=== PATIENT | female | born 1965 | race Caucasian/White ===

== ENCOUNTER 2017-02-03 12:46 | Emergency (ER) | payer BC ==
--- NOTE | 2017-02-03 13:00 | ER Document Report ---
ED Medical Screen (RME) - General Stated Complaint: CHEST PAIN Time seen by provider: 13:00 Mode of Arrival: Wheelchair Information source: Patient Notes: 51-year-old female presented to ED for chest pain dizziness nausea. I have greeted and performed a rapid initial assessment of this patient. A comprehensive ED assessment and evaluation of the patient, analysis of test results and completion of medical decision making process will be conducted by an additional ED providers. TRAVEL OUTSIDE OF THE [place] IN LAST 30 DAYS: No - Related Data Allergies/Adverse Reactions: aspirin [Aspirin] Allergy (Verified 05/08/16 08:27) Hives Past Medical History - Past Medical History Cardiac Medical History: Reports: Hx Hypertension Neurological Medical History: Reports: Hx Cerebrovascular Accident - 2005 Psychiatric Medical History: Reports: Hx Depression Past Surgical History: Reports: Hx Section, Hx Orthopedic Surgery - jaw - Immunizations Immunizations up to date: Yes Hx Diphtheria, Pertussis, Tetanus Vaccination: Yes
[2017-02-03] MEDS ORDERED: ASPIRIN 81 MG TABLET, CHEWABLE PO ONE (13:01)
[2017-02-03] MEDS ORDERED: FENTANYL CITRATE INJ/PF 100 MCG/2 ML AMPUL ONE (13:10)
[2017-02-03] MEDS ORDERED: TENECTEPLASE INJ 50 MG KIT IV ONE ×2 (13:11→16:30)
[2017-02-03] MEDS ORDERED: CLOPIDOGREL BISULFATE 300 MG TABLET PO ONE (13:17)
[2017-02-03 13:21] LABS: ABSOLUTE BASOPHILS # (AUTO) 0.1 10^3/uL (0.0-0.2); ABSOLUTE EOSINOPHILS # (AUTO) 0.1 10^3/uL (0.0-0.6); ABSOLUTE LYMPHOCYTES (AUTO) 3.2 10^3/uL (0.5-4.7); ABSOLUTE MONOCYTES (AUTO) 1.1 10^3/uL (0.1-1.4); ABSOLUTE NEUT (AUTO) 14.9 10^3/uL (1.7-8.2); BASOPHILS % (AUTO) 0.5 % (0-2); EOSINOPHILS % (AUTO) 0.4 % (0-6); HEMATOCRIT 50.1 % (36.0-47.0); HEMOGLOBIN 17.9 g/dL (12.0-15.5); HGB HCT DIFFERENCE 3.6; LYMPHOCYTES % (AUTO) 16.6 % (13-45); MEAN CORPUSCULAR HEMOGLOBIN 29.8 pg (27.0-33.4); MEAN CORPUSCULAR HGB CONC 35.7 g/dL (32.0-36.0); MEAN CORPUSCULAR VOLUME 83 fl (80-97); MONOCYTES % (AUTO) 5.8 % (3-13); RED BLOOD COUNT 6.01 10^6/uL (3.72-5.28); RED CELL DISTRIBUTION WIDTH 15.6 % (11.5-14.0); SEGMENTED NEUTROPHILS % (AUTO) 76.7 % (42-78); WHITE BLOOD COUNT 19.4 10^3/uL (4.0-10.5)
--- NOTE | 2017-02-03 13:26 | ER Document Report ---
ED Cardiac - General Time seen by provider: 13:05 Mode of Arrival: Wheelchair Information source: Patient TRAVEL OUTSIDE OF THE [place] IN LAST 30 DAYS: No - HPI Patient complains to provider of: Chest pain, Chest tightness, Shortness of breath Was the onset of pain: Sudden Is the pain a: New problem Quality of pain: Sharp Chest pain radiation location: Right jaw, Right arm Cardiac risk factors: Hypertension, Smoker Positive cardiac history: Yes Associated symptoms: Jaw pain <ELANA PRESSLEY - Last Filed: 02/03/17 17:44> <JATIN DAWN - Last Filed: 02/18/17 05:47> - General Chief Complaint: Chest Pain > 30 Stated Complaint: CHEST PAIN Notes: Patient is a 51-year-old female presenting to the emergency department for shortness of breath and chest pain. Patient had an abnormal EKG at triage and was brought back. Patient states her chest pain radiates into her right jaw and right arm. Patient states she has a tooth abscess on the left jaw so it is also in pain but not due to the chest pain. Patient states that she takes oxycodone for her chronic back pain and is on chronic pain management. Patient has a history of hypertension, stroke x1, TIA x2 and ulcers. Patient is a smoker. Patient did not take any aspirin or nitroglycerin prior to arrival; patient was given aspirin in triage. Patient has not drank any EtOH in the past 24 hours however she did have wine coolers on Tuesday. Patient's primary care physician is Dr. Shaw. (ELANA PRESSLEY) - Related Data Allergies/Adverse Reactions: aspirin [Aspirin] Allergy (Verified 02/03/17 14:44) Hives Past Medical History - General Information source: Patient - Social History Smoking Status: Current Every Day Smoker Chew tobacco use (# tins/day): No Frequency of alcohol use: None Drug Abuse: None Family History: None Patient has suicidal ideation: No Patient has homicidal ideation: No - Past Medical History Cardiac Medical History: Reports: Hx Hypertension EENT Medical History: Reports: Other - tooth abscess Neurological Medical History: Reports: Hx Cerebrovascular Accident - 2006, Other - TIA x2 Psychiatric Medical History: Reports: Hx Depression Past Surgical History: Reports: Hx Section, Hx Orthopedic Surgery - jaw - Immunizations Immunizations up to date: Yes Hx Diphtheria, Pertussis, Tetanus Vaccination: Yes <ELANA PRESSLEY - Last Filed: 02/03/17 17:44> Review of Systems - Review of Systems Constitutional: No symptoms reported EENT: No symptoms reported Cardiovascular: See HPI, Chest pain Respiratory: See HPI, Short of breath Gastrointestinal: No symptoms reported Genitourinary: No symptoms reported Female Genitourinary: No symptoms reported Musculoskeletal: No symptoms reported Skin: No symptoms reported Hematologic/Lymphatic: No symptoms reported Neurological/Psychological: No symptoms reported -: Yes All other systems reviewed and negative <ELANA PRESSLEY - Last Filed: 02/03/17 17:44> Physical Exam - Vital signs Interpretation: Tachycardic - General General appearance: Alert, Other - appears uncomfortable In distress: Mild - HEENT Head: Normocephalic, Atraumatic Eyes: Normal Pupils: PERRL Mucous membranes: Moist - Respiratory Respiratory status: No respiratory distress Chest status: Nontender Breath sounds: Normal Chest palpation: Normal - Cardiovascular Rhythm: Regular, Tachycardia Heart sounds: Normal auscultation Murmur: No - Abdominal Inspection: Normal Distension: No distension Bowel sounds: Normal Tenderness: Nontender Organomegaly: No organomegaly - Back Back: Normal, Nontender - Extremities General upper extremity: Normal inspection, Normal ROM, Normal strength General lower extremity: Normal inspection, Normal ROM, Normal strength, Other - equal and bilateral femural and pedis pulses - Neurological Neuro grossly intact: Yes Cognition: Normal Orientation: AAOx4 Sloan Coma Scale Eye Opening: Spontaneous Rawlings Coma Scale Verbal: Oriented Sloan Coma Scale Motor: Obeys Commands Rawlings Coma Scale Total: 15 Speech: Normal - Psychological Associated symptoms: Normal affect, Normal mood - Skin Skin Temperature: Warm Skin Moisture: Dry Skin Color: Other - good perfusion <ELANA PRESSLEY - Last Filed: 02/03/17 17:44> <JATIN DAWN - Last Filed: 02/18/17 05:47> - Vital signs Vitals: Pulse Resp BP Pulse Ox 118 H 29 H 106/67 100 02/03/17 13:02 02/03/17 13:02 02/03/17 13:02 02/03/17 13:02 Pulse Resp BP Pulse Ox 118 H 29 H 106/67 100 02/03/17 13:02 02/03/17 13:02 02/03/17 13:02 02/03/17 13:02 (ELANA PRESSLEY) Course - Laboratory Result Diagrams: 02/03/17 13:06 02/03/17 13:58 <ELANA PRESSLEY - Last Filed: 02/03/17 17:44> - Laboratory Result Diagrams: 02/03/17 13:06 02/03/17 13:58 <JATIN DAWN - Last Filed: 02/18/17 05:47> - Re-evaluation Re-evalutation: 02/03/17 13:42 I personally performed the services described in the documentation, reviewed and edited the documentation which was dictated to my scribe in my presence, and it accurately records my words and actions. Patient seen at 1300 fighting contacted at 1305 fighting callback at [address] Curtis Machado and emtala form filled out. Patient presented to the emergency from several hour history of substernal chest pain associated with shortness of breath jaw radiation arm radiation vomiting substernal to the back. She has history of high blood pressure CVA is a heavy smoker diabetes but denies any history of heart problems has had a stroke in the past. On EKG shows large anterior lateral IA. Initially stated she was allergic to aspirin. When I asked her specifically she said she is not allergic to it the nurse gave her the aspirin she so maybe she is allergic to it she may have had hives when she was a child. She had been given the aspirin had no associated side effects with it. 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 ( JATIN DAWN) - Vital Signs Vital signs: Temp Pulse Resp BP Pulse Ox 98.2 F 94 32 H 141/99 H 100 02/03/17 14:02 02/03/17 14:02 02/03/17 14:02 02/03/17 14:02 02/03/17 14:02 - Laboratory Laboratory results interpreted by me: 02/03/17 02/03/17 02/03/17 13:06 13:58 13:58 WBC 19.4 H RBC 6.01 H Hgb 17.9 H Hct 50.1 H RDW 15.6 H Absolute Neutrophils 14.9 H Sodium 131.5 L Chloride 95 L Glucose 189 H Magnesium 1.1 L* AST 201 H ALT 64 H Alkaline Phosphatase 133 H Creatine Kinase 1205 H CK-MB (CK-2) 92.80 H - EKG Interpretation by Me Additional EKG results interpreted by me: 02/03/17 13:42 EKG #1 sinus tachycardia at 116 bpm extensive anterior lateral infarct different from previous EKG EKG #1 after TNKase sinus rhythm no acute changes still anterior lateral infarct. EKG 30 minutes after lytic sinus rhythm at 88 bpm slight improvement of anterior ST elevations. (JATIN DAWN) Critical Care Note - Critical Care Note Total time excluding time spent on procedures (mins): 45 <JATIN DAWN - Last Filed: 02/18/17 05:47> Discharge <ELANA PRESSLEY - Last Filed: 02/03/17 17:44> <JATIN DAWN - Last Filed: 02/18/17 05:47> - Discharge Clinical Impression: Acute myocardial infarction of anterolateral wall Condition: Serious Disposition: [facility] Referrals: ESAU HEWITT MD [Primary Care Provider] - Follow up as needed Scribe Documentation - Scribe Written by Emily:: Elana Pressley 02/03/17 18:00 acting as scribe for :: Navin <ELANA PRESSLEY - Last Filed: 02/03/17 17:44>
[2017-02-03 13:55] LABS: ANISOCYTOSIS 1+; POLYCHROMASIA SLIGHT; TOXIC GRANULATION SLIGHT; TOXIC VACUOLATION PRESENT
[2017-02-03] MEDS ORDERED: ENOXAPARIN SODIUM INJ 100 MG/1 ML DISP.SYRIN SUBCUT ONE (14:00)
[2017-02-03] MEDS ORDERED: NORMAL SALINE 1000 ML 1,000 ML IV PRN (14:05)
[2017-02-03 14:07] VITALS: BP 141/99
[2017-02-03 14:22] LABS: PROTHROMBIN TIME 14.9 SEC (11.4-15.4)
[2017-02-03 14:23] LABS: PARTIAL THROMBOPLASTIN TIME 34.8 SEC (23.5-35.8)
[2017-02-03 14:33] LABS: ALANINE AMINOTRANSFERASE 64 U/L (9-52); ALBUMIN 4.1 g/dL (3.5-5.0); ALKALINE PHOSPHATASE 133 U/L (38-126); ASPARTATE AMINO TRANSFERASE 201 U/L (14-36); BLOOD UREA NITROGEN 16 mg/dL (7-20); CALCIUM 9.5 mg/dL (8.4-10.2); CHLORIDE 95 mmol/L (98-107); CREATINE KINASE 1205 U/L (30-135); CREATININE RESULT 0.96 mg/dL (0.52-1.25); GLUCOSE 189 mg/dL (75-110); POTASSIUM 4.3 mmol/L (3.6-5.0); SODIUM 131.5 mmol/L (137-145); TOTAL PROTEIN 7.1 g/dL (6.3-8.2)
[2017-02-03 14:34] LABS: ANION GAP 13 (5-19); CARBON DIOXIDE 24 mmol/L (22-30)
[2017-02-03 14:41] LABS: MAGNESIUM 1.1 mg/dL (1.6-2.3)
[2017-02-03 14:43] LABS: CREATINE KINASE MB 92.8 ng/mL (<4.55)
[2017-02-03 14:45] LABS: TROPONIN I 29.1 ng/mL
[2017-02-03] MEDS ORDERED: ENOXAPARIN SODIUM INJ 30 MG/0.3 ML DISP.SYRIN ONE (16:30)
[2017-02-03] MEDS ORDERED: NITROGLYCERIN 0.4 MG/TAB 25 TAB/BOTTLE ONE (16:30)
[2017-02-03] MEDS ORDERED: CLOPIDOGREL BISULFATE 300 MG TABLET ONE (16:30)
[2017-02-03] MEDS ORDERED: ASPIRIN 81 MG TABLET, CHEWABLE ONE (16:30)
[2017-02-03] MEDS ORDERED: ENOXAPARIN SODIUM INJ 30 MG/0.3 ML DISP.SYRIN IV ONE (19:45)
[2017-02-03] MEDS ORDERED: NORMAL SALINE 1000 ML 2,000 ML IV PRN (19:52)
--- NOTE | 2017-02-04 05:35 | EKG REPORT ---
SEVERITY:- ABNORMAL ECG - SINUS TACHYCARDIA RIGHT ATRIAL ABNORMALITY EXTENSIVE ANTERIOR INFARCT, ACUTE : Confirmed by: Corinna Zambrano MD 04-Feb-2017 05:34:41
--- NOTE | 2017-02-04 05:35 | EKG REPORT ---
SEVERITY:- ABNORMAL ECG - SINUS RHYTHM RIGHT ATRIAL ABNORMALITY BORDERLINE INFERIOR Q WAVES ANTERIOR INFARCT, ACUTE LATERAL LEADS ARE ALSO INVOLVED : Confirmed by: Corinna Zambrano MD 04-Feb-2017 05:34:25
--- NOTE | 2017-02-04 05:35 | EKG REPORT ---
SEVERITY:- ABNORMAL ECG - SINUS RHYTHM ANTERIOR INFARCT, ACUTE : Confirmed by: Corinna Zambrano MD 04-Feb-2017 05:33:25
--- NOTE | 2017-02-04 05:35 | EKG REPORT ---
SEVERITY:- ABNORMAL ECG - SINUS RHYTHM ANTERIOR INFARCT, ACUTE LATERAL LEADS ARE ALSO INVOLVED : Confirmed by: Corinna Zambrano MD 04-Feb-2017 05:34:15
== END 2017-02-03 14:08 | disposition short-term general hospital (02) ==
LOC: ER 12:46
DX: I21.3 ST elevation (STEMI) myocardial infarction of unspecified site (principal); R07.9 Chest pain, unspecified; R06.02 Shortness of breath; R68.84 Jaw pain; M79.601 Pain in right arm; F17.200 Nicotine dependence, unspecified, uncomplicated
CPT/HCPCS: 93005; 99291; 96372; 96361; 96374; 96375; 36415; 82553; 82550; 83735; 85025; 85610; 85730; 80053; 84484; 71010; 93010; J3101; J3490; J3010; J1650 ×2

== ENCOUNTER → 2017-02-24 | Outpatient (CLI) | payer BC ==
--- NOTE | 2017-02-24 11:55 | XCELERA REPORT ---
[address] [address] Lower Extremity Arterial Evaluation Name: RICCARDO GARCIA Age: 51 yrs Gender: Female : 1965 Patient Status: Outpatient Patient Location: Study Date: 02/24/2017 10:29 AM Procedure: A color flow and duplex scan of the lower extremity arteries was performed bilaterally with velocity and waveform anaylsis. Ankle brachial indicies performed. Reason For Study: PVD Ordering Physician: KARMEN MARINO Performed By: Faizan Balderrama Measurements and Calculations Right Left DISABILITY SPECIALIST PSV 81.7 102.6 cm/sec Prox PFA PSV -71.7 -76.6 cm/sec Dist SFA PSV -80.5 -83.8 cm/sec Dist Pop A PSV 51.5 46.4 cm/sec Dist DELGADO PSV 66.4 82.5 cm/sec Dist FURNACE MAINTENANCE PSV 56.3 74.2 cm/sec Mu Pedis PSV 36.7 48.7 cm/sec Right Side Arterial Evaluation Normal velocity and triphasic waveforms noted from the Common Femoral artery to the infrageniculate vessels. 0 % stenosis noted. Ankle Brachial index is 0.96. Left Side Arterial Evaluation Normal velocity and triphasic waveforms noted from the Common Femoral artery to the infrageniculate vessels. 0% stenosis noted. Ankle Brachial index is 1.96. Interpretation Summary No hemodynamically significant lesions in the bilateral lower extremities, on duplex imaging, at rest. : KARMEN MARINO > Nestor Coley
== END ==
LOC: SP 10:03
PROVIDERS: ATTEND Family Medicine
DX: I25.10 Atherosclerotic heart disease of native coronary artery without angina pectoris (principal); I73.9 Peripheral vascular disease, unspecified
CPT/HCPCS: 93880; 93925

== ENCOUNTER 2017-03-21 08:18 | Day surgery (SDC) | payer BC ==
[~2017-03-21 08:18] MED LIST: PROPOFOL INJ 200 MG/20 ML VIAL IV ONE
[2017-03-21 09:53] VITALS: BP 136/87
--- NOTE | 2017-03-21 11:47 | Operative Report ---
Operative Report DATE OF SURGERY: 03/21/17 Operative Report: The risks benefits and alternatives of the procedure explained to the patient in detail and informed consent is obtained that GIF Olympus video scope was inserted into the patient's mouth and hypopharynx the esophagus is identified intubated and insufflated the scope was then advanced through the esophagus stomach and duodenum retroflexion maneuver is done the esophagus stomach and first and second portions of the duodenum examined PREOPERATIVE DIAGNOSIS: Dysphagia POSTOPERATIVE DIAGNOSIS: Schatzki's ring status post breakage. Gastritis status post biopsy rule out Helicobacter pylori OPERATION: EGD with biopsy SURGEON: ISAAC MURILLO ANESTHESIA: LMAC TISSUE REMOVED OR ALTERED: Gastric specimen obtained rule out Helicobacter pylori COMPLICATIONS: None. ESTIMATED BLOOD LOSS: none. INTRAOPERATIVE FINDINGS: As described above. PROCEDURE: Patient tolerated the procedure well. No immediate postprocedure complications are noted. Patient discharged in good condition. Discharge date 03/21/2017. Discharge diet: Regular. Discharge activity: Regular. 2-3 week follow-up to discuss findings. We'll await on biopsies. Patient is instructed to call the office or proceed to the emergency room should there be any further problems or questions.
[2017-03-21] MEDS ORDERED: DIPHENHYDRAMINE HCL 50 MG/ML VIAL IV PRN (13:06)
[2017-03-21] MEDS ORDERED: OXYCODONE-ACETAMINOPHEN 5-325 MG TABLET PO PRN ×2 (13:06)
[2017-03-21] MEDS ORDERED: MORPHINE SULFATE 10 MG/ML INJ IV PRN (13:06)
[2017-03-21] MEDS ORDERED: PROMETHAZINE HCL INJ 25 MG/1 ML VIAL IV PRN ×2 (13:06)
[2017-03-21] MEDS ORDERED: MEPERIDINE HCL/PF INJ 25 MG/1 ML DISP.SYRIN IV PRN (13:06)
[2017-03-21] MEDS ORDERED: ONDANSETRON HCL INJ/PF 4 MG/2 ML SDV IV PRN (13:06)
[2017-03-21] MEDS ORDERED: FENTANYL CITRATE INJ/PF 100 MCG/2 ML AMPUL IV PRN ×3 (13:06)
== END 2017-03-21 10:00 | disposition home or self-care (01) ==
LOC: END 08:18
PROVIDERS: ATTEND Internal Medicine Gastroenterology
PROC: 0DB68ZX Excision of Stomach, Via Natural or Artificial Opening Endoscopic, Diagnostic (ICD-10-PCS; principal; 2017-03-21 10:30)
DX: K29.50 Unspecified chronic gastritis without bleeding (principal); B96.81 Helicobacter pylori [H. pylori] as the cause of diseases classified elsewhere; K22.2 Esophageal obstruction; I10 Essential (primary) hypertension; I25.10 Atherosclerotic heart disease of native coronary artery without angina pectoris; K21.9 Gastro-esophageal reflux disease without esophagitis; M19.90 Unspecified osteoarthritis, unspecified site; I25.2 Old myocardial infarction; R73.03 Prediabetes; M47.9 Spondylosis, unspecified; F17.210 Nicotine dependence, cigarettes, uncomplicated; J45.909 Unspecified asthma, uncomplicated; Z86.73 Personal history of transient ischemic attack (TIA), and cerebral infarction without residual deficits; Z79.82 Long term (current) use of aspirin; Z79.899 Other long term (current) drug therapy
CPT/HCPCS: 43239; 88305 ×2; 88312 ×2; J2704; 740

== ENCOUNTER → 2017-03-23 | Outpatient (CLI) | payer BC | LOC: OD 16:32 | PROVIDERS: ATTEND Family Medicine | DX: R06.02 Shortness of breath (principal) | CPT/HCPCS: 71020 ==

== ENCOUNTER 2017-03-30 11:50 | Emergency (ER) | payer BC ==
[2017-03-30] MEDS ORDERED: HALOPERIDOL 2 MG TABLET PO ONE (12:13)
[2017-03-30] MEDS ORDERED: PROMETHAZINE HCL 25 MG TABLET PO ONE (12:13)
--- NOTE | 2017-03-30 12:16 | ER Document Report ---
ED General - General Chief Complaint: Headache Stated Complaint: HEADACHE,DIZZY Time Seen by Provider: 03/30/17 12:12 Mode of Arrival: Ambulatory Information source: Patient Notes: 51-year-old female with 10 day history of diffuse bilateral headache, cough, nasal congestion, nausea, vomiting, and body aches. She doesn't recall having headaches like this before but says it's worse with coughing or sneezing. 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 She also reports a history of ND 2 months ago for which she was flown to another facility. Physical Exam: General: Alert, appears well. HEENT: Normocephalic. Atraumatic. PERRLA. Extraocular movements intact. Discs sharp no papilledema sclerae anicteric tympanogram and canals clear no otorhinorrhea Oropharynx clear. Neck: Supple. Non-tender. No adenopathy no JVD no nuchal rigidity Respiratory: No respiratory distress. Clear and equal breath sounds bilaterally. Cardiovascular: Regular rate and rhythm. Abdominal: Normal Inspection. Soft, non-tender. No distension. Normal Bowel Sounds. Back: Non-tender. No deformity or step off. Treatment is warm to plus pulses no cyanosis no edema no Homans sign Neurological: Cranial nerves III-XII grossly intact bilaterally. Strength 5/5 throughout. Sensation intact to light touch. Normal cognition. AAOx4. Normal speech. Cerebellar function intact by finger to nose test bilaterally Psychological: Normal affect. Normal Mood. Skin: Warm. Dry. Normal color. TRAVEL OUTSIDE OF THE [place] IN LAST 30 DAYS: No - Related Data Allergies/Adverse Reactions: No Known Allergies Allergy (Verified 03/21/17 08:29) Past Medical History - Social History Smoking Status: Current Every Day Smoker Family History: None Patient has suicidal ideation: No Patient has homicidal ideation: No - Past Medical History Cardiac Medical History: Reports: Hx Heart Attack - ND ABOUT 3 WEEKS, Hx Hypertension Pulmonary Medical History: Reports: Hx Asthma, Hx Pneumonia - ABOUT 30 YEARS AGO Denies: Hx Bronchitis, Hx COPD Neurological Medical History: Reports: Hx Cerebrovascular Accident - 2005. Denies: Hx Seizures Renal/ Medical History: Denies: Hx Peritoneal Dialysis Musculoskeltal Medical History: Denies Hx Arthritis Psychiatric Medical History: Reports: Hx Depression Past Surgical History: Reports: Hx Section, Hx Orthopedic Surgery - jaw - Immunizations Immunizations up to date: Yes Hx Diphtheria, Pertussis, Tetanus Vaccination: Yes Review of Systems - Review of Systems Constitutional: denies: Chills, Fever EENT: See HPI. denies: Ear pain, Throat pain Cardiovascular: Dizziness. denies: Chest pain, Syncope Respiratory: Cough. denies: Short of breath Gastrointestinal: Nausea, Vomiting. denies: Abdominal pain, Diarrhea Genitourinary: denies: Burning, Dysuria Female Genitourinary: denies: Musculoskeletal: denies: Back pain Skin: denies: Rash Hematologic/Lymphatic: denies: Swollen glands Neurological/Psychological: denies: Weakness, Numbness Physical Exam - Vital signs Vitals: Temp Pulse Resp BP Pulse Ox 98.2 F 101 H 18 111/77 97 03/30/17 11:59 03/30/17 11:59 03/30/17 11:59 03/30/17 11:59 03/30/17 11:59 Course - Vital Signs Vital signs: Temp Pulse Resp BP Pulse Ox 98.2 F 101 H 18 111/77 97 03/30/17 11:59 03/30/17 11:59 03/30/17 11:59 03/30/17 11:59 03/30/17 11:59
[2017-03-30] MEDS ORDERED: MORPHINE SULFATE 10 MG/ML INJ IV ONE (12:40)
--- NOTE | 2017-03-30 12:40 | ER Document Report ---
ED General - General Chief Complaint: Headache Stated Complaint: HEADACHE,DIZZY Time Seen by Provider: 03/30/17 12:12 Mode of Arrival: Ambulatory Information source: Patient Notes: 51-year-old female history of hemorrhagic CVA in the past who had a recent VT 3 weeks ago was placed on brilanta TRAVEL OUTSIDE OF THE [place] IN LAST 30 DAYS: No - Related Data Allergies/Adverse Reactions: No Known Allergies Allergy (Verified 03/21/17 08:29) Past Medical History - General Information source: Patient - Social History Smoking Status: Current Every Day Smoker Family History: None Patient has suicidal ideation: No Patient has homicidal ideation: No - Past Medical History Cardiac Medical History: Reports: Hx Heart Attack - [place] ABOUT 3 WEEKS, Hx Hypertension Pulmonary Medical History: Reports: Hx Asthma, Hx Pneumonia - ABOUT 30 YEARS AGO Denies: Hx Bronchitis, Hx COPD Neurological Medical History: Reports: Hx Cerebrovascular Accident - 2005. Denies: Hx Seizures Renal/ Medical History: Denies: Hx Peritoneal Dialysis Musculoskeltal Medical History: Denies Hx Arthritis Psychiatric Medical History: Reports: Hx Depression Past Surgical History: Reports: Hx Section, Hx Orthopedic Surgery - jaw - Immunizations Immunizations up to date: Yes Hx Diphtheria, Pertussis, Tetanus Vaccination: Yes Physical Exam - Vital signs Vitals: Temp Pulse Resp BP Pulse Ox 98.2 F 101 H 18 111/77 97 03/30/17 11:59 03/30/17 11:59 03/30/17 11:59 03/30/17 11:59 03/30/17 11:59 Course - Re-evaluation Re-evalutation: 03/30/17 12:40 pearl paged for transfer 03/30/17 12:49 Spoke with Neurosurgery who requests transfer to MICU Will contact micu 03/30/17 12:59 Dr Sandhu accepts transfer , pt admits to taking the brilanta this morning . 03/30/17 13:19 awaiting transport, pt well appearing , pcp notified of results - Vital Signs Vital signs: Temp Pulse Resp BP Pulse Ox 98.2 F 101 H 20 108/87 H 98 03/30/17 11:59 03/30/17 11:59 03/30/17 13:01 03/30/17 13:01 03/30/17 13:01 - Laboratory Result Diagrams: 03/30/17 12:42 05/10/17 12:42 Laboratory results interpreted by me: 03/30/17 12:42 WBC 10.7 H RDW 14.3 H Critical Care Note - Critical Care Note Total time excluding time spent on procedures (mins): 40 Comments: minutes of critical care time spent in direct contact evaluating and reevaluating the patient, treating symptoms, reviewing labs and studies and speaking with family and consultants excluding any procedures Discharge - Discharge Clinical Impression: Subdural hematoma, Hx of fdc use of blood thinners Head ache Qualifiers: Headache type: unspecified Headache chronicity pattern: acute headache Intractability: not intractable Qualified Code(s): R51 - Headache Condition: Stable Disposition: [facility]
[2017-03-30 13:12] LABS: ABSOLUTE BASOPHILS # (AUTO) 0.1 10^3/uL (0.0-0.2); ABSOLUTE EOSINOPHILS # (AUTO) 0.4 10^3/uL (0.0-0.6); ABSOLUTE LYMPHOCYTES (AUTO) 2.7 10^3/uL (0.5-4.7); ABSOLUTE MONOCYTES (AUTO) 0.8 10^3/uL (0.1-1.4); ABSOLUTE NEUT (AUTO) 6.8 10^3/uL (1.7-8.2); BASOPHILS % (AUTO) 0.7 % (0-2); EOSINOPHILS % (AUTO) 3.5 % (0-6); HEMATOCRIT 41.4 % (36.0-47.0); HGB HCT DIFFERENCE 0.6; LYMPHOCYTES % (AUTO) 24.9 % (13-45); MEAN CORPUSCULAR HEMOGLOBIN 28.9 pg (27.0-33.4); MEAN CORPUSCULAR HGB CONC 33.8 g/dL (32.0-36.0); MEAN CORPUSCULAR VOLUME 85 fl (80-97); MONOCYTES % (AUTO) 7.3 % (3-13); RED BLOOD COUNT 4.84 10^6/uL (3.72-5.28); RED CELL DISTRIBUTION WIDTH 14.3 % (11.5-14.0); SEGMENTED NEUTROPHILS % (AUTO) 63.6 % (42-78); WHITE BLOOD COUNT 10.7 10^3/uL (4.0-10.5)
[2017-03-30 13:17] LABS: PROTHROMBIN TIME 13.7 SEC (11.4-15.4)
[2017-03-30 13:29] LABS: ALANINE AMINOTRANSFERASE 38 U/L (9-52); ALBUMIN 4.5 g/dL (3.5-5.0); ALKALINE PHOSPHATASE 243 U/L (38-126); ANION GAP 12 (5-19); ASPARTATE AMINO TRANSFERASE 33 U/L (14-36); BILIRUBIN,DIRECT 0.6 mg/dL (0.0-0.4); BILIRUBIN,TOTAL 1.3 mg/dL (0.2-1.3); BLOOD UREA NITROGEN 12 mg/dL (7-20); CALCIUM 10.2 mg/dL (8.4-10.2); CARBON DIOXIDE 25 mmol/L (22-30); CHLORIDE 100 mmol/L (98-107); CREATININE RESULT 0.71 mg/dL (0.52-1.25); GLUCOSE 126 mg/dL (75-110); POTASSIUM 4.3 mmol/L (3.6-5.0); SODIUM 136.7 mmol/L (137-145); TOTAL PROTEIN 8.2 g/dL (6.3-8.2)
[2017-03-30 14:03] VITALS: BP 127/77
== END 2017-03-30 14:04 | disposition short-term general hospital (02) ==
LOC: ER 11:50
DX: I62.00 Nontraumatic subdural hemorrhage, unspecified (principal); H53.8 Other visual disturbances; R51 Headache; I25.10 Atherosclerotic heart disease of native coronary artery without angina pectoris; I10 Essential (primary) hypertension; J45.909 Unspecified asthma, uncomplicated; F17.200 Nicotine dependence, unspecified, uncomplicated; Z98.61 Coronary angioplasty status; Z98.890 Other specified postprocedural states; Z79.02 Long term (current) use of antithrombotics/antiplatelets
CPT/HCPCS: 99291; 96374; 36415; 85025; 85610; 80053; 70450; J3490; J2270

== ENCOUNTER 2017-05-23 10:45 | Emergency (ER) | payer BC ==
--- NOTE | 2017-05-23 11:18 | ER Document Report ---
ED Medical Screen (RME) - General Chief Complaint: Altered Mental Status Stated Complaint: ALTERED MENTAL STATUS Time Seen by Provider: 05/23/17 11:05 Notes: Patient is a 51-year-old female, past medical history CAD, prior CVAs, presents with 5 days of her mental status, confusion and slurred speech. She was started on a new muscle relaxer that is a "green and white" pill. She is not sure if she fell or hit her that this week. PE: AAOx2. Drowsy. Pupils constricted but reactive. RRR. Protecting airway. I have greeted and performed a rapid initial assessment of this patient. A comprehensive ED assessment and evaluation of the patient, analysis of test results and completion of the medical decision making process will be conducted by additional ED providers. TRAVEL OUTSIDE OF THE [place] IN LAST 30 DAYS: No - Related Data Allergies/Adverse Reactions: No Known Allergies Allergy (Verified 05/23/17 10:48) Past Medical History - Past Medical History Cardiac Medical History: Reports: Hx Heart Attack - [place] ABOUT 3 WEEKS, Hx Hypertension Pulmonary Medical History: Reports: Hx Asthma, Hx Pneumonia - ABOUT 30 YEARS AGO Denies: Hx Bronchitis, Hx COPD Neurological Medical History: Reports: Hx Cerebrovascular Accident - 2005. Denies: Hx Seizures Renal/ Medical History: Denies: Hx Peritoneal Dialysis Musculoskeltal Medical History: Denies Hx Arthritis Psychiatric Medical History: Reports: Hx Depression Past Surgical History: Reports: Hx Section, Hx Orthopedic Surgery - jaw - Immunizations Immunizations up to date: Yes Hx Diphtheria, Pertussis, Tetanus Vaccination: Yes Physical Exam - Vital signs Vitals: Temp Pulse Resp BP Pulse Ox 97.9 F 89 16 109/77 96 05/23/17 10:48 05/23/17 10:48 05/23/17 10:48 05/23/17 10:48 05/23/17 10:48 Course - Vital Signs Vital signs: Temp Pulse Resp BP Pulse Ox 97.9 F 89 16 109/77 96 05/23/17 10:48 05/23/17 10:48 05/23/17 10:48 05/23/17 10:48 05/23/17 10:48
[2017-05-23 11:37] LABS: ABSOLUTE BASOPHILS # (AUTO) 0.1 10^3/uL (0.0-0.2); ABSOLUTE EOSINOPHILS # (AUTO) 0.5 10^3/uL (0.0-0.6); ABSOLUTE LYMPHOCYTES (AUTO) 2.2 10^3/uL (0.5-4.7); ABSOLUTE MONOCYTES (AUTO) 0.6 10^3/uL (0.1-1.4); ABSOLUTE NEUT (AUTO) 1.9 10^3/uL (1.7-8.2); BASOPHILS % (AUTO) 1.2 % (0-2); EOSINOPHILS % (AUTO) 9.7 % (0-6); HEMOGLOBIN 11.9 g/dL (12.0-15.5); HGB HCT DIFFERENCE -1.3; LYMPHOCYTES % (AUTO) 42.5 % (13-45); MEAN CORPUSCULAR HGB CONC 32.1 g/dL (32.0-36.0); MEAN CORPUSCULAR VOLUME 90 fl (80-97); MONOCYTES % (AUTO) 10.5 % (3-13); RED BLOOD COUNT 4.09 10^6/uL (3.72-5.28); RED CELL DISTRIBUTION WIDTH 15.9 % (11.5-14.0); SEGMENTED NEUTROPHILS % (AUTO) 36.1 % (42-78); WHITE BLOOD COUNT 5.2 10^3/uL (4.0-10.5)
--- NOTE | 2017-05-23 11:41 | RADIOLOGY REPORT (SQ) ---
EXAM DESCRIPTION: CT HEAD WITHOUT COMPLETED DATE/TIME: 05/23/2017 11:32 am REASON FOR STUDY: AMS, fall on Br[place] COMPARISON: 03/30/2017 TECHNIQUE: Axial images acquired through the brain without intravenous contrast. Images reviewed wi th bone, brain and subdural windows. Images stored on PACS. All CT scanners at this facility use dose modulation, iterative reconstruction, and/or weight based d osing when appropriate to reduce radiation dose to as low as reasonably achievable (ALARA). [facility]: Dose Right [facility]: CareDose [facility]: Dose Right [facility]: Teradose 4D [facility]: [employer] RADIATION DOSE: Up-to-date CT equipment and radiation dose reduction techniques were employed. CTDIv ol: 64.6 mGy. DLP: 1163 mGy-cm. mGy. LIMITATIONS: None. FINDINGS: VENTRICLES: Prominent. CEREBRUM: No masses. No hemorrhage. No midline shift. Areas of low density in the white matter mos t likely due to chronic micro-vascular ischemic change. No evidence for acute infarction. CEREBELLUM: No masses. No hemorrhage. No alteration of density. No evidence for acute infarction. EXTRAAXIAL SPACES: Mild age-related involutional change. No fluid collections. No masses. ORBITS AND GLOBE: No intra- or extraconal masses. Normal contour of globe without masses. CALVARIUM: No fracture. PARANASAL SINUSES: No fluid or mucosal thickening. SOFT TISSUES: No mass or hematoma. OTHER: No other significant finding. IMPRESSION: No acute abnormality in the brain. TECHNICAL DOCUMENTATION: JOB ID: [id number] Quality ID # [id number]: Final reports with documentation of one or more dose reduction techniques (e.g., Au tomated exposure control, adjustment of the mA and/or kV according to patient size, use of iterative reconstruction technique) 2010 [employer]- All Rights Reserved
[2017-05-23 12:00] LABS: ALANINE AMINOTRANSFERASE 52 U/L (9-52); ALBUMIN 3.9 g/dL (3.5-5.0); ALKALINE PHOSPHATASE 149 U/L (38-126); ANION GAP 11 (5-19); ASPARTATE AMINO TRANSFERASE 38 U/L (14-36); BILIRUBIN,DIRECT 0.3 mg/dL (0.0-0.4); BILIRUBIN,TOTAL 0.5 mg/dL (0.2-1.3); BLOOD UREA NITROGEN 8 mg/dL (7-20); CALCIUM 9.3 mg/dL (8.4-10.2); CARBON DIOXIDE 22 mmol/L (22-30); CHLORIDE 107 mmol/L (98-107); CREATINE KINASE 56 U/L (30-135); CREATININE RESULT 0.67 mg/dL (0.52-1.25); GLUCOSE 145 mg/dL (75-110); LIPASE 114.4 U/L (23-300); POTASSIUM 4.1 mmol/L (3.6-5.0); SODIUM 139.9 mmol/L (137-145); TOTAL PROTEIN 7.1 g/dL (6.3-8.2)
--- NOTE | 2017-05-23 12:03 | RADIOLOGY REPORT (SQ) ---
EXAM DESCRIPTION: CHEST SINGLE VIEW COMPLETED DATE/TIME: 05/23/2017 11:55 am REASON FOR STUDY: SOB COMPARISON: 03/23/2017 EXAM PARAMETERS: NUMBER OF VIEWS: One view. TECHNIQUE: Single frontal radiographic view of the chest acquired. RADIATION DOSE: NA LIMITATIONS: None. FINDINGS: LUNGS AND PLEURA: No opacities, masses or pneumothorax. No pleural effusion. MEDIASTINUM AND HILAR STRUCTURES: No masses. Contour normal. HEART AND VASCULAR STRUCTURES: Heart normal in size. Normal vasculature. BONES: No acute findings. HARDWARE: None in the chest. OTHER: No other significant finding. IMPRESSION: NO ACUTE RADIOGRAPHIC FINDING IN THE CHEST. TECHNICAL DOCUMENTATION: JOB ID: [id number]
--- NOTE | 2017-05-23 12:05 | ER Document Report ---
ED General - General Chief Complaint: Altered Mental Status Stated Complaint: ALTERED MENTAL STATUS Time Seen by Provider: 05/23/17 11:05 Mode of Arrival: Ambulatory Information source: Patient TRAVEL OUTSIDE OF THE [place] IN LAST 30 DAYS: No - HPI Patient complains to provider of: sedated, slurred speech Onset: Other - 3-4 days Onset/Duration: Gradual Quality of pain: No pain Associated symptoms: Productive cough, Weakness Exacerbated by: Denies Relieved by: Denies Notes: Patient is a 51-year-old female with a history of CVA, coronary artery disease, STEMI back in January of this year, who presents to the emergency room complaining of dizziness, shortness of breath, altered mental status, increased sleepiness, productive cough, symptoms have been persistent for the last 3-4 days, patient is a smoker, she is somewhat somnolent during my initial evaluation, requiring repeated prompting to awaken and answer my questions, her pupils are pinpoint, however her vital signs are otherwise stable, she denies any pain at present time, she reports that a friend dropped her off at the emergency room for evaluation - Related Data Allergies/Adverse Reactions: No Known Allergies Allergy (Verified 05/23/17 10:48) Past Medical History - General Information source: Patient - Social History Smoking Status: Current Every Day Smoker Family History: None Patient has suicidal ideation: No Patient has homicidal ideation: No - Past Medical History Cardiac Medical History: Reports: Hx Heart Attack - [place] ABOUT 3 WEEKS, Hx Hypertension Pulmonary Medical History: Reports: Hx Asthma, Hx Pneumonia - ABOUT 30 YEARS AGO Denies: Hx Bronchitis, Hx COPD Neurological Medical History: Reports: Hx Cerebrovascular Accident - 2005. Denies: Hx Seizures Renal/ Medical History: Denies: Hx Peritoneal Dialysis Musculoskeltal Medical History: Denies Hx Arthritis Psychiatric Medical History: Reports: Hx Depression Past Surgical History: Reports: Hx Section, Hx Orthopedic Surgery - jaw - Immunizations Immunizations up to date: Yes Hx Diphtheria, Pertussis, Tetanus Vaccination: Yes Review of Systems - Review of Systems Constitutional: Weakness EENT: No symptoms reported Cardiovascular: No symptoms reported Respiratory: Short of breath Gastrointestinal: No symptoms reported Genitourinary: No symptoms reported Female Genitourinary: No symptoms reported Musculoskeletal: No symptoms reported Skin: No symptoms reported Hematologic/Lymphatic: No symptoms reported Neurological/Psychological: See HPI -: Yes All other systems reviewed and negative Physical Exam - Vital signs Vitals: Temp Pulse Resp BP Pulse Ox 97.9 F 89 16 109/77 96 05/23/17 10:48 05/23/17 10:48 05/23/17 10:48 05/23/17 10:48 05/23/17 10:48 Interpretation: Normal - General General appearance: Other - somnolent but arousable - HEENT Head: Normocephalic, Atraumatic Eyes: Normal Pupils: PERRL - Respiratory Respiratory status: No respiratory distress Chest status: Nontender Breath sounds: Normal Chest palpation: Normal - Cardiovascular Rhythm: Regular Heart sounds: Normal auscultation Murmur: No - Abdominal Inspection: Normal Distension: No distension Bowel sounds: Normal Tenderness: Nontender Organomegaly: No organomegaly - Back Back: Normal, Nontender - Extremities General upper extremity: Normal inspection, Nontender, Normal color, Normal ROM , Normal temperature General lower extremity: Normal inspection, Nontender, Normal color, Normal ROM , Normal temperature, Normal weight bearing. No: Lolis's sign - Neurological Neuro grossly intact: Yes Cognition: Normal Orientation: AAOx4 [place] Coma Scale Eye Opening: To Voice [place] Coma Scale Verbal: Oriented [place] Coma Scale Motor: Obeys Commands [place] Coma Scale Total: 14 Speech: Other - slurred Motor strength normal: LUE, RUE, LLE, RLE Sensory: Normal - Psychological Associated symptoms: Normal affect, Normal mood - Skin Skin Temperature: Warm Skin Moisture: Dry Skin Color: Normal Course - Re-evaluation Re-evalutation: 05/23/17 15:02 Patient is much more awake and alert, she reports feeling much better, lab and imaging findings were discussed with her at bedside which are unremarkable symptoms appear to be related to likely polypharmacy, as patient was quite sedated, with slurred speech, difficult to arouse on arrival, after several hours without any other intervention her symptoms have resolved, patient will be discharged with instructions for follow-up, advised to try to cut back on her opiates and benzos, or return if symptoms worsen, patient acknowledges understanding and agreement with this plan - Vital Signs Vital signs: Temp Pulse Resp BP Pulse Ox 97.9 F 78 18 111/78 96 05/23/17 10:48 05/23/17 12:00 05/23/17 12:00 05/23/17 12:00 05/23/17 12:00 - Laboratory Result Diagrams: 05/23/17 11:22 05/23/17 11:22 Laboratory results interpreted by me: 05/23/17 05/23/17 05/23/17 11:22 11:22 13:54 Hgb 11.9 L RDW 15.9 H Seg Neutrophils % 36.1 L Eosinophils % 9.7 H Glucose 145 H AST 38 H Alkaline Phosphatase 149 H Ur Leukocyte Esterase LARGE H Urine Ascorbic Acid 40 H - Diagnostic Test Radiology reviewed: Image reviewed, Reports reviewed - EKG Interpretation by Me EKG shows normal: Sinus rhythm Rate: Normal Rhythm: NSR Discharge - Discharge Clinical Impression: Generalized weakness Condition: Stable Disposition: HOME, SELF-CARE Instructions: Weakness ([facility]) Additional Instructions: Follow up with your primary care provider in one to 2 days. Return to the emergency room immediately if symptoms worsen or any additional concerns.
[2017-05-23 12:08] LABS: TROPONIN I < 0.012 ng/mL
--- NOTE | 2017-05-23 12:45 | EKG REPORT ---
SEVERITY:- ABNORMAL ECG - SINUS RHYTHM BORDERLINE LEFT AXIS DEVIATION ANTERIOR INFARCT, AGE INDETERMINATE : Confirmed by: Paul Tejeda MD 23-May-2017 12:44:48
[2017-05-23 14:27] LABS: AMORPHOUS SEDIMENT,URINE TRACE /HPF; APPEARANCE,URINE CLOUDY; BILIRUBIN,URINE NEGATIVE (NEGATIVE); GLUCOSE, URINE NEGATIVE (NEGATIVE); KETONES,URINE NEGATIVE (NEGATIVE); LEUKOCYTE ESTERASE,URINE LARGE (NEGATIVE); NITRITE,URINE NEGATIVE (NEGATIVE); PROTEIN,URINE NEGATIVE (NEGATIVE); URINE SPECIFIC GRAVITY 1.013; UROBILINOGEN,URINE NEGATIVE mg/dL (<2.0)
[2017-05-23 14:47] LABS: URINE BARBITURATES SCREEN NEGATIVE; URINE METHADONE SCREEN NEGATIVE; URINE OPIATES LOW UNCONFIRMED POSITIVE; URINE PHENCYCLIDINE SCREEN NEGATIVE
[2017-05-23 15:21] VITALS: BP 107/80
== END 2017-05-23 15:21 | disposition home or self-care (01) ==
LOC: ER 10:45
DX: R53.1 Weakness (principal); R41.82 Altered mental status, unspecified; R05 Cough; R06.02 Shortness of breath; F17.200 Nicotine dependence, unspecified, uncomplicated; I25.10 Atherosclerotic heart disease of native coronary artery without angina pectoris; Z86.73 Personal history of transient ischemic attack (TIA), and cerebral infarction without residual deficits; I25.2 Old myocardial infarction
CPT/HCPCS: 36415; 70450; 71010; 80053; 80307; 81001; 82550; 83605; 83690; 83880; 84484; 85025; 93005; 93010; 99285

== ENCOUNTER 2017-06-27 07:00 | Day surgery (SDC) | payer BC ==
[2017-06-27] MEDS ORDERED: PROPOFOL INJ 200 MG/20 ML VIAL IV ONE (07:25)
[2017-06-27 08:52] VITALS: BP 114/73
--- NOTE | 2017-06-27 14:28 | Operative Report ---
Operative Report DATE OF SURGERY: 06/27/17 Operative Report: The risks, benefits and alternatives of the procedure including risks of bleeding, perforation requiring surgery are explained to the patient detail and informed consent was obtained. Patient was taken back to the endoscopy suite and placed in the left, lateral decubital position. Timeout was called. Propofol medications administered. A rectal examination was done which did not reveal any masses, tears or fissures. An Olympus video scope was inserted into the patient's rectum. The scope was then gradually advanced all the way to the cecum. The cecum is identified by the usual anatomical landmarks of the ileocecal valve as well as the appendiceal office. Photodocumentation is obtained. The scope was then sequentially pulled back via the various segments of the colon including the ascending colon, hepatic flexure, transverse colon, splenic flexure, descending colon and finally the rectosigmoid portions of the colon. Retroflexion maneuver was performed. PREOPERATIVE DIAGNOSIS: Change of bowel habits. POSTOPERATIVE DIAGNOSIS: : Colonic ulcers noted at the ileocecal valve status post biopsy. Diverticulosis. Internal hemorrhoids OPERATION: Colonoscopy with biopsy SURGEON: ISAAC MURILLO ANESTHESIA: LMAC TISSUE REMOVED OR ALTERED: Biopsies obtained at the ileocecal valve without malignancy. COMPLICATIONS: None. ESTIMATED BLOOD LOSS: None. INTRAOPERATIVE FINDINGS: As described above. PROCEDURE: Patient tolerated the procedure well. No immediate postprocedure complications are noted. Patient discharged in good condition. Discharge date 06/27/2017. Discharge diet: Regular. Discharge activity: Regular. 2-3 week follow-up to discuss findings. If biopsies are negative will need surveillance colonoscopy in 6 months May need surgical referral Patient is instructed to call the office or proceed to the emergency room should there be any further problems or questions.
== END 2017-06-27 09:25 | disposition home or self-care (01) ==
LOC: END 07:00
PROVIDERS: ATTEND Internal Medicine Gastroenterology
PROC: 0DBF8ZX Excision of Right Large Intestine, Via Natural or Artificial Opening Endoscopic, Diagnostic (ICD-10-PCS; principal; 2017-06-27 08:00)
DX: K57.30 Diverticulosis of large intestine without perforation or abscess without bleeding (principal); K64.8 Other hemorrhoids; K63.3 Ulcer of intestine; Z79.02 Long term (current) use of antithrombotics/antiplatelets; K21.9 Gastro-esophageal reflux disease without esophagitis; Z79.899 Other long term (current) drug therapy; Z79.82 Long term (current) use of aspirin; I25.2 Old myocardial infarction; J45.909 Unspecified asthma, uncomplicated; I10 Essential (primary) hypertension
CPT/HCPCS: 45380; 88305 ×2; J2704; 810

== ENCOUNTER 2017-12-14 17:49 | Emergency (ER) | payer BC, MEDICAID ==
--- NOTE | 2017-12-14 19:03 | RADIOLOGY REPORT (SQ) ---
EXAM DESCRIPTION: CT HEAD WITHOUT COMPLETED DATE/TIME: 12/14/2017 6:48 pm REASON FOR STUDY: hit head/pain COMPARISON: May 2017 TECHNIQUE: Axial images acquired through the brain without intravenous contrast. Images reviewed wi th bone, brain and subdural windows. Images stored on PACS. All CT scanners at this facility use dose modulation, iterative reconstruction, and/or weight based d osing when appropriate to reduce radiation dose to as low as reasonably achievable (ALARA). [facility]: Dose Right [facility]: CareDose [facility]: Dose Right [facility]: Teradose 4D [facility]: [employer] RADIATION DOSE: mGy. LIMITATIONS: None. FINDINGS: VENTRICLES: Prominent. CEREBRUM: No masses. No hemorrhage. No midline shift. Areas of low density in the white matter mos t likely due to chronic micro-vascular ischemic change. No evidence for acute infarction. CEREBELLUM: No masses. No hemorrhage. No alteration of density. No evidence for acute infarction. EXTRAAXIAL SPACES: Mild age-related involutional change. No fluid collections. No masses. ORBITS AND GLOBE: No intra- or extraconal masses. Normal contour of globe without masses. CALVARIUM: No fracture. PARANASAL SINUSES: No fluid or mucosal thickening. SOFT TISSUES: No mass or hematoma. OTHER: No other significant finding. IMPRESSION: MILD CHRONIC CHANGES OF ATROPHY AND MICROVASCULAR ISCHEMIA. NO ACUTE PROCESS. EVIDENCE OF ACUTE STROKE: NO. TECHNICAL DOCUMENTATION: JOB ID: [id number] Quality ID # [id number]: Final reports with documentation of one or more dose reduction techniques (e.g., Au tomated exposure control, adjustment of the mA and/or kV according to patient size, use of iterative reconstruction technique) 2010 [employer]- All Rights Reserved
--- NOTE | 2017-12-14 19:22 | ER Document Report ---
ED General - General Chief Complaint: Head Injury without LOC Stated Complaint: HEAD PAIN Time Seen by Provider: 12/14/17 18:25 Notes: Patient states she was walking today when she hit her head on a metal pole. She now complains of moderate to severe frontal headache. It is constant. Nothing makes it better or worse. Does not radiate. She states she has a history of head injury with hemorrhage so she was concerned and came to emergency department. She states since he has hit her head she has not noticed any other significant symptoms other than the pain. No vomiting. No changes of vision. No significant extremity weakness or altered sensations. No change of vision. TRAVEL OUTSIDE OF THE [place] IN LAST 30 DAYS: No - Related Data Allergies/Adverse Reactions: No Known Allergies Allergy (Verified 12/14/17 17:52) Past Medical History - General Information source: Patient - Social History Smoking Status: Current Every Day Smoker Frequency of alcohol use: None Drug Abuse: None Lives with: Alone Family History: None - Past Medical History Cardiac Medical History: Reports: Hx Coronary Artery Disease, Hx Heart Attack - JANUARY 2017, Hx Hypertension Pulmonary Medical History: Reports: Hx Asthma, Hx Pneumonia - ABOUT 30 YEARS AGO Denies: Hx Bronchitis, Hx COPD Neurological Medical History: Reports: Hx Cerebrovascular Accident - 2005 X 4. Denies: Hx Seizures Renal/ Medical History: Denies: Hx Peritoneal Dialysis Musculoskeltal Medical History: Denies Hx Arthritis Psychiatric Medical History: Reports: Hx Depression Past Surgical History: Reports: Hx Section, Hx Orthopedic Surgery - jaw - Immunizations Immunizations up to date: Yes Hx Diphtheria, Pertussis, Tetanus Vaccination: Yes Review of Systems - Review of Systems Constitutional: denies: Chills, Fever EENT: denies: Eye discharge, Blurred vision Cardiovascular: denies: Chest pain, Palpitations Respiratory: denies: Cough, Short of breath -: Yes All other systems reviewed and negative Physical Exam - Vital signs Vitals: Temp Pulse Resp BP Pulse Ox 98.1 F 108 H 17 143/88 H 97 12/14/17 17:57 12/14/17 17:57 12/14/17 17:57 12/14/17 17:57 12/14/17 17:57 Interpretation: Normal - General General appearance: Appears well, Alert - HEENT Head: Normocephalic, Atraumatic Eyes: Normal Pupils: PERRL - Respiratory Respiratory status: No respiratory distress Chest status: Nontender Breath sounds: Normal Chest palpation: Normal - Cardiovascular Rhythm: Regular Heart sounds: Normal auscultation Murmur: No - Abdominal Inspection: Normal Distension: No distension Bowel sounds: Normal Tenderness: Nontender Organomegaly: No organomegaly - Back Back: Normal, Nontender - Extremities General upper extremity: Normal inspection, Nontender, Normal color, Normal ROM , Normal temperature General lower extremity: Normal inspection, Nontender, Normal color, Normal ROM , Normal temperature, Normal weight bearing. 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 Sensory: Normal - Psychological Associated symptoms: Normal affect, Normal mood - Skin Skin Temperature: Warm Skin Moisture: Dry Skin Color: Normal Course - Vital Signs Vital signs: Temp Pulse Resp BP Pulse Ox 98.1 F 108 H 17 143/88 H 97 12/14/17 17:57 12/14/17 17:57 12/14/17 17:57 12/14/17 17:57 12/14/17 17:57 - Diagnostic Test Radiology reviewed: Image reviewed, Reports reviewed - Head CT shows no evidence of acute pathology Discharge - Discharge Clinical Impression: Closed head injury Qualifiers: Encounter type: initial encounter Qualified Code(s): S09.90XA - Unspecified injury of head, initial encounter Condition: Stable Disposition: HOME, SELF-CARE Instructions: Concussion ([facility]) Additional Instructions: Your blood pressure is elevated. Please have this rechecked within 1 week by your doctor. Forms: Elevated Blood Pressure, Return to Work
[2017-12-14 19:32] VITALS: BP 129/88
== END 2017-12-14 19:29 | disposition home or self-care (01) ==
LOC: ER 17:49
DX: S09.90XA Unspecified injury of head, initial encounter (principal); R51 Headache; W22.8XXA Striking against or struck by other objects, initial encounter; I10 Essential (primary) hypertension; I25.10 Atherosclerotic heart disease of native coronary artery without angina pectoris; I25.2 Old myocardial infarction; J45.909 Unspecified asthma, uncomplicated; F17.200 Nicotine dependence, unspecified, uncomplicated
CPT/HCPCS: 70450; 99283

== ENCOUNTER 2018-01-07 08:28 | Emergency (ER) | payer BC, MEDICAID ==
--- NOTE | 2018-01-07 09:50 | ER Document Report ---
ED Medical Screen (RME) - General Chief Complaint: Vomiting Stated Complaint: VOMITING Time Seen by Provider: 01/07/18 09:45 Mode of Arrival: Ambulatory Information source: Patient Notes: Patient states she has been vomiting for over 24 hours, unable to keep down even clear fluids. Unable to retain p.o. medications. Continuously feels nauseated. Denies abdominal pain other than soreness from so much vomiting. No diarrhea. No fever noted. TRAVEL OUTSIDE OF THE [place] IN LAST 30 DAYS: No - HPI Onset: Yesterday - Related Data Allergies/Adverse Reactions: No Known Allergies Allergy (Verified 01/07/18 08:29) Past Medical History - Past Medical History Cardiac Medical History: Reports: Hx Coronary Artery Disease, Hx Heart Attack - JANUARY 2017, Hx Hypertension Pulmonary Medical History: Reports: Hx Asthma, Hx Pneumonia - ABOUT 30 YEARS AGO Denies: Hx Bronchitis, Hx COPD Neurological Medical History: Reports: Hx Cerebrovascular Accident - 2005 X 4. Denies: Hx Seizures Renal/ Medical History: Denies: Hx Peritoneal Dialysis Musculoskeltal Medical History: Denies Hx Arthritis Psychiatric Medical History: Reports: Hx Depression Past Surgical History: Reports: Hx Section, Hx Orthopedic Surgery - jaw - Immunizations Immunizations up to date: Yes Hx Diphtheria, Pertussis, Tetanus Vaccination: Yes Physical Exam - Vital signs Vitals: Temp Pulse Resp BP Pulse Ox 98.7 F 109 H 24 H 159/97 H 98 01/07/18 08:33 01/07/18 08:33 01/07/18 08:33 01/07/18 08:33 01/07/18 08:33 Interpretation: Hypertensive, Tachycardic, Tachypneic. No: Febrile - HEENT Head: Normocephalic Eyes: Normal Conjunctiva: Normal Mucous membranes: Dry - Respiratory Respiratory status: No respiratory distress - Cardiovascular Rhythm: Regular, Tachycardia Course - Vital Signs Vital signs: Temp Pulse Resp BP Pulse Ox 98.7 F 109 H 24 H 159/97 H 98 01/07/18 08:33 01/07/18 08:33 01/07/18 08:33 01/07/18 08:33 01/07/18 08:33
[2018-01-07] MEDS ORDERED: NORMAL SALINE 1000 ML 2,000 ML IV ONE (09:51)
[2018-01-07] MEDS ORDERED: ONDANSETRON HCL INJ/PF 4 MG/2 ML SDV IV ONE ×2 (10:30→12:24)
[2018-01-07 10:37] LABS: ABSOLUTE EOSINOPHILS # (AUTO) 0.3 10^3/uL (0.0-0.6); ABSOLUTE LYMPHOCYTES (AUTO) 1.6 10^3/uL (0.5-4.7); ABSOLUTE MONOCYTES (AUTO) 0.5 10^3/uL (0.1-1.4); ABSOLUTE NEUT (AUTO) 4.4 10^3/uL (1.7-8.2); BASOPHILS % (AUTO) 0.6 % (0-2); EOSINOPHILS % (AUTO) 4.7 % (0-6); HEMATOCRIT 41.8 % (36.0-47.0); HEMOGLOBIN 14.1 g/dL (12.0-15.5); LYMPHOCYTES % (AUTO) 23.5 % (13-45); MEAN CORPUSCULAR HEMOGLOBIN 29.1 pg (27.0-33.4); MEAN CORPUSCULAR HGB CONC 33.8 g/dL (32.0-36.0); MEAN CORPUSCULAR VOLUME 86 fl (80-97); MONOCYTES % (AUTO) 6.7 % (3-13); PLATELET COUNT 186 10^3/uL (150-450); RED BLOOD COUNT 4.85 10^6/uL (3.72-5.28); SEGMENTED NEUTROPHILS % (AUTO) 64.5 % (42-78); TOTAL CELLS COUNTED % (AUTO) 100 %; WHITE BLOOD COUNT 6.8 10^3/uL (4.0-10.5)
[2018-01-07 11:00] LABS: ALANINE AMINOTRANSFERASE 33 U/L (9-52); ALBUMIN 4.3 g/dL (3.5-5.0); ALKALINE PHOSPHATASE 174 U/L (38-126); ANION GAP 10 (5-19); ASPARTATE AMINO TRANSFERASE 42 U/L (14-36); BILIRUBIN,DIRECT 0.5 mg/dL (0.0-0.4); BILIRUBIN,TOTAL 0.6 mg/dL (0.2-1.3); BLOOD UREA NITROGEN 7 mg/dL (7-20); CALCIUM 9.6 mg/dL (8.4-10.2); CARBON DIOXIDE 25 mmol/L (22-30); CHLORIDE 102 mmol/L (98-107); GLUCOSE 141 mg/dL (75-110); LIPASE 74.7 U/L (23-300); POTASSIUM 3.8 mmol/L (3.6-5.0); SODIUM 136.7 mmol/L (137-145); TOTAL PROTEIN 7.7 g/dL (6.3-8.2)
[2018-01-07] MEDS ORDERED: IPRATROPIUM/ALBUTEROL 0.5-2.5 MG/3 ML AMPUL NEB ONE (11:21)
[2018-01-07] MEDS ORDERED: MAGNESIUM SULFATE/D5W 1 GM/100 ML RTUPB IV ONE (11:26)
[2018-01-07] MEDS ORDERED: DEXAMETHASONE SOD PHOS INJ 10 MG/1 ML VIAL IV ONE (11:26)
[2018-01-07 11:55] LABS: APPEARANCE,URINE SLIGHTLY-CLOUDY; BILIRUBIN,URINE NEGATIVE (NEGATIVE); COLOR,URINE YELLOW; GLUCOSE, URINE NEGATIVE (NEGATIVE); KETONES,URINE NEGATIVE (NEGATIVE); LEUKOCYTE ESTERASE,URINE NEGATIVE (NEGATIVE); NITRITE,URINE NEGATIVE (NEGATIVE); PROTEIN,URINE NEGATIVE (NEGATIVE); URINE SPECIFIC GRAVITY 1.005; UROBILINOGEN,URINE NEGATIVE mg/dL (<2.0)
[2018-01-07] MEDS ORDERED: PROCHLORPERAZINE EDISYLATE INJ 10 MG/2 ML VIAL IV ONE (12:24)
--- NOTE | 2018-01-07 13:45 | ER Document Report ---
ED General - General Chief Complaint: Vomiting Stated Complaint: VOMITING Time Seen by Provider: 01/07/18 09:45 Mode of Arrival: Ambulatory TRAVEL OUTSIDE OF THE [place] IN LAST 30 DAYS: No - HPI Patient complains to provider of: Nausea vomiting shortness of breath Notes: Patient coming in for nausea vomiting shortness of breath feeling unwell for the last few days. Patient states still smokes. Patient denies any other sick contacts denies receiving a flu shot. Denies any recent travel out of state or out of country denies any recent antibiotics. Resting comfortably upon my evaluation. - Related Data Allergies/Adverse Reactions: No Known Allergies Allergy (Verified 01/07/18 08:29) Past Medical History - General Information source: Patient - Social History Smoking Status: Current Every Day Smoker Chew tobacco use (# tins/day): No Frequency of alcohol use: None Drug Abuse: None Family History: None Patient has suicidal ideation: No Patient has homicidal ideation: No - Past Medical History Cardiac Medical History: Reports: Hx Coronary Artery Disease, Hx Heart Attack - JANUARY 2017, Hx Hypertension Pulmonary Medical History: Reports: Hx Asthma, Hx Pneumonia - ABOUT 30 YEARS AGO Denies: Hx Bronchitis, Hx COPD Neurological Medical History: Reports: Hx Cerebrovascular Accident - 2005 X 4. Denies: Hx Seizures Renal/ Medical History: Denies: Hx Peritoneal Dialysis Musculoskeltal Medical History: Denies Hx Arthritis Psychiatric Medical History: Reports: Hx Depression Past Surgical History: Reports: Hx Section, Hx Orthopedic Surgery - jaw - Immunizations Immunizations up to date: Yes Hx Diphtheria, Pertussis, Tetanus Vaccination: Yes Review of Systems - Review of Systems Constitutional: No symptoms reported EENT: No symptoms reported Cardiovascular: No symptoms reported Respiratory: Wheezing Gastrointestinal: No symptoms reported Genitourinary: No symptoms reported Female Genitourinary: No symptoms reported Musculoskeletal: No symptoms reported Skin: No symptoms reported Hematologic/Lymphatic: No symptoms reported Neurological/Psychological: No symptoms reported -: Yes All other systems reviewed and negative Physical Exam - Vital signs Vitals: Temp Pulse Resp BP Pulse Ox 98.7 F 109 H 24 H 159/97 H 98 01/07/18 08:33 01/07/18 08:33 01/07/18 08:33 01/07/18 08:33 01/07/18 08:33 Interpretation: Normal - General General appearance: Appears well, Alert - HEENT Head: Normocephalic, Atraumatic Eyes: Normal Pupils: PERRL - Respiratory Respiratory status: No respiratory distress Chest status: Nontender Breath sounds: Wheezing Chest palpation: Normal - Cardiovascular Rhythm: Regular Heart sounds: Normal auscultation Murmur: No - Abdominal Inspection: Normal Distension: No distension Bowel sounds: Normal Tenderness: Nontender Organomegaly: No organomegaly - Back Back: Normal, Nontender - Extremities General upper extremity: Normal inspection, Nontender, Normal color, Normal ROM , Normal temperature General lower extremity: Normal inspection, Nontender, Normal color, Normal ROM , Normal temperature, Normal weight bearing. No: Lolis's sign - Neurological Neuro grossly intact: Yes Cognition: Normal Orientation: AAOx4 [place] Coma Scale Eye Opening: Spontaneous [place] Coma Scale Verbal: Oriented [place] Coma Scale Motor: Obeys Commands [place] Coma Scale Total: 15 Speech: Normal Motor strength normal: LUE, RUE, LLE, RLE Sensory: Normal - Psychological Associated symptoms: Normal affect, Normal mood - Skin Skin Temperature: Warm Skin Moisture: Dry Skin Color: Normal Course - Re-evaluation Re-evalutation: 01/07/18 15:23 The patient presents with nausea vomiting without signs of peritonitis or other life-threatening or serious etiology. The patient appears stable for discharge and has been instructed to return immediately if the symptoms worsen in any way , or in 8-12hr if not improved for re-evaluation. The patient has been instructed to return if the symptoms worsen or change in any way. Patient's breathing improved with DuoNeb. Patient will be discharged home. - Vital Signs Vital signs: Temp Pulse Resp BP Pulse Ox 98.7 F 109 H 15 125/84 94 01/07/18 08:33 01/07/18 08:33 01/07/18 14:02 01/07/18 14:02 01/07/18 14:02 - Laboratory Result Diagrams: 01/07/18 10:11 01/07/18 10:11 Laboratory results interpreted by me: 01/07/18 01/07/18 10:11 10:11 RDW 15.0 H Sodium 136.7 L Glucose 141 H Direct Bilirubin 0.5 H AST 42 H Alkaline Phosphatase 174 H Discharge - Discharge Clinical Impression: Tobacco use Dyspnea Qualifiers: Dyspnea type: unspecified Qualified Code(s): R06.00 - Dyspnea, unspecified Nausea & vomiting Qualifiers: Vomiting type: unspecified Vomiting Intractability: unspecified Qualified Code( s): R11.2 - Nausea with vomiting, unspecified Condition: Good Disposition: HOME, SELF-CARE Instructions: Dyspnea, Nonspecific ([facility]), Gastroenteritis (adult) ([facility]) Additional Instructions: Evaluation today shows more likely a viral illness causing shortness of breath and nausea vomiting. Please take nausea medication as prescribed. I would recommend continued to use your inhaler at home 2 puffs every 4 hours please stop smoking. Return to ER symptoms worsen take medications as prescribed. Prescriptions: Promethazine HCl [Phenergan 25 mg Tablet] 25 mg PO Q4HP PRN #20 tablet PRN Reason: Ondansetron [Zofran Odt] 4 mg PO Q6 #30 tab.rapdis Forms: Return to Work Referrals: KARMEN MARINO DO [Primary Care Provider] - Follow up in 3-5 days
[2018-01-07 14:35] VITALS: BP 125/84
== END 2018-01-07 14:35 | disposition home or self-care (01) ==
LOC: ER 08:28
DX: R06.02 Shortness of breath (principal); R11.2 Nausea with vomiting, unspecified; R06.00 Dyspnea, unspecified; F17.200 Nicotine dependence, unspecified, uncomplicated; Z86.73 Personal history of transient ischemic attack (TIA), and cerebral infarction without residual deficits; I25.10 Atherosclerotic heart disease of native coronary artery without angina pectoris; I25.2 Old myocardial infarction; I10 Essential (primary) hypertension
CPT/HCPCS: 94640; 99284; 96361; 96375; 96365; 36415; 83690; 85025; 80053; 81001; J3475; J0780; J2405; J7030; J1100; J7620

== ENCOUNTER → 2018-01-26 | Outpatient (CLI) | payer MEDICAID ==
--- NOTE | 2018-01-26 09:54 | RADIOLOGY REPORT (SQ) ---
EXAM DESCRIPTION: ANKLE RIGHT COMPLETE COMPLETED DATE/TIME: 01/26/2018 9:41 am REASON FOR STUDY: ACUTE RIGHT ANKLE PAIN M25.571 PAIN IN RIGHT ANKLE AND JOINTS OF RIGHT FOOT COMPARISON: None. NUMBER OF VIEWS: Three views. TECHNIQUE: AP, lateral, and oblique without weight bearing radiographic images acquired of the right ankle. LIMITATIONS: None. FINDINGS: MINERALIZATION: Normal. BONES: No acute fracture or dislocation. Small ossicles adjacent to the medial malleolus. No worris ome bone lesions. Spurring on the calcaneus. JOINTS: No effusions. SOFT TISSUES: No soft tissue swelling. No foreign body. OTHER: No other significant finding. IMPRESSION: CHRONIC CHANGES WITH SPURRING ON THE CALCANEUS. SMALL OSSICLES ADJACENT TO THE MEDIAL M ALLEOLUS. NO ACUTE FINDINGS. TECHNICAL DOCUMENTATION: JOB ID: [id number] [employer]- All Rights Reserved Reading location - IP/workstation name: [email or web address]
== END ==
LOC: OD 09:26
PROVIDERS: ATTEND Family Medicine
DX: M25.571 Pain in right ankle and joints of right foot (principal); M77.31 Calcaneal spur, right foot

== ENCOUNTER → 2018-08-17 | Outpatient (CLI) | payer OTHER, MEDICAID ==
--- NOTE | 2018-08-17 16:26 | RADIOLOGY REPORT (SQ) ---
EXAM DESCRIPTION: RIBS RIGHT W/PA CHEST COMPLETED DATE/TIME: 08/17/2018 4:17 pm REASON FOR STUDY: PLEURODYNIA R07.81 PLEURODYNIA COMPARISON: None. TECHNIQUE: Frontal view of the chest and additional views of the right ribs acquired. NUMBER OF VIEWS: Seven view. LIMITATIONS: None. FINDINGS: FRONTAL CXR: No pneumothorax. No pleural effusion. No atelectasis or infiltrates. RIBS: Fracture of the anterior 7th rib. OTHER: No other significant finding. IMPRESSION: FRACTURE OF THE ANTERIOR RIGHT 7TH RIB. COMMENT: SITE OF TRAUMA/COMPLAINT MARKED/STAMP COMPLETED: YES. TECHNICAL DOCUMENTATION: JOB ID: [id number] [employer]- All Rights Reserved Reading location - IP/workstation name: [email or web address]
== END ==
LOC: OD 15:54
PROVIDERS: ATTEND Family Medicine
DX: R07.81 Pleurodynia (principal)

== ENCOUNTER 2018-11-06 12:09 | Emergency (ER) | payer MEDICARE, MEDICAID ==
[2018-11-06 12:51] VITALS: BP 162/117
--- NOTE | 2018-11-06 13:22 | EKG REPORT ---
SEVERITY:- ABNORMAL ECG - SINUS RHYTHM VENTRICULAR BIGEMINY PROBABLE LEFT ATRIAL ABNORMALITY BORDERLINE LEFT AXIS DEVIATION ANTERIOR INFARCT, AGE INDETERMINATE : Confirmed by: Paul Tejeda MD 06-Nov-2018 13:22:21
[2018-11-06] MEDS ORDERED: RINGERS SOLUTION,LACTATED 1,000 ML IV ONE (14:06)
[2018-11-06] MEDS ORDERED: ONDANSETRON HCL INJ/PF 4 MG/2 ML SDV IV ONE ×2 (14:06→18:04)
--- NOTE | 2018-11-06 14:06 | ER Document Report ---
ED Medical Screen (RME) - General Chief Complaint: Dizziness Stated Complaint: DIZZINESS Time Seen by Provider: 11/06/18 13:56 Mode of Arrival: Wheelchair Information source: Patient Notes: 53-year-old female with hypertension, coronary artery disease, history of previous CVA, previous ND presents with complaint of dizziness, headache, nausea , vomiting, confusion and shortness of breath that started 11 hours prior to arrival. I have greeted and performed a rapid initial assessment of this patient. A comprehensive ED assessment and evaluation of the patient, analysis of test results and completion of medical decision making process we will be contacted by additional ED providers. PHYSICAL EXAMINATION: Vital signs reviewed-hypertension GENERAL: Dry mucous membranes LUNGS: No respiratory distress Musculoskeletal: Normal range of motion NEUROLOGICAL: Slurred speech, cranial nerves II through XII intact. PSYCH: Normal mood, normal affect. SKIN: Warm, Dry, normal turgor, no rashes or lesions noted. TRAVEL OUTSIDE OF THE [place] IN LAST 30 DAYS: No - HPI Onset: This morning Onset/Duration: Gradual, Persistent Quality of pain: Throbbing Associated Symptoms: Dizzy/lightheaded, Headache, Nausea, Shortness of breath, Slow to respond, Vomiting. denies: Dysuria, Fever Exacerbated by: Denies Relieved by: Denies Similar symptoms previously: Yes Recently seen / treated by doctor: No - Related Data Smoking: Cigarettes Frequency of alcohol use: None Drug Abuse: Prescription drugs Allergies/Adverse Reactions: No Known Allergies Allergy (Verified 11/06/18 12:10) Past Medical History - Past Medical History Cardiac Medical History: Reports: Hx Coronary Artery Disease, Hx Heart Attack - JANUARY 2017, Hx Hypertension Pulmonary Medical History: Reports: Hx Asthma, Hx Pneumonia - ABOUT 30 YEARS AGO Denies: Hx Bronchitis, Hx COPD Neurological Medical History: Reports: Hx Cerebrovascular Accident - 2005 X 4. Denies: Hx Seizures Renal/ Medical History: Denies: Hx Peritoneal Dialysis Musculoskeltal Medical History: Denies Hx Arthritis Psychiatric Medical History: Reports: Hx Depression Past Surgical History: Reports: Hx Section, Hx Orthopedic Surgery - jaw - Immunizations Immunizations up to date: Yes Hx Diphtheria, Pertussis, Tetanus Vaccination: Yes Physical Exam - Vital signs Vitals: Temp Pulse Resp BP Pulse Ox 98.3 F 81 14 162/117 H 95 11/06/18 12:49 11/06/18 12:49 11/06/18 12:49 12/17/18 12:49 11/06/18 12:49 Course - Vital Signs Vital signs: Temp Pulse Resp BP Pulse Ox 98.3 F 81 14 162/117 H 95 11/06/18 12:49 11/06/18 12:49 11/06/18 12:49 11/06/18 12:49 11/06/18 12:49 Doctor's Discharge - Discharge Referrals: KARMEN MARINO DO [Primary Care Provider] - Follow up as needed
--- NOTE | 2018-11-06 15:09 | RADIOLOGY REPORT (SQ) ---
EXAM DESCRIPTION: CT HEAD WITHOUT COMPLETED DATE/TIME: 11/06/2018 2:58 pm REASON FOR STUDY: Syncope, loss of consciousness COMPARISON: CT brain 12/14/2017, 05/23/2017, 03/30/2017, 09/25/2016 TECHNIQUE: Axial images acquired through the brain without intravenous contrast. Images reviewed wi th bone, brain and subdural windows. Additional sagittal and coronal reconstructions were generated. Images stored on PACS. All CT scanners at this facility use dose modulation, iterative reconstruction, and/or weight based d osing when appropriate to reduce radiation dose to as low as reasonably achievable (ALARA). [facility]: Dose Right [facility]: CareDose [facility]: Dose Right [facility]: Teradose 4D [facility]: tracx RADIATION DOSE: CT Rad equipment meets quality standard of care and radiation dose reduction techniq ues were employed. CTDIvol: 53.2 mGy. DLP: 1070 mGy-cm. mGy. LIMITATIONS: None. FINDINGS: VENTRICLES: Normal size and contour. CEREBRUM: No CT evidence of acute ischemic change, acute intracranial hemorrhage, mass effect, or mid line shift. Low attenuation in the right and left basal ganglia likely perivascular spaces. There i s minimal small vessel ischemic change in the bifrontal and biparietal white matter, chronic. CEREBELLUM: No masses. No hemorrhage. No alteration of density. No evidence for acute infarction. EXTRAAXIAL SPACES: No fluid collections. No masses. ORBITS AND GLOBE: No intra- or extraconal masses. Normal contour of globe without masses. CALVARIUM: No fracture. PARANASAL SINUSES: No fluid or mucosal thickening. SOFT TISSUES: No mass or hematoma. OTHER: No other significant finding. IMPRESSION: No acute findings EVIDENCE OF ACUTE STROKE: NO. COMMENT: Quality ID # [id number]: Final reports with documentation of one or more dose reduction techniques (e.g., Automated exposure control, adjustment of the mA and/or kV according to patient size, use of iterative reconstruction technique) TECHNICAL DOCUMENTATION: JOB ID: [id number]- All Rights Reserved Reading location - IP/workstation name: [email or web address]
[2018-11-06] MEDS ORDERED: NORMAL SALINE 1000 ML 1,000 ML IV ONE (15:10)
[2018-11-06 15:21] LABS: APPEARANCE,URINE SLIGHTLY-CLOUDY; BILIRUBIN,URINE NEGATIVE (NEGATIVE); COLOR,URINE YELLOW; GLUCOSE, URINE NEGATIVE (NEGATIVE); KETONES,URINE NEGATIVE (NEGATIVE); LEUKOCYTE ESTERASE,URINE NEGATIVE (NEGATIVE); NITRITE,URINE NEGATIVE (NEGATIVE); PROTEIN,URINE NEGATIVE (NEGATIVE); UROBILINOGEN,URINE NEGATIVE mg/dL (<2.0)
[2018-11-06 15:29] LABS: PROTHROMBIN TIME 13.7 SEC (11.4-15.4)
[2018-11-06 15:36] LABS: URINE AMPHETAMINES SCREEN NEGATIVE; URINE BARBITURATES SCREEN NEGATIVE; URINE BENZODIAZEPINES SCREEN UNCONFIRMED POSITIVE; URINE COCAINE SCREEN NEGATIVE; URINE MARIJUANA (THC) SCREEN NEGATIVE; URINE METHADONE SCREEN NEGATIVE; URINE PHENCYCLIDINE SCREEN NEGATIVE
--- NOTE | 2018-11-06 15:47 | ER Document Report ---
ED General - General Chief Complaint: Dizziness Stated Complaint: DIZZINESS Time Seen by Provider: 11/06/18 13:56 Mode of Arrival: Wheelchair TRAVEL OUTSIDE OF THE [place] IN LAST 30 DAYS: No - HPI Patient complains to provider of: Slurred speech dizziness Notes: Is coming today from local urgent care for dizziness slurred speech patient also complains of being very somnolent. Patient states that she feels like she is very sleepy. Patient states she does have a history of VA and CVA in the past. Patient also states on chronic anxiolytic medication. Patient states she does not take any extra medication no recent travel patient otherwise denies any pain denies any headaches denies any fever chills nausea vomiting diarrhea. Upon my evaluation patient is resting comfortably. Patient states that she does feel like her speech is slurred. Patient states dizziness is generalized feeling of spinning around. Patient denies difficulty in eating states that she is well-hydrated and eating normal meals. Patient does states she is having some slight dysuria. No diarrhea patient no obvious distress upon my evaluation patient states symptoms been ongoing since waking up earlier this morning. - Related Data Allergies/Adverse Reactions: No Known Allergies Allergy (Verified 11/06/18 12:10) Past Medical History - General Information source: Patient - Social History Smoking Status: Current Every Day Smoker Frequency of alcohol use: None Drug Abuse: Prescription drugs Family History: None Patient has suicidal ideation: No Patient has homicidal ideation: No - Past Medical History Cardiac Medical History: Reports: Hx Coronary Artery Disease, Hx Heart Attack - JANUARY 2017, Hx Hypertension Pulmonary Medical History: Reports: Hx Asthma, Hx Pneumonia - ABOUT 30 YEARS AGO Denies: Hx Bronchitis, Hx COPD Neurological Medical History: Reports: Hx Cerebrovascular Accident - 2005 X 4. Denies: Hx Seizures Renal/ Medical History: Denies: Hx Peritoneal Dialysis Musculoskeletal Medical History: Denies Hx Arthritis Psychiatric Medical History: Reports: Hx Depression Past Surgical History: Reports: Hx Section, Hx Orthopedic Surgery - jaw - Immunizations Immunizations up to date: Yes Hx Diphtheria, Pertussis, Tetanus Vaccination: Yes Review of Systems - Review of Systems Constitutional: See HPI, Other - Dizziness EENT: No symptoms reported Cardiovascular: No symptoms reported Respiratory: No symptoms reported Gastrointestinal: No symptoms reported Genitourinary: No symptoms reported Female Genitourinary: No symptoms reported Musculoskeletal: No symptoms reported Skin: No symptoms reported Hematologic/Lymphatic: No symptoms reported Neurological/Psychological: Other - Slurred speech -: Yes All other systems reviewed and negative Physical Exam - Vital signs Vitals: Temp Pulse Resp BP Pulse Ox 98.3 F 81 14 162/117 H 95 11/06/18 12:49 11/06/18 12:49 11/06/18 12:49 11/06/18 12:49 11/06/18 12:49 Interpretation: Normal - General General appearance: Appears well, Alert - HEENT Head: Normocephalic, Atraumatic Eyes: Normal Pupils: PERRL - Respiratory Respiratory status: No respiratory distress Chest status: Nontender Breath sounds: Normal Chest palpation: Normal - Cardiovascular Rhythm: Regular Heart sounds: Normal auscultation Murmur: No - Abdominal Inspection: Normal Distension: No distension Bowel sounds: Normal Tenderness: Nontender Organomegaly: No organomegaly - Back Back: Normal, Nontender - Extremities General upper extremity: Normal inspection, Nontender, Normal color, Normal ROM , Normal temperature General lower extremity: Normal inspection, Nontender, Normal color, Normal ROM , Normal temperature, Normal weight bearing. No: Lolis's sign - Neurological Neuro grossly intact: Yes Cognition: Normal Orientation: AAOx4 [place]loan Coma Scale Eye Opening: Spontaneous [place] Coma Scale Verbal: Oriented [place] Coma Scale Motor: Obeys Commands [place] Coma Scale Total: 15 Speech: Normal Cranial nerves: Normal Cerebellar coordination: Normal Motor strength normal: LUE, RUE, LLE, RLE Additional motor exam normals: Equal etl consultant Sensory: Normal Knee - Reflex grade: 2 = Normal - Psychological Associated symptoms: Normal affect, Normal mood - Skin Skin Temperature: Warm Skin Moisture: Dry Skin Color: Normal Course - Re-evaluation Re-evalutation: 11/06/18 23:13 Initial evaluation does not show any critical pathology. Patient was positive for benzodiazepines the patient does states she takes. Did perform narcotics return the patient showing she is on chronic pain medication was to take patient did not initially divulge. Patient denies taking any extra medications however more likely possible etiology of the patient's somnolence that she is experiencing and also the possibility of the reason for the patient having slurred speech and dizziness. Education about appropriate use of medications was given to the patient. Because of the patient's insistence of slurred speech did perform an MRI which confirmed no acute stroke normal MRI brain. Patient will be discharged home we will treat the patient with Compazine Zofran to see if this will aid for her dizziness. Patient is follow with primary care physician patient states understanding. - Vital Signs Vital signs: Temp Pulse Resp BP Pulse Ox 98.3 F 81 16 162/117 H 93 11/06/18 12:49 11/06/18 12:49 11/06/18 19:27 11/06/18 12:49 11/06/18 19:27 - Laboratory Result Diagrams: 11/06/18 15:13 11/06/18 15:13 Laboratory results interpreted by me: 11/06/18 11/06/18 11/06/18 13:59 15:13 15:13 RDW 14.3 H Eosinophils % 6.4 H Glucose 126 H POC Glucose 132 H Alkaline Phosphatase 133 H Discharge - Discharge Clinical Impression: Dizziness, benzodizepine use, Chronic prescription opiate use Condition: Good Disposition: HOME, SELF-CARE Instructions: Dizziness ([facility]) Additional Instructions: Laboratory studies CT scan and MRI today do not show any signs of stroke or other acute pathology. I would highly recommend watching your opiate pain medication and benzodiazepine use. This is more likely corollary of why you feel sleepy and possibly why you feel dizzy. He may take Compazine and Zofran as needed for dizziness or nausea. Follow-up with your primary care physician. Prescriptions: Ondansetron HCl [Zofran 4 mg Tablet] 1 - 2 tab PO Q6 #14 tablet Prochlorperazine Maleate [Compazine] 5 mg PO Q6 #14 tablet Referrals: KARMEN MARINO DO [Primary Care Provider] - Follow up as needed
[2018-11-06 15:58] LABS: ABSOLUTE BASOPHILS # (AUTO) 0.1 10^3/uL (0.0-0.2); ABSOLUTE EOSINOPHILS # (AUTO) 0.4 10^3/uL (0.0-0.6); ABSOLUTE LYMPHOCYTES (AUTO) 2.3 10^3/uL (0.5-4.7); ABSOLUTE MONOCYTES (AUTO) 0.4 10^3/uL (0.1-1.4); BASOPHILS % (AUTO) 1.2 % (0-2); EOSINOPHILS % (AUTO) 6.4 % (0-6); HEMATOCRIT 40.6 % (36.0-47.0); HEMOGLOBIN 13.8 g/dL (12.0-15.5); MEAN CORPUSCULAR HEMOGLOBIN 30.3 pg (27.0-33.4); MEAN CORPUSCULAR HGB CONC 34.1 g/dL (32.0-36.0); MEAN CORPUSCULAR VOLUME 89 fl (80-97); MONOCYTES % (AUTO) 6.5 % (3-13); PLATELET COUNT 199 10^3/uL (150-450); RED BLOOD COUNT 4.57 10^6/uL (3.72-5.28); RED CELL DISTRIBUTION WIDTH 14.3 % (11.5-14.0); SEGMENTED NEUTROPHILS % (AUTO) 48.9 % (42-78); TOTAL CELLS COUNTED % (AUTO) 100 %; WHITE BLOOD COUNT 6.2 10^3/uL (4.0-10.5)
[2018-11-06 16:27] LABS: ALANINE AMINOTRANSFERASE 27 U/L (9-52); ALBUMIN 4.2 g/dL (3.5-5.0); ALKALINE PHOSPHATASE 133 U/L (38-126); ANION GAP 8 (5-19); ASPARTATE AMINO TRANSFERASE 25 U/L (14-36); BILIRUBIN,DIRECT 0.4 mg/dL (0.0-0.4); BILIRUBIN,TOTAL 0.7 mg/dL (0.2-1.3); BLOOD UREA NITROGEN 13 mg/dL (7-20); CALCIUM 9.6 mg/dL (8.4-10.2); CARBON DIOXIDE 28 mmol/L (22-30); CHLORIDE 104 mmol/L (98-107); GLUCOSE 126 mg/dL (75-110); POTASSIUM 4.4 mmol/L (3.6-5.0); SODIUM 139.6 mmol/L (137-145)
[2018-11-06 16:28] LABS: ALCOHOL < 10 mg/dL (NONE DETECTED)
[2018-11-06 16:33] LABS: NT PRO BNP 511 pg/mL (5-900)
[2018-11-06 16:35] LABS: TROPONIN I < 0.012 ng/mL
--- NOTE | 2018-11-06 17:56 | RADIOLOGY REPORT (SQ) ---
EXAM DESCRIPTION: MRI HEAD WITHOUT COMPLETED DATE/TIME: 11/06/2018 5:37 pm REASON FOR STUDY: slurred speech COMPARISON: Brain CT scan dated 11/06/2018 TECHNIQUE: Multiplanar imaging includes non-contrasted T1, T2, FLAIR, and Diffusion with ADC map seq uences. Images stored on PACS. LIMITATIONS: Signal voids are identified in the anterior portion of the images on several of the seq uences. This presumably is related to dental hardware. FINDINGS: ANATOMY: No anomalies. Normal vascular flow voids. Pituitary fossa normal. CSF SPACES: Normal in size and contour. No hemorrhage. CEREBRUM: A few high-signal intensity lesions scattered throughout the white matter on FLAIR imaging with distribution suggesting chronic micro-vascular ischemic change. Sulci and gyri normal in size a nd contour. No evidence of hemorrhage, mass or extraaxial fluid collection. POSTERIOR FOSSA: No signal alteration. No hemorrhage. No edema, masses or mass effect. Internal jaye tory canals, cerebello-pontine angles, mastoids normal. DIFFUSION: Negative for acute or sub-acute infarction. ORBITS: No masses. Globes normal. PARANASAL SINUSES: No fluid levels. Mucosa normal. OTHER: No other significant finding. IMPRESSION: Somewhat limited study as noted above. MINIMAL MICROVASCULAR ISCHEMIC CHANGE. OTHERWIS E NORMAL STUDY. EVIDENCE OF ACUTE STROKE: NO. TECHNICAL DOCUMENTATION: JOB ID: [id number] [employer]- All Rights Reserved Reading location - IP/workstation name: [email or web address]
[2018-11-06] MEDS ORDERED: PROCHLORPERAZINE EDISYLATE INJ 10 MG/2 ML VIAL IV ONE (18:04)
== END 2018-11-06 19:36 | disposition home or self-care (01) ==
LOC: ER 12:09
DX: R42 Dizziness and giddiness (principal); Z79.899 Other long term (current) drug therapy; Z79.891 Long term (current) use of opiate analgesic; R47.81 Slurred speech; R40.0 Somnolence; R30.0 Dysuria; F17.200 Nicotine dependence, unspecified, uncomplicated; I25.10 Atherosclerotic heart disease of native coronary artery without angina pectoris; I10 Essential (primary) hypertension; I25.2 Old myocardial infarction; J45.909 Unspecified asthma, uncomplicated; Z86.73 Personal history of transient ischemic attack (TIA), and cerebral infarction without residual deficits
CPT/HCPCS: 93005; 99285; 96361; 96374; 36415; 82962; 80307 ×2; 85025; 85610; 85730; 80053; 81001; 84484; 83880; 70551; 70450; 93010; J2405; J7030

== ENCOUNTER → 2018-12-04 | Outpatient (CLI) | payer MEDICARE, MEDICAID ==
--- NOTE | 2018-12-04 15:55 | RADIOLOGY REPORT (SQ) ---
EXAM DESCRIPTION: KNEE RIGHT 4 VIEWS COMPLETED DATE/TIME: 12/04/2018 3:43 pm REASON FOR STUDY: ACUTE PAIN OF RT KNEE M25.561 PAIN IN RIGHT KNEE COMPARISON: None. NUMBER OF VIEWS: Four views. TECHNIQUE: AP, lateral, and both oblique radiographic images acquired of the right knee. LIMITATIONS: None. FINDINGS: MINERALIZATION: Normal. BONES: No acute fracture or dislocation. No worrisome bone lesions. JOINT: No effusion. SOFT TISSUES: No soft tissue swelling. No radio-opaque foreign body. OTHER: No other significant finding. IMPRESSION: NEGATIVE STUDY OF THE RIGHT KNEE. NO RADIOGRAPHIC EVIDENCE OF ACUTE INJURY. TECHNICAL DOCUMENTATION: JOB ID: [id number] [employer]- All Rights Reserved Reading location - IP/workstation name: [email or web address]
== END ==
LOC: OD 15:22
PROVIDERS: ATTEND Family Medicine
DX: M25.561 Pain in right knee (principal)

== ENCOUNTER → 2018-12-25 | Outpatient (CLI) | payer MEDICARE, MEDICAID ==
--- NOTE | 2018-12-25 16:17 | RADIOLOGY REPORT (SQ) ---
EXAM DESCRIPTION: KNEE LEFT 4 VIEWS COMPLETED DATE/TIME: 12/25/2018 3:51 pm REASON FOR STUDY: ACUTE PAIN OF LEFT KNEE M25.562 PAIN IN LEFT KNEE None on mechanism of injury, pain over the patella COMPARISON: None. NUMBER OF VIEWS: Four views. TECHNIQUE: AP, lateral, and both oblique radiographic images acquired of the left knee. LIMITATIONS: None. FINDINGS: MINERALIZATION: Normal. BONES: No acute fracture or dislocation. No worrisome bone lesions. JOINT: Small suprapatellar knee joint effusion could indicate internal derangement. SOFT TISSUES: No soft tissue swelling. No radio-opaque foreign body. OTHER: No other significant finding. IMPRESSION: No acute fracture or malalignment. However, a small joint effusion could indicate inter nal derangement. TECHNICAL DOCUMENTATION: JOB ID: [id number] [employer]- All Rights Reserved Reading location - IP/workstation name: [email or web address]
== END ==
LOC: OD 15:33
PROVIDERS: ATTEND Family Medicine
DX: M25.562 Pain in left knee (principal)

== ENCOUNTER 2019-02-02 17:17 | Inpatient (IN) | payer MEDICARE, MEDICAID ==
--- NOTE | 2019-02-02 17:35 | ER Document Report ---
ED Medical Screen (RME) - General Chief Complaint: Rectal Bleeding Stated Complaint: BLOODY STOOL Time Seen by Provider: 02/02/19 17:35 Primary Care Provider: KARMEN MARINO DO [Primary Care Provider] - Follow up as needed TRAVEL OUTSIDE OF THE [place] IN LAST 30 DAYS: No - HPI Notes: 02/02/19 17:35 Patient is a 53-year-old female with a history of coronary artery disease who presents emergency department complaining of red bloody stool about 4 hours ago. Patient states that she went to have a bowel movement but only blood came out without any melena noted. Patient states that she has been having intense cramping pain associated starts at the top of her abdomen goes all the way down in the middle. Patient has associated dizziness and lightheadedness. Patient states that she has also been nauseated and vomited a few times. She has not had any hematemesis. Patient states that she does take Plavix. She is otherwise urinating normally and denies any vaginal bleeding or discharge. Pt did have 2 rum and cokes yesterday, but does not drink everyday. Denies any headache, fever, LOC, neck pain, URI, sore throat, chest pain, palpitations, syncope, cough, shortness of breath, wheeze, dyspnea, urinary retention, dysuria, hematuria, loss of control of bowel or bladder, numbness/tingling, saddle anesthesia, muscle paralysis/weakness, or rash. I have treated and performed a rapid initial assessment of this patient. A comprehensive ED assessment and evaluation of the patient, analysis of test results and completion of medical decision making process will be conducted by additional ED providers. PHYSICAL EXAMINATION: GENERAL: no acute distress. A&Ox4. Answers questions appropriately. Pt appears fatigued LUNGS: Breath sounds clear to auscultation bilaterally and equal. No wheezes rales or rhonchi. HEART: Regular rate and rhythm without murmurs, rubs, gallops. ABDOMEN: Soft, nondistended abdomen. No guarding, no rebound. Normal bowel sounds present. No CVA tenderness bilaterally. + mild generalized tenderness (cannot elicit thorough abd exam w/o table, however). Extremities: No cyanosis, clubbing, or edema b/l. NEUROLOGICAL: Normal speech, normal gait. PSYCH: Normal mood, normal affect. - Related Data Allergies/Adverse Reactions: No Known Allergies Allergy (Verified 11/06/18 12:10) Past Medical History - Social History Frequency of alcohol use: Occasional - Past Medical History Cardiac Medical History: Reports: Hx Coronary Artery Disease, Hx Heart Attack - JANUARY 2017, Hx Hypertension Pulmonary Medical History: Reports: Hx Asthma, Hx Pneumonia - ABOUT 30 YEARS AGO Denies: Hx Bronchitis, Hx COPD Neurological Medical History: Reports: Hx Cerebrovascular Accident - 2005 X 4. Denies: Hx Seizures Renal/ Medical History: Denies: Hx Peritoneal Dialysis Musculoskeltal Medical History: Denies Hx Arthritis Psychiatric Medical History: Reports: Hx Depression Past Surgical History: Reports: Hx Section, Hx Orthopedic Surgery - jaw - Immunizations Immunizations up to date: Yes Hx Diphtheria, Pertussis, Tetanus Vaccination: Yes Physical Exam - Vital signs Vitals: Temp Pulse Resp BP Pulse Ox 98.3 F 111 H 14 184/119 H 94 02/02/19 17:26 02/02/19 17:26 02/02/19 17:26 02/02/19 17:26 02/02/19 17:26 Course - Vital Signs Vital signs: Temp Pulse Resp BP Pulse Ox 98.3 F 111 H 14 184/119 H 94 02/02/19 17:26 02/02/19 17:26 02/02/19 17:26 02/02/19 17:26 02/02/19 17:26 Doctor's Discharge - Discharge Referrals: KARMEN MARINO DO [Primary Care Provider] - Follow up as needed
[2019-02-02] MEDS ORDERED: NORMAL SALINE 1000 ML 1,000 ML IV ONE (17:38)
[2019-02-02] MEDS ORDERED: ONDANSETRON HCL INJ/PF 4 MG/2 ML SDV IV ONE ×2 (17:40→22:30)
[2019-02-02] MEDS ORDERED: MORPHINE SULFATE 10 MG/ML INJ IV ONE ×2 (17:41→22:30)
[2019-02-02 18:49] LABS: ABSOLUTE LYMPHOCYTES (AUTO) 2.6 10^3/uL (0.5-4.7); ABSOLUTE MONOCYTES (AUTO) 1.1 10^3/uL (0.1-1.4); ABSOLUTE NEUT (AUTO) 13.4 10^3/uL (1.7-8.2); BASOPHILS % (AUTO) 0.2 % (0-2); EOSINOPHILS % (AUTO) 0.2 % (0-6); HEMATOCRIT 44.3 % (36.0-47.0); LYMPHOCYTES % (AUTO) 15.1 % (13-45); MEAN CORPUSCULAR HEMOGLOBIN 30.3 pg (27.0-33.4); MEAN CORPUSCULAR HGB CONC 33.8 g/dL (32.0-36.0); MEAN CORPUSCULAR VOLUME 89 fl (80-97); MONOCYTES % (AUTO) 6.3 % (3-13); PLATELET COUNT 218 10^3/uL (150-450); RED BLOOD COUNT 4.95 10^6/uL (3.72-5.28); RED CELL DISTRIBUTION WIDTH 14.2 % (11.5-14.0); SEGMENTED NEUTROPHILS % (AUTO) 78.2 % (42-78); TOTAL CELLS COUNTED % (AUTO) 100 %; WHITE BLOOD COUNT 17.1 10^3/uL (4.0-10.5)
[2019-02-02 18:53] LABS: APPEARANCE,URINE SLIGHTLY-CLOUDY; BILIRUBIN,URINE NEGATIVE (NEGATIVE); COLOR,URINE YELLOW; GLUCOSE, URINE NEGATIVE (NEGATIVE); KETONES,URINE NEGATIVE (NEGATIVE); LEUKOCYTE ESTERASE,URINE NEGATIVE (NEGATIVE); NITRITE,URINE NEGATIVE (NEGATIVE); PROTEIN,URINE NEGATIVE (NEGATIVE); URINE SPECIFIC GRAVITY 1.029; UROBILINOGEN,URINE NEGATIVE mg/dL (<2.0)
[2019-02-02] MEDS ORDERED: OXYMETAZOLINE HCL 0.05% NASAL SPRAY 15 ML BOTTLE NASL ONE (22:44)
[2019-02-02 23:38] LABS: ALANINE AMINOTRANSFERASE 13 U/L (9-52); ALBUMIN 4.3 g/dL (3.5-5.0); ALKALINE PHOSPHATASE 122 U/L (38-126); ANION GAP 12 (5-19); ASPARTATE AMINO TRANSFERASE 18 U/L (14-36); BILIRUBIN,DIRECT 0.2 mg/dL (0.0-0.4); BILIRUBIN,TOTAL 0.7 mg/dL (0.2-1.3); BLOOD UREA NITROGEN 15 mg/dL (7-20); CALCIUM 9.2 mg/dL (8.4-10.2); CARBON DIOXIDE 23 mmol/L (22-30); CHLORIDE 102 mmol/L (98-107); GLUCOSE 137 mg/dL (75-110); POTASSIUM 3.6 mmol/L (3.6-5.0); SODIUM 137.1 mmol/L (137-145); TOTAL PROTEIN 6.8 g/dL (6.3-8.2)
--- NOTE | 2019-02-03 01:13 | RADIOLOGY REPORT (SQ) ---
EXAM DESCRIPTION: CT ABDOMEN PELVIS WITH IV CONTRAST COMPLETED DATE/TME: 02/02/2019 22:02 CLINICAL HISTORY: 53 years, Female, abd pain, bloody stool Comparison: None TECHNIQUE: Contiguous axial CT images of the abdomen and pelvis were obtained. Sagittal and coronal reformats were reviewed. This exam was performed according to our departmental dose-optimization program, which includes automated exposure control, adjustment of the mA and/or kV according to patient size and/or use of iterative reconstruction technique. FINDINGS: Lung bases: Clear. Liver:Unremarkable. No focal liver lesion. Gallbladder:Unremarkable. No gallstones. No gallbladder wall thickening or pericholecystic fluid. Spleen:Unremarkable Pancreas: Pancreas is unremarkable. Adrenal glands:Within normal limits. Kidneys/ureters:Within normal limits Stomach/small bowel/colon: Stomach is unremarkable. Small bowel is unremarkable. There is circumferential wall thickening and adjacent inflammatory fat stranding involving the distal transverse colon extending through the splenic flexure and the descending colon and sigmoid colon. Proximal colon is normal in appearance no diverticula. No defined fluid collections. Appendix: No evidence of appendicitis. Peritoneum: No free fluid. Vascular structures: within normal limits. Specifically, no intraluminal filling defects are seen in the SMA or SMV. Lymph nodes: No abnormal lymph nodes. Bladder:Unremarkable. Pelvic organs: No acute abnormality Bones: No acute osseous abnormality. Soft tissues: Unremarkable.. IMPRESSION: Long segment circumferential wall thickening and adjacent inflammatory fat stranding involving the left colon. Differential possibilities include infectious and inflammatory etiologies.
[2019-02-03] MEDS ORDERED: ERTAPENEM SODIUM INJ 1 GM VIAL IV ONE (01:22)
--- NOTE | 2019-02-03 01:27 | ER Document Report ---
Entered by ASHLYN ORDONEZ SCRIBE 02/02/19 [id number] Acting as scribe for:CHIQUIS SCHAEFER DO ED General - General Chief Complaint: Rectal Bleeding Stated Complaint: BLOODY STOOL Time Seen by Provider: 02/02/19 17:35 Primary Care Provider: KARMEN MARINO DO [Primary Care Provider] - Follow up as needed Mode of Arrival: Ambulatory Information source: Patient Notes: 53-year-old female who presents to the emergency department today with complaints of abdominal pain. Patient states she had a normal bowel yesterday but this morning when having a bowel movement she noticed bright red blood with clots. Patient states she has had crampy abdominal pain since then. Patient states she has a history of hemorrhoids but "none that bled like this". Patient denies a history of diverticulitis. TRAVEL OUTSIDE OF THE [place] IN LAST 30 DAYS: No - Related Data Allergies/Adverse Reactions: No Known Allergies Allergy (Verified 11/06/18 12:10) Past Medical History - General Information source: Patient - Social History Smoking Status: Current Some Day Smoker Cigarette use (# per day): Yes Frequency of alcohol use: None Drug Abuse: None Lives with: Family Family History: None Patient has suicidal ideation: No Patient has homicidal ideation: No - Past Medical History Cardiac Medical History: Reports: Hx Coronary Artery Disease, Hx Heart Attack - JANUARY 2017, Hx Hypertension Pulmonary Medical History: Reports: Hx Asthma, Hx Pneumonia - ABOUT 30 YEARS AGO Neurological Medical History: Reports: Hx Cerebrovascular Accident - 2005 X 4 Psychiatric Medical History: Reports: Hx Depression Past Surgical History: Reports: Hx Section, Hx Orthopedic Surgery - jaw - Immunizations Immunizations up to date: Yes Hx Diphtheria, Pertussis, Tetanus Vaccination: Yes Review of Systems - Review of Systems Constitutional: No symptoms reported EENT: No symptoms reported Cardiovascular: No symptoms reported Respiratory: No symptoms reported Gastrointestinal: See HPI, Abdominal pain, Vomiting, Rectal bleeding Genitourinary: No symptoms reported Female Genitourinary: No symptoms reported Musculoskeletal: No symptoms reported Skin: No symptoms reported Hematologic/Lymphatic: No symptoms reported Neurological/Psychological: No symptoms reported -: Yes All other systems reviewed and negative Physical Exam - Vital signs Vitals: Temp Pulse Resp BP Pulse Ox 98.3 F 111 H 14 184/119 H 94 02/02/19 17:26 02/02/19 17:26 02/02/19 17:26 02/02/19 17:26 02/02/19 17:26 - Notes Notes: GENERAL: Alert, interacts well. Appears uncomfortable. HEAD: Normocephalic, atraumatic. EYES: Pupils equal, round, and reactive to light. Extraocular movements intact. ENT: Oral mucosa moist, tongue midline. NECK: Full range of motion. Supple. Trachea midline. LUNGS: Clear to auscultation bilaterally, no wheezes, rales, or rhonchi. No respiratory distress. HEART: Regular rate and rhythm. No murmurs, gallops, or rubs. ABDOMEN: Soft, mild right lower quadrant tenderness with palpation, more severe tenderness over the left lower quadrant. Non-distended. Bowel sounds present in all 4 quadrants but hypoactive. No guarding, rigidity, or rebound. RECTAL: Performed with grounding engineer in attendance. Dark red blood on digital rectal exam, no melena, no stool in rectal vault. Small non-thrombosed hemorrhoid. No bleeding fissures or hemorrhoids. EXTREMITIES: Moves all 4 extremities spontaneously. No edema, radial and dorsalis pedis pulses 2/4 bilaterally. No cyanosis. NEUROLOGICAL: Alert and oriented x3. Normal speech. PSYCH: Normal affect, normal mood. SKIN: Warm, dry, normal turgor. No rashes or lesions noted. Course - Re-evaluation Re-evalutation: 02/03/19 01:18 CT scan of the abdomen and pelvis was ordered to look for diverticulitis or other infection that might be causing this bleeding. Shows that there is circumferential wall thickening and adjacent inflammatory fat stranding involving the distal transverse colon extending through the splenic flexure and the descending colon and sigmoid colon. No diverticula. Long segment circumferential wall thickening and adjacent inflammatory fat stranding involving the left colon differential possibilities include infectious and inflammatory etiologies per radiology read. CBC shows leukocytosis at 17.1, CMP grossly unremarkable only mildly elevated glucose, urinalysis shows small blood, Hemoccult is positive. Patient continues to appear acutely uncomfortable. We will start antibiotics and consult for admission. 02/03/19 01:[address] Meza who agrees to admit the patient to his service on the telemetry care service, request lactic acid be ordered. - Vital Signs Vital signs: Temp Pulse Resp BP Pulse Ox 98.3 F 111 H 17 175/106 H 95 02/02/19 17:26 02/02/19 17:26 02/03/19 01:01 02/03/19 01:01 02/03/19 01:01 - Laboratory Result Diagrams: 02/02/19 18:26 02/02/19 23:02 Laboratory results interpreted by me: 02/02/19 02/02/19 02/02/19 18:26 18:35 23:02 WBC 17.1 H RDW 14.2 H Seg Neutrophils % 78.2 H Absolute Neutrophils 13.4 H Glucose 137 H Urine Blood SMALL H Discharge - Discharge Clinical Impression: Colitis, Lower GI bleed Condition: Stable Disposition: ADMITTED INPATIENT [facility] Admitted: Telemetry Referrals: KARMEN MARINO DO [Primary Care Provider] - Follow up as needed I personally performed the services described in the documentation, reviewed and edited the documentation which was dictated to the scribe in my presence, and it accurately records my words and actions.
[2019-02-03] MEDS ORDERED: ACETAMINOPHEN 325 MG TABLET PO PRN (01:32)
[2019-02-03] MEDS ORDERED: MAGNESIUM HYDROXIDE SUSP 30 ML UDCUP PO PRN (01:32)
[2019-02-03] MEDS ORDERED: MAG HYDROX/AL HYDROX/SIMETH SUSP 30 ML UDCUP PO PRN (01:32)
[2019-02-03] MEDS ORDERED: IPRATROPIUM/ALBUTEROL 0.5-2.5 MG/3 ML AMPUL NEB PRN (01:32)
[2019-02-03] MEDS ORDERED: PROMETHAZINE HCL INJ 25 MG/1 ML VIAL IV PRN (01:32)
[2019-02-03] MEDS: FENTANYL CITRATE INJ/PF 100 MCG/2 ML AMPUL IV PRN ×2 (01:55→05:57)
[2019-02-03] MEDS: METRONIDAZOLE 500 MG TABLET PO SCH ×4 (03:22→20:38)
[2019-02-03] MEDS: NORMAL SALINE 1000 ML 1,000 ML IV PRN ×3 (03:23→12:47)
[2019-02-03] MEDS: PANTOPRAZOLE SODIUM 40 MG TABLET.DR PO SCH (05:23)
[2019-02-03 05:58] LABS: ABSOLUTE BASOPHILS # (AUTO) 0.1 10^3/uL (0.0-0.2); ABSOLUTE EOSINOPHILS # (AUTO) 0.1 10^3/uL (0.0-0.6); ABSOLUTE LYMPHOCYTES (AUTO) 2.8 10^3/uL (0.5-4.7); ABSOLUTE MONOCYTES (AUTO) 1.2 10^3/uL (0.1-1.4); ABSOLUTE NEUT (AUTO) 11.5 10^3/uL (1.7-8.2); BASOPHILS % (AUTO) 0.5 % (0-2); EOSINOPHILS % (AUTO) 0.6 % (0-6); HEMATOCRIT 40.2 % (36.0-47.0); HEMOGLOBIN 13.8 g/dL (12.0-15.5); LYMPHOCYTES % (AUTO) 17.8 % (13-45); MEAN CORPUSCULAR HEMOGLOBIN 30.5 pg (27.0-33.4); MEAN CORPUSCULAR HGB CONC 34.3 g/dL (32.0-36.0); MEAN CORPUSCULAR VOLUME 89 fl (80-97); MONOCYTES % (AUTO) 7.8 % (3-13); PLATELET COUNT 164 10^3/uL (150-450); RED BLOOD COUNT 4.52 10^6/uL (3.72-5.28); RED CELL DISTRIBUTION WIDTH 14.1 % (11.5-14.0); SEGMENTED NEUTROPHILS % (AUTO) 73.3 % (42-78); TOTAL CELLS COUNTED % (AUTO) 100 %; WHITE BLOOD COUNT 15.7 10^3/uL (4.0-10.5)
[2019-02-03] MEDS ORDERED: HEPARIN SOD (PORCINE) 5,000 UNIT/ML 1 ML SYRINGE SUBCUT SCH (06:00)
--- NOTE | 2019-02-03 06:25 | PDOC H&P ---
History of Present Illness Admission Date/PCP: 02/03/19 02:24 KARMEN MARINO DO Patient complains of: Crampy abdominal pain and bright red blood per rectum History of Present Illness: RICCARDO GARCIA is a 53 year old female with a past medical history of opiate depend ent chronic pain, coronary artery disease,, anxiety, tobacco, diverticulosis and internal hemorrhoids presenting with 12 hours of bright red blood per rectum associated with cramping abdominal pain. Complicated by Plavix in the emergency room she is found to have leukocytosis, bright red blood per rectum, tachycardia and a CT abdomen pelvis notable for colitis. She receives empiric antibiotics a nd referred to the hospitalist for admission. Past Medical History Cardiac Medical History: Reports: Coronary Artery Disease, Myocardial Infarction - JANUARY 2017, Hypertension Pulmonary Medical History: Reports: Asthma, Pneumonia - ABOUT 30 YEARS AGO Denies: Bronchitis, Chronic Obstructive Pulmonary Disease (COPD) Neurological Medical History: Denies: Seizures Musculoskeltal Medical History: Denies: Arthritis Psychiatric Medical History: Reports: Depression, General Anxiety Disorder, Tobacco Dependency Hematology: Denies: Anemia Past Surgical History Past Surgical History: Reports: Section, Orthopedic Surgery - jaw Social History Lives with: Family Smoking Status: Current Some Day Smoker Frequency of Alcohol Use: None Hx Recreational Drug Use: No Drugs: None Hx Prescription Drug Abuse: No - Advance Directive Resuscitation Status: Full Code Family History Family History: Hypertension Parental Family History Reviewed: Yes Children Family History Reviewed: Yes Sibling(s) Family History Reviewed.: Yes Medication/Allergy Home Medications: Fluoxetine HCl [Prozac 20 mg Capsule] 10 mg PO BID 05/08/16 Oxycodone HCl/Acetaminophen [Percocet 5-325 mg Tablet] 1 tab PO Q6HP PRN 05/08/16 Ondansetron [Zofran Odt 4 mg Tablet] 1 - 2 tab PO Q4H PRN #15 tab.rapdis 09/25/16 Carvedilol [Coreg] 1 tab PO DAILY 03/02/17 Temazepam 15 mg PO QHS 03/02/17 Aspirin [Aspirin 81 mg Chewable Tablet] 81 mg PO DAILY 03/16/17 Nitroglycerin [Nitrostat] 0.3 mg SUBD PRN PRN 03/16/17 Spironolactone 25 mg PO DAILY 03/16/17 Atorvastatin Calcium [Lipitor 40 mg Tablet] 80 mg PO QHS 03/21/17 Beta-Carotene(A) W-C & E/Min [Theragran Antioxidant Capsule] 1 cap PO DAILY 03/21/17 Cyclobenzaprine HCl 10 mg PO TID 03/21/17 Omeprazole 40 mg PO BID 03/21/17 Valsartan 40 mg PO Q12 03/21/17 Clopidogrel Bisulfate [Plavix] 75 mg PO DAILY 06/24/17 Ondansetron [Zofran Odt] 4 mg PO Q6 #30 tab.rapdis 01/07/18 Promethazine HCl [Phenergan 25 mg Tablet] 25 mg PO Q4HP PRN #20 tablet 01/07/18 Ondansetron HCl [Zofran 4 mg Tablet] 1 - 2 tab PO Q6 #14 tablet 11/06/18 Prochlorperazine Maleate [Compazine] 5 mg PO Q6 #14 tablet 11/06/18 Allergies/Adverse Reactions: No Known Allergies Allergy (Verified 11/06/18 12:10) Review of Systems Constitutional: ABSENT: chills, fever(s), headache(s), weight gain, weight loss Eyes: ABSENT: visual disturbances Ears: ABSENT: hearing changes Cardiovascular: ABSENT: chest pain, dyspnea on exertion, edema, orthropnea, palpitations Respiratory: ABSENT: cough, hemoptysis Gastrointestinal: ABSENT: abdominal pain, constipation, diarrhea, hematemesis, hematochezia, nausea, vomiting Genitourinary: ABSENT: dysuria, hematuria Musculoskeletal: ABSENT: joint swelling Integumentary: ABSENT: rash, wounds Neurological: ABSENT: abnormal gait, abnormal speech, confusion, dizziness, focal weakness, syncope Psychiatric: ABSENT: anxiety, depression, homidical ideation, suicidal ideation Endocrine: ABSENT: cold intolerance, heat intolerance, polydipsia, polyuria Hematologic/Lymphatic: ABSENT: easy bleeding, easy bruising Physical Exam Vital Signs: Temp Pulse Resp BP Pulse Ox 98.1 F 111 H 16 149/92 H 94 02/03/19 02:05 02/02/19 17:26 02/03/19 03:01 02/03/19 03:01 02/03/19 03:01 Intake & Output 02/01/19 02/02/19 02/03/19 11:59 11:59 11:59 Intake Total 1000 Balance 1000 Weight 77.4 kg General appearance: PRESENT: cooperative, mild distress, well-developed, well- nourished Head exam: PRESENT: atraumatic, normocephalic Eye exam: PRESENT: conjunctiva pink, EOMI, PERRLA. ABSENT: scleral icterus Ear exam: PRESENT: normal external ear exam Mouth exam: PRESENT: moist, tongue midline Neck exam: ABSENT: carotid bruit, JVD, lymphadenopathy, thyromegaly Respiratory exam: PRESENT: clear to auscultation nick. ABSENT: rales, rhonchi, wheezes Cardiovascular exam: PRESENT: RRR. ABSENT: diastolic murmur, rubs, systolic mu rmur Pulses: PRESENT: normal dorsalis pedis pul Vascular exam: PRESENT: normal capillary refill GI/Abdominal exam: PRESENT: hyperactive bowel sounds, normal bowel sounds, soft, tenderness. ABSENT: distended, guarding, mass, organolmegaly, rebound Rectal exam: PRESENT: deferred Extremities exam: PRESENT: full ROM. ABSENT: calf tenderness, clubbing, pedal edema Neurological exam: PRESENT: alert, awake, oriented to person, oriented to place, oriented to time, oriented to situation, CN II-XII grossly intact. ABSENT: motor sensory deficit Psychiatric exam: PRESENT: appropriate affect, normal mood. ABSENT: homicidal ideation, suicidal ideation Skin exam: PRESENT: dry, intact, warm. ABSENT: cyanosis, rash Results Laboratory Results: 02/03/19 05:51 02/02/19 23:02 02/02/19 02/02/19 02/02/19 18:26 18:26 18:26 WBC 17.1 H RBC 4.95 Hgb 15.0 Hct 44.3 MCV 89 MCH 30.3 MCHC 33.8 RDW 14.2 H Plt Count 218 Seg Neutrophils % 78.2 H Lymphocytes % 15.1 Monocytes % 6.3 Eosinophils % 0.2 Basophils % 0.2 Absolute Neutrophils 13.4 H Absolute Lymphocytes 2.6 Absolute Monocytes 1.1 Absolute Eosinophils 0.0 Absolute Basophils 0.0 Sodium Cancelled Potassium Cancelled Chloride Cancelled Carbon Dioxide Cancelled Anion Gap Cancelled BUN Cancelled Creatinine Cancelled Est GFR ( Amer) Cancelled Est GFR (Non-Af Amer) Cancelled Glucose Cancelled Calcium Cancelled Total Bilirubin Cancelled AST Cancelled ALT Cancelled Alkaline Phosphatase Cancelled Total Protein Cancelled Albumin Cancelled Urine Color Urine Appearance Urine pH Ur Specific [place] Urine Protein Urine Glucose (UA) Urine Ketones Urine Blood Urine Nitrite Ur Leukocyte Esterase Urine WBC (Auto) Urine RBC (Auto) Blood Type O POSITIVE Antibody Screen NEGATIVE 02/02/19 02/02/19 02/02/19 18:35 22:15 23:02 WBC RBC Hgb Hct MCV MCH MCHC RDW Plt Count Seg Neutrophils % Lymphocytes % Monocytes % Eosinophils % Basophils % Absolute Neutrophils Absolute Lymphocytes Absolute Monocytes Absolute Eosinophils Absolute Basophils Sodium Cancelled 137.1 Potassium Cancelled 3.6 Chloride Cancelled 102 Carbon Dioxide Cancelled 23 Anion Gap Cancelled 12 BUN Cancelled 15 Creatinine Cancelled 0.53 Est GFR ( Amer) Cancelled > 60 Est GFR (Non-Af Amer) Cancelled > 60 Glucose Cancelled 137 H Calcium Cancelled 9.2 Total Bilirubin Cancelled 0.7 AST Cancelled 18 ALT Cancelled 13 Alkaline Phosphatase Cancelled 122 Total Protein Cancelled 6.8 Albumin Cancelled 4.3 Urine Color YELLOW Urine Appearance SLIGHTLY-CLOUDY Urine pH 6.0 Ur Specific [place] 1.029 Urine Protein NEGATIVE Urine Glucose (UA) NEGATIVE Urine Ketones NEGATIVE Urine Blood SMALL H Urine Nitrite NEGATIVE Ur Leukocyte Esterase NEGATIVE Urine WBC (Auto) 6 Urine RBC (Auto) 3 Blood Type Antibody Screen 02/03/19 05:51 WBC 15.7 H RBC 4.52 Hgb 13.8 Hct 40.2 MCV 89 MCH 30.5 MCHC 34.3 RDW 14.1 H Plt Count 164 Seg Neutrophils % 73.3 Lymphocytes % 17.8 Monocytes % 7.8 Eosinophils % 0.6 Basophils % 0.5 Absolute Neutrophils 11.5 H Absolute Lymphocytes 2.8 Absolute Monocytes 1.2 Absolute Eosinophils 0.1 Absolute Basophils 0.1 Sodium Potassium Chloride Carbon Dioxide Anion Gap BUN Creatinine Est GFR ( Amer) Est GFR (Non-Af Amer) Glucose Calcium Total Bilirubin AST ALT Alkaline Phosphatase Total Protein Albumin Urine Color Urine Appearance Urine pH Ur Specific [place] Urine Protein Urine Glucose (UA) Urine Ketones Urine Blood Urine Nitrite Ur Leukocyte Esterase Urine WBC (Auto) Urine RBC (Auto) Blood Type Antibody Screen Impressions: Abdomen/Pelvis CT 02/02/19 22:02 IMPRESSION: Long segment circumferential wall thickening and adjacent inflammatory fat stranding involving the left colon. Differential possibilities include infectious and inflammatory etiologies. Assessment & Plan - Diagnosis (1) Colitis Is this a current diagnosis for this admission?: Yes Plan: IV Cipro, Flagyl, follow-up CBC and blood culture. (2) Lower GI bleed Is this a current diagnosis for this admission?: Yes Plan: History of diverticulosis and internal hemorrhoids complicated by Plavix. Likely exacerbated by acute infectious colitis. Hemoglobin stable, transfuse as needed hemoglobin less than 8 for active bleed, follow-up CBC and surgical consultation. (3) Abdominal pain Is this a current diagnosis for this admission?: Yes Plan: Secondary to #1, symptom medic management - Time Time Spent: 50 to 70 Minutes - Inpatient Certification Medical Necessity: Need Close Monitoring Due to Risk of Patient Decompensation
[2019-02-03 07:16] LABS: INTERNATIONAL RATION (INR) 1.06; PROTHROMBIN TIME 14.3 SEC (11.4-15.4)
[2019-02-03] MEDS ORDERED: ALPRAZOLAM 0.5 MG TABLET PO PRN (09:48)
[2019-02-03] MEDS ORDERED: FENTANYL CITRATE INJ/PF 100 MCG/2 ML AMPUL IV PRN (09:48)
[2019-02-03] MEDS ORDERED: FLUOXETINE HCL 20 MG CAPSULE PO SCH (10:00)
[2019-02-03] MEDS ORDERED: CLOPIDOGREL BISULFATE 75 MG TABLET PO SCH (10:00)
[2019-02-03] MEDS ORDERED: ASPIRIN 81 MG TABLET, CHEWABLE PO SCH (10:00)
[2019-02-03] MEDS ORDERED: CARVEDILOL 12.5 MG TABLET PO SCH (10:00)
[2019-02-03 12:18] LABS: ABSOLUTE BASOPHILS # (AUTO) 0.1 10^3/uL (0.0-0.2); ABSOLUTE EOSINOPHILS # (AUTO) 0.1 10^3/uL (0.0-0.6); ABSOLUTE LYMPHOCYTES (AUTO) 2.6 10^3/uL (0.5-4.7); ABSOLUTE MONOCYTES (AUTO) 1.1 10^3/uL (0.1-1.4); ABSOLUTE NEUT (AUTO) 10.3 10^3/uL (1.7-8.2); BASOPHILS % (AUTO) 0.4 % (0-2); EOSINOPHILS % (AUTO) 0.8 % (0-6); HEMATOCRIT 38.6 % (36.0-47.0); HEMOGLOBIN 13.1 g/dL (12.0-15.5); LYMPHOCYTES % (AUTO) 18.2 % (13-45); MEAN CORPUSCULAR HEMOGLOBIN 30.3 pg (27.0-33.4); MEAN CORPUSCULAR VOLUME 89 fl (80-97); MONOCYTES % (AUTO) 7.7 % (3-13); PLATELET COUNT 160 10^3/uL (150-450); RED BLOOD COUNT 4.33 10^6/uL (3.72-5.28); RED CELL DISTRIBUTION WIDTH 13.9 % (11.5-14.0); SEGMENTED NEUTROPHILS % (AUTO) 72.9 % (42-78); TOTAL CELLS COUNTED % (AUTO) 100 %; WHITE BLOOD COUNT 14.1 10^3/uL (4.0-10.5)
[2019-02-03] MEDS: CYCLOBENZAPRINE HCL 10 MG TABLET PO SCH ×3 (12:49→17:06)
[2019-02-03] MEDS: OXYCODONE HCL IR 5 MG TABLET PO PRN ×2 (12:50→20:38)
[2019-02-03 14:10] LABS: HEMATOCRIT 37.6 % (36.0-47.0); MEAN CORPUSCULAR HEMOGLOBIN 30.8 pg (27.0-33.4); MEAN CORPUSCULAR HGB CONC 34.7 g/dL (32.0-36.0); MEAN CORPUSCULAR VOLUME 89 fl (80-97); PLATELET COUNT 118 10^3/uL (150-450); RED BLOOD COUNT 4.24 10^6/uL (3.72-5.28); RED CELL DISTRIBUTION WIDTH 13.9 % (11.5-14.0); WHITE BLOOD COUNT 13.1 10^3/uL (4.0-10.5)
[2019-02-03] MEDS ORDERED: NORMAL SALINE 250 ML IV PRN ×2 (16:55)
--- NOTE | 2019-02-03 17:10 | PDOC PROGRESS REPORT ---
Subjective Progress Note for:: 02/03/19 Subjective:: RICCARDO GARCIA is a 53 year old female with a past medical history of opiate dependent chronic pain, coronary artery disease,, anxiety, tobacco, diverticulosis and internal hemorrhoids who was admitted 02/03/2019 for colitis and lower GI bleed. Patient was seen on morning rounds with Dr. Lezama. Patient was found resting in bed comfortably on room air. She reports continued mariya blood per rectum, generalized abdominal pain described as spasms/cramping without nausea or vomiting. Patient reports that she was her usual state of health when she woke up to get ready for work had a bowel movement with BRBPR. Shortly thereafter she began developing cramping discomfort. She did take her Plavix yesterday morning. Of note, patient reports that she was previously on Aggrenox for treatment of [place] status post cardiac cath with stent placement but developed an intracranial hemorrhage. Aggrenox was discontinued and she was recommended to go on to Plavix and aspirin therapy. Her stent was placed in January of last year. Further, she reports that she had a normal colonoscopy approximately 1 year ago. She denies fever, chills, chest pain, palpitations, dyspnea, and orthopnea. She does complain of her chronic back pain and requests to have an increase in her pain medication regiment. She has no other questions or concerns at this time. Reason For Visit: COLITIS,LOWER GI BLEED,CHRONIC PAIN Physical Exam Vital Signs: Temp Pulse Resp BP Pulse Ox 97.4 F 94 16 138/86 H 94 02/03/19 15:14 02/03/19 15:25 02/03/19 15:25 02/03/19 15:14 02/03/19 15:25 Intake & Output 02/02/19 02/03/19 02/04/19 06:59 06:59 06:59 Intake Total 1000 1999 Balance 1000 1999 Weight 77.3 kg General appearance: PRESENT: no acute distress, well-developed, well-nourished - Overweight Head exam: PRESENT: atraumatic, normocephalic Eye exam: PRESENT: conjunctiva pink, EOMI, PERRLA. ABSENT: scleral icterus Mouth exam: PRESENT: moist, tongue midline Neck exam: ABSENT: JVD, lymphadenopathy, thyromegaly Respiratory exam: PRESENT: clear to auscultation nick, symmetrical, unlabored. ABSENT: rales, rhonchi, wheezes Cardiovascular exam: PRESENT: RRR, +S1, +S2. ABSENT: diastolic murmur, rubs, systolic murmur Vascular exam: PRESENT: normal capillary refill GI/Abdominal exam: PRESENT: hyperactive bowel sounds, soft, tenderness. ABSENT: distended, guarding, mass, organolmegaly, rebound Rectal exam: PRESENT: deferred Extremities exam: PRESENT: full ROM. ABSENT: calf tenderness, clubbing, pedal edema Neurological exam: PRESENT: alert, awake, oriented to person, oriented to place, oriented to time, oriented to situation, CN II-XII grossly intact. ABSENT: motor sensory deficit Psychiatric exam: PRESENT: anxious, appropriate affect, normal mood. ABSENT: homicidal ideation, suicidal ideation Skin exam: PRESENT: dry, intact, warm. ABSENT: cyanosis, rash Results Laboratory Results: 02/03/19 13:42 02/02/19 23:02 02/02/19 02/02/19 02/02/19 18:26 18:26 18:26 WBC 17.1 H RBC 4.95 Hgb 15.0 Hct 44.3 MCV 89 MCH 30.3 MCHC 33.8 RDW 14.2 H Plt Count 218 Seg Neutrophils % 78.2 H Lymphocytes % 15.1 Monocytes % 6.3 Eosinophils % 0.2 Basophils % 0.2 Absolute Neutrophils 13.4 H Absolute Lymphocytes 2.6 Absolute Monocytes 1.1 Absolute Eosinophils 0.0 Absolute Basophils 0.0 Sodium Cancelled Potassium Cancelled Chloride Cancelled Carbon Dioxide Cancelled Anion Gap Cancelled BUN Cancelled Creatinine Cancelled Est GFR ( Amer) Cancelled Est GFR (Non-Af Amer) Cancelled Glucose Cancelled Calcium Cancelled Total Bilirubin Cancelled AST Cancelled ALT Cancelled Alkaline Phosphatase Cancelled Total Protein Cancelled Albumin Cancelled Urine Color Urine Appearance Urine pH Ur Specific [place] Urine Protein Urine Glucose (UA) Urine Ketones Urine Blood Urine Nitrite Ur Leukocyte Esterase Urine WBC (Auto) Urine RBC (Auto) Stool for White Cells Blood Type O POSITIVE Antibody Screen NEGATIVE 02/02/19 02/02/19 02/02/19 18:35 22:15 23:02 WBC RBC Hgb Hct MCV MCH MCHC RDW Plt Count Seg Neutrophils % Lymphocytes % Monocytes % Eosinophils % Basophils % Absolute Neutrophils Absolute Lymphocytes Absolute Monocytes Absolute Eosinophils Absolute Basophils Sodium Cancelled 137.1 Potassium Cancelled 3.6 Chloride Cancelled 102 Carbon Dioxide Cancelled 23 Anion Gap Cancelled 12 BUN Cancelled 15 Creatinine Cancelled 0.53 Est GFR ( Amer) Cancelled > 60 Est GFR (Non-Af Amer) Cancelled > 60 Glucose Cancelled 137 H Calcium Cancelled 9.2 Total Bilirubin Cancelled 0.7 AST Cancelled 18 ALT Cancelled 13 Alkaline Phosphatase Cancelled 122 Total Protein Cancelled 6.8 Albumin Cancelled 4.3 Urine Color YELLOW Urine Appearance SLIGHTLY-CLOUDY Urine pH 6.0 Ur Specific [place] 1.029 Urine Protein NEGATIVE Urine Glucose (UA) NEGATIVE Urine Ketones NEGATIVE Urine Blood SMALL H Urine Nitrite NEGATIVE Ur Leukocyte Esterase NEGATIVE Urine WBC (Auto) 6 Urine RBC (Auto) 3 Stool for White Cells Blood Type Antibody Screen 02/03/19 02/03/19 02/03/19 05:51 06:15 12:02 WBC 15.7 H 14.1 H RBC 4.52 4.33 Hgb 13.8 13.1 Hct 40.2 38.6 MCV 89 89 MCH 30.5 30.3 MCHC 34.3 34.0 RDW 14.1 H 13.9 Plt Count 164 160 Seg Neutrophils % 73.3 72.9 Lymphocytes % 17.8 18.2 Monocytes % 7.8 7.7 Eosinophils % 0.6 0.8 Basophils % 0.5 0.4 Absolute Neutrophils 11.5 H 10.3 H Absolute Lymphocytes 2.8 2.6 Absolute Monocytes 1.2 1.1 Absolute Eosinophils 0.1 0.1 Absolute Basophils 0.1 0.1 Sodium Potassium Chloride Carbon Dioxide Anion Gap BUN Creatinine Est GFR ( Amer) Est GFR (Non-Af Amer) Glucose Calcium Total Bilirubin AST ALT Alkaline Phosphatase Total Protein Albumin Urine Color Urine Appearance Urine pH Ur Specific [place] Urine Protein Urine Glucose (UA) Urine Ketones Urine Blood Urine Nitrite Ur Leukocyte Esterase Urine WBC (Auto) Urine RBC (Auto) Stool for White Cells MANY H Blood Type Antibody Screen 02/03/19 13:42 WBC 13.1 H RBC 4.24 Hgb 13.0 Hct 37.6 MCV 89 MCH 30.8 MCHC 34.7 RDW 13.9 Plt Count 118 L Seg Neutrophils % Lymphocytes % Monocytes % Eosinophils % Basophils % Absolute Neutrophils Absolute Lymphocytes Absolute Monocytes Absolute Eosinophils Absolute Basophils Sodium Potassium Chloride Carbon Dioxide Anion Gap BUN Creatinine Est GFR ( Amer) Est GFR (Non-Af Amer) Glucose Calcium Total Bilirubin AST ALT Alkaline Phosphatase Total Protein Albumin Urine Color Urine Appearance Urine pH Ur Specific [place] Urine Protein Urine Glucose (UA) Urine Ketones Urine Blood Urine Nitrite Ur Leukocyte Esterase Urine WBC (Auto) Urine RBC (Auto) Stool for White Cells Blood Type Antibody Screen Impressions: Abdomen/Pelvis CT 02/02/19 22:02 IMPRESSION: Long segment circumferential wall thickening and adjacent inflammatory fat stranding involving the left colon. Differential possibilities include infectious and inflammatory etiologies. Assessment & Plan - Diagnosis (1) Colitis Is this a current diagnosis for this admission?: Yes Plan: CT of the abdomen demonstrates long segment circumferential wall thickening and adjacent inflammatory fat stranding involving the left colon. WBCs are elevated to 17, patient is afebrile, complaining of spasmodic lower abdominal pain worsened by movements and p.o. intake. Blood and stool cultures are pending. She is admitted to the medical floor and continuous cardiac telemetry. She is empirically placed on IV ertapenem and Flagyl. She is provided gentle IV fluids. Clear liquid diet. Surgical consultation; will treat conservatively at this time. Antiemetics and analgesics as needed. (2) Lower GI bleed Is this a current diagnosis for this admission?: Yes Plan: Hgb has trended down; 15-> 13.8-> 13.1-> 13.0. Appears to have stabilized. Surgery is consulted; wishes to treat conservatively. Dr. Lezama requests platelet transfusion as the patient did take Plavix yesterday. Hold Plavix, aspirin, heparin prophylaxis. Remain on clear liquid diet. Possible colonoscopy by Dr. Best if bleeding does not improve. We will continue to monitor serial CBC; transfuse for hemoglobin less than 8. (3) Abdominal pain Is this a current diagnosis for this admission?: Yes Plan: Secondary to #1. The patient's home medication regiment of oxycodone 7.5 mg every every 6 hours as needed for pain is continued. Tylenol 650 mg every 4 hours as needed for pain. Continue home dose Cymbalta. IV fentanyl as needed for breakthrough pain. (4) CAD (coronary artery disease) Is this a current diagnosis for this admission?: Yes Plan: Holding aspirin and Plavix therapy. Continue home dose carvedilol and atorvastatin. (5) Leukocytosis Is this a current diagnosis for this admission?: Yes Plan: Secondary to #1; WBC is trending down. Evaluation and management as above. - Time Time Spent with patient: 25-34 minutes Medications reviewed and adjusted accordingly: Yes Anticipated discharge: Home
[2019-02-03 18:46] LABS: ABSOLUTE BASOPHILS # (AUTO) 0.1 10^3/uL (0.0-0.2); ABSOLUTE EOSINOPHILS # (AUTO) 0.2 10^3/uL (0.0-0.6); ABSOLUTE LYMPHOCYTES (AUTO) 2.5 10^3/uL (0.5-4.7); ABSOLUTE MONOCYTES (AUTO) 1.1 10^3/uL (0.1-1.4); ABSOLUTE NEUT (AUTO) 9.5 10^3/uL (1.7-8.2); BASOPHILS % (AUTO) 0.4 % (0-2); EOSINOPHILS % (AUTO) 1.5 % (0-6); HEMATOCRIT 38.1 % (36.0-47.0); HEMOGLOBIN 12.9 g/dL (12.0-15.5); LYMPHOCYTES % (AUTO) 18.9 % (13-45); MEAN CORPUSCULAR HEMOGLOBIN 30.5 pg (27.0-33.4); MEAN CORPUSCULAR HGB CONC 33.9 g/dL (32.0-36.0); MEAN CORPUSCULAR VOLUME 90 fl (80-97); MONOCYTES % (AUTO) 8.2 % (3-13); PLATELET COUNT 148 10^3/uL (150-450); RED BLOOD COUNT 4.25 10^6/uL (3.72-5.28); RED CELL DISTRIBUTION WIDTH 14.2 % (11.5-14.0); TOTAL CELLS COUNTED % (AUTO) 100 %; WHITE BLOOD COUNT 13.4 10^3/uL (4.0-10.5)
--- NOTE | 2019-02-03 19:47 | PDOC CONSULTATION ---
Consultation Consult Date: 02/03/19 Consult reason:: Colitis with GI bleed History of Present Illness Admission Date/PCP: 02/03/19 02:24 KARMEN MARINO DO History of Present Illness: RICCARDO GARCIA is a 53 year old female with history of opioid dependence for herniated disc, takes Plavix for SVT and history of HI with coronary stenting in 2017, diverticulosis and hemorrhoids c/o lower abdominal pains with some bloody BM started yesterday. Went to ED where a CT scan of abd/pelvis showed colitis. Her initial Hb was 15 and today stable at 13. Took Plavix yesterday am. Has some nausea but no vomiting. Seen patient this am with NICOLASA Leiva. Patient apparently takes Oxycodone 4x/day past 3 years. Claims she has Cervical spine problems and L-S herniated discs. Had colonoscopy by Dr Best according to the patient last year and was told normal with diverticulosis. Past Medical History Cardiac Medical History: Reports: Coronary Artery Disease, Myocardial Infarction - JANUARY 2017, Hypertension Pulmonary Medical History: Reports: Asthma, Pneumonia - ABOUT 30 YEARS AGO Denies: Bronchitis, Chronic Obstructive Pulmonary Disease (COPD) Neurological Medical History: Denies: Seizures Musculoskeltal Medical History: Denies: Arthritis Psychiatric Medical History: Reports: Depression, General Anxiety Disorder, Tobacco Dependency Hematology: Denies: Anemia Past Surgical History Past Surgical History: Reports: Section, Orthopedic Surgery - jaw Social History Lives with: Family Smoking Status: Current Some Day Smoker Frequency of Alcohol Use: Rare Hx Recreational Drug Use: No Drugs: None Hx Prescription Drug Abuse: No - Advance Directive Resuscitation Status: Full Code Family History Family History: Hypertension Parental Family History Reviewed: Yes Children Family History Reviewed: No Sibling(s) Family History Reviewed.: No Medication/Allergy Home Medications: Aspirin [Aspirin 81 mg Chewable Tablet] 81 mg PO DAILY 03/16/17 Spironolactone 12.5 mg PO DAILY 03/16/17 Omeprazole 40 mg PO BID 03/21/17 Clopidogrel Bisulfate [Plavix] 75 mg PO DAILY 06/24/17 Albuterol Sulfate [Proair HFA Inhalation Aerosol 8.5 gm MDI] 2 puff IH Q4HP PRN 02/03/19 Alprazolam [Xanax] 1 mg PO Q8H PRN 02/03/19 Atorvastatin Calcium [Lipitor 40 mg Tablet] 40 mg PO QHS 02/03/19 Butalb/Acetaminophen/Caffeine [Lahbxs-Titeihff-Kydd 50-300-40] 1 cap PO Q8HP PRN 02/03/19 Carvedilol [Coreg 3.125 mg Tablet] 3.125 mg PO Q12 02/03/19 Cyclobenzaprine HCl [Flexeril 5 mg Tablet] 5 mg PO Q12HP PRN 02/03/19 Duloxetine HCl 60 mg PO DAILY 02/03/19 Isosorbide Mononitrate [Imdur 30 mg Tablet.er] 15 mg PO DAILY 02/03/19 Oxycodone HCl/Acetaminophen [Oxycodon-Acetaminophen 7.5-325] 1 tab PO Q6HP PRN 02/03/19 Oxycodone Myristate [Xtampza ER] 9 mg PO Q12 02/03/19 Telmisartan [Micardis 40 mg Tablet] 40 mg PO DAILY 02/03/19 Temazepam [Restoril] 30 mg PO HSP PRN 02/03/19 Allergies/Adverse Reactions: No Known Allergies Allergy (Verified 11/06/18 12:10) Review of Systems Constitutional: PRESENT: other - no fever/chills Eyes: PRESENT: other - no visual/hearing changes Cardiovascular: PRESENT: other - no chest pains/cough Gastrointestinal: PRESENT: abdominal pain, nausea Genitourinary: PRESENT: other - no dysuria Musculoskeletal: PRESENT: back pain Psychiatric: PRESENT: anxiety Physical Exam Vital Signs: Temp Pulse Resp BP Pulse Ox 97.4 F 94 16 138/86 H 94 02/03/19 15:14 02/03/19 15:25 02/03/19 15:25 02/03/19 15:14 02/03/19 15:25 Intake & Output 02/02/19 02/03/19 02/04/19 06:59 06:59 06:59 Intake Total 1000 3518 Output Total 700 Balance 1000 2818 Weight 77.3 kg General appearance: PRESENT: mild distress, obese Head exam: PRESENT: atraumatic Eye exam: PRESENT: conjunctiva pink Mouth exam: PRESENT: moist Neck exam: PRESENT: full ROM Respiratory exam: PRESENT: clear to auscultation nick Cardiovascular exam: PRESENT: RRR Pulses: PRESENT: normal radial pulses Vascular exam: PRESENT: normal capillary refill GI/Abdominal exam: PRESENT: soft, tenderness - lower abdomen Rectal exam: PRESENT: deferred Extremities exam: PRESENT: full ROM Musculoskeletal exam: PRESENT: ambulatory Neurological exam: PRESENT: alert, oriented to person, oriented to place, orien veronica to time, oriented to situation Psychiatric exam: PRESENT: anxious Skin exam: PRESENT: normal color, warm Results Laboratory Results: 02/03/19 18:17 02/02/19 23:02 02/02/19 02/02/19 02/02/19 18:26 22:15 23:02 WBC RBC Hgb Hct MCV MCH MCHC RDW Plt Count Seg Neutrophils % Lymphocytes % Monocytes % Eosinophils % Basophils % Absolute Neutrophils Absolute Lymphocytes Absolute Monocytes Absolute Eosinophils Absolute Basophils Sodium Cancelled 137.1 Potassium Cancelled 3.6 Chloride Cancelled 102 Carbon Dioxide Cancelled 23 Anion Gap Cancelled 12 BUN Cancelled 15 Creatinine Cancelled 0.53 Est GFR ( Amer) Cancelled > 60 Est GFR (Non-Af Amer) Cancelled > 60 Glucose Cancelled 137 H Calcium Cancelled 9.2 Total Bilirubin Cancelled 0.7 AST Cancelled 18 ALT Cancelled 13 Alkaline Phosphatase Cancelled 122 Total Protein Cancelled 6.8 Albumin Cancelled 4.3 Stool for White Cells Blood Type O POSITIVE Antibody Screen NEGATIVE 02/03/19 02/03/19 02/03/19 05:51 06:15 12:02 WBC 15.7 H 14.1 H RBC 4.52 4.33 Hgb 13.8 13.1 Hct 40.2 38.6 MCV 89 89 MCH 30.5 30.3 MCHC 34.3 34.0 RDW 14.1 H 13.9 Plt Count 164 160 Seg Neutrophils % 73.3 72.9 Lymphocytes % 17.8 18.2 Monocytes % 7.8 7.7 Eosinophils % 0.6 0.8 Basophils % 0.5 0.4 Absolute Neutrophils 11.5 H 10.3 H Absolute Lymphocytes 2.8 2.6 Absolute Monocytes 1.2 1.1 Absolute Eosinophils 0.1 0.1 Absolute Basophils 0.1 0.1 Sodium Potassium Chloride Carbon Dioxide Anion Gap BUN Creatinine Est GFR ( Amer) Est GFR (Non-Af Amer) Glucose Calcium Total Bilirubin AST ALT Alkaline Phosphatase Total Protein Albumin Stool for White Cells MANY H Blood Type Antibody Screen 02/03/19 02/03/19 13:42 18:17 WBC 13.1 H 13.4 H RBC 4.24 4.25 Hgb 13.0 12.9 Hct 37.6 38.1 MCV 89 90 MCH 30.8 30.5 MCHC 34.7 33.9 RDW 13.9 14.2 H Plt Count 118 L 148 L Seg Neutrophils % 71.0 Lymphocytes % 18.9 Monocytes % 8.2 Eosinophils % 1.5 Basophils % 0.4 Absolute Neutrophils 9.5 H Absolute Lymphocytes 2.5 Absolute Monocytes 1.1 Absolute Eosinophils 0.2 Absolute Basophils 0.1 Sodium Potassium Chloride Carbon Dioxide Anion Gap BUN Creatinine Est GFR ( Amer) Est GFR (Non-Af Amer) Glucose Calcium Total Bilirubin AST ALT Alkaline Phosphatase Total Protein Albumin Stool for White Cells Blood Type Antibody Screen Impressions: Abdomen/Pelvis CT 02/02/19 22:02 IMPRESSION: Long segment circumferential wall thickening and adjacent inflammatory fat stranding involving the left colon. Differential possibilities include infectious and inflammatory etiologies. Assessment & Plan - Diagnosis (1) Colitis Is this a current diagnosis for this admission?: Yes (2) Leukocytosis Is this a current diagnosis for this admission?: Yes (3) Lower GI bleed Is this a current diagnosis for this admission?: Yes - Time Time Spent: 30 to 50 Minutes - Inpatient Certification Medical Necessity: Need For IV Fluids, Need for Pain Control, Need for IV Antibiotics, Risk of Complication if Not Cared For in Hospital - Plan Summary Plan Summary: Continue bowel rest Monitor H/H,platelets Continue IV antibiotics for possible infectious colitis Already called blood bank to have platelets available if continuous to bleed Will follow
[2019-02-03] MEDS: CARVEDILOL 3.125 MG TABLET PO SCH (23:04)
[2019-02-03] MEDS: ERTAPENEM SODIUM 1 GM in NORMAL SALINE 50 ML IV SCH (23:04)
[2019-02-03] MEDS: ATORVASTATIN CALCIUM 40 MG TABLET PO SCH (23:04)
[2019-02-03] MEDS: OXYMETAZOLINE HCL 0.05% NASAL SPRAY 15 ML BOTTLE NASL SCH (23:10)
[2019-02-04 00:24] LABS: ABSOLUTE BASOPHILS # (AUTO) 0.1 10^3/uL (0.0-0.2); ABSOLUTE EOSINOPHILS # (AUTO) 0.2 10^3/uL (0.0-0.6); ABSOLUTE LYMPHOCYTES (AUTO) 2.7 10^3/uL (0.5-4.7); ABSOLUTE NEUT (AUTO) 11.5 10^3/uL (1.7-8.2); BASOPHILS % (AUTO) 0.6 % (0-2); EOSINOPHILS % (AUTO) 1.1 % (0-6); HEMATOCRIT 35.7 % (36.0-47.0); HEMOGLOBIN 12.3 g/dL (12.0-15.5); LYMPHOCYTES % (AUTO) 17.5 % (13-45); MEAN CORPUSCULAR HEMOGLOBIN 30.3 pg (27.0-33.4); MEAN CORPUSCULAR HGB CONC 34.4 g/dL (32.0-36.0); MEAN CORPUSCULAR VOLUME 88 fl (80-97); MONOCYTES % (AUTO) 6.2 % (3-13); PLATELET COUNT 147 10^3/uL (150-450); RED BLOOD COUNT 4.06 10^6/uL (3.72-5.28); RED CELL DISTRIBUTION WIDTH 14.2 % (11.5-14.0); SEGMENTED NEUTROPHILS % (AUTO) 74.6 % (42-78); TOTAL CELLS COUNTED % (AUTO) 100 %; WHITE BLOOD COUNT 15.4 10^3/uL (4.0-10.5)
[2019-02-04] MEDS: METRONIDAZOLE 500 MG TABLET PO SCH ×4 (02:15→21:03)
[2019-02-04 06:18] LABS: ABSOLUTE BASOPHILS # (AUTO) 0.1 10^3/uL (0.0-0.2); ABSOLUTE EOSINOPHILS # (AUTO) 0.3 10^3/uL (0.0-0.6); ABSOLUTE MONOCYTES (AUTO) 0.9 10^3/uL (0.1-1.4); ABSOLUTE NEUT (AUTO) 9.8 10^3/uL (1.7-8.2); EOSINOPHILS % (AUTO) 1.9 % (0-6); HEMATOCRIT 35.7 % (36.0-47.0); HEMOGLOBIN 12.3 g/dL (12.0-15.5); MEAN CORPUSCULAR HEMOGLOBIN 30.4 pg (27.0-33.4); MEAN CORPUSCULAR HGB CONC 34.3 g/dL (32.0-36.0); MEAN CORPUSCULAR VOLUME 89 fl (80-97); MONOCYTES % (AUTO) 6.5 % (3-13); PLATELET COUNT 142 10^3/uL (150-450); RED BLOOD COUNT 4.03 10^6/uL (3.72-5.28); RED CELL DISTRIBUTION WIDTH 13.7 % (11.5-14.0); SEGMENTED NEUTROPHILS % (AUTO) 69.6 % (42-78); TOTAL CELLS COUNTED % (AUTO) 100 %; WHITE BLOOD COUNT 14.1 10^3/uL (4.0-10.5)
[2019-02-04 06:38] LABS: ANION GAP 8 (5-19); BLOOD UREA NITROGEN 5 mg/dL (7-20); CALCIUM 8.7 mg/dL (8.4-10.2); CARBON DIOXIDE 26 mmol/L (22-30); CHLORIDE 101 mmol/L (98-107); GLUCOSE 128 mg/dL (75-110); POTASSIUM 3.2 mmol/L (3.6-5.0)
[2019-02-04] MEDS: PANTOPRAZOLE SODIUM 40 MG TABLET.DR PO SCH (06:44)
[2019-02-04] MEDS ORDERED: (PENDING PHARMACY ID) (Duloxetine Hcl [Duloxetine Hcl] 60 MG) PO SCH (10:00)
[2019-02-04] MEDS: OXYCODONE HCL IR 5 MG TABLET PO PRN ×2 (10:15→19:00)
[2019-02-04] MEDS: CARVEDILOL 3.125 MG TABLET PO SCH ×2 (10:16→21:04)
[2019-02-04] MEDS: CYCLOBENZAPRINE HCL 10 MG TABLET PO SCH ×3 (10:16→18:59)
[2019-02-04] MEDS: DULOXETINE HCL 30 MG CAPSULE.DR PO SCH (10:16)
[2019-02-04] MEDS: OXYMETAZOLINE HCL 0.05% NASAL SPRAY 15 ML BOTTLE NASL SCH ×2 (10:17→21:03)
[2019-02-04] MEDS ORDERED: POTASSIUM CHLORIDE 10 MEQ CAPSULE.ER PO ONE (11:00)
--- NOTE | 2019-02-04 11:44 | PDOC PROGRESS REPORT ---
Subjective Progress Note for:: 02/04/19 Subjective:: Patient states she feels much better. Reason For Visit: COLITIS,LOWER GI BLEED,CHRONIC PAIN Physical Exam Vital Signs: Temp Pulse Resp BP Pulse Ox 98.3 F 96 16 133/73 H 95 02/04/19 08:18 02/04/19 08:18 02/04/19 08:18 02/04/19 08:18 02/04/19 08:18 Intake & Output 02/03/19 02/04/19 02/05/19 06:59 06:59 06:59 Intake Total 1000 4446 250 Output Total 3350 450 Balance 1000 1096 -200 Weight 77.3 kg 80.2 kg General appearance: PRESENT: no acute distress GI/Abdominal exam: PRESENT: other - Abdomen soft tender but not exquisitely; states feels better today compared to yesterday. Results Laboratory Results: 02/04/19 06:07 02/04/19 06:07 02/02/19 02/03/19 02/03/19 18:26 12:02 13:42 WBC 14.1 H 13.1 H RBC 4.33 4.24 Hgb 13.1 13.0 Hct 38.6 37.6 MCV 89 89 MCH 30.3 30.8 MCHC 34.0 34.7 RDW 13.9 13.9 Plt Count 160 118 L Seg Neutrophils % 72.9 Lymphocytes % 18.2 Monocytes % 7.7 Eosinophils % 0.8 Basophils % 0.4 Absolute Neutrophils 10.3 H Absolute Lymphocytes 2.6 Absolute Monocytes 1.1 Absolute Eosinophils 0.1 Absolute Basophils 0.1 Sodium Potassium Chloride Carbon Dioxide Anion Gap BUN Creatinine Est GFR ( Amer) Est GFR (Non-Af Amer) Glucose Calcium Blood Type O POSITIVE Antibody Screen NEGATIVE 02/03/19 02/04/19 02/04/19 18:17 00:11 06:07 WBC 13.4 H 15.4 H 14.1 H RBC 4.25 4.06 4.03 Hgb 12.9 12.3 12.3 Hct 38.1 35.7 L 35.7 L MCV 90 88 89 MCH 30.5 30.3 30.4 MCHC 33.9 34.4 34.3 RDW 14.2 H 14.2 H 13.7 Plt Count 148 L 147 L 142 L Seg Neutrophils % 71.0 74.6 69.6 Lymphocytes % 18.9 17.5 21.0 Monocytes % 8.2 6.2 6.5 Eosinophils % 1.5 1.1 1.9 Basophils % 0.4 0.6 1.0 Absolute Neutrophils 9.5 H 11.5 H 9.8 H Absolute Lymphocytes 2.5 2.7 3.0 Absolute Monocytes 1.1 1.0 0.9 Absolute Eosinophils 0.2 0.2 0.3 Absolute Basophils 0.1 0.1 0.1 Sodium Potassium Chloride Carbon Dioxide Anion Gap BUN Creatinine Est GFR ( Amer) Est GFR (Non-Af Amer) Glucose Calcium Blood Type Antibody Screen 02/04/19 06:07 WBC RBC Hgb Hct MCV MCH MCHC RDW Plt Count Seg Neutrophils % Lymphocytes % Monocytes % Eosinophils % Basophils % Absolute Neutrophils Absolute Lymphocytes Absolute Monocytes Absolute Eosinophils Absolute Basophils Sodium 135.0 L Potassium 3.2 L Chloride 101 Carbon Dioxide 26 Anion Gap 8 BUN 5 L Creatinine 0.59 Est GFR ( Amer) > 60 Est GFR (Non-Af Amer) > 60 Glucose 128 H Calcium 8.7 Blood Type Antibody Screen Impressions: Abdomen/Pelvis CT 02/02/19 22:02 IMPRESSION: Long segment circumferential wall thickening and adjacent inflammatory fat stranding involving the left colon. Differential possibilities include infectious and inflammatory etiologies. Assessment & Plan - Diagnosis (1) Colitis Is this a current diagnosis for this admission?: Yes Plan: Impression: Acute colitis, clinically improved on intravenous antibiotics. Hemoglobin stable; residual low white count; platelets transfused Recommendations: 1. Patient appears to be responding to appropriate medical therapy; await cultures and adjust antibiotics accordingly 2. Suggest endoscopic evaluation on an outpatient basis after acute flareup subsides; 3. We will sign off; reconsult surgery if patient's clinical condition deteriorates
[2019-02-04 13:39] LABS: ABSOLUTE BASOPHILS # (AUTO) 0.1 10^3/uL (0.0-0.2); ABSOLUTE EOSINOPHILS # (AUTO) 0.3 10^3/uL (0.0-0.6); ABSOLUTE LYMPHOCYTES (AUTO) 2.2 10^3/uL (0.5-4.7); ABSOLUTE MONOCYTES (AUTO) 0.8 10^3/uL (0.1-1.4); ABSOLUTE NEUT (AUTO) 9.3 10^3/uL (1.7-8.2); BASOPHILS % (AUTO) 0.5 % (0-2); EOSINOPHILS % (AUTO) 2.1 % (0-6); HEMOGLOBIN 12.1 g/dL (12.0-15.5); LYMPHOCYTES % (AUTO) 17.4 % (13-45); MEAN CORPUSCULAR HEMOGLOBIN 30.6 pg (27.0-33.4); MEAN CORPUSCULAR HGB CONC 34.7 g/dL (32.0-36.0); MEAN CORPUSCULAR VOLUME 88 fl (80-97); MONOCYTES % (AUTO) 6.5 % (3-13); PLATELET COUNT 145 10^3/uL (150-450); RED BLOOD COUNT 3.97 10^6/uL (3.72-5.28); RED CELL DISTRIBUTION WIDTH 13.8 % (11.5-14.0); SEGMENTED NEUTROPHILS % (AUTO) 73.5 % (42-78); TOTAL CELLS COUNTED % (AUTO) 100 %; WHITE BLOOD COUNT 12.7 10^3/uL (4.0-10.5)
--- NOTE | 2019-02-04 14:55 | PDOC PROGRESS REPORT ---
Subjective Progress Note for:: 02/04/19 Subjective:: RICCARDO GARCIA is a 53 year old female with a past medical history of opiate dependent chronic pain, coronary artery disease,, anxiety, tobacco, diverticulosis and internal hemorrhoids who was admitted 02/03/2019 for colitis and lower GI bleed. Patient was seen on morning rounds. Patient was found resting in bed comfortably on room air; she was sleeping but woke easily when I said her name. She reports continued generalized, spasmatic, abdominal comfort; though improved from yesterday. She reports scant rectal bleeding this morning. Her primary concern is annoyance with phlebotomy and asking to receive a work note for 1 week. She denies fever, chills, chest pain, palpitations, dyspnea, and orthopnea, nausea and vomiting. She has no other questions or concerns at this time. No concerns per nursing. Reason For Visit: COLITIS,LOWER GI BLEED,CHRONIC PAIN Physical Exam Vital Signs: Temp Pulse Resp BP Pulse Ox 98.1 F 91 16 126/73 H 93 02/04/19 11:54 02/04/19 11:54 02/04/19 11:54 02/04/19 11:54 02/04/19 11:54 Intake & Output 02/03/19 02/04/19 02/05/19 06:59 06:59 06:59 Intake Total 1000 4446 250 Output Total 3350 450 Balance 1000 1096 -200 Weight 77.3 kg 80.2 kg General appearance: PRESENT: no acute distress, disheveled, well-developed, well-nourished - overweight Head exam: PRESENT: atraumatic, normocephalic Eye exam: PRESENT: conjunctiva pink, EOMI, PERRLA. ABSENT: scleral icterus Mouth exam: PRESENT: moist, tongue midline Teeth exam: PRESENT: poor dentation Neck exam: ABSENT: carotid bruit, JVD, lymphadenopathy, thyromegaly Respiratory exam: PRESENT: clear to auscultation nick, symmetrical, unlabored. ABSENT: rales, rhonchi, wheezes Cardiovascular exam: PRESENT: RRR, +S1, +S2. ABSENT: diastolic murmur, rubs, systolic murmur Vascular exam: PRESENT: normal capillary refill GI/Abdominal exam: PRESENT: hyperactive bowel sounds, soft, tenderness. ABSENT: distended, guarding, mass, organolmegaly, rebound Rectal exam: PRESENT: deferred Extremities exam: PRESENT: full ROM. ABSENT: calf tenderness, clubbing, pedal edema Neurological exam: PRESENT: alert, awake, oriented to person, oriented to place, oriented to time, oriented to situation, CN II-XII grossly intact. ABSENT: motor sensory deficit Psychiatric exam: PRESENT: agitated, normal mood, unusual affect. ABSENT: homicidal ideation, suicidal ideation Skin exam: PRESENT: dry, intact, warm. ABSENT: cyanosis, rash Results Laboratory Results: 02/04/19 12:55 02/04/19 06:07 02/02/19 02/03/19 02/04/19 18:26 18:17 00:11 WBC 13.4 H 15.4 H RBC 4.25 4.06 Hgb 12.9 12.3 Hct 38.1 35.7 L MCV 90 88 MCH 30.5 30.3 MCHC 33.9 34.4 RDW 14.2 H 14.2 H Plt Count 148 L 147 L Seg Neutrophils % 71.0 74.6 Lymphocytes % 18.9 17.5 Monocytes % 8.2 6.2 Eosinophils % 1.5 1.1 Basophils % 0.4 0.6 Absolute Neutrophils 9.5 H 11.5 H Absolute Lymphocytes 2.5 2.7 Absolute Monocytes 1.1 1.0 Absolute Eosinophils 0.2 0.2 Absolute Basophils 0.1 0.1 Sodium Potassium Chloride Carbon Dioxide Anion Gap BUN Creatinine Est GFR ( Amer) Est GFR (Non-Af Amer) Glucose Calcium Blood Type O POSITIVE Antibody Screen NEGATIVE 02/04/19 02/04/19 02/04/19 06:07 06:07 12:55 WBC 14.1 H 12.7 H RBC 4.03 3.97 Hgb 12.3 12.1 Hct 35.7 L 35.0 L MCV 89 88 MCH 30.4 30.6 MCHC 34.3 34.7 RDW 13.7 13.8 Plt Count 142 L 145 L Seg Neutrophils % 69.6 73.5 Lymphocytes % 21.0 17.4 Monocytes % 6.5 6.5 Eosinophils % 1.9 2.1 Basophils % 1.0 0.5 Absolute Neutrophils 9.8 H 9.3 H Absolute Lymphocytes 3.0 2.2 Absolute Monocytes 0.9 0.8 Absolute Eosinophils 0.3 0.3 Absolute Basophils 0.1 0.1 Sodium 135.0 L Potassium 3.2 L Chloride 101 Carbon Dioxide 26 Anion Gap 8 BUN 5 L Creatinine 0.59 Est GFR ( Amer) > 60 Est GFR (Non-Af Amer) > 60 Glucose 128 H Calcium 8.7 Blood Type Antibody Screen 02/02/19 18:35 Clean Catch Midstream Urine Culture - Final Mixed Urogenital Ciara Impressions: Abdomen/Pelvis CT 02/02/19 22:02 IMPRESSION: Long segment circumferential wall thickening and adjacent inflammatory fat stranding involving the left colon. Differential possibilities include infectious and inflammatory etiologies. Assessment & Plan - Diagnosis (1) Colitis Is this a current diagnosis for this admission?: Yes Plan: CT of the abdomen demonstrates long segment circumferential wall thickening and adjacent inflammatory fat stranding involving the left colon. WBCs are elevated to 17, patient is afebrile, complaining of spasmodic lower abdominal pain worsened by movements and p.o. intake. Blood cultures negative at 24 hours. Stool cultures are pending. She is admitted to the medical floor and continuous cardiac telemetry. She is empirically placed on IV ertapenem and Flagyl; will transition to p.o. Cipro and Flagyl once blood cultures are negative at 72 hrs. She is provided gentle IV fluids. Advance to full liquid diet. Surgical consultation; will treat conservatively at this time. Have signed off. Antiemetics and analgesics as needed. (2) Lower GI bleed Is this a current diagnosis for this admission?: Yes Plan: Hgb has trended down; 15-> 12.3-> 12.3-> 12.1. Appears to have stabilized. Now only scant bleed per rectum per patient Now s/p 1 units PLT. 218-> 118-> 148 Surgery is consulted; wishes to treat conservatively. Outpatient colonoscopy once acute illness is resolved. Hold Plavix, aspirin, heparin prophylaxis. We will continue to monitor serial CBC; transfuse for hemoglobin less than 8. (3) Abdominal pain Is this a current diagnosis for this admission?: Yes Plan: Secondary to #1. The patient's home medication regiment of oxycodone 7.5 mg every every 6 hours as needed for pain is continued. Tylenol 650 mg every 4 hours as needed for pain. Continue home dose Cymbalta. IV fentanyl as needed for breakthrough pain. (4) CAD (coronary artery disease) Is this a current diagnosis for this admission?: Yes Plan: Holding aspirin and Plavix therapy. Continue home dose carvedilol and atorvastatin. (5) Leukocytosis Is this a current diagnosis for this admission?: Yes Plan: Secondary to #1; WBC is trending down. Evaluation and management as above. - Time Time Spent with patient: 15-24 minutes Medications reviewed and adjusted accordingly: Yes Anticipated discharge: Home Within: within 24 hours
[2019-02-04] MEDS: ERTAPENEM SODIUM 1 GM in NORMAL SALINE 50 ML IV SCH (21:03)
[2019-02-04] MEDS: ATORVASTATIN CALCIUM 40 MG TABLET PO SCH (21:04)
[2019-02-05] MEDS: OXYCODONE HCL IR 5 MG TABLET PO PRN ×2 (00:56→07:02)
[2019-02-05] MEDS: METRONIDAZOLE 500 MG TABLET PO SCH ×2 (03:49→09:41)
[2019-02-05] MEDS: PANTOPRAZOLE SODIUM 40 MG TABLET.DR PO SCH (05:46)
[2019-02-05 06:26] LABS: HEMATOCRIT 34.4 % (36.0-47.0); HEMOGLOBIN 11.8 g/dL (12.0-15.5); MEAN CORPUSCULAR HEMOGLOBIN 30.7 pg (27.0-33.4); MEAN CORPUSCULAR HGB CONC 34.4 g/dL (32.0-36.0); MEAN CORPUSCULAR VOLUME 89 fl (80-97); PLATELET COUNT 128 10^3/uL (150-450); RED BLOOD COUNT 3.86 10^6/uL (3.72-5.28)
[2019-02-05 06:41] LABS: ANION GAP 9 (5-19); BLOOD UREA NITROGEN 8 mg/dL (7-20); CALCIUM 8.5 mg/dL (8.4-10.2); CARBON DIOXIDE 26 mmol/L (22-30); CHLORIDE 98 mmol/L (98-107); GLUCOSE 116 mg/dL (75-110); POTASSIUM 3.3 mmol/L (3.6-5.0); SODIUM 133.3 mmol/L (137-145)
[2019-02-05] MEDS ORDERED: POTASSIUM CHLORIDE 10 MEQ CAPSULE.ER PO ONE (08:30)
[2019-02-05] MEDS: OXYMETAZOLINE HCL 0.05% NASAL SPRAY 15 ML BOTTLE NASL SCH (09:41)
[2019-02-05] MEDS: DULOXETINE HCL 30 MG CAPSULE.DR PO SCH (09:41)
[2019-02-05] MEDS: CARVEDILOL 3.125 MG TABLET PO SCH (09:41)
[2019-02-05] MEDS: CYCLOBENZAPRINE HCL 10 MG TABLET PO SCH (09:41)
[2019-02-05] MEDS ORDERED: CIPROFLOXACIN HCL 750 MG TABLET PO SCH (10:00)
[2019-02-05 11:45] VITALS: BP 141/89
--- NOTE | 2019-02-06 13:32 | PDOC DISCHARGE SUMMARY ---
General - Admit/Disc Date/PCP Admission Date/Primary Care Provider: 02/03/19 02:24 KARMEN MARINO, Discharge Date: 02/05/19 - Discharge Diagnosis (1) Colitis Is this a current diagnosis for this admission?: Yes Summary: CT of the abdomen demonstrates long segment circumferential wall thickening and adjacent inflammatory fat stranding involving the left colon. Blood cultures negative at 72 hours. Stool cultures are negative. She was admitted to the medical floor and continuous cardiac telemetry. She was empirically placed on IV ertapenem and Flagyl; she was transition to p. o. Cipro and Flagyl once blood cultures became negative at 72 hrs. She was supported with gentle IV fluids, antiemetics, and analgesics as needed. Surgery was consulted; recommend outpatient follow up. She was placed on a clear liquid diet which was advanced as tolerated. At time of discharge, the patient was in stable condition, asymptomatic, and tolerating a regular diet. She was discharged with prescriptions for flagyl and cipro. She is advised to drink plenty of fluids and eat as tolerated. She is instructed to follow up with her PCP within 1 week and with the [facility] within 4-6 weeks to arrange for outpatient colonoscopy. She is directed to return to the emergency department as needed for concerning symptoms. (2) Lower GI bleed Is this a current diagnosis for this admission?: Yes Summary: Significant improvement; patient reports scant streaking of blood mixed with stools today. Hgb has trended down; 15-> 12.3-> 12.3-> 12.1-> 11.8. Appears to have stabilized. Now s/p 1 units PLT secondary to Plavix use. Surgery was consulted; recommeds outpatient colonoscopy once acute illness is resolved. May resume low dose aspirin. Continue holding Plavix. (3) Abdominal pain Is this a current diagnosis for this admission?: Yes Summary: Resolved; Secondary to #1. (4) CAD (coronary artery disease) Is this a current diagnosis for this admission?: Yes Summary: Held aspirin and Plavix therapy while admitted secondary to lower GI bleed. Her home dose carvedilol and atorvastatin were continued. At discharge she is instructed to resume her home dose aspirin but to continue holding Plavix until her follow up appointment with her PCP. Recommend reevaluating the risks/benefits of dual antiplatelet therapy in patient with bleeding complications. (5) Leukocytosis Is this a current diagnosis for this admission?: Yes Summary: Secondary to #1. Evaluation and management as above. - Additional Information Resuscitation Status: Full Code Discharge Diet: As Tolerated Discharge Activity: Activity As Tolerated, Balance Activity w/Rest, Slowly Increase Activity Prescriptions: Ciprofloxacin HCl [Cipro 750 mg Tablet] 750 mg PO Q12 #20 tablet Metronidazole [Flagyl 500 mg Tablet] 500 mg PO Q8 #30 tablet Home Medications: Aspirin [Aspirin 81 mg Chewable Tablet] 81 mg PO DAILY 03/16/17 Spironolactone 12.5 mg PO DAILY 03/16/17 Omeprazole 40 mg PO BID 03/21/17 Albuterol Sulfate [Proair HFA Inhalation Aerosol 8.5 gm MDI] 2 puff IH Q4HP PRN 02/03/19 Alprazolam [Xanax] 1 mg PO Q8H PRN 02/03/19 Atorvastatin Calcium [Lipitor 40 mg Tablet] 40 mg PO QHS 02/03/19 Butalb/Acetaminophen/Caffeine [Qnbmhz-Eatbqjim-Llbu 50-300-40] 1 cap PO Q8HP PRN 02/03/19 Carvedilol [Coreg 3.125 mg Tablet] 3.125 mg PO Q12 02/03/19 Cyclobenzaprine HCl [Flexeril 5 mg Tablet] 5 mg PO Q12HP PRN 02/03/19 Duloxetine HCl 60 mg PO DAILY 02/03/19 Isosorbide Mononitrate [Imdur 30 mg Tablet.er] 15 mg PO DAILY 02/03/19 Oxycodone HCl/Acetaminophen [Oxycodon-Acetaminophen 7.5-325] 1 tab PO Q6HP PRN 02/03/19 Oxycodone Myristate [Xtampza ER] 9 mg PO Q12 02/03/19 Telmisartan [Micardis 40 mg Tablet] 40 mg PO DAILY 02/03/19 Temazepam [Restoril] 30 mg PO HSP PRN 02/03/19 Acetaminophen [Tylenol 325 mg Tablet] 650 mg PO Q4HP PRN tablet 02/05/19 Atorvastatin Calcium [Lipitor 40 mg Tablet] 80 mg PO QHS tablet 02/05/19 Ciprofloxacin HCl [Cipro 750 mg Tablet] 750 mg PO Q12 #20 tablet 02/05/19 Cyclobenzaprine HCl [Flexeril 10 mg Tablet] 10 mg PO TID tablet 02/05/19 Metronidazole [Flagyl 500 mg Tablet] 500 mg PO Q8 #30 tablet 02/05/19 History of Present Illness History of Present Illness: Per H&P by Dr. Meza: RICCARDO GARCIA is a 53 year old female with a past medical history of opiate dependent chronic pain, coronary artery disease,, anxiety, tobacco, diverticulosis and internal hemorrhoids presenting with 12 hours of bright red blood per rectum associated with cramping abdominal pain. Complicated by Plavix in the emergency room she is found to have leukocytosis, bright red blood per rectum, tachycardia and a CT abdomen pelvis notable for colitis. She receives empiric antibiotics and referred to the hospitalist for admission. Physical Exam Vital Signs: Temp Pulse Resp BP Pulse Ox 98.7 F 100 16 110/70 93 02/05/19 07:57 02/05/19 07:57 02/05/19 07:57 02/05/19 07:57 02/05/19 07:57 Intake & Output 02/04/19 02/05/19 02/06/19 06:59 06:59 06:59 Intake Total 4446 1160 Output Total 3350 450 Balance 1096 710 Weight 80.2 kg 79.3 kg General appearance: PRESENT: no acute distress, disheveled, well-developed, well-nourished - overweight Head exam: PRESENT: atraumatic, normocephalic Eye exam: PRESENT: conjunctiva pink, EOMI, PERRLA. ABSENT: scleral icterus Mouth exam: PRESENT: moist, tongue midline Teeth exam: PRESENT: poor dentation Neck exam: ABSENT: carotid bruit, JVD, lymphadenopathy, thyromegaly Respiratory exam: PRESENT: clear to auscultation nick. ABSENT: rales, rhonchi, wheezes Cardiovascular exam: PRESENT: RRR. ABSENT: diastolic murmur, rubs, systolic murmur Pulses: PRESENT: normal dorsalis pedis pul Vascular exam: PRESENT: normal capillary refill GI/Abdominal exam: PRESENT: normal bowel sounds, soft. ABSENT: distended, guarding, mass, organolmegaly, rebound, tenderness Rectal exam: PRESENT: deferred Extremities exam: PRESENT: full ROM. ABSENT: calf tenderness, clubbing, pedal edema Neurological exam: PRESENT: alert, awake, oriented to person, oriented to place, oriented to time, oriented to situation, CN II-XII grossly intact. ABSENT: motor sensory deficit Psychiatric exam: PRESENT: appropriate affect, normal mood. ABSENT: homicidal ideation, suicidal ideation Skin exam: PRESENT: dry, intact, warm. ABSENT: cyanosis, rash Results Laboratory Results: 02/05/19 06:12 02/05/19 06:12 02/04/19 02/05/19 02/05/19 12:55 06:12 06:12 WBC 12.7 H 15.0 H RBC 3.97 3.86 Hgb 12.1 11.8 L Hct 35.0 L 34.4 L MCV 88 89 MCH 30.6 30.7 MCHC 34.7 34.4 RDW 13.8 14.0 Plt Count 145 L 128 L Seg Neutrophils % 73.5 Lymphocytes % 17.4 Monocytes % 6.5 Eosinophils % 2.1 Basophils % 0.5 Absolute Neutrophils 9.3 H Absolute Lymphocytes 2.2 Absolute Monocytes 0.8 Absolute Eosinophils 0.3 Absolute Basophils 0.1 Sodium 133.3 L Potassium 3.3 L Chloride 98 Carbon Dioxide 26 Anion Gap 9 BUN 8 Creatinine 0.63 Est GFR ( Amer) > 60 Est GFR (Non-Af Amer) > 60 Glucose 116 H Calcium 8.5 02/02/19 18:35 Clean Catch Midstream Urine Culture - Final Mixed Urogenital Ciara Impressions: Abdomen/Pelvis CT 02/02/19 22:02 IMPRESSION: Long segment circumferential wall thickening and adjacent inflammatory fat stranding involving the left colon. Differential possibilities include infectious and inflammatory etiologies. Qualifiers - * PATIENT BEING DISCHARGED WITH ANY OF THE FOLLOWING DIAGNOSIS: No Plan Discharge Plan: The patient is discharged to home on oral antibiotic therapy. Follow up with primary care provider within 1 week. Follow up with the [facility] within 4-6 weeks to arrange for colonoscopy. Return to the emergency department as needed for any concerning symptoms. Time Spent: Less than 30 Minutes
== END 2019-02-05 12:38 | disposition home or self-care (01) | DRG 392 ==
LOC: ER 17:17 → EH 02-03 02:24 → 5 02-03 05:02
PROVIDERS: ADMIT Internal Medicine; ATTEND Internal Medicine
PROC: 30233R1 Transfusion of Nonautologous Platelets into Peripheral Vein, Percutaneous Approach (ICD-10-PCS; principal; 2019-02-03)
DX: K52.9 Noninfective gastroenteritis and colitis, unspecified (principal); D72.829 Elevated white blood cell count, unspecified; G89.29 Other chronic pain; I25.10 Atherosclerotic heart disease of native coronary artery without angina pectoris; I10 Essential (primary) hypertension; J45.909 Unspecified asthma, uncomplicated; F17.210 Nicotine dependence, cigarettes, uncomplicated; F32.9 Major depressive disorder, single episode, unspecified; F41.1 Generalized anxiety disorder; M54.9 Dorsalgia, unspecified; E66.3 Overweight; I25.2 Old myocardial infarction; Z79.82 Long term (current) use of aspirin; Z95.5 Presence of coronary angioplasty implant and graft; Z82.49 Family history of ischemic heart disease and other diseases of the circulatory system
CPT/HCPCS: 36415; 36430; 74177; 80048; 80053; 81001; 85025; 85027; 85610; 86850; 86900; 86901; 87040; 87045; 87086; 87205; 87493; 89055; 96361; 96365; 96375; 96376; 99285; J1335; J2270; J2405; J3010; J3490; J7030; P9035

== ENCOUNTER 2019-03-29 10:24 | Emergency (ER) | payer MEDICARE, MEDICAID ==
--- NOTE | 2019-03-29 11:11 | ER Document Report ---
ED Medical Screen (RME) - General Chief Complaint: Nausea/Vomiting Stated Complaint: NAUSEA/VOMITING/DIFFICULTY BREATHING Time Seen by Provider: 03/29/19 11:04 Primary Care Provider: KARMEN MARINO DO [Primary Care Provider] - Follow up as needed Mode of Arrival: Wheelchair Information source: Patient Notes: Patient presents complaining of nausea vomiting lower pelvic pain and shortness of breath for the past week. Patient states that she is been falling recently due to blacking out at home. Patient has several large bruises to her upper back and right lower side area. Patient does take Plavix. Patient reports a history of hypertension, colitis and ME. I have greeted and performed a rapid initial assessment of this patient. A comprehensive ED assessment and evaluation of the patient, analysis of test results and completion of the medical decision making process will be conducted by additional ED providers. TRAVEL OUTSIDE OF THE [place] IN LAST 30 DAYS: No - Related Data Allergies/Adverse Reactions: prednisone Allergy (Verified 03/29/19 10:59) Past Medical History - Past Medical History Cardiac Medical History: Reports: Hx Coronary Artery Disease, Hx Heart Attack - JANUARY 2017, Hx Hypertension Pulmonary Medical History: Reports: Hx Asthma, Hx Pneumonia - ABOUT 30 YEARS AGO Denies: Hx Bronchitis, Hx COPD Neurological Medical History: Reports: Hx Cerebrovascular Accident - 2005 X 4. Denies: Hx Seizures Renal/ Medical History: Denies: Hx Peritoneal Dialysis Musculoskeltal Medical History: Denies Hx Arthritis Psychiatric Medical History: Reports: Hx Depression Past Surgical History: Reports: Hx Section, Hx Orthopedic Surgery - jaw - Immunizations Immunizations up to date: Yes Hx Diphtheria, Pertussis, Tetanus Vaccination: Yes Physical Exam - Vital signs Vitals: Temp Pulse Resp BP Pulse Ox 98.0 F 99 18 165/102 H 99 03/29/19 10:36 03/29/19 10:36 03/29/19 10:36 03/29/19 10:36 03/29/19 10:36 - General General appearance: Alert Notes: Patient with thick deliberate speech. Patient does report taking narcotics daily. +Lower pelvic pain. Good breath sounds bilaterally. Course - Vital Signs Vital signs: Temp Pulse Resp BP Pulse Ox 98.0 F 99 18 165/102 H 99 03/29/19 10:36 03/29/19 10:36 03/29/19 10:36 03/29/19 10:36 03/29/19 10:36 Doctor's Discharge - Discharge Referrals: KARMEN MARINO DO [Primary Care Provider] - Follow up as needed
[2019-03-29 11:52] LABS: ABSOLUTE BASOPHILS # (AUTO) 0.1 10^3/uL (0.0-0.2); ABSOLUTE EOSINOPHILS # (AUTO) 0.3 10^3/uL (0.0-0.6); ABSOLUTE LYMPHOCYTES (AUTO) 2.9 10^3/uL (0.5-4.7); ABSOLUTE MONOCYTES (AUTO) 0.3 10^3/uL (0.1-1.4); ABSOLUTE NEUT (AUTO) 1.9 10^3/uL (1.7-8.2); EOSINOPHILS % (AUTO) 5.6 % (0-6); HEMATOCRIT 38.1 % (36.0-47.0); HEMOGLOBIN 12.9 g/dL (12.0-15.5); LYMPHOCYTES % (AUTO) 52.8 % (13-45); MEAN CORPUSCULAR HEMOGLOBIN 29.4 pg (27.0-33.4); MEAN CORPUSCULAR HGB CONC 33.8 g/dL (32.0-36.0); MEAN CORPUSCULAR VOLUME 87 fl (80-97); MONOCYTES % (AUTO) 6.2 % (3-13); PLATELET COUNT 157 10^3/uL (150-450); RED BLOOD COUNT 4.39 10^6/uL (3.72-5.28); RED CELL DISTRIBUTION WIDTH 14.5 % (11.5-14.0); SEGMENTED NEUTROPHILS % (AUTO) 34.4 % (42-78); TOTAL CELLS COUNTED % (AUTO) 100 %; WHITE BLOOD COUNT 5.5 10^3/uL (4.0-10.5)
[2019-03-29 11:54] LABS: APPEARANCE,URINE CLEAR; BILIRUBIN,URINE NEGATIVE (NEGATIVE); COLOR,URINE YELLOW; GLUCOSE, URINE NEGATIVE (NEGATIVE); KETONES,URINE NEGATIVE (NEGATIVE); LEUKOCYTE ESTERASE,URINE NEGATIVE (NEGATIVE); NITRITE,URINE NEGATIVE (NEGATIVE); PROTEIN,URINE NEGATIVE (NEGATIVE); URINE SPECIFIC GRAVITY 1.011; UROBILINOGEN,URINE NEGATIVE mg/dL (<2.0)
[2019-03-29 11:56] LABS: INTERNATIONAL RATION (INR) 0.98; PROTHROMBIN TIME 13.5 SEC (11.4-15.4)
[2019-03-29 12:11] LABS: URINE AMPHETAMINES SCREEN NEGATIVE; URINE BARBITURATES SCREEN NEGATIVE; URINE BENZODIAZEPINES SCREEN UNCONFIRMED POSITIVE; URINE COCAINE SCREEN NEGATIVE; URINE MARIJUANA (THC) SCREEN NEGATIVE; URINE METHADONE SCREEN NEGATIVE; URINE PHENCYCLIDINE SCREEN NEGATIVE
--- NOTE | 2019-03-29 12:16 | RADIOLOGY REPORT (SQ) ---
EXAM DESCRIPTION: CHEST 2 VIEWS COMPLETED DATE/TIME: 03/29/2019 11:54 am REASON FOR STUDY: sob COMPARISON: 09/25/2016 NUMBER OF VIEWS: Two view. TECHNIQUE: Frontal and lateral radiographic views of the chest acquired. LIMITATIONS: None. FINDINGS: LUNGS AND PLEURA: Peribronchial cuffing and interstitial changes. Mild subsegmental atele ctasis in the left lung base. No dense consolidation, effusion, or pneumothorax. MEDIASTINUM AND HILAR STRUCTURES: No masses. No contour abnormalities. HEART AND VASCULAR STRUCTURES: Heart normal in size and contour. No evidence for failure. BONES: No acute findings. HARDWARE: None in the chest. OTHER: No other significant finding. IMPRESSION: REACTIVE AIRWAY DISEASE VERSUS VIRAL SYNDROME. Mild subsegmental atelectasis in the left lung base. No dense consolidation, effusion. TECHNICAL DOCUMENTATION: JOB ID: [id number] [place]-72 2010 [employer]- All Rights Reserved Reading location - IP/workstation name: [email or web address]
[2019-03-29 12:20] LABS: ALANINE AMINOTRANSFERASE 59 U/L (9-52); ALKALINE PHOSPHATASE 187 U/L (38-126); ANION GAP 10 (5-19); ASPARTATE AMINO TRANSFERASE 66 U/L (14-36); BILIRUBIN,DIRECT 0.2 mg/dL (0.0-0.4); BILIRUBIN,TOTAL 0.2 mg/dL (0.2-1.3); BLOOD UREA NITROGEN 11 mg/dL (7-20); CALCIUM 9.3 mg/dL (8.4-10.2); CARBON DIOXIDE 26 mmol/L (22-30); CHLORIDE 104 mmol/L (98-107); GLUCOSE 116 mg/dL (75-110); LIPASE 391.7 U/L (23-300)
--- NOTE | 2019-03-29 12:28 | RADIOLOGY REPORT (SQ) ---
EXAM DESCRIPTION: CT HEAD WITHOUT COMPLETED DATE/TIME: 03/29/2019 12:13 pm REASON FOR STUDY: multiple fall/syncope COMPARISON: 11/06/2018 TECHNIQUE: Axial images acquired through the brain without intravenous contrast. Images reviewed wi th bone, brain and subdural windows. Images stored on PACS. All CT scanners at this facility use dose modulation, iterative reconstruction, and/or weight based d osing when appropriate to reduce radiation dose to as low as reasonably achievable (ALARA). [facility]: Dose Right [facility]: CareDose [facility]: Dose Right [facility]: Teradose 4D [facility]: [employer] RADIATION DOSE: CT Rad equipment meets quality standard of care and radiation dose reduction techniq ues were employed. CTDIvol: 53.2 mGy. DLP: 991 mGy-cm. mGy. LIMITATIONS: None. FINDINGS: VENTRICLES: Normal size and contour. CEREBRUM: No masses. No hemorrhage. No midline shift. No evidence for acute infarction. Age-approp riate white matter. CEREBELLUM: No masses. No hemorrhage. No alteration of density. No evidence for acute infarction. EXTRAAXIAL SPACES: No fluid collections. No masses. ORBITS AND GLOBE: No intra- or extraconal masses. Normal contour of globe without masses. CALVARIUM: No fracture. PARANASAL SINUSES: No fluid or mucosal thickening. SOFT TISSUES: No mass or hematoma. OTHER: No other significant finding. IMPRESSION: No acute intracranial findings. EVIDENCE OF ACUTE STROKE: NO. COMMENT: Quality ID # [id number]: Final reports with documentation of one or more dose reduction techniques (e.g., Automated exposure control, adjustment of the mA and/or kV according to patient size, use of iterative reconstruction technique) TECHNICAL DOCUMENTATION: JOB ID: [id number] [place]-72 2010 [employer]- All Rights Reserved Reading location - IP/workstation name: [email or web address]
[2019-03-29] MEDS ORDERED: MAGNESIUM OXIDE 400 MG TABLET PO ONE (12:33)
--- NOTE | 2019-03-29 12:33 | ER Document Report ---
ED General - General Chief Complaint: Nausea/Vomiting Stated Complaint: NAUSEA/VOMITING/DIFFICULTY BREATHING Time Seen by Provider: 03/29/19 11:04 Primary Care Provider: KARMEN MARINO DO [Primary Care Provider] - Follow up in 3-5 days Mode of Arrival: Wheelchair Notes: 53-year-old lady presents with shortness of breath onset on the couch this morning after waking up. She also has wheezing and "gurgling in my throat". This all started recently suddenly. She is a chronic smoker but says she does not have lung disease. She also complains of some chest pressure which occurred at the same time. She is been coughing and bringing up phlegm but no hemoptysis no leg swelling. TRAVEL OUTSIDE OF THE [place] IN LAST 30 DAYS: No - Related Data Allergies/Adverse Reactions: prednisone Allergy (Verified 03/29/19 10:59) Past Medical History - General Information source: Patient - Social History Smoking Status: Current Every Day Smoker Chew tobacco use (# tins/day): No Smoking Education Provided: Yes - The patient ED visit today was directly related to their abuse of tobacco. Frequency of alcohol use: Occasional Drug Abuse: None Family History: Hypertension Patient has suicidal ideation: No Patient has homicidal ideation: No - Past Medical History Cardiac Medical History: Reports: Hx Coronary Artery Disease, Hx Heart Attack - JANUARY 2017, Hx Hypertension Pulmonary Medical History: Reports: Hx Asthma, Hx Pneumonia - ABOUT 30 YEARS AGO Denies: Hx Bronchitis, Hx COPD Neurological Medical History: Reports: Hx Cerebrovascular Accident - 2005 X 4. Denies: Hx Seizures Renal/ Medical History: Denies: Hx Peritoneal Dialysis Musculoskeletal Medical History: Denies Hx Arthritis Psychiatric Medical History: Reports: Hx Depression Past Surgical History: Reports: Hx Section, Hx Orthopedic Surgery - jaw - Immunizations Immunizations up to date: Yes Hx Diphtheria, Pertussis, Tetanus Vaccination: Yes Review of Systems - Review of Systems Notes: REVIEW OF SYSTEMS GEN: Denies fever, chills, weight loss ENT: Denies sore throat, nasal discharge, ear pain EYES: Denies blurry vision, eye pain, discharge CV: Denies chest pain, palpitations, edema. Positive chest pressure. RESP: Wheezing shortness of breath GI: Denies abdominal pain, nausea, vomiting, diarrhea MSK: Denies joint pain/swelling, edema, SKIN: Denies rash, skin lesions LYMPH: Denies swollen glands/lymph nodes NEURO: Denies headache, focal weakness or numbness, dizziness PSYCH: Denies depression, suicidal or homicidal ideation PHYSICAL EXAMINATION General: No acute distress, well-nourished Head: Atraumatic, normocephalic ENT: Mouth normal, oropharynx moist, no exudates or tonsillar enlargement Eyes: Conjunctiva normal, pupils equal, lids normal Neck: No JVD, supple, no guarding CVS: Normal rate, regular rhythm, no murmurs Resp: Scant expiratory wheeze, wet sounding cough otherwise clear lungs GI: Nondistended, soft, no tenderness to palpation, no rebound or guarding Ext: No deformities, no edema, normal range of motion in upper and lower ext Back: No CVA or midline TTP Skin: No rash, warm Lymphatic: No lymphadeopathy noted Neuro: Awake, alert. Face symmetric. GCS 15. Physical Exam - Vital signs Vitals: Temp Pulse Resp BP Pulse Ox 98.0 F 99 18 165/102 H 99 03/29/19 10:36 03/29/19 10:36 03/29/19 10:36 03/29/19 10:36 03/29/19 10:36 Course - Re-evaluation Re-evalutation: 03/29/19 12:36 53-year-old heavy smoker presenting with cough shortness of breath wheezing and chest pressure. Her presentation is most consistent with bronchitis versus pneumonia. Her EKG is normal and a troponin which was ordered prior to my evaluation is also negative. I feel that this is very likely to be a respiratory process especially given that her x-ray shows some nonspecific viral inflammation. In case it is pneumonia I will prescribe her doxycycline and inhalershe is refusing prednisone and states that last time she took it her skin and fingernails fell off. She has some low magnesium on labs which is incidental and asymptomatic which I will replete orally before discharging her with an inhaler Mucinex and doxycycline. Do not think she needs admission for cardiac work-up. I have discussed with the patient there likely diagnosis, aftercare plan, follow-up plans and my usual and customary return precautions. They verbalized understanding of this. Insert discharge - Vital Signs Vital signs: Temp Pulse Resp BP Pulse Ox 98.0 F 99 18 165/102 H 99 03/29/19 10:36 03/29/19 10:36 03/29/19 10:36 03/29/19 10:36 03/29/19 10:36 - Laboratory Result Diagrams: 03/29/19 11:25 03/29/19 11:25 Laboratory results interpreted by me: 03/29/19 03/29/19 11:25 11:25 RDW 14.5 H Seg Neutrophils % 34.4 L Lymphocytes % 52.8 H Glucose 116 H Magnesium 1.1 L* AST 66 H ALT 59 H Alkaline Phosphatase 187 H Lipase 391.7 H - Diagnostic Test Radiology reviewed: Image reviewed, Reports reviewed - EKG Interpretation by Me EKG shows normal: Sinus rhythm Rate: Normal Rhythm: NSR Additional EKG results interpreted by me: 03/29/19 12:[address] or T wave changes concerning for ischemia Discharge - Discharge Clinical Impression: Chest pain, unspecified Qualifiers: Chest pain type: other chest pain Qualified Code(s): R07.89 - Other chest pain Acute bronchitis Qualifiers: Bronchitis organism: unspecified organism Qualified Code(s): J20.9 - Acute bronchitis, unspecified Condition: Good Disposition: HOME, SELF-CARE Instructions: Bronchitis ([facility]) Additional Instructions: Please talk with your primary care doctor regarding smoking cessation as this will prevent lung infections in the future and lower your overall risk of disease Prescriptions: Albuterol Sulfate [Proair HFA Inhalation Aerosol 8.5 gm MDI] 2 puff IH Q4H PRN #1 mdi PRN Reason: Doxycycline Hyclate 100 mg PO BID #14 capsule Guaifenesin [Mucinex] 100 mg PO BIDP PRN #10 gran.pack PRN Reason: Referrals: KARMEN MARINO DO [Primary Care Provider] - Follow up in 3-5 days
[2019-03-29 13:01] VITALS: BP 140/89
--- NOTE | 2019-03-29 19:41 | EKG REPORT ---
SEVERITY:- ABNORMAL ECG - SINUS RHYTHM ANTERIOR INFARCT, AGE INDETERMINATE : Confirmed by: Corinna Zambrano MD 29-Mar-2019 19:40:53
== END 2019-03-29 13:01 | disposition home or self-care (01) ==
LOC: ER 10:24
DX: J20.9 Acute bronchitis, unspecified (principal); J45.909 Unspecified asthma, uncomplicated; R07.89 Other chest pain; R06.02 Shortness of breath; F17.200 Nicotine dependence, unspecified, uncomplicated; I25.10 Atherosclerotic heart disease of native coronary artery without angina pectoris; I10 Essential (primary) hypertension; Z87.01 Personal history of pneumonia (recurrent); Z88.8 Allergy status to other drugs, medicaments and biological substances
CPT/HCPCS: 93005; 99284; 36415; 83690; 83735; 85025; 85610; 80053; 81001; 84484; 80307; 71046; 70450; 93010; A9270

== ENCOUNTER 2019-04-23 11:15 | Day surgery (SDC) | payer MEDICARE, MEDICAID ==
[2019-04-23] MEDS ORDERED: PROPOFOL INJ 200 MG/20 ML VIAL IV ONE (12:20)
--- NOTE | 2019-04-23 12:34 | Operative Report ---
Operative Report DATE OF SURGERY: 04/23/19 Operative Report: The risks, benefits and alternatives of the procedure including the risk of bleeding, perforation requiring surgery have been explained to the patient in detail and informed consent has been obtained. The patient is placed in a left, lateral decubital position. Timeout was called. Propofol medication is administered. Rectal examination is done which did not reveal any masses, tears or fissures. An Olympus videoscope was introduced into the patient's rectum. The scope was then carefully advanced all the way to the cecum. The cecum was identified by the usual anatomical landmarks of the ileocecal valve as well as the appendiceal office. Photodocumentation is obtained. The scope was then sequentially pulled back via the various segments of the colon including the ascending colon, hepatic flexure, transverse colon, splenic flexure, descending colon and finally into the rectosigmoid portions of the colon. Retroflexion maneuver is performed. PREOPERATIVE DIAGNOSIS: Abnormal CT scan noted for left-sided colon thickening accompanied by rectal bleeding POSTOPERATIVE DIAGNOSIS: Patient has diverticulosis on the left side of the colon with some residual inflammation she likely had diverticulitis that is resolving. Biopsies obtained to rule out ischemic colitis. Internal hemorrhoids OPERATION: Colonoscopy with biopsy SURGEON: ISAAC MURILLO ANESTHESIA: LMAC TISSUE REMOVED OR ALTERED: As noted above. COMPLICATIONS: None. ESTIMATED BLOOD LOSS: None. INTRAOPERATIVE FINDINGS: As noted above. PROCEDURE: Patient tolerated the procedure well. No immediate postprocedure complications are noted. Patient is discharged in good condition. Discharge date 04/23/2019. Discharge diet: Regular. Discharge activity: Regular. 2 to 3-week follow-up to discuss findings. Patient is instructed to call the office or proceed to the emergency room should there be any further questions. Wait on the pathology.
[2019-04-23] MEDS ORDERED: SIMETHICONE 80 MG TAB.CHEW ONE (12:47)
[2019-04-23 13:19] VITALS: BP 142/81
== END 2019-04-23 13:10 | disposition home or self-care (01) ==
LOC: END 11:15
PROVIDERS: ATTEND Internal Medicine Gastroenterology
DX: K57.30 Diverticulosis of large intestine without perforation or abscess without bleeding (principal); F17.210 Nicotine dependence, cigarettes, uncomplicated; I10 Essential (primary) hypertension; E11.9 Type 2 diabetes mellitus without complications; I25.10 Atherosclerotic heart disease of native coronary artery without angina pectoris; Z86.73 Personal history of transient ischemic attack (TIA), and cerebral infarction without residual deficits
CPT/HCPCS: 45380; 88305 ×2; A9270; J2704; 811

== ENCOUNTER 2019-06-10 14:31 | Emergency (ER) | payer OTHER, MEDICARE, MEDICAID ==
[2019-06-10] MEDS ORDERED: KETOROLAC TROMETHAMINE 60 MG/2 ML SDV IM ONE (15:51)
[2019-06-10] MEDS ORDERED: DIAZEPAM 5 MG TABLET PO ONE ×2 (15:58→15:59)
--- NOTE | 2019-06-10 16:06 | ER Document Report ---
ED General Pain - General TRAVEL OUTSIDE OF THE [place] IN LAST 30 DAYS: No - General Chief Complaint: Back Pain Stated Complaint: BACK PAIN Time Seen by Provider: 06/10/19 15:40 Primary Care Provider: KARMEN MARINO DO [Primary Care Provider] - Follow up as needed Notes: Patient is a 53-year-old female with a history of congestive heart failure, stroke, [place], hypertension, chronic back pain who presents to the emergency department with a chief complaint of back pain. Patient states that Tuesday she was working at [employer] when she lifted a box of cantaloupes off of a [employer]. Patient states she walked across the room and when she attempted to place the box of cantaloupes on the ground she developed an acute onset of low back pain. Patient states she also has pain to the left scapula. Patient states the low back pain radiates to bilateral legs. Patient denies numbness or tingling to lower extremities. Patient reports a history of 6 bulging disc away from her neck to the lower back. Patient states she normally takes a Flexeril and 7.5 mg oxycodone for her chronic back pain which she has taken over the weekend with very minimal relief. Patient states it feels like a spasming in her back that is constant in nature. Patient states the back pain is worse with movement or attempting to ambulate. Patient denies urinary symptoms. Patient states she has not had any loss of bowel or bladder and she has been urinating and having normal bowel movements. (ALFONSO CHEATHAM) - Related Data Allergies/Adverse Reactions: prednisone Allergy (Verified 06/10/19 14:32) Past Medical History - General Information source: Patient - Social History Smoking Status: Current Every Day Smoker Frequency of alcohol use: None Drug Abuse: None Lives with: Family Family History: Hypertension Patient has suicidal ideation: No Patient has homicidal ideation: No - Past Medical History Cardiac Medical History: Reports: Hx Coronary Artery Disease, Hx Heart Attack - JANUARY 2017, Hx Hypertension Pulmonary Medical History: Reports: Hx Asthma - YEARS AGO, Hx Pneumonia - ABOUT 30 YEARS AGO Denies: Hx Bronchitis, Hx COPD EENT Medical History: Reports: None Neurological Medical History: Reports: 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 Denies: Hx Seizures Endocrine Medical History: Reports: None Renal/ Medical History: Reports: None. Denies: Hx Peritoneal Dialysis Malignancy Medical History: Reports: None GI Medical History: Reports: None Musculoskeletal Medical History: Reports None, Denies Hx Arthritis Skin Medical History: Reports None Psychiatric Medical History: Reports: Hx Depression Traumatic Medical History: Reports: None Infectious Medical History: Reports: None Past Surgical History: Reports: Hx Section, Hx Orthopedic Surgery - jaw - Immunizations Immunizations up to date: Yes Hx Diphtheria, Pertussis, Tetanus Vaccination: Yes Review of Systems - Review of Systems Constitutional: No symptoms reported EENT: No symptoms reported Cardiovascular: No symptoms reported Respiratory: No symptoms reported Gastrointestinal: No symptoms reported Genitourinary: No symptoms reported Female Genitourinary: No symptoms reported Musculoskeletal: See HPI Skin: No symptoms reported Hematologic/Lymphatic: No symptoms reported Neurological/Psychological: No symptoms reported Physical Exam - Vital signs Interpretation: Hypertensive, Tachycardic - Vital signs Vitals: Temp Pulse Resp BP Pulse Ox 98.0 F 130 H 18 162/119 H 99 06/10/19 14:38 06/10/19 14:38 06/10/19 14:38 06/10/19 14:38 06/10/19 14:38 - Notes Notes: GENERAL: Well-appearing, well-nourished and in no acute distress. HEAD: Atraumatic, normocephalic. EYES: Pupils equal round and reactive to light, extraocular movements intact, sclera anicteric, conjunctiva are normal. ENT: TMs normal, nares patent, oropharynx clear without exudates. Moist mucous membranes. NECK: Normal range of motion, supple without lymphadenopathy or JVD. LUNGS: Breath sounds clear to auscultation bilaterally and equal. No wheezes rales or rhonchi. HEART: Regular rate and rhythm without murmurs, rubs or gallops. ABDOMEN: Soft, nontender, normoactive bowel sounds. No guarding, no rebound. No masses appreciated. BACK: No cervical midline tenderness. Tenderness noted over the left trapezius muscle with palpation. Thoracic and lumbar midline tenderness with paraspinal tenderness. No saddle anesthesia. GENITOURINARY: Deferred. EXTREMITIES: Normal range of motion, no pitting or edema. No clubbing or cyanosis. NEUROLOGICAL: Cranial nerves II through XII grossly intact. Normal speech, normal gait. PSYCH: Normal mood, normal affect. SKIN: Warm, Dry, normal turgor, no rashes or lesions noted. (ALFONSO CHEATHAM) Course - Re-evaluation Re-evalutation: 06/10/19 21:37 I did personally seen and examined this patient in conjunction with the nurse practitioner Alfonso Cheatham. Patient has been having this pain since she lifted a box of cantaloupes at work, did not experience any trauma. States that the pain is quite similar to pain that she had quite a few years ago after falling 18 feet. Does not really have any new symptoms however she is concerned that her usual pain medication has not worked. Denies bowel or bladder dysfunction, negative straight leg raising test bilaterally, no weakness. She does have reproducible muscle spasm in her lumbar spine however I am concerned by the midline bony tenderness in the lumbar spine. She did have imaging performed and it does not reveal any evidence of infection or significant disc herniation. Patient will be discharged to home as per Ms. Cheatham's note. (CHIQUIS POST) 06/10/19 16:04 Upon initial assessment patient is tearful on and able to find a position of comfort on the stretcher. Patient is sitting upright at a 90 degree angle. I was unable to perform a thorough back assessment as the patient is unable to perform certain movements due to the pain. I did discuss pain management with my supervising physician Dr. Post, I will give a dose of IM Toradol and 10 mg of Valium p.o. Patient does take a benzodiazepine Xanax that is prescribed. Patient states that she has had Valium before without any adverse reaction. Once patient is more comfortable I will complete my back assessment to rule out any acute emergent issue. 06/10/19 17:43 Upon reevaluation patient sitting upright in stretcher and sleeping. Patient states her pain is about a 3.5/5 and states that it is slightly better. Upon reevaluation patient does have thoracic and lumbar midline tenderness as well as left lower back and right lower back tenderness. I did leave the patient supine to perform a straight leg test. Patient was unable to tolerate passive range of motion of the left leg as she reports to cause significant lower back pain and bilateral leg pain that does not radiate past the knee. No saddle anesthesia present. 06/10/19 21:24 Patient's MRI shows a tiny central disc protrusion and mild facet arthropathy with mild bilateral foraminal narrowing. There is no acute compression fracture or cord compression. I did discuss the results with Dr. Post who is in agreement with discharging the patient home. I did discuss the results with the patient. Patient is currently receiving IV Robaxin and reports that it is already helping with her pain. Patient reports her lower back pain a 2 out of 5. Patient currently in no acute distress. I will give patient a few days off of work, prescribe Robaxin, and patient to continue taking her home pain medications as previously prescribed. I did inform the patient do not mix Robaxin and Flexeril as these are both muscle relaxers. 06/10/19 22:14 Patient reports that her pain is much better, blood pressure is in the 140s over 110. Patient has been slightly hypertensive since being in the emergency d epartment. States that her blood pressure is always high. Did educate patient to follow-up with her primary care physician and have this evaluated as she does not want her blood pressure always this high. (ALFONSO CHEATHAM) - Vital Signs Vital signs: Temp Pulse Resp BP Pulse Ox 98.0 F 79 20 152/101 H 100 06/10/19 14:38 06/10/19 17:42 06/10/19 17:42 06/10/19 17:42 06/10/19 17:42 Discharge - Discharge Clinical Impression: Lumbar back pain, Muscle spasm Low back strain Qualifiers: Encounter type: initial encounter Qualified Code(s): S39.012A - Strain of muscle, fascia and tendon of lower back, initial encounter Condition: Stable Disposition: HOME, SELF-CARE Instructions: Ice Packs ([facility]), Low Back Pain ([facility]), Muscle Strain ([facility]), Warm Packs ([facility]) Additional Instructions: Today you were seen in the emergency department for acute exacerbation of your chronic back pain after an injury that you reported occurred at work after lifting a box of cantaloupes. We did obtain an MRI of your lumbar spine which did show a tiny disc protrusion at L5-S1 without advanced canal or stenosis. There was no acute compression fracture or cord compression. After receiving the IV Robaxin you have reported that your pain has significantly improved. I will prescribe you Robaxin to take at home. Robaxin is a muscle relaxer. Do not mix Robaxin with Flexeril as these are both muscle relaxers. Please continue your pain med treatment regimen as prescribed by your primary care physician. Please rest over the next few days. Use warm or cold packs over your lower back and stretch. Today we did give you a benzodiazepine called Valium. This was for the acute back pain. Please make your pain management physician aware of this. You are not being prescribed a benzodiazepine. Muscle Strain You have strained a muscle -- torn the fibers within the muscle. This often occurs with strenuous exertion, or during an injury that suddenly stretches the muscle. The seriousness of a strain varies. Some strains heal within days, others cause problems for months. X-rays cannot show a muscle strain. X-rays are taken only if symptoms suggest that a fracture could be present. The usual treatment of a muscle strain is rest and ice packs. Sometimes, a sling, splint, or crutches may be necessary to rest the muscle. The muscle can be used again once pain subsides. Severe strains require a special exercise and stretching program to prevent permanent stiffness and disability. Your doctor will advise you if this will be necessary. Call the doctor immediately if pain or swelling becomes severe, or if numbness or discoloration develop. Muscle Relaxers Muscle relaxing medications are usually prescribed for acute muscle spasm or injury to the neck and back. They are often combined with antiinflammatory pain medication for increased relief. You may stop the muscle relaxer when the pain and stiffness have improved. Start the medication again if spasms recur. Muscle relaxers may cause drowsiness, especially with the first dose. Do not operate machinery or drive while under the effects of the medication. Most muscle relaxers last up to 24 hours. Do not combine the medication with alcohol. Prescriptions: Methocarbamol [Robaxin 750 mg Tablet] 750 mg PO QID #20 tablet Forms: Return to Work Referrals: KARMEN MARINO DO [Primary Care Provider] - Follow up as needed
[2019-06-10] MEDS ORDERED: METHOCARBAMOL INJ/PF 1000 MG/10 ML SDV IV ONE (19:04)
--- NOTE | 2019-06-10 20:46 | RADIOLOGY REPORT (SQ) ---
MR LUMBAR SPINE WITHOUT IV CONTRAST HISTORY: Midline tenderness. COMPARISON: None. TECHNIQUE: Multiplanar, multisequence MR imaging of the lumbar spine was performed without the administration of intravenous gadolinium. FINDINGS: The conus is normal in appearance and position. The normal lumbar lordosis is preserved. No expansile or destructive osseous lesions are seen. The sacroiliac joints are intact. Tiny left renal cyst. Evaluation of the disc spaces is as follows: L1-L2: No disc protrusion, canal stenosis, or foraminal stenosis. L2-L3: No disc protrusion, canal stenosis, or foraminal stenosis. L3-L4: No disc protrusion, canal stenosis, or foraminal stenosis. Mild facet arthropathy. L4-L5: Mild facet arthropathy with mild bilateral foraminal narrowing. No canal narrowing. L5-S1: Tiny central disc protrusion and mild facet arthropathy with mild bilateral foraminal narrowing. No canal narrowing. IMPRESSION: 1. Tiny disc protrusion at L5-S1 without advanced canal or foraminal stenosis. 2. No acute compression fracture or cord compression.
[2019-06-10 22:43] VITALS: BP 144/110
== END 2019-06-10 22:10 | disposition home or self-care (01) ==
LOC: ER 14:31
DX: S39.012A Strain of muscle, fascia and tendon of lower back, initial encounter (principal); X50.0XXA Overexertion from strenuous movement or load, initial encounter; Y92.511 Restaurant or cafe as the place of occurrence of the external cause; Y99.0 Civilian activity done for income or pay; M89.8X1 Other specified disorders of bone, shoulder; M51.27 Other intervertebral disc displacement, lumbosacral region; M47.9 Spondylosis, unspecified; M62.830 Muscle spasm of back; M79.604 Pain in right leg; M79.605 Pain in left leg; I10 Essential (primary) hypertension; I25.10 Atherosclerotic heart disease of native coronary artery without angina pectoris; G89.29 Other chronic pain; Z79.899 Other long term (current) drug therapy; Z79.891 Long term (current) use of opiate analgesic; Z88.8 Allergy status to other drugs, medicaments and biological substances; J45.909 Unspecified asthma, uncomplicated
CPT/HCPCS: 99283; 96372; 96365; 72148; J1885; J2800

== ENCOUNTER 2019-06-12 01:29 | Emergency (ER) | payer MEDICARE, MEDICAID ==
[2019-06-12] MEDS ORDERED: ASPIRIN 81 MG TABLET, CHEWABLE PO ONE (01:50)
--- NOTE | 2019-06-12 02:20 | ER Document Report ---
ED General - General Chief Complaint: Chest Pain Stated Complaint: CHEST PAIN Time Seen by Provider: 06/12/19 02:19 Primary Care Provider: CHEVY WILL MD [ACTIVE STAFF] - Follow up in 3-5 days ISAAC MURILLO MD [ACTIVE STAFF] - Follow up in 3-5 days KARMEN MARINO DO [Primary Care Provider] - Follow up as needed Notes: Patient is a 53-year-old female with CAD with prior stent that presents to the emergency department for chief complaint of chest pain. The patient reports that the pain started 3 days ago was on and off at that time but is now constant starting this evening. The currently rate the pain as 9 out of 10, and described as sharp pain, with a feeling of heaviness in the middle of her chest, substernal without radiation. They have had associated shortness of breath, nausea and vomiting. Denies any recent cough, lightheadedness, dizziness, dysuria, hematuria, abdominal pain or headaches. their risk factors for heart disease include CAD, with stenting in the past, hypertension, hyperlipidemia, current smoker. Past Medical History: CAD, hypertension, hyperlipidemia Past Surgical History: PCI with stenting Social History: Admits to smoking cigarettes daily, denies current alcohol or illicit drug use. Family History: Reviewed and noncontributory for presenting illness Allergies: Reviewed, see documented allergy list. REVIEW OF SYSTEMS: Other than noted above, the 12 point review of systems was reviewed with the patient and were negative, all pertinent findings are included in the HPI. PHYSICAL EXAMINATION: Vital signs reviewed, nursing noted reviewed. GENERAL: Patient appears uncomfortable on exam, rather anxious HEAD: Atraumatic, normocephalic. EYES: Eyes appear normal, extraocular movements intact, sclera anicteric, conjunctiva are normal. ENT: nares patent, oropharynx clear without exudates. Moist mucous membranes. NECK: Normal range of motion, supple without lymphadenopathy LUNGS: Breath sounds clear to auscultation bilaterally and equal. No wheezes rales or rhonchi. HEART: Heart rate borderline tachycardic, regular rhythm, no audible murmur. ABDOMEN: Soft, nontender, normoactive bowel sounds. No rebound, guarding, or rigidity. No masses appreciated. EXTREMITIES: Nontender, good range of motion, no pitting or edema. NEUROLOGICAL: No focal neurological deficits. Moves all extremities spontaneously Motor and sensory grossly intact on exam. PSYCH: Anxious appearing on exam SKIN: Warm, Dry, normal turgor, no rashes or lesions noted on exposed skin TRAVEL OUTSIDE OF THE [place] IN LAST 30 DAYS: No - Related Data Allergies/Adverse Reactions: prednisone Allergy (Verified 06/10/19 14:32) Past Medical History - Social History Smoking Status: Current Every Day Smoker Family History: Reviewed & Not Pertinent, Hypertension - Past Medical History Cardiac Medical History: Reports: Hx Coronary Artery Disease, Hx Heart Attack - JANUARY 2017, Hx Hypertension Pulmonary Medical History: Reports: Hx Asthma - YEARS AGO, Hx Pneumonia - ABOUT 30 YEARS AGO Denies: Hx Bronchitis, Hx COPD Neurological Medical History: Reports: 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 Denies: Hx Seizures Renal/ Medical History: Denies: Hx Peritoneal Dialysis Musculoskeletal Medical History: Denies Hx Arthritis Psychiatric Medical History: Reports: Hx Depression Past Surgical History: Reports: Hx Section, Hx Orthopedic Surgery - jaw - Immunizations Immunizations up to date: Yes Hx Diphtheria, Pertussis, Tetanus Vaccination: Yes Physical Exam - Vital signs Vitals: Pulse Resp BP Pulse Ox 115 H 26 H 126/96 H 99 06/12/19 02:02 06/12/19 02:02 06/12/19 02:02 06/12/19 02:02 Course - Re-evaluation Re-evalutation: Patient seen and examined vital signs reviewed. Laboratory data and/or imaging were ordered as appropriate for the patient's presenting symptoms and complaint, with consideration of any critical or life threatening conditions that may be associated with their obtained history and exam as noted above. Patient was treated with morphine, Zofran, given GI cocktail as well and IV fluids Results were reviewed when available and demonstrated negative troponin, EKG was reviewed, and did seem similar to prior, we repeated it twice, to confirm that it was similar, without change. Her chest x-ray was reviewed and negative for acute findings, blood work demonstrated an elevation in BUN/creatinine from prior labs, was given IV fluids. The patient was re-evaluated and was stable, will repeat troponin, patient was improving, she was rather anxious, she is in pain management, and pain can be hard to control for her after discussing with her. I do suspect this is most likely GI related, as she has a history of esophageal stricture and rings, and sees gastroenterology but will repeat troponin, if negative feel the patient can be discharged, she has follow-up appointments today, patient was agreeable with this plan of care. Evaluation was most consistent with chest pain, nonspecific Results were discussed with the patient at this point, after careful consideration I feel that that patient can be discharged from the emergency department, the patient was educated treatments and reasons to return to the emergency department based on their presumed diagnosis as noted above, they were advised to followup with a primary care physician in 2-3 days. Patient was agreeable to plan of care. *Note is created using voice recognition software and may contain spelling, syntax or grammatical errors. Laboratory 06/12/19 06/12/19 06/12/19 02:28 02:28 02:28 WBC 7.9 RBC 4.71 Hgb 14.1 Hct 41.7 MCV 89 MCH 29.9 MCHC 33.8 RDW 15.1 H Plt Count 156 Seg Neutrophils % 37.6 L Lymphocytes % 46.9 H Monocytes % 5.5 Eosinophils % 8.7 H Basophils % 1.3 Absolute Neutrophils 3.0 Absolute Lymphocytes 3.7 Absolute Monocytes 0.4 Absolute Eosinophils 0.7 H Absolute Basophils 0.1 Sodium 139.3 Potassium 4.0 Chloride 103 Carbon Dioxide 24 Anion Gap 12 BUN 29 H Creatinine 1.55 H Est GFR ( Amer) 42 L Est GFR (Non-Af Amer) 35 L Glucose 137 H Calcium 8.9 Total Bilirubin 0.7 Direct Bilirubin 0.3 Neonat Total Bilirubin Not Reportable Neonat Direct Bilirubin Not Reportable Neonat Indirect Bili Not Reportable AST 39 H ALT 26 Alkaline Phosphatase 118 Creatine Kinase 116 CK-MB (CK-2) 1.94 Troponin I < 0.012 Total Protein 7.9 Albumin 4.7 - Vital Signs Vital signs: Temp Pulse Resp BP Pulse Ox 115 H 22 H 112/86 H 96 06/12/19 02:02 06/12/19 06:00 06/12/19 06:00 06/12/19 06:00 - Laboratory Result Diagrams: 06/12/19 02:28 06/12/19 02:28 Laboratory results interpreted by me: 06/12/19 06/12/19 06/12/19 02:28 02:28 04:30 RDW 15.1 H Seg Neutrophils % 37.6 L Lymphocytes % 46.9 H Eosinophils % 8.7 H Absolute Eosinophils 0.7 H BUN 29 H Creatinine 1.55 H Est GFR ( Amer) 42 L Est GFR (Non-Af Amer) 35 L Glucose 137 H AST 39 H Urine Protein 30 H Urine Ketones TRACE H Urine Bilirubin SMALL H Urine Urobilinogen 2.0 H Ur Leukocyte Esterase TRACE H Discharge - Discharge Clinical Impression: Chest pain Qualifiers: Chest pain type: unspecified Qualified Code(s): R07.9 - Chest pain, unspecified Condition: Stable Disposition: HOME, SELF-CARE Instructions: Chest Pain of Unclear Cause ([facility]) Additional Instructions: Please 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 Please continue all of your other home medications as directed. Please follow-up with Dr. Murillo as well. You received morphine today to treat your chest pain. Referrals: CHEVY WILL MD [ACTIVE STAFF] - Follow up in 3-5 days KARMEN MARINO DO [Primary Care Provider] - Follow up as needed ISAAC MURILLO MD [ACTIVE STAFF] - Follow up in 3-5 days
[2019-06-12] MEDS ORDERED: MORPHINE SULFATE 10 MG/ML INJ IV ONE (02:24)
[2019-06-12] MEDS ORDERED: ONDANSETRON HCL INJ/PF 4 MG/2 ML SDV IV ONE (02:24)
[2019-06-12] MEDS ORDERED: NITROGLYCERIN 0.4 MG/TAB 25 TAB/BOTTLE SL PRN (02:24)
[2019-06-12] MEDS ORDERED: NITROGLYCERIN/D5W 50 MG/250 ML RTUINJ IV PRN (02:25)
[2019-06-12 02:37] LABS: ABSOLUTE BASOPHILS # (AUTO) 0.1 10^3/uL (0.0-0.2); ABSOLUTE EOSINOPHILS # (AUTO) 0.7 10^3/uL (0.0-0.6); ABSOLUTE LYMPHOCYTES (AUTO) 3.7 10^3/uL (0.5-4.7); ABSOLUTE MONOCYTES (AUTO) 0.4 10^3/uL (0.1-1.4); BASOPHILS % (AUTO) 1.3 % (0-2); EOSINOPHILS % (AUTO) 8.7 % (0-6); HEMATOCRIT 41.7 % (36.0-47.0); HEMOGLOBIN 14.1 g/dL (12.0-15.5); LYMPHOCYTES % (AUTO) 46.9 % (13-45); MEAN CORPUSCULAR HEMOGLOBIN 29.9 pg (27.0-33.4); MEAN CORPUSCULAR HGB CONC 33.8 g/dL (32.0-36.0); MEAN CORPUSCULAR VOLUME 89 fl (80-97); MONOCYTES % (AUTO) 5.5 % (3-13); PLATELET COUNT 156 10^3/uL (150-450); RED BLOOD COUNT 4.71 10^6/uL (3.72-5.28); RED CELL DISTRIBUTION WIDTH 15.1 % (11.5-14.0); SEGMENTED NEUTROPHILS % (AUTO) 37.6 % (42-78); TOTAL CELLS COUNTED % (AUTO) 100 %; WHITE BLOOD COUNT 7.9 10^3/uL (4.0-10.5)
[2019-06-12 02:58] LABS: ALANINE AMINOTRANSFERASE 26 U/L (9-52); ALBUMIN 4.7 g/dL (3.5-5.0); ALKALINE PHOSPHATASE 118 U/L (38-126); ANION GAP 12 (5-19); ASPARTATE AMINO TRANSFERASE 39 U/L (14-36); BILIRUBIN,DIRECT 0.3 mg/dL (0.0-0.4); BILIRUBIN,TOTAL 0.7 mg/dL (0.2-1.3); BLOOD UREA NITROGEN 29 mg/dL (7-20); CALCIUM 8.9 mg/dL (8.4-10.2); CARBON DIOXIDE 24 mmol/L (22-30); CHLORIDE 103 mmol/L (98-107); CREATINE KINASE 116 U/L (30-135); GLUCOSE 137 mg/dL (75-110); TOTAL PROTEIN 7.9 g/dL (6.3-8.2)
[2019-06-12] MEDS ORDERED: NORMAL SALINE 500 ML IV ONE (03:07)
[2019-06-12 03:10] LABS: CREATINE KINASE MB 1.94 ng/mL (<4.55)
[2019-06-12 03:12] LABS: TROPONIN I < 0.012 ng/mL
[2019-06-12] MEDS ORDERED: LIDOCAINE 2% VISCOUS SOLN 20 ML UDCUP PO ONE (03:14)
[2019-06-12] MEDS ORDERED: METOCLOPRAMIDE HCL ORAL SOLN 10 MG/10 ML UDCUP PO ONE (03:14)
[2019-06-12 05:10] LABS: APPEARANCE,URINE CLOUDY; BILIRUBIN,URINE SMALL (NEGATIVE); COLOR,URINE AMBER; GLUCOSE, URINE NEGATIVE (NEGATIVE); KETONES,URINE TRACE mg/dL (NEGATIVE); LEUKOCYTE ESTERASE,URINE TRACE (NEGATIVE); NITRITE,URINE NEGATIVE (NEGATIVE); PROTEIN,URINE 30 mg/dL (NEGATIVE); URINE SPECIFIC GRAVITY 1.033
[2019-06-12 06:36] VITALS: BP 112/86
--- NOTE | 2019-06-12 12:08 | RADIOLOGY REPORT (SQ) ---
EXAM DESCRIPTION: XR CHEST 1 VIEW COMPLETED DATE/TME: 06/12/2019, 2:44 AM CLINICAL HISTORY: 53 years, Female, CHEST PAIN COMPARISON: None. NUMBER OF VIEWS: 1 TECHNIQUE: AP portable chest LIMITATIONS: None. FINDINGS: Heart size is normal. Lungs are clear. No pneumothorax IMPRESSION: Negative chest copyright 2010 [email or web address]- All Rights Reserved
--- NOTE | 2019-06-12 13:38 | EKG REPORT ---
SEVERITY:- ABNORMAL ECG - SINUS RHYTHM EXTENSIVE ANTERIOR INFARCT, AGE INDETERMINATE BORDERLINE PROLONGED QT INTERVAL : Confirmed by: Gianna Otero 12-Jun-2019 13:37:55
--- NOTE | 2019-06-12 13:38 | EKG REPORT ---
SEVERITY:- ABNORMAL ECG - SINUS TACHYCARDIA EXTENSIVE ANTERIOR INFARCT, AGE INDETERMINATE : Confirmed by: Gianna Otero 12-Jun-2019 13:38:25
--- NOTE | 2019-06-12 13:38 | EKG REPORT ---
SEVERITY:- ABNORMAL ECG - SINUS RHYTHM BORDERLINE INFERIOR Q WAVES ANTERIOR INFARCT, AGE INDETERMINATE : Confirmed by: Gianna Otero 12-Jun-2019 13:37:46
== END 2019-06-12 06:36 | disposition home or self-care (01) ==
LOC: ER 01:29
DX: R07.9 Chest pain, unspecified (principal); R11.2 Nausea with vomiting, unspecified; J45.909 Unspecified asthma, uncomplicated; R06.02 Shortness of breath; I25.2 Old myocardial infarction; I25.10 Atherosclerotic heart disease of native coronary artery without angina pectoris; I10 Essential (primary) hypertension; F17.210 Nicotine dependence, cigarettes, uncomplicated; Z95.5 Presence of coronary angioplasty implant and graft
CPT/HCPCS: 93005; 99285; 96374; 96375; 36415; 82553; 82550; 85025; 80053; 81001; 84484; 71045; 93010; A9270 ×2; J3490; J2270; J2405; J7040

== ENCOUNTER 2019-07-31 02:03 | Observation (INO) | payer MEDICARE, MEDICAID ==
[2019-07-31] MEDS ORDERED: ASPIRIN 81 MG TABLET, CHEWABLE PO ONE (02:09)
--- NOTE | 2019-07-31 02:11 | ER Document Report ---
ED Cardiac - General Stated Complaint: CHEST PAIN Time Seen by Provider: 07/31/19 02:11 Primary Care Provider: KARMEN MARINO DO [NO LOCAL MD] - Follow up as needed Mode of Arrival: Stretcher Information source: Patient, Emergency Med Personnel Notes: HISTORY OF PRESENT ILLNESS: Patient is a 53-year-old female with a past medical history of coronary artery disease status post stent in 2017 who presents with acute onset back pain that awoke her from sleep. Patient reports pain was sudden, no radiation, is not similar to her symptoms prior to her stent in 2017. Per report, patient took 1 sublingual nitroglycerin at home and had a syncopal episode. EMS found the patient hypotensive with systolic blood pressure in the 60s but rebounded to the 100s upon arrival after IV fluids. Location: "Between my shoulder blades" Onset: Sudden Alleviation: None Provocation: Known Quality: Sharp, throbbing Radiation: None Severity: Severe Timing: Constant History of CAD: Yes Associated symptoms: Denies shortness of breath, no nausea or vomiting, no fevers or chills, no cough REVIEW OF SYSTEMS: CONSTITUTIONAL : Denies fever or chills, no sweats. Denies recent illness. EENT: Denies eye, ear, throat, or mouth pain or symptoms. Denies nasal or sinus congestion. CARDIOVASCULAR: Positive for chest pain. Denies swelling of the legs. RESPIRATORY: Denies cough, cold, or chest congestion. Denies shortness of breath or difficulty breathing. Denies wheezing. GASTROINTESTINAL: Denies abdominal pain. Denies nausea, vomiting, or diarrhea. Denies constipation. GENITOURINARY: Denies difficulty urinating, painful urination, burning, frequency, or blood in urine. FEMALE GENITOURINARY: Denies vaginal bleeding, abnormal or irregular periods. MUSCULOSKELETAL: Positive for back pain, but negative for joint pain or swelling. SKIN: Denies rash or skin lesions. HEMATOLOGIC : Denies easy bruising or bleeding. LYMPHATIC: Denies swollen, enlarged glands. NEUROLOGICAL: Denies altered mental status or loss of consciousness. Denies headache. Denies weakness or paralysis or loss of use of either side. Denies problems with gait or speech. Denies sensory or motor loss. PSYCHIATRIC: Denies anxiety or stress or depression. All other systems reviewed and negative. PHYSICAL EXAMINATION: GENERAL: Uncomfortable-appearing, well-nourished and in mild acute distress. HEAD: Atraumatic, normocephalic. No scalp deformity, depression, or crepitance. EYES: Pupils are 3 mm and equal/round/reactive to light, extraocular movements intact, sclera anicteric, conjunctiva are normal. ENT: Nares patent bilaterally, oropharynx. Moist mucous membranes. No tonsil hypertrophy. NECK: Normal range of motion, supple without lymphadenopathy. LUNGS: Breath sounds present, equal, and clear to auscultation bilaterally. No wheezes, rales, or rhonchi. HEART: Regular rate and rhythm without murmurs, rubs, or gallops. 2+ peripheral pulses. Normal capillary refill. ABDOMEN: Soft, nontender, nondistended. Normoactive bowel sounds. No guarding, no rebound. No masses appreciated. BACK: Normal contour, no midline tenderness. Rectal exam deferred. GENITAL/PELVIC: Deferred. EXTREMITIES: Normal range of motion, no pitting or edema. No cyanosis. NEUROLOGICAL: No focal neurological deficits. Moves all extremities spontaneously and on command. PSYCH: Normal mood, normal affect. No suicidal thoughts/ideations. No homicidal thoughts/ideations. No hallucinations. SKIN: Warm, dry, normal turgor, no rashes or lesions noted. ASSESSMENT AND PLAN: This patient is a 53-year-old female who presents with sharp and throbbing back pain without radiation that awoke her from sleep. 1. Will obtain labs, urine, troponin, d-dimer, portable chest x-ray, and EKG. 2. Will admit to the hospital. TRAVEL OUTSIDE OF THE [place] IN LAST 30 DAYS: No - HPI Patient complains to provider of: Chest pain Was the onset of pain: Sudden Is the pain a: New problem Chest pain location: Back Quality of pain: Heaviness, Stabbing, Throbbing Chest pain radiation location: None Severity now: Severe Severity at worst: Severe Pain level currently: 5 Chest pain precipitating factors: At Rest Cardiac risk factors: Hx PR Positive cardiac history: Yes Associated symptoms: Back pain, Lightheaded, Syncope Exacerbated by: Denies Relieved by: Nothing Similar symptoms previously: No Recently seen / treated by doctor: No - Related Data Allergies/Adverse Reactions: prednisone Allergy (Verified 06/10/19 14:32) Past Medical History - General Information source: Patient - Social History Smoking Status: Former Smoker Chew tobacco use (# tins/day): No Frequency of alcohol use: None Drug Abuse: None Lives with: Alone Family History: Reviewed & Not Pertinent, Hypertension Patient has suicidal ideation: No Patient has homicidal ideation: No - Past Medical History Cardiac Medical History: Reports: Hx Coronary Artery Disease, Hx Heart Attack - JANUARY 2017, Hx Hypertension Pulmonary Medical History: Reports: Hx Asthma - YEARS AGO, Hx Pneumonia - ABOUT 30 YEARS AGO Denies: Hx Bronchitis, Hx COPD EENT Medical History: Reports: None Neurological Medical History: Reports: 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 Denies: Hx Seizures Endocrine Medical History: Reports: None Renal/ Medical History: Reports: None. Denies: Hx Peritoneal Dialysis Malignancy Medical History: Reports: None GI Medical History: Reports: None Musculoskeletal Medical History: Reports None, Denies Hx Arthritis Skin Medical History: Reports None Psychiatric Medical History: Reports: Hx Depression Traumatic Medical History: Reports: None Infectious Medical History: Reports: None Past Surgical History: Reports: Hx Section, Hx Orthopedic Surgery - jaw - Immunizations Immunizations up to date: Yes Hx Diphtheria, Pertussis, Tetanus Vaccination: Yes Review of Systems - Review of Systems Constitutional: No symptoms reported EENT: No symptoms reported Cardiovascular: No symptoms reported Respiratory: No symptoms reported Gastrointestinal: No symptoms reported Genitourinary: No symptoms reported Female Genitourinary: No symptoms reported Musculoskeletal: See HPI, Back pain Skin: No symptoms reported Hematologic/Lymphatic: No symptoms reported Neurological/Psychological: No symptoms reported -: Yes All other systems reviewed and negative Physical Exam - Vital signs Vitals: Resp 17 07/31/19 02:20 Interpretation: Normal - General General appearance: Appears well, Alert - HEENT Head: Normocephalic, Atraumatic Eyes: Normal Pupils: PERRL - Respiratory Respiratory status: No respiratory distress Chest status: Nontender Breath sounds: Normal Chest palpation: Normal - Cardiovascular Rhythm: Regular Heart sounds: Normal auscultation Murmur: No - Abdominal Inspection: Normal Distension: No distension Bowel sounds: Normal Tenderness: Nontender Organomegaly: No organomegaly - Back Back: Normal, Nontender - Extremities General upper extremity: Normal inspection, Nontender, Normal color, Normal ROM, Normal temperature General lower extremity: Normal inspection, Nontender, Normal color, Normal ROM, Normal temperature, Normal weight bearing. No: Lolis's sign - Neurological Neuro grossly intact: Yes Cognition: Normal Orientation: AAOx4 [place] Coma Scale Eye Opening: Spontaneous [place] Coma Scale Verbal: Oriented [place] Coma Scale Motor: Obeys Commands [place] Coma Scale Total: 15 Speech: Normal Motor strength normal: LUE, RUE, LLE, RLE Sensory: Normal - Psychological Associated symptoms: Normal affect, Normal mood - Skin Skin Temperature: Warm Skin Moisture: Dry Skin Color: Normal Course - Re-evaluation Re-evalutation: 07/31/19 06:14 CT scan is still pending. Signout has been given. - Vital Signs Vital signs: Temp Pulse Resp BP Pulse Ox 97.7 F 12 123/87 H 07/31/19 02:42 07/31/19 04:21 07/31/19 04:21 - Laboratory Result Diagrams: 07/31/19 03:30 07/31/19 03:30 Laboratory results interpreted by me: 07/31/19 07/31/19 07/31/19 03:30 03:30 03:30 RDW 14.2 H Plt Count 121 L D-Dimer 0.55 H Sodium 133.4 L Potassium 3.0 L* Chloride 96 L Carbon Dioxide 21 L BUN 25 H Creatinine 1.49 H Est GFR ( Amer) 44 L Est GFR (MDRD) Non-Af 37 L Glucose 131 H AST 48 H Creatine Kinase 264 H - Diagnostic Test Radiology reviewed: Image reviewed, Reports reviewed - EKG Interpretation by Me EKG shows normal: Sinus rhythm Rate: Normal Rhythm: NSR [place]/QRS: No: Right axis deviation, Left axis deviation, RBBB, LBBB, IVCD, LAHB/LAFB, LPHB/LPFB, Bifasicular block Voltage: No: Increased voltage, Consistant with LVH, Decreased voltage, Throughout, Limb leads P Waves: No: [place], LAE, Absent, AV Dissociation, Other Heart block present: No: 1st Degree, Mobitz 1, Mobitz 2, CHB (3rd degree block) When compared to previous EKG there are: No significant change - Transfer of Care Care transferred to following provider: Dr. Kang Discharge - Discharge Clinical Impression: Chest pain Qualifiers: Chest pain type: other chest pain Qualified Code(s): R07.89 - Other chest pain; R07.8 - Other chest pain Condition: Stable Disposition: ADMITTED INPATIENT Referrals: KARMEN MARINO DO [NO LOCAL MD] - Follow up as needed
[2019-07-31] MEDS ORDERED: NORMAL SALINE 1000 ML 1,000 ML IV ONE (02:13)
[2019-07-31] MEDS ORDERED: MORPHINE SULFATE 10 MG/ML INJ IV ONE ×2 (02:39→07:44)
--- NOTE | 2019-07-31 03:07 | RADIOLOGY REPORT (SQ) ---
Chest single view on 07/31/2019 at 2:21 AM CLINICAL INDICATION: Chest pain COMPARISON: 03/29/2019 FINDINGS: The lungs are clear. Cardiac, hilar and mediastinal contours are within normal limits. Pulmonary vascularity is within normal limits. No bony abnormality is noted. IMPRESSION: No active disease.
[2019-07-31 03:38] LABS: ABSOLUTE EOSINOPHILS # (AUTO) 0.1 10^3/uL (0.0-0.6); ABSOLUTE LYMPHOCYTES (AUTO) 2.6 10^3/uL (0.5-4.7); ABSOLUTE MONOCYTES (AUTO) 0.4 10^3/uL (0.1-1.4); ABSOLUTE NEUT (AUTO) 4.8 10^3/uL (1.7-8.2); BASOPHILS % (AUTO) 0.6 % (0-2); EOSINOPHILS % (AUTO) 1.8 % (0-6); HEMATOCRIT 39.9 % (36.0-47.0); HEMOGLOBIN 13.5 g/dL (12.0-15.5); LYMPHOCYTES % (AUTO) 32.8 % (13-45); MEAN CORPUSCULAR HEMOGLOBIN 30.4 pg (27.0-33.4); MEAN CORPUSCULAR HGB CONC 33.9 g/dL (32.0-36.0); MEAN CORPUSCULAR VOLUME 90 fl (80-97); MONOCYTES % (AUTO) 4.7 % (3-13); PLATELET COUNT 121 10^3/uL (150-450); RED BLOOD COUNT 4.45 10^6/uL (3.72-5.28); RED CELL DISTRIBUTION WIDTH 14.2 % (11.5-14.0); SEGMENTED NEUTROPHILS % (AUTO) 60.1 % (42-78); TOTAL CELLS COUNTED % (AUTO) 100 %; WHITE BLOOD COUNT 7.9 10^3/uL (4.0-10.5)
[2019-07-31 04:00] LABS: ALBUMIN 4.5 g/dL (3.5-5.0); ALKALINE PHOSPHATASE 120 U/L (38-126); ASPARTATE AMINO TRANSFERASE 48 U/L (14-36); BILIRUBIN,DIRECT 0.2 mg/dL (0.0-0.4); BILIRUBIN,TOTAL 1.2 mg/dL (0.2-1.3); BLOOD UREA NITROGEN 25 mg/dL (7-20); CALCIUM 9.1 mg/dL (8.4-10.2); CREATINE KINASE 264 U/L (30-135); GLUCOSE 131 mg/dL (75-110); TOTAL PROTEIN 7.1 g/dL (6.3-8.2)
[2019-07-31 04:08] LABS: ANION GAP 16 (5-19); CARBON DIOXIDE 21 mmol/L (22-30); CHLORIDE 96 mmol/L (98-107)
[2019-07-31 04:12] LABS: CREATINE KINASE MB 3.33 ng/mL (<4.55); TROPONIN I 0.022 ng/mL
--- NOTE | 2019-07-31 06:07 | RADIOLOGY REPORT (SQ) ---
CT angiogram chest with contrast on 07/31/2019 at 4:56 AM CLINICAL INDICATION: Chest pain TECHNIQUE: Multiple axial images are obtained throughout the chest following the administration of IV contrast. Computer generated 3D reconstructions/MIPS were performed. This exam was performed according to our departmental dose-optimization program, which includes automated exposure control, adjustment of the mA and/or kV according to patient size and/or use of iterative reconstruction technique. Total DLP is 550.67 mGy*cm. COMPARISON: None FINDINGS: There is no thoracic aortic aneurysm or dissection. Coronary artery calcifications and other vascular calcifications are noted. There is fatty infiltration of the liver. There is some mild wall thickening of the distal esophagus that may be related to esophagitis, consider follow-up upper endoscopy. Limited visualized upper abdomen is otherwise unremarkable. There is no pleural or pericardial effusion. There is no thoracic adenopathy by CT size criteria. No definite filling defects are noted in the pulmonary arteries to suggest pulmonary embolus. There is minimal bilateral dependent and basilar atelectasis. The lungs are otherwise clear. Degenerative changes are noted in the spine. IMPRESSION: 1. No evidence of pulmonary embolus. 2. Fatty infiltration of the liver. 3. Mild wall thickening of the distal esophagus may be related to esophagitis, consider follow-up upper endoscopy.
[2019-07-31] MEDS ORDERED: POTASSIUM CHLORIDE 10 MEQ CAPSULE.ER PO ONE (06:45)
--- NOTE | 2019-07-31 06:47 | ER Document Report ---
ED Cardiac - General Chief Complaint: Chest Pain Stated Complaint: CHEST PAIN Time Seen by Provider: 07/31/19 02:11 Primary Care Provider: KARMEN MARINO DO [NO LOCAL MD] - Follow up as needed Mode of Arrival: Stretcher Notes: 50-year-old female who was signed out to me at shift change with chest pain patient has a known history of coronary artery disease. She had discomfort in her chest and back. Please see prior physician's note for further details. TRAVEL OUTSIDE OF THE [place] IN LAST 30 DAYS: No - Related Data Allergies/Adverse Reactions: prednisone Allergy (Verified 06/10/19 14:32) Past Medical History - General Information source: Patient - Social History Smoking Status: Former Smoker Chew tobacco use (# tins/day): No Frequency of alcohol use: None Drug Abuse: None Lives with: Alone Family History: Reviewed & Not Pertinent, Hypertension Patient has suicidal ideation: No Patient has homicidal ideation: No - Past Medical History Cardiac Medical History: Reports: Hx Coronary Artery Disease, Hx Heart Attack - JANUARY 2017, Hx Hypertension Pulmonary Medical History: Reports: Hx Asthma - YEARS AGO, Hx Pneumonia - ABOUT 30 YEARS AGO Denies: Hx Bronchitis, Hx COPD EENT Medical History: Reports: None Neurological Medical History: Reports: 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 Denies: Hx Seizures Endocrine Medical History: Reports: None Renal/ Medical History: Reports: None. Denies: Hx Peritoneal Dialysis Malignancy Medical History: Reports: None GI Medical History: Reports: None Musculoskeletal Medical History: Reports None, Denies Hx Arthritis Skin Medical History: Reports None Psychiatric Medical History: Reports: Hx Depression Traumatic Medical History: Reports: None Infectious Medical History: Reports: None Past Surgical History: Reports: Hx Section, Hx Orthopedic Surgery - jaw - Immunizations Immunizations up to date: Yes Hx Diphtheria, Pertussis, Tetanus Vaccination: Yes Review of Systems - Review of Systems Constitutional: denies: Chills, Fever Cardiovascular: Chest pain Respiratory: Short of breath Musculoskeletal: Back pain -: Yes All other systems reviewed and negative Physical Exam - Vital signs Vitals: Pulse Ox 96 07/31/19 02:09 - Notes Notes: GENERAL_APPEARANCE: well_nourished, alert, cooperative VITALS: reviewed, see vital signs table. HEAD: no_swelling\tenderness on the head. EYES:conjunctiva_clear. NOSE: no_nasal_discharge. MOUTH: (-)decreased moisture. THROAT: no_airway_obstruction. no_lymphadenopathy NECK: supple, no_neck_tenderness, (-)thyromegaly. BACK: no_back_tenderness. CHEST_WALL: no_chest_tenderness. LUNGS: no_wheezing, no_rales, no_rhonchi, (-)accessory muscle use, good air exchange bilateral. HEART: normal_rate, normal_rhythm, normal_S1, normal_S2, (-)S3, (-)S4, no_murmur, no_rub. ABDOMEN: no_abd_tenderness, (-)guarding, (-)rebound, no_organomegaly, no_abd_masses. EXTREMITIES: good pulses in all_extremities, no_swelling\tenderness in the extremities, no_edema. SKIN: warm, dry, good_color, no_rash. MENTAL_STATUS: speech_clear, oriented_X_3, normal_affect, responds_appropriately to questions. Course - Re-evaluation Re-evalutation: 07/31/19 06:47 Patient was signed out to me at shift change pending CTA. CT is negative for pulmonary embolism or dissection. EKG shows some chronic changes anteriorly so far the troponins negative patient does have a known history of coronary artery disease. Pain is improved patient received medications here will be brought in for serial troponins. Speak with the hospitalist service. - Vital Signs Vital signs: Temp Pulse Resp BP Pulse Ox 97.7 F 80 17 117/69 96 07/31/19 02:42 07/31/19 06:17 07/31/19 06:56 07/31/19 06:56 07/31/19 06:17 - Laboratory Result Diagrams: 07/31/19 03:30 07/31/19 03:30 Laboratory results interpreted by me: 07/31/19 07/31/19 07/31/19 03:30 03:30 03:30 RDW 14.2 H Plt Count 121 L D-Dimer 0.55 H Sodium 133.4 L Potassium 3.0 L* Chloride 96 L Carbon Dioxide 21 L BUN 25 H Creatinine 1.49 H Est GFR ( Amer) 44 L Est GFR (MDRD) Non-Af 37 L Glucose 131 H AST 48 H Creatine Kinase 264 H - Diagnostic Test Radiology reviewed: Reports reviewed Radiology results interpreted by me: 07/31/19 06:45 Chest X-Ray 07/31/19 02:09 IMPRESSION: No active disease. Chest/Abdomen CTA 07/31/19 04:29 IMPRESSION: 1. No evidence of pulmonary embolus. 2. Fatty infiltration of the liver. 3. Mild wall thickening of the distal esophagus may be related to esophagitis, consider follow-up upper endoscopy. - EKG Interpretation by Pr EKG shows normal: Sinus rhythm Rate: Normal - 72 Additional EKG results interpreted by me: 07/31/19 06:46 There is anterior T wave inversion noted in V3 Discharge - Discharge Clinical Impression: Hypokalemia Chest pain Qualifiers: Chest pain type: other chest pain Qualified Code(s): R07.89 - Other chest pain Condition: Stable Disposition: ADMITTED INPATIENT Admitting Provider: Kimi (Hospitalist) Unit Admitted: Telemetry Referrals: KARMEN MARINO DO [NO LOCAL MD] - Follow up as needed
--- NOTE | 2019-07-31 08:15 | EKG REPORT ---
SEVERITY:- ABNORMAL ECG - SINUS ARRHYTHMIA, RATE 63-86 VENTRICULAR PREMATURE COMPLEX ANTERIOR INFARCT, AGE INDETERMINATE BORDERLINE T ABNORMALITIES, INFERIOR LEADS : Confirmed by: Corinna Zambrano MD 31-Jul-2019 08:14:02
[2019-07-31] MEDS ORDERED: (PENDING PHARMACY ID) (Alprazolam [Alprazolam] 1 MG) PO PRN (10:57)
[2019-07-31] MEDS: DULOXETINE HCL 30 MG CAPSULE.DR PO SCH (11:57)
[2019-07-31] MEDS ORDERED: METOCLOPRAMIDE HCL ORAL SOLN 10 MG/10 ML UDCUP PO ONE (12:44)
[2019-07-31] MEDS ORDERED: LIDOCAINE 2% VISCOUS SOLN 20 ML UDCUP PO ONE (12:44)
[2019-07-31] MEDS ORDERED: MAG HYDROX/AL HYDROX/SIMETH SUSP 30 ML UDCUP PO ONE (12:44)
[2019-07-31] MEDS: HEPARIN SOD (PORCINE) 5,000 UNIT/ML 1 ML VIAL SUBCUT SCH ×2 (14:40→21:32)
[2019-07-31] MEDS ORDERED: OXYCODONE HCL SR 10 MG TABLET PO ONE (14:44)
[2019-07-31] MEDS: PANTOPRAZOLE SODIUM 40 MG TABLET.DR PO SCH (18:06)
--- NOTE | 2019-07-31 19:58 | PDOC H&P ---
History of Present Illness Admission Date/PCP: 07/31/19 08:06 History of Present Illness: RICCARDO GARCIA is a 53 year old female with a history of coronary artery disease who comes in today with a complaint of chest pain and possible syncopal event. She said that she is been having a burning sensation in the middle of her chest for the past couple of days and that has not been radiating. She says it feels a little different from her prior chest pain events associated with her history of MA. She says that she felt like she had a burning pain in her esophagus this morning and then she got up to go to the bathroom to take a nitroglycerin and on her way back from the bathroom she says she feels like she got dizzy and fell down to the floor. She also said that she had a recent increase in her Coreg dose a couple of weeks ago. She was not complaining of any chest pain when I saw her in the ER. Her blood pressure was low but it responded to IV fluids. She was also noted to have an elevated creatinine, which was also noted on her last visit here back in March it appeared to be normal. She does smoke, says that she is trying to quit and is down to about 2 cigarettes a day. Past Medical History Cardiac Medical History: Reports: Coronary Artery Disease, Myocardial Infarction - JANUARY 2017, Hypertension Pulmonary Medical History: Reports: Asthma - YEARS AGO, Pneumonia - ABOUT 30 YEARS AGO Denies: Bronchitis, Chronic Obstructive Pulmonary Disease (COPD) EENT Medical History: Reports: None Neurological Medical History: Denies: Seizures Endocrine Medical History: Reports: None Renal/ Medical History: Reports: None Malignancy Medical History: Reports: None GI Medical History: Reports: None Musculoskeltal Medical History: Reports: None Denies: Arthritis Skin Medical History: Reports: None Psychiatric Medical History: Reports: Depression Traumatic Medical History: Reports: None Hematology: Denies: Anemia Infectious Medical History: Reports: None Past Surgical History Past Surgical History: Reports: Section, Orthopedic Surgery - jaw Social History Lives with: Alone Smoking Status: Former Smoker Frequency of Alcohol Use: Rare Hx Recreational Drug Use: No Drugs: None Hx Prescription Drug Abuse: No Family History Family History: Reviewed & Not Pertinent, Hypertension Parental Family History Reviewed: Yes - Hypertension, coronary artery disease Children Family History Reviewed: Yes - Nothing known Sibling(s) Family History Reviewed.: Yes - Hypertension Medication/Allergy Home Medications: Alprazolam 1 mg PO DAILYP PRN 07/31/19 Atorvastatin Calcium [Lipitor 40 mg Tablet] 40 mg PO QHS 07/31/19 Carvedilol [Coreg 6.25 mg Tablet] 6.25 mg PO Q12 07/31/19 Clopidogrel Bisulfate [Plavix 75 mg Tablet] 75 mg PO DAILY 07/31/19 Duloxetine HCl [Cymbalta] 60 mg PO DAILY 07/31/19 Hydroxyzine HCl [Atarax 25 mg Tablet] 25 mg PO TIDP PRN 07/31/19 Isosorbide Mononitrate [Imdur 30 mg Tablet.er] 15 mg PO QAM 07/31/19 Meloxicam [Mobic] 7.5 mg PO DAILY 07/31/19 Omeprazole 40 mg PO BIDBS 07/31/19 Oxycodone HCl/Acetaminophen [Percocet 7.5-325 mg Tablet] 1 tab PO 5XDP PRN 07/31/19 Quetiapine Fumarate [Seroquel 25 mg Tablet] 25 mg PO HSP PRN 07/31/19 Ramelteon [Rozerem] 8 mg PO QHS 07/31/19 Spironolactone [Aldactone 25 mg Tablet] 12.5 mg PO DAILY 07/31/19 Telmisartan [Micardis 40 mg Tablet] 40 mg PO DAILY 07/31/19 Allergies/Adverse Reactions: prednisone Allergy (Verified 06/10/19 14:32) Review of Systems All systems: reviewed and no additional remarkable complaints except as stated - All systems were reviewed and were negative except as noted in the HPI Physical Exam Vital Signs: Temp Pulse Resp BP Pulse Ox 98 F 73 20 118/68 97 07/31/19 16:42 07/31/19 16:42 07/31/19 16:42 07/31/19 16:42 07/31/19 16:42 Intake & Output 07/30/19 07/31/19 08/01/19 06:59 06:59 06:59 Intake Total 1000 Balance 1000 Weight 76.7 kg 77.1 kg General appearance: PRESENT: no acute distress, cooperative, disheveled Head exam: PRESENT: atraumatic, normocephalic Eye exam: PRESENT: EOMI, PERRLA. ABSENT: conjunctival injection, nystagmus, scleral icterus Ear exam: PRESENT: normal external ear exam Mouth exam: PRESENT: moist, neck supple Throat exam: ABSENT: post pharyngeal erythema Neck exam: PRESENT: full ROM. ABSENT: carotid bruit, JVD, lymphadenopathy, meningismus, tenderness, thyromegaly Respiratory exam: PRESENT: clear to auscultation nick, symmetrical, unlabored. ABSENT: accessory muscle use, chest wall tenderness, crackles, prolonged expiratory phas, rhonchi, tachypnea, wheezes Cardiovascular exam: PRESENT: RRR, +S1, +S2 Pulses: PRESENT: normal carotid pulses Vascular exam: PRESENT: normal capillary refill GI/Abdominal exam: PRESENT: normal bowel sounds, soft. ABSENT: distended, guarding, rebound, tenderness Extremities exam: ABSENT: clubbing, pedal edema Musculoskeletal exam: PRESENT: normal inspection. ABSENT: deformity Neurological exam: PRESENT: alert, awake, oriented to person, oriented to place, oriented to time, oriented to situation, CN II-XII grossly intact. ABSENT: motor sensory deficit Psychiatric exam: PRESENT: appropriate affect, normal mood Skin exam: PRESENT: dry, warm Results Laboratory Results: 07/31/19 03:30 07/31/19 03:30 07/31/19 07/31/19 03:30 03:30 WBC 7.9 RBC 4.45 Hgb 13.5 Hct 39.9 MCV 90 MCH 30.4 MCHC 33.9 RDW 14.2 H Plt Count 121 L Seg Neutrophils % 60.1 Sodium 133.4 L Potassium 3.0 L* Chloride 96 L Carbon Dioxide 21 L Anion Gap 16 BUN 25 H Creatinine 1.49 H Est GFR ( Amer) 44 L Glucose 131 H Calcium 9.1 Total Bilirubin 1.2 AST 48 H Alkaline Phosphatase 120 Total Protein 7.1 Albumin 4.5 07/31/19 07/31/19 07/31/19 03:30 03:30 05:55 Creatine Kinase 264 H CK-MB (CK-2) 3.33 Troponin I 0.022 0.013 07/31/19 07/31/19 11:37 18:05 Creatine Kinase CK-MB (CK-2) Troponin I < 0.012 0.013 Impressions: Chest X-Ray 07/31/19 02:09 IMPRESSION: No active disease. Chest/Abdomen CTA 07/31/19 04:29 IMPRESSION: 1. No evidence of pulmonary embolus. 2. Fatty infiltration of the liver. 3. Mild wall thickening of the distal esophagus may be related to esophagitis, consider follow-up upper endoscopy. Assessment and Plan - Diagnosis (1) Chest pain Qualifiers: Chest pain type: other chest pain Qualified Code(s): R07.89 - Other chest pain; R07.8 - Other chest pain Is this a current diagnosis for this admission?: Yes Plan: CTA shows some esophageal thickening, possibly esophagitis. This could have been the etiology of her pain, but she did have a very small bump in her troponin which over the day has flattened out. Patient also be noted that her creatinine is elevated. Given her smoking history and her history of coronary artery disease, will bring her in to rule her out. She said it has been a couple of years since her last cardiac evaluation, and that is when she had her MA. Will likely get a stress test on her tomorrow if she rules out. I believe the syncopal event was from her being a little bit dehydrated and then she took a nitroglycerin. (2) Hypokalemia Is this a current diagnosis for this admission?: Yes Plan: She got some potassium in the ER and working up a little bit of potassium in her IV fluids. (3) Acute renal failure (ARF) Qualifiers: Acute renal failure type: unspecified Qualified Code(s): N17.9 - Acute kidney failure, unspecified Is this a current diagnosis for this admission?: Yes Plan: Going to give her some IV fluids and see how her creatinine responds. It was normal back in March. (4) CAD (coronary artery disease) Qualifiers: Coronary Disease-Associated Artery/Lesion type: [place] artery [place] vs. transplanted heart: [place] heart Associated angina: with stable angina Qualified Code(s): I25.118 - Atherosclerotic heart disease of [place] coronary artery with other forms of angina pectoris Is this a current diagnosis for this admission?: Yes Plan: We will continue her home medications. - Time Time Spent with patient: 35 or more minutes - Inpatient Certification Based on my medical assessment, after consideration of the patient's comorbidities, presenting symptoms, or acuity I expect that the services needed warrant INPATIENT care.: Yes I certify that my determination is in accordance with my understanding of Medicare's requirements for reasonable and necessary INPATIENT services [42 CFR 412.3e].: Yes Medical Necessity: Need Close Monitoring Due to Risk of Patient Decompensation, Need For IV Fluids, Need For Continuous Telemetry Monitoring, Risk of Complication if Not Cared For in Hospital
[2019-07-31] MEDS ORDERED: NITROGLYCERIN 0.4 MG/TAB 25 TAB/BOTTLE SL PRN (20:19)
--- NOTE | 2019-07-31 20:55 | EKG REPORT ---
SEVERITY:- ABNORMAL ECG - ATRIAL FLUTTER/FIBRILLATION, A-RATE 248 ANTERIOR INFARCT, AGE INDETERMINATE BORDERLINE T ABNORMALITIES, INFERIOR LEADS PROLONGED QT INTERVAL : Confirmed by: Corinna Zambrano MD 31-Jul-2019 20:54:36
[2019-07-31] MEDS: POTASSI CL 20 MEQ/NS 1L 1,000 ML IV PRN (21:30)
[2019-07-31] MEDS: ALPRAZOLAM 0.5 MG TABLET PO PRN (21:54)
[2019-07-31] MEDS: OXYCODONE-ACETAMINOPHEN 5-325 MG TABLET PO PRN (22:12)
[2019-08-01 05:58] LABS: ANION GAP 9 (5-19); BLOOD UREA NITROGEN 30 mg/dL (7-20); CALCIUM 8.5 mg/dL (8.4-10.2); CARBON DIOXIDE 25 mmol/L (22-30); CHLORIDE 103 mmol/L (98-107); DIRECT LDL 64 mg/dL (<100); GLUCOSE 109 mg/dL (75-110); POTASSIUM 4.1 mmol/L (3.6-5.0); TRIGLYCERIDES 366 mg/dL (<150); VLDL CHOLESTEROL 73.2 mg/dL (10-31)
[2019-08-01] MEDS: HEPARIN SOD (PORCINE) 5,000 UNIT/ML 1 ML VIAL SUBCUT SCH ×3 (06:32→22:03)
[2019-08-01 07:01] LABS: HEMATOCRIT 35.2 % (36.0-47.0); HEMOGLOBIN 11.8 g/dL (12.0-15.5); MEAN CORPUSCULAR HEMOGLOBIN 30.3 pg (27.0-33.4); MEAN CORPUSCULAR HGB CONC 33.5 g/dL (32.0-36.0); MEAN CORPUSCULAR VOLUME 91 fl (80-97); PLATELET COUNT 106 10^3/uL (150-450); RED BLOOD COUNT 3.89 10^6/uL (3.72-5.28); WHITE BLOOD COUNT 5.4 10^3/uL (4.0-10.5)
[2019-08-01] MEDS: POTASSI CL 20 MEQ/NS 1L 1,000 ML IV PRN ×2 (08:29→19:00)
[2019-08-01] MEDS: PANTOPRAZOLE SODIUM 40 MG TABLET.DR PO SCH ×2 (08:30→17:29)
--- NOTE | 2019-08-01 09:25 | EKG REPORT ---
SEVERITY:- ABNORMAL ECG - SINUS RHYTHM BORDERLINE LEFT AXIS DEVIATION BORDERLINE INFERIOR Q WAVES EXTENSIVE ANTERIOR INFARCT, AGE INDETERMINATE BORDERLINE T ABNORMALITIES, INFERIOR LEADS : Confirmed by: Corinna Zambrano MD 01-Aug-2019 09:24:25
[2019-08-01] MEDS: CLOPIDOGREL BISULFATE 75 MG TABLET PO SCH (10:10)
[2019-08-01] MEDS: DULOXETINE HCL 30 MG CAPSULE.DR PO SCH (10:10)
[2019-08-01] MEDS: OXYCODONE-ACETAMINOPHEN 5-325 MG TABLET PO PRN (17:31)
--- NOTE | 2019-08-01 19:08 | PDOC PROGRESS REPORT ---
Subjective Progress Note for:: 08/01/19 Subjective:: RICCARDO GARCIA is a 53 year old female with a history of coronary artery disease who comes in today with a complaint of chest pain and possible syncopal event. She said that she is been having a burning sensation in the middle of her chest for the past couple of days and that has not been radiating. She says it feels a little different from her prior chest pain events associated with her history of MN. She says that she felt like she had a burning pain in her esophagus this morning and then she got up to go to the bathroom to take a nitroglycerin and on her way back from the bathroom she says she feels like she got dizzy and fell down to the floor. She also said that she had a recent increase in her Coreg dose a couple of weeks ago. She was not complaining of any chest pain when I saw her in the ER. Her blood pressure was low but it responded to IV fluids. She was also noted to have an elevated creatinine, which was also noted on her last visit here back in March it appeared to be normal. She does smoke, says that she is trying to quit and is down to about 2 cigarettes a day. 08/01/2019. No acute events overnight. Denies any chest pain, nausea, vomiting, diarrhea, constipation or any other symptoms pending stress test. Reason For Visit: NEAR-SYNCOPE Physical Exam Vital Signs: Temp Pulse Resp BP Pulse Ox 97.6 F 76 18 102/53 L 100 08/01/19 15:54 08/01/19 15:54 08/01/19 15:54 08/01/19 15:54 08/01/19 15:54 Intake & Output 07/31/19 08/01/19 08/02/19 06:59 06:59 06:59 Intake Total 7614 492 9098 Balance 0741 428 2655 Weight 76.7 kg 80.7 kg General appearance: PRESENT: no acute distress, well-developed, well-nourished Head exam: PRESENT: atraumatic, normocephalic Eye exam: PRESENT: conjunctiva pink, EOMI, PERRLA. ABSENT: scleral icterus Ear exam: PRESENT: normal external ear exam Mouth exam: PRESENT: moist, tongue midline Neck exam: ABSENT: carotid bruit, JVD, lymphadenopathy, thyromegaly Respiratory exam: PRESENT: clear to auscultation nick. ABSENT: rales, rhonchi, wheezes Cardiovascular exam: PRESENT: RRR. ABSENT: diastolic murmur, rubs, systolic murmur Pulses: PRESENT: normal dorsalis pedis pul Vascular exam: PRESENT: normal capillary refill GI/Abdominal exam: PRESENT: normal bowel sounds, soft. ABSENT: distended, g uarding, mass, organolmegaly, rebound, tenderness Rectal exam: PRESENT: deferred Extremities exam: PRESENT: full ROM. ABSENT: calf tenderness, clubbing, pedal edema Neurological exam: PRESENT: alert, awake, oriented to person, oriented to place, oriented to time, oriented to situation, CN II-XII grossly intact. ABSENT: mo tor sensory deficit Psychiatric exam: PRESENT: appropriate affect, normal mood. ABSENT: homicidal ideation, suicidal ideation Skin exam: PRESENT: dry, intact, warm. ABSENT: cyanosis, rash Results Laboratory Results: 08/01/19 03:36 08/01/19 03:36 07/31/19 08/01/19 08/01/19 18:05 03:36 03:36 WBC 5.4 RBC 3.89 Hgb 11.8 L Hct 35.2 L MCV 91 MCH 30.3 MCHC 33.5 RDW 14.0 Plt Count 106 L Sodium 136.8 L Potassium 4.1 Chloride 103 Carbon Dioxide 25 Anion Gap 9 BUN 30 H Creatinine 1.09 Est GFR ( Amer) > 60 Glucose 109 Calcium 8.5 Triglycerides 366 H Cholesterol 121.30 LDL Cholesterol Direct 64 VLDL Cholesterol 73.2 H HDL Cholesterol 36 L Lipase 162.5 07/31/19 07/31/19 07/31/19 03:30 03:30 05:55 Creatine Kinase 264 H CK-MB (CK-2) 3.33 Troponin I 0.022 0.013 07/31/19 07/31/19 07/31/19 11:37 18:05 23:42 Creatine Kinase CK-MB (CK-2) Troponin I < 0.012 0.013 < 0.012 Impressions: Chest X-Ray 07/31/19 02:09 IMPRESSION: No active disease. Chest/Abdomen CTA 07/31/19 04:29 IMPRESSION: 1. No evidence of pulmonary embolus. 2. Fatty infiltration of the liver. 3. Mild wall thickening of the distal esophagus may be related to esophagitis, consider follow-up upper endoscopy. Assessment and Plan - Diagnosis (1) Chest pain Qualifiers: Chest pain type: other chest pain Qualified Code(s): R07.89 - Other chest pain; R07.8 - Other chest pain Is this a current diagnosis for this admission?: Yes Plan: CTA shows some esophageal thickening, possibly esophagitis. This could have been the etiology of her pain, but she did have a very small bump in her troponin which over the day has flattened out. Patient also be noted that her creatinine is elevated. Given her smoking history and her history of coronary artery disease, will bring her in to rule her out. She said it has been a couple of years since her last cardiac evaluation, and that is when she had her MN. Pending stress test tomorrow (2) Hypokalemia Is this a current diagnosis for this admission?: Yes Plan: Resolved. (3) Acute renal failure (ARF) Qualifiers: Acute renal failure type: unspecified Qualified Code(s): N17.9 - Acute kidney failure, unspecified Is this a current diagnosis for this admission?: Yes Plan: Resolved. (4) CAD (coronary artery disease) Qualifiers: Coronary Disease-Associated Artery/Lesion type: [place] artery [place] vs. transplanted heart: [place] heart Associated angina: with stable angina Qualified Code(s): I25.118 - Atherosclerotic heart disease of [place] coronary artery with other forms of angina pectoris Is this a current diagnosis for this admission?: Yes Plan: We will continue her home medications.
--- NOTE | 2019-08-01 21:46 | XCELERA REPORT ---
[address] [address] Transthoracic Echocardiogram Report Name: RICCARDO GARCIA Age: 53 yrs Gender: Female : 1965 Patient Status: Inpatient [address] Study Date: 07/31/2019 01:43 PM Height: 64 in Weight: 169 lb BSA: 1.8 m2 Procedure: A two-dimensional transthoracic echocardiogram with color flow and Doppler was performed. Study Quality: Poor. Reason For Study: near-syncope History: NEAR SYNCOPE. Ordering Physician: ABHIJIT OATES Performed By: Marsha Cooper Interpretation Summary Doppler measurements suggest impaired left ventricular relaxation, which is associated with grade I/IV or mild diastolic dysfunction The right ventricle is grossly normal size. The right atrium is normal. There is mild mitral annular calcification. There is no evidence of mitral valve prolapse. There is no vegetation seen on the mitral valve. There is no mitral valve stenosis. There is a trace amount of mitral regurgitation There is no aortic valvular vegetation. There is no aortic valve stenosis There is aortic sclerosis without aortic stenosis. There is no LVOT obstruction. No aortic regurgitation is present. There is no tricuspid stenosis. There is a trace amount of tricuspid regurgitation Right ventricular systolic pressure is normal. RVSP is 18 mm of Hg , with RA mean of 10. There is no pulmonic valvular regurgitation. The aortic root is not well visualized but is probably normal size. The inferior vena cava was not visualized There is no pericardial effusion. The left ventricle is normal in size. There is normal left ventricular wall thickness. The left ventricular ejection fraction is within normal limits. LV EF is 55% to 60% There is no thrombus. Cannot assess ASD,VSD ,or PFO. The apical inferior wall segment is dyskinetic.Rest of the LV apical segmental lockhart are akinetic.Rest of the LV lockhart contract normally. MMode/2D Measurements & Calculations IVSd: 0.94 cm LVIDd: 4.9 cm FS: 45.5 % Ao root diam: 3.1 cm LVIDs: 2.7 cm EDV(Teich): 114.5 ml Ao root area: 7.6 cm2 LVPWd: 0.99 cm ESV(Teich): 26.7 ml EF(Teich): 76.7 % Doppler Measurements & Calculations MV E max ailyn: MV dec slope: Ao V2 max: LV V1 max P.3 cm/sec 339.2 cm/sec2 146.9 cm/sec 6.3 mmHg MV A max ailyn: MV dec time: 0.17 sec Ao max P.6 mmHgLV V1 max: 88.6 cm/sec 125.6 cm/sec MV E/A: 0.65 PA V2 max: PI end-d ailyn: TR max ailyn: 97.3 cm/sec 83.4 cm/sec 142.0 cm/sec PA max P.8 mmHg TR max P.1 mmHg Left Ventricle The left ventricle is normal in size. There is normal left ventricular wall thickness. The left ventricular ejection fraction is within normal limits. LV EF is 55% to 60%. Doppler measurements suggest impaired left ventricular relaxation, which is associated with grade I/IV or mild diastolic dysfunction. The apical inferior wall segment is dyskinetic.Rest of the LV apical segmental lockhart are akinetic.Rest of the LV lockhart contract normally. There is no thrombus. Cannot assess ASD,VSD ,or PFO. Right Ventricle The right ventricle is grossly normal size. The right ventricle is not well visualized secondary to technical limitations. Atria The right atrium is normal. The left atrial size is normal. Mitral Valve There is mild mitral annular calcification. There is no evidence of mitral valve prolapse. There is no vegetation seen on the mitral valve. There is no mitral valve stenosis. There is a trace amount of mitral regurgitation. Aortic Valve There is no aortic valvular vegetation. There is no aortic valve stenosis. There is aortic sclerosis without aortic stenosis. There is no LVOT obstruction. No aortic regurgitation is present. Tricuspid Valve There is no tricuspid stenosis. There is a trace amount of tricuspid regurgitation. Right ventricular systolic pressure is normal. RVSP is 18 mm of Hg , with RA mean of 10. Pulmonic Valve There is no pulmonic valvular stenosis. There is no pulmonic valvular regurgitation. Great Vessels The aortic root is not well visualized but is probably normal size. The inferior vena cava was not visualized. Effusions There is no pericardial effusion. : ABHIJIT OATES Lakshmi
[2019-08-01] MEDS: ALPRAZOLAM 0.5 MG TABLET PO PRN (21:59)
[2019-08-02 00:26] LABS: URINE AMPHETAMINES SCREEN NEGATIVE; URINE BARBITURATES SCREEN NEGATIVE; URINE COCAINE SCREEN NEGATIVE; URINE MARIJUANA (THC) SCREEN NEGATIVE; URINE METHADONE SCREEN NEGATIVE; URINE PHENCYCLIDINE SCREEN NEGATIVE
[2019-08-02 00:32] LABS: URINE BENZODIAZEPINES SCREEN UNCONFIRMED POSITIVE
[2019-08-02] MEDS: HEPARIN SOD (PORCINE) 5,000 UNIT/ML 1 ML VIAL SUBCUT SCH ×2 (06:00→14:17)
[2019-08-02] MEDS: POTASSI CL 20 MEQ/NS 1L 1,000 ML IV PRN (07:25)
[2019-08-02] MEDS: PANTOPRAZOLE SODIUM 40 MG TABLET.DR PO SCH (07:27)
[2019-08-02 07:45] LABS: ABSOLUTE EOSINOPHILS # (AUTO) 0.3 10^3/uL (0.0-0.6); ABSOLUTE LYMPHOCYTES (AUTO) 1.8 10^3/uL (0.5-4.7); ABSOLUTE MONOCYTES (AUTO) 0.2 10^3/uL (0.1-1.4); ABSOLUTE NEUT (AUTO) 1.7 10^3/uL (1.7-8.2); EOSINOPHILS % (AUTO) 6.9 % (0-6); HEMOGLOBIN 11.1 g/dL (12.0-15.5); LYMPHOCYTES % (AUTO) 43.6 % (13-45); MEAN CORPUSCULAR HEMOGLOBIN 30.6 pg (27.0-33.4); MEAN CORPUSCULAR HGB CONC 33.5 g/dL (32.0-36.0); MEAN CORPUSCULAR VOLUME 91 fl (80-97); MONOCYTES % (AUTO) 5.4 % (3-13); RED BLOOD COUNT 3.61 10^6/uL (3.72-5.28); RED CELL DISTRIBUTION WIDTH 13.8 % (11.5-14.0); SEGMENTED NEUTROPHILS % (AUTO) 43.1 % (42-78); TOTAL CELLS COUNTED % (AUTO) 100 %
[2019-08-02 07:52] LABS: ALBUMIN 3.6 g/dL (3.5-5.0); ALKALINE PHOSPHATASE 182 U/L (38-126); ANION GAP 7 (5-19); ASPARTATE AMINO TRANSFERASE 187 U/L (14-36); BILIRUBIN,DIRECT 0.2 mg/dL (0.0-0.4); BILIRUBIN,TOTAL 0.5 mg/dL (0.2-1.3); BLOOD UREA NITROGEN 25 mg/dL (7-20); CALCIUM 8.5 mg/dL (8.4-10.2); CARBON DIOXIDE 26 mmol/L (22-30); CHLORIDE 103 mmol/L (98-107); GLUCOSE 104 mg/dL (75-110); POTASSIUM 4.4 mmol/L (3.6-5.0)
[2019-08-02 08:37] LABS: PLATELET COUNT 91 10^3/uL (150-450)
[2019-08-02] MEDS: CLOPIDOGREL BISULFATE 75 MG TABLET PO SCH (10:56)
[2019-08-02] MEDS: DULOXETINE HCL 30 MG CAPSULE.DR PO SCH (10:56)
[2019-08-02] MEDS ORDERED: REGADENOSON INJ 0.4 MG/5 ML DISP.SYRIN IV ONE (13:20)
[2019-08-02 16:57] VITALS: BP 130/87
--- NOTE | 2019-08-05 14:45 | PDOC DISCHARGE SUMMARY ---
General - Admit/Disc Date/PCP Admission Date/Primary Care Provider: 07/31/19 08:06 Discharge Date: 08/02/19 - Discharge Diagnosis (1) Chest pain Is this a current diagnosis for this admission?: Yes (2) Hypokalemia Is this a current diagnosis for this admission?: Yes (3) Acute renal failure (ARF) Is this a current diagnosis for this admission?: Yes (4) CAD (coronary artery disease) Is this a current diagnosis for this admission?: Yes (5) Obesity (BMI 30.0-34.9) Is this a current diagnosis for this admission?: Yes - Additional Information Discharge Diet: As Tolerated Discharge Activity: Activity As Tolerated Home Medications: Alprazolam 1 mg PO DAILYP PRN 07/31/19 Atorvastatin Calcium [Lipitor 40 mg Tablet] 40 mg PO QHS 07/31/19 Carvedilol [Coreg 6.25 mg Tablet] 6.25 mg PO Q12 07/31/19 Clopidogrel Bisulfate [Plavix 75 mg Tablet] 75 mg PO DAILY 07/31/19 Duloxetine HCl [Cymbalta] 60 mg PO DAILY 07/31/19 Hydroxyzine HCl [Atarax 25 mg Tablet] 25 mg PO TIDP PRN 07/31/19 Isosorbide Mononitrate [Imdur 30 mg Tablet.er] 15 mg PO QAM 07/31/19 Meloxicam [Mobic] 7.5 mg PO DAILY 07/31/19 Omeprazole 40 mg PO BIDBS 07/31/19 Oxycodone HCl/Acetaminophen [Percocet 7.5-325 mg Tablet] 1 tab PO 5XDP PRN 07/31/19 Quetiapine Fumarate [Seroquel 25 mg Tablet] 25 mg PO HSP PRN 07/31/19 Ramelteon [Rozerem] 8 mg PO QHS 07/31/19 Spironolactone [Aldactone 25 mg Tablet] 12.5 mg PO DAILY 07/31/19 Telmisartan [Micardis 40 mg Tablet] 40 mg PO DAILY 07/31/19 History of Present Illness History of Present Illness: RICCARDO GARCIA is a 53 year old female with a history of coronary artery disease who comes in today with a complaint of chest pain and possible syncopal event. She said that she is been having a burning sensation in the middle of her chest for the past couple of days and that has not been radiating. She says it feels a little different from her prior chest pain events associated with her history of CA. She says that she felt like she had a burning pain in her esophagus this morning and then she got up to go to the bathroom to take a nitroglycerin and on her way back from the bathroom she says she feels like she got dizzy and fell down to the floor. She also said that she had a recent increase in her Coreg dose a couple of weeks ago. She was not complaining of any chest pain when I saw her in the ER. Her blood pressure was low but it responded to IV fluids. She was also noted to have an elevated creatinine, which was also noted on her last visit here back in March it appeared to be normal. She does smoke, says that she is trying to quit and is down to about 2 cigarettes a day. Hospital Course Hospital Course: (1) Chest pain Resolved. This was likely due to chronic esophagitis evidenced by CTA done on admission. CTA negative for PE, troponins negative x3. EKG no acute changes. Was admitted to telemetry. Started on DAPT, statins, Aldactone, myocarditis, STACY and beta-sole. Nuclear stress test was ordered which did not show any acute abnormalities except for chronic changes from previous CA. Please refer to stress test report. I personally called Dr. Gio Machado's office her steward/stewardess lounge however to discuss the case, however he was not not available, an appointment was obtained for her to see Dr. Gio Machado on 08/07/2019. (2) Hypokalemia Was started on supplemental oxygen. Resolved. (3) Acute renal failure (ARF) Likely prerenal as patient was reported to have had low BP prior to admission. Started on IV fluids with resolution of DANIEL. Electrolytes and creatinine WNL on discharge. She was asked to follow-up with PCP and avoid nephrotoxic meds. (4) CAD (coronary artery disease) Restarted on home meds. An appointment was made for him to see Dr. Gio Machado steward/stewardess lounge on 08/07/2019. (5) Obesity (BMI 30.0-34.9) BMI 30.7. Diet and lifestyle modification recommended. Physical Exam Vital Signs: Temp Pulse Resp BP Pulse Ox 97.9 F 86 20 130/87 H 100 08/02/19 17:13 08/02/19 17:13 08/02/19 17:13 08/02/19 17:13 08/02/19 17:13 General appearance: PRESENT: no acute distress, well-developed, well-nourished Head exam: PRESENT: atraumatic, normocephalic Eye exam: PRESENT: conjunctiva pink, EOMI, PERRLA. ABSENT: scleral icterus Ear exam: PRESENT: normal external ear exam Mouth exam: PRESENT: moist, tongue midline Neck exam: ABSENT: carotid bruit, JVD, lymphadenopathy, thyromegaly Respiratory exam: PRESENT: clear to auscultation nick. ABSENT: rales, rhonchi, wheezes Cardiovascular exam: PRESENT: RRR. ABSENT: diastolic murmur, rubs, systolic murmur Pulses: PRESENT: normal dorsalis pedis pul Vascular exam: PRESENT: normal capillary refill GI/Abdominal exam: PRESENT: normal bowel sounds, soft. ABSENT: distended, guarding, mass, organolmegaly, rebound, tenderness Rectal exam: PRESENT: deferred Extremities exam: PRESENT: full ROM. ABSENT: calf tenderness, clubbing, pedal edema Neurological exam: PRESENT: alert, awake, oriented to person, oriented to place, oriented to time, oriented to situation, CN II-XII grossly intact. ABSENT: motor sensory deficit Psychiatric exam: PRESENT: appropriate affect, normal mood. ABSENT: homicidal ideation, suicidal ideation Skin exam: PRESENT: dry, intact, warm. ABSENT: cyanosis, rash Results Laboratory Results: 08/02/19 07:00 08/02/19 07:00 07/31/19 07/31/19 07/31/19 03:30 03:30 05:55 Creatine Kinase 264 H CK-MB (CK-2) 3.33 Troponin I 0.022 0.013 07/31/19 07/31/19 07/31/19 11:37 18:05 23:42 Creatine Kinase CK-MB (CK-2) Troponin I < 0.012 0.013 < 0.012 Impressions: Chest X-Ray 07/31/19 02:09 IMPRESSION: No active disease. Chest/Abdomen CTA 07/31/19 04:29 IMPRESSION: 1. No evidence of pulmonary embolus. 2. Fatty infiltration of the liver. 3. Mild wall thickening of the distal esophagus may be related to esophagitis, consider follow-up upper endoscopy. Qualifiers - * PATIENT BEING DISCHARGED WITH ANY OF THE FOLLOWING DIAGNOSIS: No VTE patient discharged on overlapping Therapy?: Yes Acute Heart Failure - Is this a Heart Failure Patient?: Yes Documentation of LVEF assessment?: Yes LVEF < 40%?: Yes-if yes answer questions a through e a) Discharged on ACEI?: Yes b) Discharges on ARB?: Yes c) Discharged on ARNI?: Yes d) Discharged on evidence-based Beta sole(carvedilol, sustained release m etoprolol succinate, or bisoprolol)?: Yes e) For LVEF <35%, discharged on Aldosterone antagonist?: Yes 3. Anticoagulant therapy for permanect/persistent/paraoxysmal Afib or Aflutter: N/A Follow-up Appointment scheduled within 7 days?: Yes
--- NOTE | 2019-08-07 22:15 | DRAGON STRESS TEST REPORT ---
Intravenous Lexiscan Cardiolite stress test using single photon emmision computerized tomography. Date of procedure: 08/02/2019. Ordering Provider: Dr. Mclaughlin.Patient's status: NCAT patient Indication: Chest pain, with a history of coronary artery disease, history of UT and history of LAD stent in 2017.. Coronary risk factors: Age, hypertension, and dyslipidemia. Resting EKG: Sinus Rhythm. Old anterior UT. Stress EKG: No changes of ischemia. Patient had no chest pain or discomfort, and there were no arrhythmias seen. Reason for termination: Protocol. Conclusions: Normal EKG and hemodynamic response to IV Lexiscan. Nuclear data: At rest the patient was given 12.80 millicuries of technetium 99m sestamibi injected intravenously. As per protocol rest non gated SPECT images were obtained. Subsequently the patient was given intravenous Lexiscan at a dose of 0.4 mg in 5 mL intravenously, followed by flush with normal saline. Subsequently the stress dose of 36.4 millicuries of technetium 99m sestamibi was injected intravenously. As per protocol stress gated images were obtained. Nuclear interpretation: Review of images showed that there was a severe to absent perfusion defect in the left ventricle apex and all LV apical segments. This large area had severely decreased motion ,contraction, thickening, to absent motion contraction and thickening by gated study. This area represents an old myocardial infarction. The rest of the segments of the myocardium had normal perfusion at rest, and normal perfusion post stress with IV Lexiscan. The rest of the segments of the myocardium had normal motion, contraction, and thickening by gated study. T. I D. ratio was AnBormal at 1.36. Visually this is not reliable.. There is no transient ischemic dilatation of the left ventricle. Computer read rest, and stress left ventricular ejection fraction were 33 %, and 29 %, respectively. Conclusion: 1. There is no scintigraphic evidence of Lexiscan induced myocardial ischemia. 2. There is a large area of scintigraphic evidence of myocardial infarction/scar left ventricle apex and all left and apical segments 3. Evidence of ischemic cardiomyopathy. Recommend echocardiography for LV ejection fraction correlation. Recommendations: Aggressive risk factor modification, and treating the underlying co- morbidities. [facility]
== END 2019-08-02 17:30 | disposition home or self-care (01) ==
LOC: ER 02:03 → INTOOBSV 08:06 → EH 08:06 → 4S 15:42
PROVIDERS: ADMIT Family Medicine; ATTEND Family Medicine
DX: R07.9 Chest pain, unspecified (principal); E87.6 Hypokalemia; N17.9 Acute kidney failure, unspecified; I25.118 Atherosclerotic heart disease of native coronary artery with other forms of angina pectoris; E66.9 Obesity, unspecified; I25.2 Old myocardial infarction; R42 Dizziness and giddiness; W19.XXXA Unspecified fall, initial encounter; Z79.899 Other long term (current) drug therapy; F17.210 Nicotine dependence, cigarettes, uncomplicated; R55 Syncope and collapse; R06.02 Shortness of breath; M54.9 Dorsalgia, unspecified; K22.8 Other specified diseases of esophagus; Z68.30 Body mass index [BMI] 30.0-30.9, adult; Z82.49 Family history of ischemic heart disease and other diseases of the circulatory system; Z79.02 Long term (current) use of antithrombotics/antiplatelets; Z86.73 Personal history of transient ischemic attack (TIA), and cerebral infarction without residual deficits
CPT/HCPCS: 93005 ×3; 99285; 96361; 96374; 36415 ×3; 82553; 82550; 83690; 85025 ×2; 85027; 80048; 80053 ×2; 84484; 80307; 85379; 80061; 93306; 93017; 71045; 78452; 71275; 93010 ×2; G0378 ×4; A9500; A9270 ×13; J2785; J1644 ×2; J3490 ×6; J2270; J7030; J3480 ×3; Q9969

== ENCOUNTER 2019-08-08 11:47 | Emergency (ER) | payer MEDICARE, MEDICAID ==
--- NOTE | 2019-08-08 12:19 | RADIOLOGY REPORT (SQ) ---
EXAM DESCRIPTION: WRIST RIGHT 3 VIEWS COMPLETED DATE/TIME: 08/08/2019 12:06 pm REASON FOR STUDY: bone tenderness COMPARISON: None. NUMBER OF VIEWS: Three views. TECHNIQUE: AP, lateral, and oblique radiographic images acquired of the right wrist. LIMITATIONS: None. FINDINGS: MINERALIZATION: Normal. BONES: There is an impacted fracture of the distal radius. There is a longitudinal component extendi ng to the radiocarpal joint. SOFT TISSUES: No soft tissue swelling. No foreign body. OTHER: No other significant finding. IMPRESSION: Distal radial fracture. TECHNICAL DOCUMENTATION: JOB ID: [id number] [employer]- All Rights Reserved Reading location - IP/workstation name: [email or web address]
[2019-08-08] MEDS ORDERED: ONDANSETRON 4 MG TAB.RAPDIS PO ONE (12:39)
[2019-08-08] MEDS ORDERED: OXYCODONE-ACETAMINOPHEN 5-325 MG TABLET PO ONE (12:39)
--- NOTE | 2019-08-08 12:42 | ER Document Report ---
ED Extremity Problem, Upper - General Chief Complaint: Arm Injury Stated Complaint: ARM INJURY Time Seen by Provider: 08/08/19 12:29 TRAVEL OUTSIDE OF THE [place] IN LAST 30 DAYS: No - Related Data Allergies/Adverse Reactions: prednisone Allergy (Verified 06/10/19 14:32) Past Medical History - Social History Smoking Status: Current Every Day Smoker Chew tobacco use (# tins/day): No Frequency of alcohol use: None Drug Abuse: None Family History: Reviewed & Not Pertinent, Hypertension Patient has suicidal ideation: No Patient has homicidal ideation: No - Past Medical History Cardiac Medical History: Reports: Hx Coronary Artery Disease, Hx Heart Attack - JANUARY 2017, Hx Hypertension Pulmonary Medical History: Reports: Hx Asthma - YEARS AGO, Hx Pneumonia - ABOUT 30 YEARS AGO Denies: Hx Bronchitis, Hx COPD Neurological Medical History: Reports: 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 Denies: Hx Seizures Renal/ Medical History: Denies: Hx Peritoneal Dialysis Musculoskeletal Medical History: Denies Hx Arthritis Psychiatric Medical History: Reports: Hx Depression Past Surgical History: Reports: Hx Section, Hx Orthopedic Surgery - jaw - Immunizations Immunizations up to date: Yes Hx Diphtheria, Pertussis, Tetanus Vaccination: Yes Physical Exam - Vital signs Vitals: Temp Pulse Resp BP Pulse Ox 97.3 F 130 H 22 H 146/102 H 98 08/08/19 12:09 08/08/19 12:09 08/08/19 12:09 08/08/19 12:09 08/08/19 12:09 Course - Vital Signs Vital signs: Temp Pulse Resp BP Pulse Ox 97.3 F 130 H 22 H 146/102 H 98 08/08/19 12:09 08/08/19 12:09 08/08/19 12:09 08/08/19 12:09 08/08/19 12:09
--- NOTE | 2019-08-08 13:09 | RADIOLOGY REPORT (SQ) ---
EXAM DESCRIPTION: ELBOW RIGHT AP/LAT COMPLETED DATE/TIME: 08/08/2019 12:56 pm REASON FOR STUDY: fall, elbow pain COMPARISON: None. NUMBER OF VIEWS: Two views. TECHNIQUE: AP and lateral radiographic images acquired of the right elbow. LIMITATIONS: None. FINDINGS: MINERALIZATION: Normal. BONES: No acute fracture or dislocation. No worrisome bone lesions. Mild osteophytosis about the el bow. JOINT: No effusion. SOFT TISSUES: No soft tissue swelling. No foreign body. OTHER: No other significant finding. IMPRESSION: NEGATIVE STUDY OF THE RIGHT ELBOW. NO RADIOGRAPHIC EVIDENCE OF ACUTE INJURY. TECHNICAL DOCUMENTATION: JOB ID: [id number] [employer]- All Rights Reserved Reading location - IP/workstation name: [email or web address]
[2019-08-08] MEDS ORDERED: MORPHINE SULFATE 10 MG/ML INJ IV ONE ×3 (14:37→17:26)
--- NOTE | 2019-08-08 14:48 | ER Document Report ---
ED Medical Screen (RME) - General Chief Complaint: Arm Injury Stated Complaint: ARM INJURY Time Seen by Provider: 08/08/19 12:29 TRAVEL OUTSIDE OF THE [place] IN LAST 30 DAYS: No - HPI Notes: 08/08/19 14:48 53-year-old female to the emergency department with complaints of right wrist and elbow pain after experiencing a fall last night in the shower. States she was washing her hair when she slipped and fell onto an outstretched hand. She states that despite being in pain management and taking 7.5 mg Percocet for chronic back pain she has not had good pain control overnight. She states that she is nauseated and sweaty because of the pain as well. She denies any chest pain or shortness of breath. Attempted pain control with splinting and engineering technical writer in triage process but unfortunately heart rate is still significantly elevated. Initial was 130 and repeat was 142. Performed medical screening exam and have placed orders to further evaluate patient's tachycardia and have notified charge nurse of plan. She will be bedded and further evaluated. - Related Data Allergies/Adverse Reactions: prednisone Allergy (Verified 06/10/19 14:32) Past Medical History - Social History Chew tobacco use (# tins/day): No Frequency of alcohol use: None Drug Abuse: None - Past Medical History Cardiac Medical History: Reports: Hx Coronary Artery Disease, Hx Heart Attack - JANUARY 2017, Hx Hypertension Pulmonary Medical History: Reports: Hx Asthma - YEARS AGO, Hx Pneumonia - ABOUT 30 YEARS AGO Denies: Hx Bronchitis, Hx COPD Neurological Medical History: Reports: 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 Denies: Hx Seizures Renal/ Medical History: Denies: Hx Peritoneal Dialysis Musculoskeltal Medical History: Denies Hx Arthritis Psychiatric Medical History: Reports: Hx Depression Past Surgical History: Reports: Hx Section, Hx Orthopedic Surgery - jaw - Immunizations Immunizations up to date: Yes Hx Diphtheria, Pertussis, Tetanus Vaccination: Yes Physical Exam - Vital signs Vitals: Temp Pulse Resp BP Pulse Ox 97.3 F 130 H 22 H 146/102 H 98 08/08/19 12:09 08/08/19 12:09 08/08/19 12:09 08/08/19 12:08/08/19 12:09 Course - Vital Signs Vital signs: Temp Pulse Resp BP Pulse Ox 98.5 F 142 H 20 148/108 H 98 08/08/19 14:25 08/08/19 14:25 08/08/19 14:25 08/08/19 14:25 08/08/19 14:25
--- NOTE | 2019-08-08 15:30 | ER Document Report ---
ED General - General Chief Complaint: Arm Injury Stated Complaint: ARM INJURY Time Seen by Provider: 08/08/19 12:29 Primary Care Provider: HARIS KILPATRICK FNP-C [Primary Care Provider] - Follow up as needed TRAVEL OUTSIDE OF THE [place] IN LAST 30 DAYS: No - HPI Patient complains to provider of: right arm pain Notes: 53-year-old female presents after fall last evening in the shower. Patient fell onto her right arm outstretched. Patient endorsing 10/10 sharp right wrist pain no obvious deformity. Patient attempted to sleep on her last night but the pain continued today. Patient presents the emergency department continued pain nothing makes it better or worse. - Related Data Allergies/Adverse Reactions: lisinopril Allergy (Verified 08/08/19 15:56) prednisone Allergy (Verified 06/10/19 14:32) Past Medical History - Social History Smoking Status: Current Every Day Smoker Chew tobacco use (# tins/day): No Frequency of alcohol use: None Drug Abuse: None Family History: Reviewed & Not Pertinent, Hypertension Patient has suicidal ideation: No Patient has homicidal ideation: No - Past Medical History Cardiac Medical History: Reports: Hx Coronary Artery Disease, Hx Heart Attack - JANUARY 2017, Hx Hypertension Pulmonary Medical History: Reports: Hx Asthma - YEARS AGO, Hx Pneumonia - ABOUT 30 YEARS AGO Denies: Hx Bronchitis, Hx COPD Neurological Medical History: Reports: 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 Denies: Hx Seizures Renal/ Medical History: Denies: Hx Peritoneal Dialysis Musculoskeletal Medical History: Denies Hx Arthritis Psychiatric Medical History: Reports: Hx Depression Past Surgical History: Reports: Hx Section, Hx Orthopedic Surgery - jaw - Immunizations Immunizations up to date: Yes Hx Diphtheria, Pertussis, Tetanus Vaccination: Yes Review of Systems - Review of Systems Notes: REVIEW OF SYSTEMS: CONSTITUTIONAL: -fevers, -chills EENT: -eye pain, -difficulty swallowing, -nasal congestion CARDIOVASCULAR: -chest pain, -syncope. RESPIRATORY: -cough, -SOB GASTROINTESTINAL: -abdominal pain, -nausea, -vomiting, -diarrhea GENITOURINARY: -dysuria, -hematuria MUSCULOSKELETAL: positive arm pain, right SKIN: -rash or skin lesions. HEMATOLOGIC: -easy bruising or bleeding. LYMPHATIC: -swollen, enlarged glands. NEUROLOGICAL: -altered mental status or loss of consciousness, -headache, - neurologic symptoms PSYCHIATRIC: -anxiety, -depression. ALL OTHER SYSTEMS REVIEWED AND NEGATIVE. Physical Exam - Vital signs Vitals: Temp Pulse Resp BP Pulse Ox 97.3 F 130 H 22 H 146/102 H 98 08/08/19 12:09 08/08/19 12:09 08/08/19 12:08/08/19 12:08/08/19 12:09 - Notes Notes: PHYSICAL EXAMINATION: GENERAL: Well-appearing, well-nourished and in no acute distress. HEAD: Atraumatic, normocephalic. EYES: Pupils equal round and reactive to light, extraocular movements intact, sclera anicteric, conjunctiva are normal. ENT: nares patent, oropharynx clear without exudates. Moist mucous membranes. NECK: Normal range of motion, supple without lymphadenopathy LUNGS: Breath sounds clear to auscultation bilaterally and equal. No wheezes rales or rhonchi. HEART: Regular rate and rhythm without murmurs ABDOMEN: Soft, nontender, normoactive bowel sounds. No guarding, no rebound. N o masses appreciated. EXTREMITIES: Patient has pain over distal right radius, neurovascularly intact. Soft compartments no cyanosis. NEUROLOGICAL: Cranial nerves grossly intact. Normal speech, normal gait. Normal sensory and motor exams. PSYCH: Normal mood, normal affect. SKIN: Warm, Dry, normal turgor, no rashes or lesions noted. Course - Re-evaluation Re-evalutation: 08/08/19 16:32 Pleasant female presents with minor fall at home. She suffered a nondisplaced distal radius fracture on the right. No snuffbox tenderness reassuring physical exam. Patient's EKG unremarkable. Patient has some tachycardia markedly improved with fluid resuscitation. Incidental finding of low magnesium replaced in the emergency department. Patient given IV analgesia feeling markedly improved. Splint placed in the department. Patient is neurovascular intact before and after splint application. Will be discharged home improved with oral opioid analgesia follow-up orthopedics given strict return precautions if anything should worsen or change please return - Vital Signs Vital signs: Temp Pulse Resp BP Pulse Ox 98.5 F 142 H 20 148/108 H 98 08/08/19 14:25 08/08/19 14:25 08/08/19 14:25 08/08/19 14:25 08/08/19 14:25 - Laboratory Result Diagrams: 08/08/19 15:19 08/08/19 15:19 Laboratory results interpreted by me: 08/08/19 08/08/19 15:19 15:19 Hgb 15.7 H RDW 14.6 H Chloride 96 L Est GFR ( Amer) 57 L Est GFR (MDRD) Non-Af 47 L Glucose 172 H Magnesium 0.9 L* Procedures - Immobilization Right Upper Arm Pre-Proc Neuro Vasc Exam: Normal Immobilizer type: Kaden wrap, Sugar tong Post-Proc Neuro Vasc Exam: Unchanged from pre-exam Alignment checked and good: Yes Discharge - Discharge Clinical Impression: Distal radius fracture, right Qualifiers: Encounter type: initial encounter Fracture type: closed Fracture morphology: unspecified fracture morphology Qualified Code(s): S52.501A - Unspecified fracture of the lower end of right radius, initial encounter for closed fracture Condition: Stable Disposition: HOME, SELF-CARE Instructions: Fractured Radius ([facility]) Prescriptions: Oxycodone HCl [Oxycontin Ir 5 Mg Tablet] 1 - 2 mg PO Q4H PRN #15 tablet PRN Reason: For Pain Referrals: HARIS KILPATRICK, PEDIATRIC SOCIAL WORKER-C [Primary Care Provider] - Follow up as needed RAYMOND ARAUJO MD [ACTIVE PROVISIONAL STAFF] - Follow up as needed
[2019-08-08 15:32] LABS: ABSOLUTE BASOPHILS # (AUTO) 0.1 10^3/uL (0.0-0.2); ABSOLUTE EOSINOPHILS # (AUTO) 0.1 10^3/uL (0.0-0.6); ABSOLUTE LYMPHOCYTES (AUTO) 2.5 10^3/uL (0.5-4.7); ABSOLUTE MONOCYTES (AUTO) 0.9 10^3/uL (0.1-1.4); ABSOLUTE NEUT (AUTO) 4.5 10^3/uL (1.7-8.2); BASOPHILS % (AUTO) 0.7 % (0-2); EOSINOPHILS % (AUTO) 0.8 % (0-6); HEMOGLOBIN 15.7 g/dL (12.0-15.5); LYMPHOCYTES % (AUTO) 30.7 % (13-45); MEAN CORPUSCULAR HEMOGLOBIN 30.8 pg (27.0-33.4); MEAN CORPUSCULAR HGB CONC 34.1 g/dL (32.0-36.0); MEAN CORPUSCULAR VOLUME 91 fl (80-97); MONOCYTES % (AUTO) 11.2 % (3-13); PLATELET COUNT 226 10^3/uL (150-450); RED BLOOD COUNT 5.08 10^6/uL (3.72-5.28); RED CELL DISTRIBUTION WIDTH 14.6 % (11.5-14.0); SEGMENTED NEUTROPHILS % (AUTO) 56.6 % (42-78); TOTAL CELLS COUNTED % (AUTO) 100 %
--- NOTE | 2019-08-08 15:47 | RADIOLOGY REPORT (SQ) ---
EXAM DESCRIPTION: CHEST SINGLE VIEW COMPLETED DATE/TIME: 08/08/2019 3:36 pm REASON FOR STUDY: tachycardia COMPARISON: None. EXAM PARAMETERS: NUMBER OF VIEWS: One view. TECHNIQUE: Single frontal radiographic view of the chest acquired. RADIATION DOSE: NA LIMITATIONS: None. FINDINGS: LUNGS AND PLEURA: No opacities, masses or pneumothorax. No pleural effusion. MEDIASTINUM AND HILAR STRUCTURES: No masses. Contour normal. HEART AND VASCULAR STRUCTURES: Heart normal in size. Normal vasculature. BONES: No acute findings. HARDWARE: None in the chest. OTHER: No other significant finding. IMPRESSION: NO ACUTE RADIOGRAPHIC FINDING IN THE CHEST. TECHNICAL DOCUMENTATION: JOB ID: [id number] [employer]- All Rights Reserved Reading location - IP/workstation name: [email or web address]
[2019-08-08 15:48] LABS: ANION GAP 16 (5-19); BLOOD UREA NITROGEN 11 mg/dL (7-20); CALCIUM 9.6 mg/dL (8.4-10.2); CARBON DIOXIDE 27 mmol/L (22-30); CHLORIDE 96 mmol/L (98-107); GLUCOSE 172 mg/dL (75-110); POTASSIUM 4.5 mmol/L (3.6-5.0)
[2019-08-08] MEDS ORDERED: MAGNESIUM SULFATE/D5W 1 GM/100 ML RTUPB IV ONE (15:55)
[2019-08-08] MEDS ORDERED: NORMAL SALINE 1000 ML 1,000 ML IV ONE (15:56)
[2019-08-08 17:38] VITALS: BP 150/93
--- NOTE | 2019-08-08 18:28 | EKG REPORT ---
SEVERITY:- ABNORMAL ECG - SINUS TACHYCARDIA INFERIOR INFARCT, AGE INDETERMINATE EXTENSIVE ANTERIOR INFARCT, ACUTE : Confirmed by: Paul Tejeda MD 08-Aug-2019 18:27:18
== END 2019-08-08 17:38 | disposition home or self-care (01) ==
LOC: ER 11:47
PROC: 2W38X1Z Immobilization of Right Upper Extremity using Splint (ICD-10-PCS; principal; 2019-08-08)
DX: S52.501A Unspecified fracture of the lower end of right radius, initial encounter for closed fracture (principal); W19.XXXA Unspecified fall, initial encounter; F17.200 Nicotine dependence, unspecified, uncomplicated; I25.10 Atherosclerotic heart disease of native coronary artery without angina pectoris; I25.2 Old myocardial infarction; I10 Essential (primary) hypertension; J45.909 Unspecified asthma, uncomplicated
CPT/HCPCS: 93005; 36415; 83735; 85025; 80048; 84484; 71045; 73070; 73110; 93010; 29105; A9270 ×2; J2270; J3475; J7030; S0119

== ENCOUNTER → 2019-08-16 | Outpatient (CLI) | payer MEDICARE, MEDICAID ==
--- NOTE | 2019-08-16 17:06 | RADIOLOGY REPORT (SQ) ---
EXAM DESCRIPTION: CT RT UPPER EXTREMITY WITHOUT COMPLETED DATE/TIME: 08/16/2019 3:28 pm REASON FOR STUDY: M25.531 PAIN IN RIGHT WRIST M25.531 PAIN IN RIGHT WRIST COMPARISON: Recent radiographs. TECHNIQUE: Axial imaging performed through the right wrist with reformatted coronal and sagittal elena ging windowed for bone and soft tissues. Images saved to PACS. 3D IMAGING: Were 3D images as MIP, SSD, or volume rendering performed at the work station? Yes All CT scanners at this facility use dose modulation, iterative reconstruction, and/or weight based d osing when appropriate to reduce radiation dose to as low as reasonably achievable (ALARA). [facility]: Dose Right [facility]: CareDose [facility]: Dose Right [facility]: Teradose 4D [facility]: [employer] LIMITATIONS: None. RADIATION DOSE: CT Rad equipment meets quality standard of care and radiation dose reduction techniq ues were employed. CTDIvol: 6.4 mGy. DLP: 113 mGy-cm. mGy. FINDINGS: SOFT TISSUES: Joint effusion. Limited assessment with CT. No drainable collections other small. No foreign body detected. BONES: Mildly comminuted fracture through the distal radius. Fracture lines extend into the DRUJ and radiocarpal joints. Slight impaction particularly dorsally. No significant angulation. No ulnar s tyloid fracture. Carpal bones are intact, normally aligned. Degenerative thumb base changes. MINERALIZATION: Normal. OTHER: No other significant finding. IMPRESSION: 1. Comminuted intra-articular fracture through the distal radius involves radiocarpal and radioulnar joints. No ulnar styloid fracture. 2. Normal carpal alignment. No carpal fracture. TECHNICAL DOCUMENTATION: JOB ID: [id number] Quality ID # [id number]: Final reports with documentation of one or more dose reduction techniques (e.g., Au tomated exposure control, adjustment of the mA and/or kV according to patient size, use of iterative reconstruction technique) 2010 [employer]- All Rights Reserved Reading location - IP/workstation name: [email or web address]
== END ==
LOC: RAD 15:09
PROVIDERS: ATTEND Orthopaedic Surgery
DX: S52.571A Other intraarticular fracture of lower end of right radius, initial encounter for closed fracture (principal); X58.XXXA Exposure to other specified factors, initial encounter; M25.531 Pain in right wrist

== ENCOUNTER 2019-09-23 01:22 | Emergency (ER) | payer MEDICARE, MEDICAID ==
[2019-09-23] MEDS ORDERED: NITROGLYCERIN 0.4 MG/TAB 25 TAB/BOTTLE SL PRN (02:02)
[2019-09-23] MEDS ORDERED: MORPHINE SULFATE 10 MG/ML INJ IV ONE (02:02)
[2019-09-23] MEDS ORDERED: ONDANSETRON HCL INJ/PF 4 MG/2 ML SDV IV ONE (02:02)
[2019-09-23] MEDS ORDERED: ASPIRIN 81 MG TABLET, CHEWABLE PO ONE (02:02)
[2019-09-23 02:07] LABS: ABSOLUTE BASOPHILS # (AUTO) 0.1 10^3/uL (0.0-0.2); ABSOLUTE EOSINOPHILS # (AUTO) 0.2 10^3/uL (0.0-0.6); ABSOLUTE LYMPHOCYTES (AUTO) 3.2 10^3/uL (0.5-4.7); ABSOLUTE MONOCYTES (AUTO) 0.5 10^3/uL (0.1-1.4); ABSOLUTE NEUT (AUTO) 5.1 10^3/uL (1.7-8.2); BASOPHILS % (AUTO) 0.9 % (0-2); EOSINOPHILS % (AUTO) 1.8 % (0-6); HEMATOCRIT 38.3 % (36.0-47.0); HEMOGLOBIN 13.4 g/dL (12.0-15.5); LYMPHOCYTES % (AUTO) 35.4 % (13-45); MEAN CORPUSCULAR HEMOGLOBIN 32.4 pg (27.0-33.4); MEAN CORPUSCULAR VOLUME 93 fl (80-97); MONOCYTES % (AUTO) 5.6 % (3-13); PLATELET COUNT 202 10^3/uL (150-450); RED BLOOD COUNT 4.13 10^6/uL (3.72-5.28); RED CELL DISTRIBUTION WIDTH 14.9 % (11.5-14.0); SEGMENTED NEUTROPHILS % (AUTO) 56.3 % (42-78); TOTAL CELLS COUNTED % (AUTO) 100 %; WHITE BLOOD COUNT 9.1 10^3/uL (4.0-10.5)
--- NOTE | 2019-09-23 02:09 | ER Document Report ---
ED General - General Chief Complaint: Chest Pain Stated Complaint: CHEST PAIN,RIGHT ARM PAIN Time Seen by Provider: 09/23/19 01:55 EST Primary Care Provider: BRITNEY COLORADO MD [ACTIVE STAFF] - Follow up as needed TRAVEL OUTSIDE OF THE [place] IN LAST 30 DAYS: No - HPI Notes: Patient is a 54-year-old female with multiple medical issues, including coronary artery disease, hypertension, history of CVA, who presents to the emergency department for evaluation of left-sided chest pain. It started while she was at work at approximately 1700 yesterday evening. Is in the left side of her chest, with radiation into the right jaw. She states she said shortness of breath as well as 4 episodes of nonbloody, nonbilious emesis associated with it. She states that she took a nitroglycerin at home, temporarily relieved relieved her pain, but then it returned. She states she became diaphoretic, and at that point thought she should come to the hospital. She states that she had similar pain when she had an AZ in March 2017. She has been taking her medications as prescribed. Currently puts her pain an 8 out of 10, at its worst is a 9. - Related Data Allergies/Adverse Reactions: lisinopril Allergy (Verified 08/08/19 15:56) prednisone Allergy (Verified 06/10/19 14:32) Home Medications: List reviewed with patient, please see chart Past Medical History - General Information source: Patient - Social History Smoking Status: Current Every Day Smoker Family History: Reviewed & Not Pertinent, Hypertension Patient has suicidal ideation: No Patient has homicidal ideation: No - Past Medical History Cardiac Medical History: Reports: Hx Coronary Artery Disease, Hx Heart Attack - JANUARY 2017, Hx Hypercholesterolemia, Hx Hypertension Pulmonary Medical History: Reports: Hx Asthma - YEARS AGO, Hx Pneumonia - ABOUT 30 YEARS AGO Denies: Hx Bronchitis, Hx COPD Neurological Medical History: Reports: 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 Denies: Hx Seizures Renal/ Medical History: Denies: Hx Peritoneal Dialysis Musculoskeletal Medical History: Denies Hx Arthritis Psychiatric Medical History: Reports: Hx Depression Past Surgical History: Reports: Hx Section, Hx Orthopedic Surgery - jaw - Immunizations Immunizations up to date: Yes Hx Diphtheria, Pertussis, Tetanus Vaccination: Yes Review of Systems - Review of Systems Constitutional: No symptoms reported EENT: No symptoms reported Cardiovascular: See HPI Respiratory: See HPI Gastrointestinal: See HPI Genitourinary: No symptoms reported Musculoskeletal: No symptoms reported Skin: No symptoms reported Neurological/Psychological: No symptoms reported Physical Exam - Vital signs Vitals: Temp Pulse Resp BP Pulse Ox 98.4 F 110 H 20 126/90 H 100 09/23/19 01:35 EST 09/23/19 01:35 EST 09/23/19 01:35 EST 09/23/19 01:35 EST 09/23/19 01:35 EST - Notes Notes: Vital signs reviewed, please refer to chart. Head is normocephalic, atraumatic. Pupils equal round, reactive to light. Neck is supple without meningismus. Heart is regular rate and rhythm. Lungs are clear to auscultation bilaterally. Abdomen is soft, nontender, normoactive bowel sounds throughout. Extremities without cyanosis, clubbing. Posterior calves are nontender. Peripheral pulses are equal. Skin is warm and dry. Patient is awake, alert, neurological exam is nonfocal. Course - Re-evaluation Re-evalutation: 09/23/19 02:09 Patient presents emergency department for evaluation of chest pain. She states this was typical of the pain that she had in the past when she had an AZ. She was placed on a medical lab specialist, IV was established, EKG performed. No signs of ST elevation noted. She is given aspirin as it has been nearly 24 hours since her last aspirin dose. She is given nitroglycerin, morphine, will continue to monitor. 09/23/19 03:48 Patient's first set of cardiac enzymes is unremarkable. She is pain-free. We will continue to monitor. 09/23/19 04:13 Patient states she is pain-free and would like to leave. I explained to the patient in great detail why I would like her to stay, why we needed more time to draw the second set of cardiac enzymes. The patient voiced understanding to all of this, still wishes to leave AGAINST MEDICAL ADVICE. I explained her that she was putting herself at increased risk of significant cardiac damage, arrhythmia, loss of lifestyle, . She voiced understanding. She states she will contact her wood car builder on Tuesday for very close follow-up. She understands that she can return at any time if her symptoms return, or even if she just changes her mind regarding completion of evaluation. At this point she will be discharged AGAINST MEDICAL ADVICE. - Vital Signs Vital signs: Temp Pulse Resp BP Pulse Ox 98.4 F 110 H 19 124/91 H 97 09/23/19 01:35 EST 09/23/19 01:35 EST 09/23/19 02:01 09/23/19 02:01 09/23/19 02:40 - Laboratory Result Diagrams: 09/23/19 00:55 09/23/19 00:55 Laboratory results interpreted by me: 09/23/19 09/23/19 00:55 00:55 RDW 14.9 H Creatinine 1.30 H Est GFR ( Amer) 52 L Est GFR (MDRD) Non-Af 43 L Glucose 129 H AST 54 H Alkaline Phosphatase 149 H Creatine Kinase 154 H - EKG Interpretation by Me Additional EKG results interpreted by me: 09/23/19 04:14 Sinus tachycardia with a rate of 110 bpm, PVC noted. Normal axis, intervals. Nonspecific ST changes, but no acute changes concerning for ischemia or infarction. Discharge - Discharge Clinical Impression: Chest pain Condition: Stable Disposition: HOME, SELF-CARE Instructions: Chest Pain of Unclear Cause ([facility]) Additional Instructions: You have elected to leave AGAINST MEDICAL ADVICE. It is been explained to you that we need further testing to rule out serious cardiac condition. You are at risk of sudden cardiac , loss of lifestyle. Please follow-up with your wood car builder as soon as possible. If you change your mind regarding completion of evaluation, or if you develop any new or concerning symptoms, please return immediately to the emergency department for reevaluation. Referrals: BRITNEY COLORADO MD [ACTIVE STAFF] - Follow up as needed
[2019-09-23 02:36] LABS: ALBUMIN 4.9 g/dL (3.5-5.0); ALKALINE PHOSPHATASE 149 U/L (38-126); ANION GAP 16 (5-19); ASPARTATE AMINO TRANSFERASE 54 U/L (14-36); BILIRUBIN,DIRECT 0.1 mg/dL (0.0-0.4); BILIRUBIN,TOTAL 0.9 mg/dL (0.2-1.3); BLOOD UREA NITROGEN 15 mg/dL (7-20); CALCIUM 9.2 mg/dL (8.4-10.2); CARBON DIOXIDE 22 mmol/L (22-30); CHLORIDE 99 mmol/L (98-107); CREATINE KINASE 154 U/L (30-135); GLUCOSE 129 mg/dL (75-110); POTASSIUM 3.6 mmol/L (3.6-5.0); TOTAL PROTEIN 8.1 g/dL (6.3-8.2)
[2019-09-23 02:46] LABS: CREATINE KINASE MB 2.22 ng/mL (<4.55); TROPONIN I < 0.012 ng/mL
[2019-09-23 04:33] VITALS: BP 125/88
--- NOTE | 2019-09-23 08:07 | EKG REPORT ---
SEVERITY:- ABNORMAL ECG - SINUS TACHYCARDIA VENTRICULAR PREMATURE COMPLEX BORDERLINE LEFT AXIS DEVIATION ANTERIOR INFARCT, AGE INDETERMINATE : Confirmed by: Paul Tejeda MD 23-Sep-2019 08:07:11
== END 2019-09-23 04:22 | disposition home or self-care (01) ==
LOC: ER 01:22
DX: R07.9 Chest pain, unspecified (principal); M79.601 Pain in right arm; R06.02 Shortness of breath; R11.10 Vomiting, unspecified; I25.10 Atherosclerotic heart disease of native coronary artery without angina pectoris; I10 Essential (primary) hypertension; F17.200 Nicotine dependence, unspecified, uncomplicated; E78.00 Pure hypercholesterolemia, unspecified; I25.2 Old myocardial infarction; Z86.73 Personal history of transient ischemic attack (TIA), and cerebral infarction without residual deficits
CPT/HCPCS: 93005; 99285; 96374; 96375; 36415; 82553; 82550; 85025; 80053; 84484; 93010; A9270 ×2; J2270; J2405

== ENCOUNTER 2019-09-30 07:07 | Inpatient (IN) | payer MEDICARE, MEDICAID ==
[2019-09-30] MEDS ORDERED: LEVALBUTEROL HCL NEB 1.25 MG/3 ML AMPUL NEB ONE (07:22)
--- NOTE | 2019-09-30 07:24 | ER Document Report ---
ED Medical Screen (RME) - General Chief Complaint: Breathing Difficulty Stated Complaint: TROUBLE BREATHING Time Seen by Provider: 09/30/19 07:16 Primary Care Provider: JENNIE ROSS MD [Primary Care Provider] - Follow up as needed Notes: 54-year-old female with chief complaint of difficulty breathing, comes by EMS, states she has been having sweats and during the night started having wheezing and trouble breathing. Denies smoking, history of asthma, history of COPD. She does have history of CHF, states she has been taking her diuretics. Initial blood pressure was 160s. EMS started her on a nitroglycerin drip and CPAP because her initial oxygen saturation was in the low 90s and she was in respiratory distress. TRAVEL OUTSIDE OF THE [place] IN LAST 30 DAYS: No - Related Data Allergies/Adverse Reactions: lisinopril Allergy (Verified 08/08/19 15:56) prednisone Allergy (Verified 06/10/19 14:32) Past Medical History - Past Medical History Cardiac Medical History: Reports: Hx Coronary Artery Disease, Hx Heart Attack - JANUARY 2017, Hx Hypercholesterolemia, Hx Hypertension Pulmonary Medical History: Reports: Hx Asthma - YEARS AGO, Hx Pneumonia - ABOUT 30 YEARS AGO Denies: Hx Bronchitis, Hx COPD Neurological Medical History: Reports: 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 Denies: Hx Seizures Renal/ Medical History: Denies: Hx Peritoneal Dialysis Musculoskeltal Medical History: Denies Hx Arthritis Psychiatric Medical History: Reports: Hx Depression Past Surgical History: Reports: Hx Section, Hx Orthopedic Surgery - jaw - Immunizations Immunizations up to date: Yes Hx Diphtheria, Pertussis, Tetanus Vaccination: Yes Physical Exam - Respiratory Respiratory status: Respiratory distress Breath sounds: Decreased air movement, Wheezing Course - Re-evaluation Re-evalutation: Blood pressure is only 140 systolic, no swelling of the lower extremities, reported compliance with diuretics, wheezing on evaluation, clinical presentation is more suggestive of a pneumonia at this time. Stopping the nitroglycerin drip, placed on BiPAP, she was tolerating this very well and states she is breathing well, she appears comfortable now. Work-up pending. I have greeted and performed a rapid initial assessment of this patient. A comprehensive ED assessment and evaluation of the patient, analysis of test results and completion of the medical decision making process will be conducted by additional ED providers. Doctor's Discharge - Discharge Referrals: JENNIE ROSS MD [Primary Care Provider] - Follow up as needed
[2019-09-30 07:35] LABS: VENOUS BLOOD BASE EXCESS -3.8 mmol/L; VENOUS BLOOD HCO3 20.7 mmol/L (20-32); VENOUS BLOOD PCO2 35.8 mmHg (35-63); VENOUS BLOOD PH 7.38 (7.30-7.42)
[2019-09-30 07:44] LABS: ABSOLUTE BASOPHILS # (AUTO) 0.1 10^3/uL (0.0-0.2); ABSOLUTE EOSINOPHILS # (AUTO) 0.3 10^3/uL (0.0-0.6); ABSOLUTE LYMPHOCYTES (AUTO) 2.1 10^3/uL (0.5-4.7); ABSOLUTE MONOCYTES (AUTO) 0.3 10^3/uL (0.1-1.4); ABSOLUTE NEUT (AUTO) 4.5 10^3/uL (1.7-8.2); BASOPHILS % (AUTO) 1.2 % (0-2); EOSINOPHILS % (AUTO) 4.4 % (0-6); HEMATOCRIT 34.3 % (36.0-47.0); HEMOGLOBIN 11.6 g/dL (12.0-15.5); MEAN CORPUSCULAR HEMOGLOBIN 32.5 pg (27.0-33.4); MEAN CORPUSCULAR HGB CONC 33.7 g/dL (32.0-36.0); MEAN CORPUSCULAR VOLUME 96 fl (80-97); MONOCYTES % (AUTO) 4.5 % (3-13); PLATELET COUNT 163 10^3/uL (150-450); RED BLOOD COUNT 3.56 10^6/uL (3.72-5.28); SEGMENTED NEUTROPHILS % (AUTO) 60.9 % (42-78); TOTAL CELLS COUNTED % (AUTO) 100 %; WHITE BLOOD COUNT 7.3 10^3/uL (4.0-10.5)
[2019-09-30 07:53] LABS: ALBUMIN 4.2 g/dL (3.5-5.0); ALKALINE PHOSPHATASE 122 U/L (38-126); ANION GAP 12 (5-19); ASPARTATE AMINO TRANSFERASE 53 U/L (14-36); BILIRUBIN,DIRECT 0.2 mg/dL (0.0-0.4); BILIRUBIN,TOTAL 0.4 mg/dL (0.2-1.3); BLOOD UREA NITROGEN 17 mg/dL (7-20); CALCIUM 8.2 mg/dL (8.4-10.2); CARBON DIOXIDE 22 mmol/L (22-30); CHLORIDE 108 mmol/L (98-107); GLUCOSE 133 mg/dL (75-110); POTASSIUM 3.7 mmol/L (3.6-5.0); TOTAL PROTEIN 7.2 g/dL (6.3-8.2)
[2019-09-30 08:05] LABS: NT PRO BNP 845 pg/mL (<125)
[2019-09-30 08:06] LABS: TROPONIN I < 0.012 ng/mL
--- NOTE | 2019-09-30 09:00 | RADIOLOGY REPORT (SQ) ---
EXAM DESCRIPTION: CHEST SINGLE VIEW COMPLETED DATE/TIME: 09/30/2019 8:33 am REASON FOR STUDY: difficulty breathing COMPARISON: 08/08/2019 NUMBER OF VIEWS: One view. TECHNIQUE: Single frontal radiographic view of the chest acquired. LIMITATIONS: None. FINDINGS: LUNGS AND PLEURA: No opacities, masses or pneumothorax. No pleural effusion. MEDIASTINUM AND HILAR STRUCTURES: No masses or contour abnormality. HEART AND VASCULATURE: Cardiac enlargement. Vascular congestion. BONES: No acute findings. HARDWARE: None in the chest. OTHER: No other significant finding. IMPRESSION: CARDIAC ENLARGEMENT. VASCULAR CONGESTION. TECHNICAL DOCUMENTATION: JOB ID: [id number] [employer]- All Rights Reserved Reading location - IP/workstation name: [email or web address]
--- NOTE | 2019-09-30 11:16 | ER Document Report ---
ED Respiratory Problem - General Chief Complaint: Breathing Difficulty Stated Complaint: TROUBLE BREATHING Time Seen by Provider: 09/30/19 07:16 Primary Care Provider: JENNIE ROSS MD [NO LOCAL MD] - Follow up as needed Information source: Patient Notes: This 54-year-old woman presents to the emergency department with a complaint of shortness of breath, she presents by EMS with aspiratory distress. Patient had diffuse wheezing, use of accessory muscles of respiration and was placed on BiP AP upon arrival to the emergency department. Evaluation by the physician pharmacy sales assistant congestive heart failure TRAVEL OUTSIDE OF THE [place] IN LAST 30 DAYS: No - Related Data Allergies/Adverse Reactions: lisinopril Allergy (Verified 08/08/19 15:56) prednisone Allergy (Verified 06/10/19 14:32) Home Medications: oxycodone. omeprazole. duloxetene. atorvastatin. plavix. asa. spironolactone. zolpidem. carvedilol. isorbodide Past Medical History - Social History Smoking Status: Former Smoker Chew tobacco use (# tins/day): No Frequency of alcohol use: None Drug Abuse: None Family History: Reviewed & Not Pertinent, Hypertension Patient has suicidal ideation: No Patient has homicidal ideation: No - Past Medical History Cardiac Medical History: Reports: Hx Coronary Artery Disease, Hx Heart Attack - JANUARY 2017, Hx Hypercholesterolemia, Hx Hypertension Pulmonary Medical History: Reports: Hx Asthma - YEARS AGO, Hx Pneumonia - ABOUT 30 YEARS AGO Denies: Hx Bronchitis, Hx COPD Neurological Medical History: Reports: 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 Denies: Hx Seizures Renal/ Medical History: Denies: Hx Peritoneal Dialysis Musculoskeletal Medical History: Denies Hx Arthritis Psychiatric Medical History: Reports: Hx Depression Past Surgical History: Reports: Hx Section, Hx Orthopedic Surgery - jaw - Immunizations Immunizations up to date: Yes Hx Diphtheria, Pertussis, Tetanus Vaccination: Yes Review of Systems - Review of Systems Notes: REVIEW OF SYSTEMS GENERAL: Negative for any nausea, vomiting, fevers, chills, or weight loss. NEUROLOGIC: Negative HEENT: Negative CARDIAC: Negative for any chest pain PULMONARY:+ shortness of breath GASTROINTESTINAL: Negative GENITOURINARY: Negative INTEGUMENTARY: Negative RHEUMATOLOGIC: Negative HEMATOLOGIC: Negative Physical Exam - Vital signs Vitals: Temp Pulse Resp BP Pulse Ox 98.8 F 95 24 H 147/92 H 99 09/30/19 07:07 09/30/19 07:07 09/30/19 07:07 09/30/19 07:07 09/30/19 07:07 - Notes Notes: PHYSICAL EXAMINATION: GENERAL: Well-appearing, well-nourished female in respiratory distress HEAD: Atraumatic, normocephalic. BiPAP in place EYES: Pupils equal round and reactive to light, extraocular movements intact, sclera anicteric, conjunctiva are normal. ENT: nares patent, oropharynx clear without exudates. Moist mucous membranes. NECK: Normal range of motion, supple without lymphadenopathy LUNGS: Bibasilar rales. HEART: Regular rate and rhythm without murmurs ABDOMEN: Soft, nontender, normoactive bowel sounds. No guarding, no rebound. No masses appreciated. EXTREMITIES: Normal range of motion, no pitting or edema. No cyanosis. NEUROLOGICAL: No focal neurological deficits. Moves all extremities spont aneously and on command. PSYCH: Normal mood, normal affect. SKIN: Warm, Dry, normal turgor, no rashes or lesions noted. Course - Re-evaluation Re-evalutation: 09/30/19 11:23 Patient has improved while on the BiPAP, talking in full sentences and increased work to breathe. Laboratory findings and chest x-ray are reviewed. Patient is given 40 of Lasix in the emergency department. Hospitalist was contacted, Dr. Bolden states that he will see the patient in the emergency department. - Vital Signs Vital signs: Temp Pulse Resp BP Pulse Ox 98.8 F 95 22 H 132/77 H 98 09/30/19 08:05 09/30/19 07:07 09/30/19 11:57 09/30/19 10:05 09/30/19 11:57 - Laboratory Result Diagrams: 09/30/19 07:23 09/30/19 07:23 Laboratory results interpreted by me: 09/30/19 09/30/19 09/30/19 07:23 07:23 07:23 RBC 3.56 L Hgb 11.6 L Hct 34.3 L RDW 16.0 H Chloride 108 H Glucose 133 H Calcium 8.2 L AST 53 H NT-Pro-B Natriuret Pep 845 H 09/30/19 11:24 I have reviewed laboratory data and used this information and the treatment decisions regarding the patient. - Diagnostic Test Radiology reviewed: Image reviewed, Reports reviewed - Chest x-ray: Cardiomegaly, bilateral pulmonary edema Discharge - Discharge Clinical Impression: Shortness of breath Acute exacerbation of CHF (congestive heart failure) Qualifiers: Heart failure type: systolic Qualified Code(s): I50.23 - Acute on chronic systolic (congestive) heart failure Disposition: ADMITTED INPATIENT Admitting Provider: Kimi (Hospitalist) Unit Admitted: IMCU Referrals: JENNIE ROSS MD [NO LOCAL MD] - Follow up as needed
[2019-09-30] MEDS ORDERED: FUROSEMIDE INJ/PF 20 MG/2 ML SDV IV ONE (11:17)
[2019-09-30] MEDS ORDERED: IPRATROPIUM/ALBUTEROL 0.5-2.5 MG/3 ML AMPUL NEB PRN (12:55)
--- NOTE | 2019-09-30 13:30 | PDOC H&P ---
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 She said that yesterday for the most part she was feeling fine but was beginning to feel a little bit of tightness in her chest that was relieved by her PRN albuterol inhaler. She said that last night before she went to sleep she took a couple of puffs on the inhaler to relieve the tightness, which it did. She says that she does not normally have to do that. She says she has been trying to quit smoking, she is smoking about 4 cigarettes a day, last time she was here she says she was at 2 cigarettes a day, but then later on in our conversation she also told me that s he goes through a pack of cigarettes every couple of days. She is been smoking since her teens. She states she also has a history of asthma but does not recall having had an asthma attack in several years. 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 She says she suddenly woke up around 5 AM this morning feeling very short of breath. She felt like she was having a hard time getting air in. She said her first thought was to go smoke a cigarette and then she realized that that was foolish and so she did not do it. She then thought that if she got a d rink of water it would help her feel better but that also did not help. She said that she tried her albuterol inhaler and that helped relieve a little bit but when her breathing started to get worse again she had someone called EMS for her. When they got there her blood pressure was very high and so they put her on a nitroglycerin drip. And then put her on a nonrebreather and then switched her over to CPAP. She was given some Lasix in the ER and the nitroglycerin drip was discontinued. When our service was called for admission, initially was called a CHF exacerbation by the ER. Past Medical History Cardiac Medical History: Reports: Coronary Artery Disease, Myocardial Infarction - JANUARY 2017, Hyperlipidema, Hypertension Pulmonary Medical History: Reports: Asthma - YEARS AGO, Pneumonia - ABOUT 30 YEARS AGO Denies: Bronchitis, Chronic Obstructive Pulmonary Disease (COPD) Neurological Medical History: Denies: Seizures Musculoskeltal Medical History: Denies: Arthritis Psychiatric Medical History: Reports: Depression Hematology: Reports: Sickle Cell Disease - 2005 Denies: Anemia Past Surgical History Past Surgical History: Reports: Section, Orthopedic Surgery - jaw Social History Smoking Status: Former Smoker Electronic Cigarette use?: No Frequency of Alcohol Use: Rare Hx Recreational Drug Use: No Drugs: None Hx Prescription Drug Abuse: No Family History Family History: Reviewed & Not Pertinent, Hypertension Parental Family History Reviewed: Yes Children Family History Reviewed: Yes Sibling(s) Family History Reviewed.: Yes Medication/Allergy Home Medications: Alprazolam 1 mg PO DAILYP PRN 07/31/19 Atorvastatin Calcium [Lipitor 40 mg Tablet] 40 mg PO QHS 07/31/19 Carvedilol [Coreg 6.25 mg Tablet] 6.25 mg PO Q12 07/31/19 Clopidogrel Bisulfate [Plavix 75 mg Tablet] 75 mg PO DAILY 07/31/19 Duloxetine HCl [Cymbalta] 60 mg PO DAILY 07/31/19 Hydroxyzine HCl [Atarax 25 mg Tablet] 25 mg PO TIDP PRN 07/31/19 Isosorbide Mononitrate [Imdur 30 mg Tablet.er] 15 mg PO QAM 07/31/19 Meloxicam [Mobic] 7.5 mg PO DAILY 07/31/19 Omeprazole 40 mg PO BIDBS 07/31/19 Oxycodone HCl/Acetaminophen [Percocet 7.5-325 mg Tablet] 1 tab PO 5XDP PRN 07/31/19 Quetiapine Fumarate [Seroquel 25 mg Tablet] 25 mg PO HSP PRN 07/31/19 Ramelteon [Rozerem] 8 mg PO QHS 07/31/19 Spironolactone [Aldactone 25 mg Tablet] 12.5 mg PO DAILY 07/31/19 Telmisartan [Micardis 40 mg Tablet] 40 mg PO DAILY 07/31/19 Oxycodone HCl [Oxycontin Ir 5 Mg Tablet] 1 - 2 mg PO Q4H PRN #15 tablet 08/08/19 Allergies/Adverse Reactions: lisinopril Allergy (Verified 08/08/19 15:56) prednisone Allergy (Verified 06/10/19 14:32) Review of Systems All systems: reviewed and no additional remarkable complaints except as stated - All systems were reviewed and were negative except as noted in the HPI Physical Exam Vital Signs: Temp Pulse Resp BP Pulse Ox 98.8 F 95 22 H 132/77 H 98 09/30/19 08:05 09/30/19 07:07 09/30/19 11:57 09/30/19 10:05 09/30/19 11:57 Intake & Output 09/29/19 09/30/19 10/01/19 06:59 06:59 06:59 Weight 78.925 kg General appearance: PRESENT: cooperative, disheveled, mild distress, obese Head exam: PRESENT: atraumatic, normocephalic Eye exam: PRESENT: EOMI, PERRLA. ABSENT: conjunctival injection, nystagmus, scleral icterus Ear exam: PRESENT: normal external ear exam Mouth exam: PRESENT: moist, neck supple Throat exam: ABSENT: post pharyngeal erythema Neck exam: PRESENT: full ROM. ABSENT: carotid bruit, JVD, lymphadenopathy, meningismus, tenderness, thyromegaly Respiratory exam: PRESENT: accessory muscle use, prolonged expiratory phas, symmetrical, tachypnea, wheezes - Diffuse expiratory wheezes. ABSENT: chest wall tenderness, crackles, rhonchi, unlabored Cardiovascular exam: PRESENT: RRR, +S1, +S2. ABSENT: diastolic murmur, systolic murmur Pulses: PRESENT: normal carotid pulses Vascular exam: PRESENT: normal capillary refill GI/Abdominal exam: PRESENT: normal bowel sounds, soft. ABSENT: distended, guarding, rebound, tenderness Extremities exam: ABSENT: clubbing, pedal edema Musculoskeletal exam: PRESENT: normal inspection. ABSENT: deformity Neurological exam: PRESENT: alert, awake, oriented to person, oriented to place, oriented to situation, CN II-XII grossly intact. ABSENT: motor sensory deficit Psychiatric exam: PRESENT: appropriate affect, normal mood Skin exam: PRESENT: dry, warm Results Laboratory Results: 09/30/19 07:23 09/30/19 07:23 09/30/19 09/30/19 09/30/19 07:23 07:23 07:23 WBC 7.3 RBC 3.56 L Hgb 11.6 L Hct 34.3 L MCV 96 MCH 32.5 MCHC 33.7 RDW 16.0 H Plt Count 163 Seg Neutrophils % 60.9 VBG pH 7.38 VBG pCO2 35.8 VBG HCO3 20.7 VBG Base Excess -3.8 Sodium 141.7 Potassium 3.7 Chloride 108 H Carbon Dioxide 22 Anion Gap 12 BUN 17 Creatinine 0.78 Est GFR ( Amer) > 60 Glucose 133 H Calcium 8.2 L Total Bilirubin 0.4 AST 53 H Alkaline Phosphatase 122 Total Protein 7.2 Albumin 4.2 09/30/19 07:23 Troponin I < 0.012 NT-Pro-B Natriuret Pep 845 H Impressions: Chest X-Ray 09/30/19 07:09 IMPRESSION: CARDIAC ENLARGEMENT. VASCULAR CONGESTION. Assessment and Plan - Diagnosis (1) Acute hypoxemic respiratory failure Is this a current diagnosis for this admission?: Yes Plan: Secondary to an acute exacerbation of asthma and/or COPD. We will continue BiPAP and supplemental O2 to maintain SPO2 greater than 90%. (2) Acute asthma exacerbation Qualifiers: Asthma severity: mild Asthma persistence: intermittent Qualified Code(s): J45.21 - Mild intermittent asthma with (acute) exacerbation Is this a current diagnosis for this admission?: Yes Plan: She has a history of asthma, but when I look at her chest CT from 1 month ago she has some findings in the bases especially consistent with COPD or mild emphysema. She has a 40+-pack-year smoking history. I am going to put her on some Solu-Medrol and some doxycycline along with nebulizer treatments. This is supported by the fact that yesterday she had some evidence of bronchodilator- responsive bronchospasm. (3) Hypertensive urgency Is this a current diagnosis for this admission?: Yes Plan: I believe her hypertension was brought on sympathetic overdrive due to her bronchospasm and hypoxemia. As she struggled for air,, the adrenaline surge be cause her blood pressure to spike. As her breathing has improved, her blood pressure has come down. (4) Current every day smoker Is this a current diagnosis for this admission?: Yes Plan: With a history of asthma and her history of coronary artery disease, as well as with the previously referenced findings on her chest CT, I strongly encourage smoking cessation (5) CAD (coronary artery disease) Qualifiers: Coronary Disease-Associated Artery/Lesion type: [place] artery [place] vs. transplanted heart: [place] heart Associated angina: with stable angina Qualified Code(s): I25.118 - Atherosclerotic heart disease of [place] coronary artery with other forms of angina pectoris Is this a current diagnosis for this admission?: Yes Plan: She has a history of [place] but a stress test a month ago was normal and her echocardiogram was normal with the exception of a little bit of mitral regurgitation and some grade 1 diastolic dysfunction and apical hypokinesis associated with the known scar from the previous [place]. We will continue with her home medications. - Time Time Spent with patient: 35 or more minutes - Inpatient Certification Based on my medical assessment, after consideration of the patient's comorbidities, presenting symptoms, or acuity I expect that the services needed warrant INPATIENT care.: Yes I certify that my determination is in accordance with my understanding of Medicare's requirements for reasonable and necessary INPATIENT services [42 CFR 412.3e].: Yes Medical Necessity: Need Close Monitoring Due to Risk of Patient Decompensation, Need For Continuous Telemetry Monitoring, Need for Nebulizer Therapy and Monitoring of Response, Risk of Complication if Not Cared For in Hospital
[2019-09-30] MEDS: DOXYCYCLINE HYCLATE 100 MG TABLET PO SCH ×2 (14:25→21:13)
[2019-09-30] MEDS: HEPARIN SOD (PORCINE) 5,000 UNIT/ML 1 ML VIAL SUBCUT SCH ×2 (14:25→21:10)
[2019-09-30] MEDS ORDERED: (PENDING PHARMACY ID) (Zolpidem Tartrate [Ambien] 10 MG) PO PRN (16:36)
[2019-09-30] MEDS ORDERED: (PENDING PHARMACY ID) (Oxycodone Hcl/Acetaminophen [Percocet 7.5-325 Mg Tablet] 1 TAB) PO PRN (16:36)
[2019-09-30] MEDS: METHYLPREDNISOLONE INJ 40 MG/1 ML SDV IV SCH ×2 (17:08→21:10)
[2019-09-30] MEDS: OXYCODONE-ACETAMINOPHEN 5-325 MG TABLET PO PRN ×2 (17:08→21:10)
[2019-09-30] MEDS: OXYCODONE HCL IR 5 MG TABLET PO PRN ×2 (17:10→21:10)
[2019-09-30] MEDS: CARVEDILOL 6.25 MG TABLET PO SCH (21:09)
[2019-09-30] MEDS: SPIRONOLACTONE 25 MG TABLET PO SCH (21:09)
[2019-09-30] MEDS: ATORVASTATIN CALCIUM 40 MG TABLET PO SCH (21:09)
[2019-09-30] MEDS: ZOLPIDEM TARTRATE 5 MG TABLET PO PRN (21:10)
--- NOTE | 2019-09-30 23:19 | EKG REPORT ---
SEVERITY:- ABNORMAL ECG - SINUS RHYTHM VISHNU, CONSIDER BIATRIAL ABNORMALITIES ANTERIOR INFARCT, AGE INDETERMINATE : Confirmed by: Gianna Otero 30-Sep-2019 23:18:13
[2019-10-01] MEDS: PANTOPRAZOLE SODIUM 40 MG TABLET.DR PO SCH (05:17)
[2019-10-01] MEDS: OXYCODONE HCL IR 5 MG TABLET PO PRN ×4 (05:17→22:12)
[2019-10-01] MEDS: OXYCODONE-ACETAMINOPHEN 5-325 MG TABLET PO PRN ×4 (05:17→22:11)
[2019-10-01] MEDS: METHYLPREDNISOLONE INJ 40 MG/1 ML SDV IV SCH ×3 (05:17→22:11)
[2019-10-01] MEDS: HEPARIN SOD (PORCINE) 5,000 UNIT/ML 1 ML VIAL SUBCUT SCH ×3 (05:18→22:11)
[2019-10-01 05:26] LABS: HEMATOCRIT 37.3 % (36.0-47.0); HEMOGLOBIN 12.4 g/dL (12.0-15.5); MEAN CORPUSCULAR HGB CONC 33.3 g/dL (32.0-36.0); MEAN CORPUSCULAR VOLUME 96 fl (80-97); PLATELET COUNT 154 10^3/uL (150-450); RED BLOOD COUNT 3.88 10^6/uL (3.72-5.28); RED CELL DISTRIBUTION WIDTH 15.9 % (11.5-14.0); WHITE BLOOD COUNT 3.4 10^3/uL (4.0-10.5)
[2019-10-01 05:50] LABS: ANION GAP 15 (5-19); BLOOD UREA NITROGEN 17 mg/dL (7-20); CALCIUM 8.3 mg/dL (8.4-10.2); CARBON DIOXIDE 21 mmol/L (22-30); CHLORIDE 102 mmol/L (98-107); GLUCOSE 324 mg/dL (75-110); POTASSIUM 3.3 mmol/L (3.6-5.0)
[2019-10-01] MEDS: DULOXETINE HCL 30 MG CAPSULE.DR PO SCH (09:43)
[2019-10-01] MEDS: DOXYCYCLINE HYCLATE 100 MG TABLET PO SCH ×2 (09:43→22:11)
[2019-10-01] MEDS: ISOSORBIDE MONONITRATE 30 MG TAB.ER.24H PO SCH (09:43)
[2019-10-01] MEDS: SPIRONOLACTONE 25 MG TABLET PO SCH ×2 (09:43→22:11)
[2019-10-01] MEDS: ASPIRIN 81 MG TABLET, ENT COATED PO SCH (09:43)
[2019-10-01] MEDS: CARVEDILOL 6.25 MG TABLET PO SCH ×2 (09:43→22:11)
--- NOTE | 2019-10-01 14:48 | PDOC PROGRESS REPORT ---
Subjective Progress Note for:: 10/01/19 Subjective:: No adverse events overnight. She says she had a little coughing spell earlier but otherwise feels pretty good. She is off BiPAP. She does not try to get up and walk around yet. Her appetite is been good. Reason For Visit: ACUTE HYPOXIC RESPIRATORY FAILURE Physical Exam Vital Signs: Temp Pulse Resp BP Pulse Ox 97.4 F 92 16 131/78 H 97 10/01/19 08:18 10/01/19 13:26 10/01/19 08:18 10/01/19 08:18 10/01/19 08:18 Intake & Output 09/30/19 10/01/19 10/02/19 06:59 06:59 06:59 Intake Total 300 Output Total 500 Balance -200 Weight 75.9 kg General appearance: PRESENT: no acute distress, cooperative, disheveled Respiratory exam: PRESENT: clear to auscultation nick, symmetrical, unlabored. ABSENT: accessory muscle use, chest wall tenderness, prolonged expiratory phas, rhonchi, tachypnea, wheezes Cardiovascular exam: PRESENT: RRR, +S1, +S2 Pulses: PRESENT: normal carotid pulses Vascular exam: PRESENT: normal capillary refill GI/Abdominal exam: PRESENT: normal bowel sounds, soft. ABSENT: distended, guarding, rebound, tenderness Extremities exam: ABSENT: clubbing, pedal edema Musculoskeletal exam: PRESENT: normal inspection. ABSENT: deformity Neurological exam: PRESENT: alert, awake, oriented to person, oriented to place, oriented to situation Psychiatric exam: PRESENT: appropriate affect, normal mood Skin exam: PRESENT: dry, warm Results Laboratory Results: 10/01/19 05:12 10/01/19 05:12 10/01/19 10/01/19 05:12 05:12 WBC 3.4 L RBC 3.88 Hgb 12.4 Hct 37.3 MCV 96 MCH 32.0 MCHC 33.3 RDW 15.9 H Plt Count 154 Sodium 138.0 Potassium 3.3 L Chloride 102 Carbon Dioxide 21 L Anion Gap 15 BUN 17 Creatinine 0.64 Est GFR ( Amer) > 60 Glucose 324 H Calcium 8.3 L 09/30/19 07:23 Blood Blood Culture (PCR) - Final Staphylococcus Species 09/30/19 07:23 Troponin I < 0.012 NT-Pro-B Natriuret Pep 845 H Impressions: Chest X-Ray 09/30/19 07:09 IMPRESSION: CARDIAC ENLARGEMENT. VASCULAR CONGESTION. Assessment and Plan - Diagnosis (1) Acute hypoxemic respiratory failure Is this a current diagnosis for this admission?: Yes Plan: Nearly resolved. Due to acute asthma exacerbation. On 1.5 L per nasal cannula, will continue to wean as tolerated to room air. (2) Acute asthma exacerbation Qualifiers: Asthma severity: mild Asthma persistence: intermittent Qualified Code(s): J45.21 - Mild intermittent asthma with (acute) exacerbation Is this a current diagnosis for this admission?: Yes Plan: Improving on steroids, antibiotics, and supplemental O2. She is been getting Solu-Medrol and not having any skin problems as she said she had with predn isone. (3) Hypertensive urgency Is this a current diagnosis for this admission?: Yes Plan: Resolved. Blood pressures better controlled. (4) Current every day smoker Is this a current diagnosis for this admission?: Yes Plan: Strongly encourage cessation (5) CAD (coronary artery disease) Qualifiers: Coronary Disease-Associated Artery/Lesion type: [place] artery [place] vs. transplanted heart: [place] heart Associated angina: with stable angina Quali fied Code(s): I25.118 - Atherosclerotic heart disease of [place] coronary artery with other forms of angina pectoris Is this a current diagnosis for this admission?: Yes Plan: Continue home medications - Time Time Spent with patient: 15-24 minutes
[2019-10-01] MEDS: ZOLPIDEM TARTRATE 5 MG TABLET PO PRN (20:54)
[2019-10-01] MEDS: ATORVASTATIN CALCIUM 40 MG TABLET PO SCH (22:11)
[2019-10-02] MEDS: OXYCODONE-ACETAMINOPHEN 5-325 MG TABLET PO PRN ×2 (02:02→06:07)
[2019-10-02] MEDS: OXYCODONE HCL IR 5 MG TABLET PO PRN ×2 (02:03→06:07)
[2019-10-02 05:57] LABS: HEMATOCRIT 35.4 % (36.0-47.0); MEAN CORPUSCULAR HEMOGLOBIN 32.4 pg (27.0-33.4); MEAN CORPUSCULAR HGB CONC 33.9 g/dL (32.0-36.0); MEAN CORPUSCULAR VOLUME 96 fl (80-97); PLATELET COUNT 169 10^3/uL (150-450); RED CELL DISTRIBUTION WIDTH 15.8 % (11.5-14.0)
[2019-10-02 06:05] LABS: WHITE BLOOD COUNT 10.2 10^3/uL (4.0-10.5)
[2019-10-02] MEDS: PANTOPRAZOLE SODIUM 40 MG TABLET.DR PO SCH (06:06)
[2019-10-02] MEDS: METHYLPREDNISOLONE INJ 40 MG/1 ML SDV IV SCH ×2 (06:06→13:19)
[2019-10-02] MEDS: HEPARIN SOD (PORCINE) 5,000 UNIT/ML 1 ML VIAL SUBCUT SCH ×2 (06:08→13:19)
[2019-10-02 06:10] LABS: ANION GAP 14 (5-19); BLOOD UREA NITROGEN 25 mg/dL (7-20); CALCIUM 8.7 mg/dL (8.4-10.2); CARBON DIOXIDE 24 mmol/L (22-30); CHLORIDE 103 mmol/L (98-107); GLUCOSE 333 mg/dL (75-110); POTASSIUM 4.5 mmol/L (3.6-5.0)
[2019-10-02] MEDS: ISOSORBIDE MONONITRATE 30 MG TAB.ER.24H PO SCH (09:05)
[2019-10-02] MEDS: ASPIRIN 81 MG TABLET, ENT COATED PO SCH (09:05)
[2019-10-02] MEDS: CARVEDILOL 6.25 MG TABLET PO SCH (09:05)
[2019-10-02] MEDS: DULOXETINE HCL 30 MG CAPSULE.DR PO SCH (09:05)
[2019-10-02] MEDS: SPIRONOLACTONE 25 MG TABLET PO SCH (09:05)
[2019-10-02] MEDS: DOXYCYCLINE HYCLATE 100 MG TABLET PO SCH (09:05)
[2019-10-02 14:16] VITALS: BP 130/79
--- NOTE | 2019-10-03 15:54 | PDOC DISCHARGE SUMMARY ---
Impression - Admit/DC Date/PCP Admission Date/Primary Care Provider: 09/30/19 13:27 DEVYN CARUSO-Claudio Discharge Date: 10/02/19 - Discharge Diagnosis (1) Acute respiratory failure with hypoxia Is this a current diagnosis for this admission?: Yes (2) Acute asthma exacerbation Is this a current diagnosis for this admission?: Yes (3) CAD (coronary artery disease) Is this a current diagnosis for this admission?: Yes (4) Current every day smoker Is this a current diagnosis for this admission?: Yes (5) Hypertensive urgency Is this a current diagnosis for this admission?: Yes (6) Staphylococcus epidermidis bacteremia Is this a current diagnosis for this admission?: Yes - Additional Information Resuscitation Status: Full Code Discharge Activity: Activity As Tolerated, Balance Activity w/Rest Referrals: JENNIE ROSS MD [NO LOCAL MD] - 10/09/19 10:00 am Prescriptions: Fluticasone/Salmeterol [Advair 250-50 Diskus 14 Dose/Diskus] 1 inh IH Q12H 30 Days #1 inhaler Albuterol Sulfate [Proventil Hfa] 6.7 gm IH Q6 30 Days #1 hfa.aer.ad Tiotropium [place] [Spiriva Respimat] 4 gm IH DAILY 30 Days #1 mist.inhal Doxycycline Hyclate [Vibramycin] 100 mg PO BID 3 Days #6 capsule Home Medications: Aspirin [Ecotrin 81 mg EC Tablet] 81 mg PO DAILY 09/30/19 Atorvastatin Calcium [Lipitor 40 mg Tablet] 40 mg PO QHS 09/30/19 Carvedilol [Coreg 6.25 mg Tablet] 6.25 mg PO Q12 09/30/19 Duloxetine HCl [Cymbalta] 60 mg PO DAILY 09/30/19 Isosorbide Mononitrate [Imdur 30 mg Tablet.er] 30 mg PO QAM 09/30/19 Omeprazole 40 mg PO DAILY 09/30/19 Oxycodone HCl/Acetaminophen [Percocet 7.5-325 mg Tablet] 1 tab PO Q4HP PRN 09/30/19 Spironolactone [Aldactone 25 mg Tablet] 25 mg PO Q12 09/30/19 Zolpidem Tartrate [Ambien] 10 mg PO HSP PRN 09/30/19 Albuterol Sulfate [Proventil Hfa] 6.7 gm IH Q6 30 Days #1 hfa.aer.ad 10/02/19 Doxycycline Hyclate [Vibramycin] 100 mg PO BID 3 Days #6 capsule 10/02/19 Fluticasone/Salmeterol [Advair 250-50 Diskus 14 Dose/Diskus] 1 inh IH Q12H 30 Days #1 inhaler 10/02/19 Tiotropium [place] [Spiriva Respimat] 4 gm IH DAILY 30 Days #1 mist.inhal 10/02/19 History of Present Illiness History of Present Illness: RICCARDO GARCIA is a 54 year old female coronary artery disease but not heart failure, history of hypertension, history of asthma, current everyday smoker, who presents with shortness of breath. She said that yesterday for the most part she was feeling fine but was beginning to feel a little bit of tightness in her chest that was relieved by her PRN albuterol inhaler. She said that last night before she went to sleep she took a couple of puffs on the inhaler to relieve the tightness, which it did. She says that she does not normally have to do that. She says she has been trying to quit smoking, she is smoking about 4 cigarettes a day, last time she was here she says she was at 2 cigarettes a day, but then later on in our conversation she also told me that she goes through a pack of cigarettes every couple of days. She is been smoking since her teens. She states she also has a history of asthma but does not recall having had an asthma attack in several years. 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 She says she suddenly woke up around 5 AM this morning feeling very short of breath. She felt like she was having a hard time getting air in. She said her first thought was to go smoke a cigarette and then she realized that that was foolish and so she did not do it. She then thought that if she got a drink of water it would help her feel better but that also did not help. She said that she tried her albuterol inhaler and that helped relieve a little bit but when her breathing started to get worse again she had someone called EMS for her. When they got there her blood pressure was very high and so they put her on a nitroglycerin drip. And then put her on a nonrebreather and then switched her over to CPAP. She was given some Lasix in the ER and the nitroglycerin drip was discontinued. When our service was called for admission, initially was called a CHF exacerbation by the ER. Hospital Course Hospital Course: (1) Acute hypoxemic respiratory failure Resolved. SPO2 WNLOn room air. Due to acute asthma exacerbation. Was started on IV antibiotics, IV steroids, supplemental oxygen, duo nebs and PRN BiPAP. Received 2 days of p.o. doxycycline 100 mg twice daily. Discharged on p.o. doxycycline for another 3 days. Also discharged on LABA, ICS, LABA p.o. steroids for another two days. Was advised to follow-up with PCP and pulmonology. (2) Acute asthma exacerbation As per #1. (3) Hypertensive urgency Resolved. Restart home meds. Advised to resume home meds upon discharge. Outpatient PCP follow-up. (4) Current every day smoker Strongly encourage cessation NicoDerm patch provided. (5) CAD (coronary artery disease) Denies any anginal symptoms. Restarted home meds. Outpatient PCP and cardiology follow-up. Advised to resume home meds upon discharge. (6) Staphylococcus epidermidis bacteremia Likely contamination. Positive blood culture on out of two bottles. Afebrile. WBC WNL. No sign of systemic or localized infection. Received 2 days of p.o. doxycycline 100 mg twice daily for underlying COPD exacerbation. Discharged on p.o. doxycycline for another 3 days. Physical Exam Vital Signs: Temp Pulse Resp BP Pulse Ox 97.8 F 89 16 130/79 H 99 10/02/19 14:14 10/02/19 14:14 10/02/19 14:14 10/02/19 14:14 10/02/19 14:14 Intake & Output 10/02/19 10/03/19 10/04/19 06:59 06:59 06:59 Intake Total 957 Output Total 700 Balance 257 Weight 78.7 kg General appearance: PRESENT: no acute distress, obese, well-developed, well- nourished Head exam: PRESENT: atraumatic, normocephalic Eye exam: PRESENT: conjunctiva pink, EOMI, PERRLA. ABSENT: scleral icterus Ear exam: PRESENT: normal external ear exam Mouth exam: PRESENT: moist, tongue midline Neck exam: ABSENT: carotid bruit, JVD, lymphadenopathy, thyromegaly Respiratory exam: PRESENT: clear to auscultation nick. ABSENT: rales, rhonchi, wheezes Cardiovascular exam: PRESENT: RRR. ABSENT: diastolic murmur, rubs, systolic murmur Pulses: PRESENT: normal dorsalis pedis pul Vascular exam: PRESENT: normal capillary refill GI/Abdominal exam: PRESENT: normal bowel sounds, soft. ABSENT: distended, guarding, mass, organolmegaly, rebound, tenderness Rectal exam: PRESENT: deferred Extremities exam: PRESENT: full ROM. ABSENT: calf tenderness, clubbing, pedal edema Neurological exam: PRESENT: alert, awake, oriented to person, oriented to place, oriented to time, oriented to situation, CN II-XII grossly intact. ABSENT: motor sensory deficit Psychiatric exam: PRESENT: appropriate affect, normal mood. ABSENT: homicidal ideation, suicidal ideation Skin exam: PRESENT: dry, intact, warm. ABSENT: cyanosis, rash Results Laboratory Results: WBC 10.2 10^3/uL (4.0-10.5) D 10/02/19 05:30 RBC 3.70 10^6/uL (3.72-5.28) L 10/02/19 05:30 Hgb 12.0 g/dL (12.0-15.5) 10/02/19 05:30 Hct 35.4 % (36.0-47.0) L 10/02/19 05:30 MCV 96 fl (80-97) 10/02/19 05:30 MCH 32.4 pg (27.0-33.4) 10/02/19 05:30 MCHC 33.9 g/dL (32.0-36.0) 10/02/19 05:30 RDW 15.8 % (11.5-14.0) H 10/02/19 05:30 Plt Count 169 10^3/uL (150-450) 10/02/19 05:30 Lymph % (Auto) 29.0 % (13-45) 09/30/19 07:23 [place] % (Auto) 4.5 % (3-13) 09/30/19 07:23 Eos % (Auto) 4.4 % (0-6) 09/30/19 07:23 Baso % (Auto) 1.2 % (0-2) 09/30/19 07:23 Absolute Neuts (auto) 4.5 10^3/uL (1.7-8.2) 09/30/19 07:23 Absolute Lymphs (auto) 2.1 10^3/uL (0.5-4.7) 09/30/19 07:23 Absolute Monos (auto) 0.3 10^3/uL (0.1-1.4) 09/30/19 07:23 Absolute Eos (auto) 0.3 10^3/uL (0.0-0.6) 09/30/19 07:23 Absolute Basos (auto) 0.1 10^3/uL (0.0-0.2) 09/30/19 07:23 Seg Neutrophils % 60.9 % (42-78) 09/30/19 07:23 VBG pH 7.38 (7.30-7.42) 09/30/19 07:23 VBG pCO2 35.8 mmHg (35-63) 09/30/19 07:23 VBG HCO3 20.7 mmol/L (20-32) 09/30/19 07:23 VBG Base Excess -3.8 mmol/L 09/30/19 07:23 Sodium 140.7 mmol/L (137-145) 10/02/19 05:30 Potassium 4.5 mmol/L (3.6-5.0) 10/02/19 05:30 Chloride 103 mmol/L (98-107) 10/02/19 05:30 Carbon Dioxide 24 mmol/L (22-30) 10/02/19 05:30 Anion Gap 14 (5-19) 10/02/19 05:30 BUN 25 mg/dL (7-20) H 10/02/19 05:30 Creatinine 0.75 mg/dL (0.52-1.25) 10/02/19 05:30 Est GFR ( Amer) > 60 (>60) 10/02/19 05:30 Est GFR (MDRD) Non-Af > 60 (>60) 10/02/19 05:30 Glucose 333 mg/dL (75-110) H 10/02/19 05:30 Calcium 8.7 mg/dL (8.4-10.2) 10/02/19 05:30 Total Bilirubin 0.4 mg/dL (0.2-1.3) 09/30/19 07:23 Direct Bilirubin 0.2 mg/dL (0.0-0.4) 09/30/19 07:23 Neonat Total Bilirubin Not Reportable 09/30/19 07:23 Neonat Direct Bilirubin Not Reportable 09/30/19 07:23 Neonat Indirect Bili Not Reportable 09/30/19 07:23 AST 53 U/L (14-36) H 09/30/19 07:23 ALT 32 U/L (<35) 09/30/19 07:23 Alkaline Phosphatase 122 U/L (38-126) 09/30/19 07:23 Troponin I < 0.012 ng/mL 09/30/19 07:23 NT-Pro-B Natriuret Pep 845 pg/mL (<125) H 09/30/19 07:23 Total Protein 7.2 g/dL (6.3-8.2) 09/30/19 07:23 Albumin 4.2 g/dL (3.5-5.0) 09/30/19 07:23 09/30/19 07:23 Troponin I < 0.012 NT-Pro-B Natriuret Pep 845 H Impressions: Chest X-Ray 09/30/19 07:09 IMPRESSION: CARDIAC ENLARGEMENT. VASCULAR CONGESTION. Stroke Is this a Stroke Patient?: No Acute Heart Failure - Is this a Heart Failure Patient?: No
== END 2019-10-02 16:37 | disposition home or self-care (01) | DRG 202 ==
LOC: ER 07:07 → EH 13:27 → 3S 15:30
PROVIDERS: ADMIT Family Medicine; ATTEND Family Medicine
PROC: 5A09357 Assistance with Respiratory Ventilation, Less than 24 Consecutive Hours, Continuous Positive Airway Pressure (ICD-10-PCS; principal; 2019-09-30)
DX: J45.21 Mild intermittent asthma with (acute) exacerbation (principal); J96.21 Acute and chronic respiratory failure with hypoxia; D57.1 Sickle-cell disease without crisis; I25.10 Atherosclerotic heart disease of native coronary artery without angina pectoris; I16.0 Hypertensive urgency; F17.210 Nicotine dependence, cigarettes, uncomplicated; E66.9 Obesity, unspecified; E78.5 Hyperlipidemia, unspecified; I10 Essential (primary) hypertension; F32.9 Major depressive disorder, single episode, unspecified; I25.2 Old myocardial infarction; Z79.82 Long term (current) use of aspirin; Z88.8 Allergy status to other drugs, medicaments and biological substances; Z82.49 Family history of ischemic heart disease and other diseases of the circulatory system
CPT/HCPCS: 36415; 71045; 80048; 80053; 82803; 83880; 84484; 85025; 85027; 87040; 87077; 87150; 87186; 93005; 93010; 94640; 94660; 96374; 99285; J1644; J1940; J2920; J3490

== ENCOUNTER 2019-11-22 14:01 | Emergency (ER) | payer MEDICARE, MEDICAID ==
[2019-11-22 14:10] VITALS: BP 142/99
[2019-11-22] MEDS ORDERED: DIPH/PERTUSS(ACELL)/TETANUS VAC/PF 0.5 ML SYR (>=10YO) IM ONE (14:36)
--- NOTE | 2019-11-22 14:38 | ER Document Report ---
ED Medical Screen (RME) - General Chief Complaint: Laceration Stated Complaint: LACERATION/HEAD Time Seen by Provider: 11/22/19 14:35 Primary Care Provider: HARIS KILPATRICK FNP-C [Primary Care Provider] - Follow up as needed TRAVEL OUTSIDE OF THE [place] IN LAST 30 DAYS: No - HPI Notes: 11/22/19 14:37 Patient is a 54-year-old female with a history of CVA, AL, hypertension (is on Plavix) who presents status post head injury 12 hours ago. Patient states that she hit the top of her head off of a freezer door and has had significant swelling and some bleeding since then. She has a dull headache to the area. She is otherwise feeling well. Patient is able to eat and drink without difficulty. She is urinating normally and having normal bowel movements. Denies any fever, neck pain, changes in vision/speech/mentation/hearing, URI, sore throat, chest pain, palpitations, syncope, cough, shortness of breath, wheeze, dyspnea, abdominal pain, nausea/vomiting/diarrhea, urinary retention, dysuria, hematuria, loss of control of bowel or bladder, numbness/tingling, saddle anesthesia, muscle paralysis/weakness, or rash. I have treated and performed a rapid initial assessment of this patient. A comprehensive ED assessment and evaluation of the patient, analysis of test results and completion of medical decision making process will be conducted by additional ED providers. PHYSICAL EXAMINATION: GENERAL: Well-appearing, well-nourished and in no acute distress. A&Ox4. Answers questions appropriately. Head: No barnett sign. There is a hematoma noted to the top of the head with a 0.5 cm puncture/laceration noted. Tenderness is associated to this area. Neuro: NIH 0, GCS 15, cranial nerves grossly intact otherwise. Neck: no midline tenderness. - Related Data Allergies/Adverse Reactions: lisinopril Allergy (Verified 08/08/19 15:56) prednisone Allergy (Verified 06/10/19 14:32) Past Medical History - Past Medical History Cardiac Medical History: Reports: Hx Coronary Artery Disease, Hx Heart Attack - JANUARY 2017, Hx Hypercholesterolemia, Hx Hypertension Pulmonary Medical History: Reports: Hx Asthma - YEARS AGO, Hx Pneumonia - ABOUT 30 YEARS AGO Denies: Hx Bronchitis, Hx COPD Neurological Medical History: Reports: 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 Denies: Hx Seizures Renal/ Medical History: Denies: Hx Peritoneal Dialysis Musculoskeltal Medical History: Denies Hx Arthritis Psychiatric Medical History: Reports: Hx Depression Past Surgical History: Reports: Hx Section, Hx Orthopedic Surgery - jaw - Immunizations Immunizations up to date: Yes Hx Diphtheria, Pertussis, Tetanus Vaccination: Yes Physical Exam - Vital signs Vitals: Temp Pulse Resp BP Pulse Ox 97.6 F 100 20 142/99 H 97 11/22/19 14:08 11/22/19 14:08 11/22/19 14:08 11/22/19 14:08 11/22/19 14:08 Course - Vital Signs Vital signs: Temp Pulse Resp BP Pulse Ox 97.6 F 100 20 142/99 H 97 11/22/19 14:08 11/22/19 14:08 11/22/19 14:08 11/22/19 14:08 11/22/19 14:08 Doctor's Discharge - Discharge Referrals: HARIS KILPATRICK RETAIL MAINTENANCE TECHNICIAN-C [Primary Care Provider] - Follow up as needed
[2019-11-22] MEDS ORDERED: ACETAMINOPHEN 325 MG TABLET PO ONE (14:44)
--- NOTE | 2019-11-22 15:12 | RADIOLOGY REPORT (SQ) ---
EXAM DESCRIPTION: CT HEAD WITHOUT COMPLETED DATE/TIME: 11/22/2019 3:00 pm REASON FOR STUDY: head injury superior scalp/head COMPARISON: None. TECHNIQUE: Axial images acquired through the brain without intravenous contrast. Images reviewed wi th bone, brain and subdural windows. Additional sagittal and coronal reconstructions were generated. Images stored on PACS. All CT scanners at this facility use dose modulation, iterative reconstruction, and/or weight based d osing when appropriate to reduce radiation dose to as low as reasonably achievable (ALARA). [facility]: Dose Right [facility]: CareDose [facility]: Dose Right [facility]: Teradose 4D [facility]: [employer] RADIATION DOSE: CT Rad equipment meets quality standard of care and radiation dose reduction techniq ues were employed. CTDIvol: 53.2 mGy. DLP: 1070 mGy-cm. mGy. LIMITATIONS: None. FINDINGS: VENTRICLES: Prominent. CEREBRUM: No masses. No hemorrhage. No midline shift. Areas of low density in the white matter mos t likely due to chronic micro-vascular ischemic change. No evidence for acute infarction. CEREBELLUM: No masses. No hemorrhage. No alteration of density. No evidence for acute infarction. EXTRAAXIAL SPACES: Mild age-related involutional change. No fluid collections. No masses. ORBITS AND GLOBE: No intra- or extraconal masses. Normal contour of globe without masses. CALVARIUM: No fracture. PARANASAL SINUSES: No fluid or mucosal thickening. SOFT TISSUES: Right parietal scalp hematoma. OTHER: No other significant finding. IMPRESSION: MILD CHRONIC CHANGES OF ATROPHY AND MICROVASCULAR ISCHEMIA. NO ACUTE PROCESS. EVIDENCE OF ACUTE STROKE: NO. TECHNICAL DOCUMENTATION: JOB ID: [id number] Quality ID # [id number]: Final reports with documentation of one or more dose reduction techniques (e.g., Au tomated exposure control, adjustment of the mA and/or kV according to patient size, use of iterative reconstruction technique) 2010 [email or web address]- All Rights Reserved Reading location - IP/workstation name: [email or web address]
--- NOTE | 2019-11-22 16:09 | ER Document Report ---
HPI - HPI Patient complains to provider of: scalp laceration Time Seen by Provider: 11/22/19 14:35 Onset: Yesterday Onset/Duration: Sudden Quality of pain: No pain Pain Level: 0 Context: 54-year-old female with history of stroke MT high blood pressure who is currently taking Plavix presents to the emergency department with complaints of scalp laceration. Reports a few weeks ago she got out of the bath and fell. she had used oil on herself so she slipped, fell and broke her wrist and hit the back of her head on the tub spigot. Her doctor told her not to worry about her head because they were more worried about her heart then the bump on her head. She reports last night she was cleaning out the freezer and her cat jumped on her leg which surprised her. she reared up and hit her head. She reports the area started bleeding again. Unsure of last tetanus. Denies change in LOC. Denies fever vomiting diarrhea. Patient is alert and oriented reports she does have some memory issues since she had her stroke. She did drive herself here without problems. Associated Symptoms: None Exacerbated by: Denies Relieved by: Denies Similar symptoms previously: No Recently seen / treated by doctor: No - CONSTITUTIONAL Constitutional: DENIES: Fever, Chills - NEURO Neurology: REPORTS: Headache. DENIES: Weakness, Vision blurred, Dizzinesss / Vertigo - REPRODUCTIVE Reproductive: DENIES: : Past Medical History - General Information source: Patient - Social History Smoking Status: Unknown if Ever Smoked Family History: Reviewed & Not Pertinent, Hypertension Patient has suicidal ideation: No Patient has homicidal ideation: No - Past Medical History Cardiac Medical History: Reports: Hx Coronary Artery Disease, Hx Heart Attack - JANUARY 2017, Hx Hypercholesterolemia, Hx Hypertension Pulmonary Medical History: Reports: Hx Asthma - YEARS AGO, Hx Pneumonia - ABOUT 30 YEARS AGO Denies: Hx Bronchitis, Hx COPD Neurological Medical History: Reports: 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 Denies: Hx Seizures Renal/ Medical History: Denies: Hx Peritoneal Dialysis Musculoskeletal Medical History: Denies Hx Arthritis Psychiatric Medical History: Reports: Hx Depression Past Surgical History: Reports: Hx Section, Hx Orthopedic Surgery - jaw - Immunizations Immunizations up to date: Yes Hx Diphtheria, Pertussis, Tetanus Vaccination: Yes Vertical Provider Document - CONSTITUTIONAL Agree With Documented VS: Yes Exam Limitations: No Limitations General Appearance: WD/WN, No Apparent Distress - INFECTION CONTROL TRAVEL OUTSIDE OF THE [place] IN LAST 30 DAYS: No - HEENT HEENT: Normocephalic, PERRLA. negative: Atraumatic - small laceration to the back of patients head, frontal, no active bleeding, Conjuctival Injection - NECK Neck: Normal Inspection, Supple - RESPIRATORY Respiratory: No Respiratory Distress - CARDIOVASCULAR Cardiovascular: Regular Rate - MUSCULOSKELETAL/EXTREMETIES Musculoskeletal/Extremeties: MAEW, FROM - NEURO Level of Consciousness: Awake, Alert, Appropriate Motor/Sensory: No Motor Deficit - DERM Integumentary: Warm, Dry, Laceration Adult Front & Back Diagram: 1 - small 1 cm laceration no active bleeding Course - Re-evaluation Re-evalutation: 11/22/19 16:03 Patient here with a 1 cm scalp laceration after hitting her head on the freezer last night. Unsure of last tetanus. Tetanus ordered CT completed no obvious stroke noted. Patient is alert and oriented walking around the room laughing happy no distress denies fever vomiting diarrhea. Denies change in LOC when she hit her head. Patient does take Plavix with history of MT. The area was cleaned well with normal saline Shur-Clens by nurse. The site was closed with 1 staple. She was instructed on the importance of keeping the area clean monitor for signs of infection and return here for staple removal in 5 days. She verbalized understanding to all instruction. Head CT 11/22/19 14:36 IMPRESSION: MILD CHRONIC CHANGES OF ATROPHY AND MICROVASCULAR ISCHEMIA. NO ACUTE PROCESS. EVIDENCE OF ACUTE STROKE: NO. - Vital Signs Vital signs: Temp Pulse Resp BP Pulse Ox 97.6 F 100 20 142/99 H 97 11/22/19 14:08 11/22/19 14:08 11/22/19 14:08 11/22/19 14:08 11/22/19 14:08 - Diagnostic Test Radiology reviewed: Image reviewed, Reports reviewed Procedures - Laceration/Wound Repair Head Wound length (cm): 1 Wound's Depth, Shape: Superficial Volume Anesthetic (mLs): 0 Irrigated w/ Saline (mLs): 250 Wound Repaired With: [place] Number of Sutures: 1 - Staple Layer Closure?: No Adult Head Front/Back picture: 1 - 1 cm scalp laceration closed with 1 staple. Discharge - Discharge Clinical Impression: Scalp laceration Qualifiers: Encounter type: initial encounter Qualified Code(s): S01.01XA - Laceration without foreign body of scalp, initial encounter Condition: Stable Disposition: HOME, SELF-CARE Instructions: Scalp Laceration ([facility]), Care of Stapled Wounds ([facility]), Tetanus Immunization Given ([facility]) Additional Instructions: *You have been treated for a scalp laceration 1 staple has been applied *Monitor the site for signs of infection such as increasing pain, redness, swelling, warmth *Wash your hair with gentle shampoo *Follow up here in 5 days for staple removal *Return to the emergency department earlier for signs of infection, worsening condition, changes, needs Referrals: HARIS KILPATRICK, AUTOMATED CUTTING MACHINE OPERATOR-C [Primary Care Provider] - Follow up as needed
== END 2019-11-22 16:09 | disposition home or self-care (01) ==
LOC: ER 14:01
DX: S01.01XA Laceration without foreign body of scalp, initial encounter (principal); R51 Headache; W22.09XA Striking against other stationary object, initial encounter; Y93.89 Activity, other specified; J45.909 Unspecified asthma, uncomplicated; I10 Essential (primary) hypertension; I25.2 Old myocardial infarction; Z79.02 Long term (current) use of antithrombotics/antiplatelets; Z23 Encounter for immunization
CPT/HCPCS: 99283; 90471; 70450; 90715; 12001; A9270

== ENCOUNTER 2019-12-13 14:26 | Emergency (ER) | payer MEDICARE, MEDICAID ==
[2019-12-13 14:57] VITALS: BP 177/92
[2019-12-13] MEDS ORDERED: IPRATROPIUM/ALBUTEROL 0.5-2.5 MG/3 ML AMPUL NEB ONE (15:21)
--- NOTE | 2019-12-13 15:22 | ER Document Report ---
ED Medical Screen (RME) - General Chief Complaint: Chest Pain Stated Complaint: SUTURE REMOVAL Time Seen by Provider: 12/13/19 15:15 Primary Care Provider: HARIS KILPATRICK FNP-C [Primary Care Provider] - Follow up as needed Information source: Patient Notes: Patient presents complaining of need for staple removal that was placed about 2 weeks ago. Patient states that she also has been having difficulty breathing and chest tightness for the past 2 days. Patient denies any nausea or vomiting. Patient does have a history of heart attack, CVA and asthma. I have greeted and performed a rapid initial assessment of this patient. A comprehensive ED assessment and evaluation of the patient, analysis of test results and completion of the medical decision making process will be conducted by additional ED providers. TRAVEL OUTSIDE OF THE [place] IN LAST 30 DAYS: No - Related Data Allergies/Adverse Reactions: lisinopril Allergy (Verified 08/08/19 15:56) prednisone Allergy (Verified 06/10/19 14:32) Past Medical History - Social History Frequency of alcohol use: None Drug Abuse: None - Past Medical History Cardiac Medical History: Reports: Hx Coronary Artery Disease, Hx Heart Attack - JANUARY 2017, Hx Hypercholesterolemia, Hx Hypertension Pulmonary Medical History: Reports: Hx Asthma - YEARS AGO, Hx Pneumonia - ABOUT 30 YEARS AGO Denies: Hx Bronchitis, Hx COPD Neurological Medical History: Reports: 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 Denies: Hx Seizures Renal/ Medical History: Denies: Hx Peritoneal Dialysis Musculoskeltal Medical History: Denies Hx Arthritis Psychiatric Medical History: Reports: Hx Depression Past Surgical History: Reports: Hx Section, Hx Orthopedic Surgery - jaw - Immunizations Immunizations up to date: Yes Hx Diphtheria, Pertussis, Tetanus Vaccination: Yes Physical Exam - Vital signs Vitals: Temp Pulse Resp BP Pulse Ox 98.2 F 94 18 177/92 H 97 12/13/19 14:56 12/13/19 14:56 12/13/19 14:56 12/13/19 14:56 12/13/19 14:56 - Respiratory Respiratory status: No respiratory distress Chest status: Tender Breath sounds: Nonproductive cough, Wheezing Course - Vital Signs Vital signs: Temp Pulse Resp BP Pulse Ox 98.2 F 94 18 177/92 H 97 12/13/19 14:56 12/13/19 14:56 12/13/19 14:56 12/13/19 14:56 12/13/19 14:56 Doctor's Discharge - Discharge Referrals: HARIS KILPATRICK, POTATO SORTER-C [Primary Care Provider] - Follow up as needed
--- NOTE | 2019-12-13 16:04 | RADIOLOGY REPORT (SQ) ---
EXAM DESCRIPTION: CHEST 2 VIEWS COMPLETED DATE/TIME: 12/13/2019 3:55 pm REASON FOR STUDY: cough, sob COMPARISON: 09/30/2019. EXAM PARAMETERS: NUMBER OF VIEWS: two views TECHNIQUE: Digital Frontal and Lateral radiographic views of the chest acquired. RADIATION DOSE: NA LIMITATIONS: none FINDINGS: LUNGS AND PLEURA: No opacities, masses or pneumothorax. No pleural effusion. MEDIASTINUM AND HILAR STRUCTURES: No masses or contour abnormalities. HEART AND VASCULAR STRUCTURES: Heart normal size. No evidence for failure. BONES: No acute findings. HARDWARE: None in the chest. OTHER: No other significant finding. IMPRESSION: NO ACUTE RADIOGRAPHIC FINDING IN THE CHEST. TECHNICAL DOCUMENTATION: JOB ID: [id number] [employer]- All Rights Reserved Reading location - IP/workstation name: [email or web address]
[2019-12-13 17:01] LABS: ABSOLUTE BASOPHILS # (AUTO) 0.1 10^3/uL (0.0-0.2); ABSOLUTE EOSINOPHILS # (AUTO) 0.3 10^3/uL (0.0-0.6); ABSOLUTE LYMPHOCYTES (AUTO) 1.8 10^3/uL (0.5-4.7); ABSOLUTE MONOCYTES (AUTO) 0.5 10^3/uL (0.1-1.4); ABSOLUTE NEUT (AUTO) 3.9 10^3/uL (1.7-8.2); BASOPHILS % (AUTO) 0.8 % (0-2); EOSINOPHILS % (AUTO) 3.9 % (0-6); HEMATOCRIT 38.6 % (36.0-47.0); HEMOGLOBIN 13.3 g/dL (12.0-15.5); MEAN CORPUSCULAR HGB CONC 34.6 g/dL (32.0-36.0); MEAN CORPUSCULAR VOLUME 90 fl (80-97); MONOCYTES % (AUTO) 7.7 % (3-13); PLATELET COUNT 135 10^3/uL (150-450); RED BLOOD COUNT 4.31 10^6/uL (3.72-5.28); RED CELL DISTRIBUTION WIDTH 16.1 % (11.5-14.0); SEGMENTED NEUTROPHILS % (AUTO) 59.6 % (42-78); TOTAL CELLS COUNTED % (AUTO) 100 %; WHITE BLOOD COUNT 6.6 10^3/uL (4.0-10.5)
[2019-12-13 17:20] LABS: ALBUMIN 4.4 g/dL (3.5-5.0); ALKALINE PHOSPHATASE 180 U/L (38-126); ANION GAP 11 (5-19); ASPARTATE AMINO TRANSFERASE 54 U/L (14-36); BILIRUBIN,DIRECT 0.3 mg/dL (0.0-0.4); BILIRUBIN,TOTAL 0.6 mg/dL (0.2-1.3); BLOOD UREA NITROGEN 8 mg/dL (7-20); CALCIUM 9.6 mg/dL (8.4-10.2); CARBON DIOXIDE 28 mmol/L (22-30); CHLORIDE 99 mmol/L (98-107); GLUCOSE 127 mg/dL (75-110); POTASSIUM 3.9 mmol/L (3.6-5.0); TOTAL PROTEIN 7.2 g/dL (6.3-8.2)
[2019-12-13 17:32] LABS: NT PRO BNP 1570 pg/mL (<125)
[2019-12-13 17:35] LABS: TROPONIN I < 0.012 ng/mL
--- NOTE | 2019-12-13 18:25 | EKG REPORT ---
SEVERITY:- ABNORMAL ECG - SINUS TACHYCARDIA VENTRICULAR BIGEMINY ANTERIOR INFARCT, OLD : Confirmed by: Paul Tejeda MD 13-Dec-2019 18:25:13
== END 2019-12-13 18:00 | disposition left against medical advice (07) ==
LOC: ER 14:26
DX: J45.909 Unspecified asthma, uncomplicated (principal); R07.89 Other chest pain; R05 Cough; I25.10 Atherosclerotic heart disease of native coronary artery without angina pectoris; I10 Essential (primary) hypertension; I25.2 Old myocardial infarction; Z53.29 Procedure and treatment not carried out because of patient's decision for other reasons; Z88.8 Allergy status to other drugs, medicaments and biological substances; Z87.01 Personal history of pneumonia (recurrent)
CPT/HCPCS: 93005; 94640; 99285; 36415; 85025; 80053; 84484; 83880; 71046; 93010; A9270; J7620

== ENCOUNTER 2020-01-04 16:19 | Emergency (ER) | payer MEDICARE, MEDICAID ==
[2020-01-04] MEDS ORDERED: NORMAL SALINE 500 ML IV ONE (17:31)
[2020-01-04] MEDS ORDERED: METOCLOPRAMIDE HCL INJ/PF 10 MG/2 ML SDV IV ONE (17:31)
--- NOTE | 2020-01-04 17:33 | ER Document Report ---
ED Medical Screen (RME) - General Chief Complaint: Headache Stated Complaint: DIZZINESS,HEADACHE Time Seen by Provider: 01/04/20 17:18 Primary Care Provider: HARIS KILPATRICK FNP-C [Primary Care Provider] - Follow up as needed TRAVEL OUTSIDE OF THE [place] IN LAST 30 DAYS: No - HPI Notes: 01/04/20 17:31 Patient is a 54-year-old female with a history of 4 previous strokes 1 of them being hemorrhagic and currently on Plavix who presents complaining of a severe headache that began about 3 hours ago when she woke up from a nap. Patient states that she has been having intermittent mild headaches for a while now. Patient states that she will hear a "zzzt" sound in her eyes and feels like her eyes are bouncing back and forth more frequently than her normal. Patient state s that this is not the worst headache of her life, but "is close." She does have light sensitivity. No neck pain. No other fever, cough, chest pain, shortness of breath, abdominal pain. No numbness or tingling. I have treated and performed a rapid initial assessment of this patient. A comprehensive ED assessment and evaluation of the patient, analysis of test results and completion of medical decision making process will be conducted by additional ED providers. PHYSICAL EXAMINATION: GENERAL: Well-appearing, well-nourished and in no acute distress. A&Ox4. Answers questions appropriately. Neuro: NIH 0, GCS 15, cranial nerves grossly intact. Normal sensory and motor exams. - Related Data Allergies/Adverse Reactions: lisinopril Allergy (Verified 01/04/20 17:16) prednisone Allergy (Verified 01/04/20 17:16) Past Medical History - Past Medical History Cardiac Medical History: Reports: Hx Coronary Artery Disease, Hx Heart Attack - JANUARY 2017, Hx Hypercholesterolemia, Hx Hypertension Pulmonary Medical History: Reports: Hx Asthma - YEARS AGO, Hx Pneumonia - ABOUT 30 YEARS AGO Denies: Hx Bronchitis, Hx COPD Neurological Medical History: Reports: 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 Denies: Hx Seizures Renal/ Medical History: Denies: Hx Peritoneal Dialysis Musculoskeltal Medical History: Denies Hx Arthritis Psychiatric Medical History: Reports: Hx Depression Past Surgical History: Reports: Hx Section, Hx Orthopedic Surgery - jaw - Immunizations Immunizations up to date: Yes Hx Diphtheria, Pertussis, Tetanus Vaccination: Yes Physical Exam - Vital signs Vitals: Temp Pulse Resp BP Pulse Ox 98.4 F 102 H 20 173/100 H 100 01/04/20 17:10 01/04/20 17:10 01/04/20 17:10 01/04/20 17:10 01/04/20 17:10 Course - Vital Signs Vital signs: Temp Pulse Resp BP Pulse Ox 98.4 F 102 H 20 154/102 H 100 01/04/20 17:10 01/04/20 17:10 01/04/20 17:10 01/04/20 17:28 01/04/20 17:10 Doctor's Discharge - Discharge Referrals: HARIS KILPATRICK FNP-C [Primary Care Provider] - Follow up as needed
[2020-01-04] MEDS ORDERED: LABETALOL HCL INJ 20 MG/4 ML DISP.SYRIN IV ONE ×2 (17:34→21:05)
--- NOTE | 2020-01-04 18:20 | RADIOLOGY REPORT (SQ) ---
EXAM DESCRIPTION: CT HEAD WITHOUT COMPLETED DATE/TIME: 01/04/2020 5:59 pm REASON FOR STUDY: severe headache COMPARISON: 11/22/2019 TECHNIQUE: Axial images acquired through the brain without intravenous contrast. Images reviewed wi th bone, brain and subdural windows. Additional sagittal and coronal reconstructions were generated. Images stored on PACS. All CT scanners at this facility use dose modulation, iterative reconstruction, and/or weight based d osing when appropriate to reduce radiation dose to as low as reasonably achievable (ALARA). [facility]: Dose Right [facility]: CareDose [facility]: Dose Right [facility]: Teradose 4D [facility]: [employer] RADIATION DOSE: CT Rad equipment meets quality standard of care and radiation dose reduction techniq ues were employed. CTDIvol: 53.2 mGy. DLP: 964 mGy-cm. mGy. LIMITATIONS: None. FINDINGS: VENTRICLES: Prominent. CEREBRUM: No masses. No hemorrhage. No midline shift. No evidence for acute infarction. Areas of l ow density in the white matter most likely chronic small vessel ischemic changes. CEREBELLUM: No masses. No hemorrhage. No alteration of density. No evidence for acute infarction. EXTRAAXIAL SPACES: No fluid collections. No masses. ORBITS AND GLOBE: No intra- or extraconal masses. Normal contour of globe without masses. CALVARIUM: No fracture. PARANASAL SINUSES: No fluid or mucosal thickening. SOFT TISSUES: No mass or hematoma. OTHER: No other significant finding. IMPRESSION: MILD CHRONIC CHANGES OF ATROPHY AND MICROVASCULAR ISCHEMIA. NO ACUTE IMAGING FINDINGS IN THE BRAIN. EVIDENCE OF ACUTE STROKE: NO. COMMENT: Quality ID # [id number]: Final reports with documentation of one or more dose reduction techniques (e.g., Automated exposure control, adjustment of the mA and/or kV according to patient size, use of iterative reconstruction technique) TECHNICAL DOCUMENTATION: JOB ID: [id number] [employer]- All Rights Reserved Reading location - IP/workstation name: [email or web address]
[2020-01-04 18:45] LABS: ABSOLUTE BASOPHILS # (AUTO) 0.1 10^3/uL (0.0-0.2); ABSOLUTE EOSINOPHILS # (AUTO) 0.3 10^3/uL (0.0-0.6); TOTAL CELLS COUNTED % (AUTO) 100 %; WHITE BLOOD COUNT 5.7 10^3/uL (4.0-10.5)
[2020-01-04 18:46] LABS: INTERNATIONAL RATION (INR) 1.09; PROTHROMBIN TIME 14.2 SEC (11.4-15.4)
[2020-01-04 18:47] LABS: APPEARANCE,URINE CLEAR; BILIRUBIN,URINE NEGATIVE (NEGATIVE); COLOR,URINE YELLOW; GLUCOSE, URINE 50 mg/dL (NEGATIVE); KETONES,URINE NEGATIVE (NEGATIVE); PROTEIN,URINE NEGATIVE (NEGATIVE); URINE SPECIFIC GRAVITY 1.018
[2020-01-04 18:47] LABS: PARTIAL THROMBOPLASTIN TIME 25.2 SEC (23.5-35.8)
[2020-01-04 18:56] LABS: ABSOLUTE MONOCYTES (AUTO) 0.4 10^3/uL (0.1-1.4); ABSOLUTE NEUT (AUTO) 2.9 10^3/uL (1.7-8.2); EOSINOPHILS % (AUTO) 5.9 % (0-6); HEMATOCRIT 37.2 % (36.0-47.0); HEMOGLOBIN 12.5 g/dL (12.0-15.5); LYMPHOCYTES % (AUTO) 34.8 % (13-45); MEAN CORPUSCULAR HEMOGLOBIN 30.4 pg (27.0-33.4); MEAN CORPUSCULAR HGB CONC 33.7 g/dL (32.0-36.0); MEAN CORPUSCULAR VOLUME 90 fl (80-97); MONOCYTES % (AUTO) 7.2 % (3-13); PLATELET COUNT 115 10^3/uL (150-450); RED BLOOD COUNT 4.12 10^6/uL (3.72-5.28); RED CELL DISTRIBUTION WIDTH 16.2 % (11.5-14.0); SEGMENTED NEUTROPHILS % (AUTO) 51.1 % (42-78)
[2020-01-04 19:00] LABS: ALBUMIN 4.1 g/dL (3.5-5.0); ALKALINE PHOSPHATASE 230 U/L (38-126); ANION GAP 7 (5-19); ASPARTATE AMINO TRANSFERASE 85 U/L (14-36); BILIRUBIN,DIRECT 0.1 mg/dL (0.0-0.4); BILIRUBIN,TOTAL 0.6 mg/dL (0.2-1.3); BLOOD UREA NITROGEN 11 mg/dL (7-20); CALCIUM 8.5 mg/dL (8.4-10.2); CARBON DIOXIDE 26 mmol/L (22-30); CHLORIDE 105 mmol/L (98-107); GLUCOSE 152 mg/dL (75-110); POTASSIUM 4.1 mmol/L (3.6-5.0); TOTAL PROTEIN 6.6 g/dL (6.3-8.2)
[2020-01-04] MEDS ORDERED: METOCLOPRAMIDE HCL INJ/PF 10 MG/2 ML SDV ONE (21:05)
[2020-01-04 22:00] VITALS: BP 141/91
--- NOTE | 2020-01-05 05:37 | ER Document Report ---
Entered by SAVITA ELISE SCRIBE 01/04/205 Acting as scribe for:ALLIE SPENCE IV, MD ED General - General Chief Complaint: Headache Stated Complaint: DIZZINESS,HEADACHE Time Seen by Provider: 01/04/20 17:18 Primary Care Provider: HARIS KILPATRICK FNP-C [Primary Care Provider] - Follow up as needed Mode of Arrival: Ambulatory Information source: Patient Notes: This 54 year old female patient with a history of x4 CVA presents to the ED today with complaints of a severe headache that began around 1600 today after she woke up from nap. Patient states that she left school around 1400, went home, ate lunch, and then took a nap. Patient states that when she woke up, she had facial and eye swelling. Patient notes that she called her production finisher who advised her to follow up with a vascular doctor, but the patient decided to come to the ED. Patient states that feels like her eyes are darting around and that she hears "zzzt" sound. Patient also reports blurry vision, dizziness, and ringing in her ears. Patient states that she has never experienced these symptoms before and that she has not been able to sleep for the past x4-5 days. Patient does state that she is in a chronic pain management program and that she was told to stop taking one of her normal medications. Patient denies nausea and states that she feels a little better at this time after receiving fluids. TRAVEL OUTSIDE OF THE [place] IN LAST 30 DAYS: No - Related Data Allergies/Adverse Reactions: lisinopril Allergy (Verified 01/04/20 17:16) prednisone Allergy (Verified 01/04/20 17:16) Past Medical History - General Information source: Patient - Social History Smoking Status: Unknown if Ever Smoked Cigarette use (# per day): No Chew tobacco use (# tins/day): No Smoking Education Provided: No Family History: Reviewed & Not Pertinent, Hypertension Patient has suicidal ideation: No Patient has homicidal ideation: No - Past Medical History Cardiac Medical History: Reports: Hx Coronary Artery Disease, Hx Heart Attack - JANUARY 2017, Hx Hypercholesterolemia, Hx Hypertension Pulmonary Medical History: Reports: Hx Asthma - YEARS AGO, Hx Pneumonia - ABOUT 30 YEARS AGO Neurological Medical History: Reports: 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 Ringing in ears. Cardiovascular: See HPI, Dizziness Respiratory: No symptoms reported Gastrointestinal: See HPI. denies: Nausea Genitourinary: No symptoms reported Female Genitourinary: No symptoms reported Musculoskeletal: No symptoms reported Skin: No symptoms reported Hematologic/Lymphatic: No symptoms reported Neurological/Psychological: See HPI, Headaches -: Yes All other systems reviewed and negative Physical Exam - Vital signs Vitals: Temp Pulse Resp BP Pulse Ox 98.4 F 102 H 20 173/100 H 100 01/04/20 17:10 01/04/20 17:10 01/04/20 17:10 01/04/20 17:10 01/04/20 17:10 Interpretation: Hypertensive - General General appearance: Alert - HEENT Head: Normocephalic, Atraumatic Eyes: Normal Pupils: PERRL - Respiratory Respiratory status: No respiratory distress Chest status: Nontender Breath sounds: Normal Chest palpation: Normal - Cardiovascular Rhythm: Regular Heart sounds: Normal auscultation Murmur: No - Abdominal Inspection: Normal Distension: No distension Bowel sounds: Normal Tenderness: Nontender - Abdomen soft. Organomegaly: No organomegaly - Back Back: Normal, Nontender - Extremities General upper extremity: Normal inspection General lower extremity: Normal inspection - Neurological Neuro grossly intact: Yes - Psychological Associated symptoms: Normal affect, Normal mood - Skin Skin Temperature: Warm Skin Moisture: Dry Skin Color: Normal Course - Re-evaluation Re-evalutation: 01/04/20 21:41 Results of ED MSE discussed with patient. Patient states she is feeling better now and her headache is almost gone. Patient was offered Toradol which she declined. Patient states she is feeling well enough to be discharged. - Vital Signs Vital signs: Temp Pulse Resp BP Pulse Ox 98.1 F 89 21 H 141/91 H 99 01/04/20 21:58 01/04/20 21:58 01/04/20 21:58 01/04/20 21:58 01/04/20 21:58 - Laboratory Result Diagrams: 01/04/20 18:10 01/04/20 18:10 Laboratory results interpreted by me: 01/04/20 01/04/20 01/04/20 18:10 18:10 18:14 RDW 16.2 H Plt Count 115 L Glucose 152 H AST 85 H ALT 47 H Alkaline Phosphatase 230 H Urine Glucose (UA) 50 H Urine Urobilinogen 2.0 H - EKG Interpretation by Me Additional EKG results interpreted by me: 01/04/20 21:42 EKG obtained on 01/04/2020 at 2048 hrs. was interpreted by this MD. Findings: Normal sinus rhythm, rate 93, left axis deviation, P waves preceding QRS complexes, QRS complexes appear narrow, there are no obvious ST patterns of elevation or depression to suggest acute myocardial ischemia or infarction. Impression normal sinus rhythm with nonspecific ST segments. Discharge - Discharge Clinical Impression: Acute headache Qualifiers: Headache type: unspecified Intractability: not intractable Qualified Code(s): R51 - Headache Condition: Good Disposition: HOME, SELF-CARE Additional Instructions: Return to the Emergency Department without delay if any worse. HOME CARE INSTRUCTIONS & INFORMATION: Thank you for choosing us for your medical needs. We hope you're satisfied with the care you received. After you leave, you must properly care for your problem and, at the same time, observe its progress. Any condition can change. Some illnesses can change rapidly over hours or days. If your condition worsens, return to the Emergency Department or see your physician promptly. ABOUT YOUR X-RAYS AND EKG'S: If you had an EKG or X-rays taken, they have been read by the Emergency Physician. The X-rays and EKG's will also be read by a Radiologist or Machine Builder within 24 hours. If discrepancies are noted, you w ill be notified by telephone. Please be certain the ED has a correct telephone number & address where you can be reached. Also, realize that some fractures or abnormalities do not show up on initial X-rays. If your symptoms continue, see your physician. ABOUT YOUR LABORATORY TEST: If you had laboratory tests, the results have been reviewed by the Emergency Physician. Some test results (for example cultures) may not be available for several days. You will be contacted if any test result shows you need additional treatment. Please be certain the ED has a correct telephone number and address where you can be reached. ABOUT YOUR MEDICATIONS: You will receive instructions on how to take your medicine on the prescription label you receive. Additional information may be provided by the Pharmacy. If you have questions afterwards, call the ED for clarification or further instructions. Some prescribed medications may cause drowsiness. Do not perform tasks such as driving a car or operating machinery without consulting your Pharmacist. If you feel you need a refill of pain medic ation, your condition will need re-evaluation. Please do not call for a refill of any medication. ABOUT YOUR SIGNATURE: Signature of this document acknowledges to followin. Understanding that you received emergency treatment and that you may be released before al medical problems are known or treated. Please be certain the ED has a correct phone number & address where you can be reached. 2. Acknowledgement that you will arrange for follow-up care as recommended. 3. Authorization for the Emergency Physician to provide information to your follow-up Physician in order to maximize your care. AT ANY TIME, IF YOUR SYMPTOMS CHANGE SIGNIFICANTLY OR WORSEN OR YOU DEVELOP NEW SYMPTOMS, RETURN TO THE EMERGENCY DEPARTMENT IMMEDIATELY FOR RE-EVALUATION. OUR GOAL IS TO PROVIDE EXCELLENT MEDICAL CARE! WE HOPE THAT WE HAVE MET YOUR EXPECTATIONS DURING YOUR EMERGENCY DEPARTMENT VISIT AND THAT YOU FEEL YOU HAVE RECEIVED EXCELLENT CARE! Headache The physician does not feel that the headache you are experiencing has a serious underlying cause. Most headaches are due to emotional stress, with resultant muscle tension (tension headache). Occasionally, headaches are secondary to changes in the blood vessels of the scalp (vascular headache and migraine headache). Sometimes, a headache is the first symptom of another developing illness, such as a viral infection. You have no evidence of stroke, bleeding, meningitis, or other serious cause of your headache. The treatment of headaches varies with the severity and cause of the pain. Not all headaches need pain shots. In fact, there is evidence that using narcotics for headaches may make them worse in the long run. The physician will determine the therapy that's in your best interest. If you develop a fever, if the headache is different from any you've previously experienced, or if the headache progressively worsens, then call your physician at once or go to the emergency room. Forms: Return to Work Referrals: HARIS KILPATRICK, DEVYN-C [Primary Care Provider] - Follow up as needed I personally performed the services described in the documentation, reviewed and edited the documentation which was dictated to the scribe in my presence, and it accurately records my words and actions.
--- NOTE | 2020-01-05 07:46 | EKG REPORT ---
SEVERITY:- ABNORMAL ECG - SINUS RHYTHM PROBABLE LEFT ATRIAL ABNORMALITY BORDERLINE LEFT AXIS DEVIATION ANTERIOR INFARCT,OLD CONSIDER OLD INFERIOR TX : Confirmed by: Paul Tejeda MD 05-Jan-2020 07:45:39
== END 2020-01-04 22:05 | disposition home or self-care (01) ==
LOC: ER 16:19
DX: R51 Headache (principal); R42 Dizziness and giddiness; H53.8 Other visual disturbances; R22.0 Localized swelling, mass and lump, head; E78.00 Pure hypercholesterolemia, unspecified; I10 Essential (primary) hypertension; I25.10 Atherosclerotic heart disease of native coronary artery without angina pectoris; Z86.73 Personal history of transient ischemic attack (TIA), and cerebral infarction without residual deficits; Z79.02 Long term (current) use of antithrombotics/antiplatelets; I25.2 Old myocardial infarction
CPT/HCPCS: 93005; 99284; 96361; 96374; 96375; 36415; 85025; 85610; 85730; 80053; 81001; 70450; 93010; J3490; J2765; J7040

== ENCOUNTER 2020-03-21 23:55 | Emergency (ER) | payer MEDICARE, MEDICAID ==
[2020-03-22] MEDS ORDERED: PROMETHAZINE HCL INJ 25 MG/1 ML VIAL IM ONE (00:05)
--- NOTE | 2020-03-22 00:08 | ER Document Report ---
ED General - General TRAVEL OUTSIDE OF THE [place] IN LAST 30 DAYS: No <REX SMITH - Last Filed: 03/22/20 05:07> <CHEMA FLOREZ - Last Filed: 03/22/20 12:55> - General Chief Complaint: ETOH Abuse Stated Complaint: ETOH ABUSE Time Seen by Provider: 03/22/20 00:04 Primary Care Provider: HARIS KILPATRICK FNP-C [Primary Care Provider] - Follow up as needed Notes: Patient is a 54-year-old female that comes emergency department for chief complaint of unresponsiveness. Reportedly a neighbor was passing and attempted to engage the patient but she would not respond while sitting in her rocking chair, police and then EMS found the patient would answer yes and no but would not respond otherwise. Patient would not follow any directions, she is very unsteady when they attempted to get her up and almost fell to the ground. Patient is now more verbally responsive upon arrival to the emergency department, when I asked if she had been drinking alcohol she replied "a little", she denies any pain, injury, or any complaints. No medical history or medications reported by patient or noted by EMS. (REX SMITH) - Related Data Allergies/Adverse Reactions: lisinopril Allergy (Verified 03/22/20 10:54) prednisone Allergy (Verified 03/22/20 10:54) Past Medical History - General Information source: Patient - Social History Smoking Status: Unknown if Ever Smoked Frequency of alcohol use: Heavy Lives with: Alone Family History: Reviewed & Not Pertinent, Hypertension - Past Medical History Cardiac Medical History: Reports: Hx Coronary Artery Disease, Hx Heart Attack - JANUARY 2017, Hx Hypercholesterolemia, Hx Hypertension Pulmonary Medical History: Reports: Hx Asthma - YEARS AGO, Hx Pneumonia - ABOUT 30 YEARS AGO Denies: Hx Bronchitis, Hx COPD Neurological Medical History: Reports: 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 Denies: Hx Seizures Renal/ Medical History: Denies: Hx Peritoneal Dialysis Musculoskeletal Medical History: Denies Hx Arthritis Psychiatric Medical History: Reports: Hx Depression Past Surgical History: Reports: Hx Section, Hx Orthopedic Surgery - jaw - Immunizations Immunizations up to date: Yes Hx Diphtheria, Pertussis, Tetanus Vaccination: Yes <REX SMITH - Last Filed: 03/22/20 05:07> Review of Systems - Review of Systems Constitutional: See HPI EENT: No symptoms reported Cardiovascular: No symptoms reported Respiratory: No symptoms reported Gastrointestinal: No symptoms reported Genitourinary: No symptoms reported Female Genitourinary: No symptoms reported Musculoskeletal: No symptoms reported Skin: No symptoms reported Hematologic/Lymphatic: No symptoms reported Neurological/Psychological: See HPI <REX SMITH - Last Filed: 03/22/20 05:07> Physical Exam <REX SMITH - Last Filed: 03/22/20 05:07> - Vital signs Vitals: Resp Pulse Ox 20 92 03/22/20 00:17 03/22/20 00:17 - Notes Notes: GENERAL: Awake, drowsy, slurring speech, limited interaction, smells of alcohol HEAD: Normocephalic, atraumatic. EYES: Pupils equal, round, and reactive to light. Extraocular movements intact. Some nystagmus present horizontally. ENT: Oral mucosa moist, tongue midline. Oropharynx unremarkable. Airway patent. NECK: Full range of motion. Supple. Trachea midline. No lymphadenopathy. LUNGS: Clear to auscultation bilaterally, no wheezes, rales, or rhonchi. No respiratory distress. Non-tender chest wall. HEART: Regular rate and rhythm. No murmur ABDOMEN: Soft, non-tender. Non-distended. EXTREMITIES: Moves all 4 extremities spontaneously. No edema, normal radial and dorsalis pedis pulses bilaterally. No cyanosis. BACK: no cervical, thoracic, lumbar midline tenderness. No saddle anesthesia, normal distal neurovascular exam. Moves all extremities in full range of motion. NEUROLOGICAL: Alert and somewhat cooperative, not oriented to time or events, slurred speech. Cranial nerves II through XII grossly intact. Strength 5/5 in all extremities. PSYCH: Drowsy, depressed, limited interaction SKIN: Warm, dry, normal turgor. No rashes or lesions noted. (REX SMITH) Course - Laboratory Result Diagrams: 03/22/20 00:23 03/22/20 00:23 <REX SMITH - Last Filed: 03/22/20 05:07> - Laboratory Result Diagrams: 03/22/20 00:23 03/22/20 00:23 - Diagnostic Test Radiology reviewed: Reports reviewed <CHEMA FLOREZ - Last Filed: 03/22/20 12:55> - Re-evaluation Re-evalutation: Patient appears extremely intoxicated on my initial evaluation, she is very flushed, she has obvious nystagmus, however she is awake. She is minimally cooperative and is attempting to pull off on monitoring, however she is protecting her airway. Because we are unable to get a good history with her condition full work-up for altered mental status has been initiated. 03/22/20 CT of the head unremarkable, chest x-ray with no acute findings. Blood alcohol is 438. CBC nonspecific, chemistry as expected with no hypoglycemia or hypona tremia. Patient is maintaining her airway well, she has no hypoxia or respiratory distress. Patient began becoming nauseated and belching frequently, she was medicated with IM Phenergan, she is sleeping and easily aroused on reevaluation without becoming hypoxic. Patient will continue to be monitored. 03/22/20 05:07 Patient is much more awake, she is asking what happened last night. I explained to the patient that she became severely intoxicated, I discussed her work-up, discussed last night's events. Patient states regret, states that she realizes that she drinks too much alcohol. However she denies suicidal or homicidal ideations, she denies being depressed. She denies alcohol dependence, states that she drinks heavily intermittently but not daily and denies alcohol withdrawal. She states that when she mary alice up she wants to go home, however she does not have a ride and she will need to remain here this morning sobering up. At this point patient will be discharged to home with referral to detox. Patient states understanding and agreement. (REX SMITH) 03/22/20 08:49 Patient states that around 830 she woke up with a brief sudden onset of chest pain midsternally that she described as a piercing pain. Patient states the pain only lasted for 5 minutes and then has since resolved. Patient without any cough, cold symptoms. Patient denies any nausea vomiting or shortness of breath. Patient states that the pain did wake her up from a sleep. Patient does report a history of acid reflux as well. Patient in a semi-olvera's position at this time. Patient requesting IV fluids. 03/22/20 12:53 Patient clinically sober at this time. Patient with stable vital signs. No additional episodes of chest discomfort. Patient denies any chest pain at this time. Patient with negative delta troponin. Presentation of chest pain in an otherwise well appearing patient. Low clinical suspicion for ACS given clinical history, exam, EKG without ST elevations or depressions, and negative delta troponin. HEART score less than or equal to 3. PE also seems unlikely given clinical history, absence of tachycardia or dyspnea. CXR without evidence of pn eumothorax or pneumonia. No widened mediastinum. Chest pain in a patient without evidence of cardiac or other serious etiology on workup today. I discussed with patient that, based on their age, risk factors and emergency department testing today, the likelihood that their symptoms are related to a heart attack is very low. The patient demonstrates decision making capacity and has verbalized an understanding of these risks to me. Based on this, the patient has chosen to follow-up as an outpatient. Usual chest pain return precautions reviewed. The patient states understanding and agreement with this plan. (CHEMA FLOREZ) - Vital Signs Vital signs: Temp Pulse Resp BP Pulse Ox 97.6 F 20 145/95 H 97 03/22/20 00:35 03/22/20 12:01 03/22/20 12:01 03/22/20 12:01 - Laboratory Laboratory results interpreted by me: 03/22/20 03/22/20 00:23 00:23 RDW 15.4 H Seg Neuts % (Manual) 29 L Lymphocytes % (Manual) 50 H Abs Neuts (Manual) 1.4 L Glucose 206 H AST 77 H ALT 74 H Alkaline Phosphatase 188 H Serum Alcohol 438 H* 03/22/20 12:54 Labs- Entire Visit 03/22/20 03/22/20 03/22/20 00:23 00:23 00:23 WBC 4.8 RBC 4.86 Hgb 15.2 Hct 45.2 MCV 93 MCH 31.3 MCHC 33.8 RDW 15.4 H Plt Count 171 Lymph % (Auto) Not Reportable Henry % (Auto) Not Reportable Eos % (Auto) Not Reportable Baso % (Auto) Not Reportable Absolute Neuts (auto) Not Reportable Absolute Lymphs (auto) Not Reportable Absolute Monos (auto) Not Reportable Absolute Eos (auto) Not Reportable Absolute Basos (auto) Not Reportable Total Counted 100 Seg Neutrophils % Not Reportable Seg Neuts % (Manual) 29 L Lymphocytes % (Manual) 50 H Atypical Lymphs % 7 Monocytes % (Manual) 11 Eosinophils % (Manual) 3 Basophils % (Manual) 0 Abs Neuts (Manual) 1.4 L Abs Lymphs (Manual) 2.7 Abs Monocytes (Manual) 0.5 Absolute Eos (Manual) 0.1 Abs Basophils (Manual) 0.0 Toxic Granulation SLIGHT Toxic Vacuolation PRESENT Platelet Comment ADEQUATE Poikilocytosis SLIGHT Anisocytosis SLIGHT Tear Drop Cells SLIGHT Sodium 143.8 Potassium 3.8 Chloride 106 Carbon Dioxide 27 Anion Gap 11 BUN 12 Creatinine 0.62 Est GFR ( Amer) > 60 Est GFR (MDRD) Non-Af > 60 Glucose 206 H Calcium 8.5 Total Bilirubin 0.2 Direct Bilirubin 0.0 Neonat Total Bilirubin Not Reportable Neonat Direct Bilirubin Not Reportable Neonat Indirect Bili Not Reportable AST 77 H ALT 74 H Alkaline Phosphatase 188 H Troponin I < 0.012 Total Protein 7.1 Albumin 4.3 Serum Alcohol 438 H* 03/22/20 03/22/20 09:11 12:00 WBC RBC Hgb Hct MCV MCH MCHC RDW Plt Count Lymph % (Auto) Henry % (Auto) Eos % (Auto) Baso % (Auto) Absolute Neuts (auto) Absolute Lymphs (auto) Absolute Monos (auto) Absolute Eos (auto) Absolute Basos (auto) Total Counted Seg Neutrophils % Seg Neuts % (Manual) Lymphocytes % (Manual) Atypical Lymphs % Monocytes % (Manual) Eosinophils % (Manual) Basophils % (Manual) Abs Neuts (Manual) Abs Lymphs (Manual) Abs Monocytes (Manual) Absolute Eos (Manual) Abs Basophils (Manual) Toxic Granulation Toxic Vacuolation Platelet Comment Poikilocytosis Anisocytosis Tear Drop Cells Sodium Potassium Chloride Carbon Dioxide Anion Gap BUN Creatinine Est GFR ( Amer) Est GFR (MDRD) Non-Af Glucose Calcium Total Bilirubin Direct Bilirubin Neonat Total Bilirubin Neonat Direct Bilirubin Neonat Indirect Bili AST ALT Alkaline Phosphatase Troponin I < 0.012 < 0.012 Total Protein Albumin Serum Alcohol (CHEMA FLOREZ) Discharge <REX SMITH - Last Filed: 03/22/20 05:07> <CHEMA FLOREZ - Last Filed: 03/22/20 12:55> - Discharge Clinical Impression: Alcohol abuse Alcohol intoxication Qualifiers: Complication of substance-induced condition: with unspecified complication Qualified Code(s): F10.929 - Alcohol use, unspecified with intoxication, unspec ified Chest pain Qualifiers: Chest pain type: unspecified Qualified Code(s): R07.9 - Chest pain, unspecified Condition: Stable Disposition: HOME, SELF-CARE Instructions: Chest Pain of Unclear Cause ([facility]), Acute Alcohol Intoxication ([facility]) Additional Instructions: You became severely and dangerously intoxicated. Avoid drinking to intoxication. Follow-up with primary care. I also recommend that you follow-up with the detox reference provided, call/go there for additional management. Return for any concerning symptoms or if something is not right. Follow-up with prosthetic technician for recheck, call Tuesday for an appointment [facility] [address] [place] [id number] Hours: Open 24 hours Referrals: HARIS KILPATRICK FNP-C [Primary Care Provider] - Follow up as needed CHEVY WILL MD [ACTIVE STAFF] - Follow up in 3-5 days
[2020-03-22] MEDS ORDERED: NORMAL SALINE 1000 ML 1,000 ML IV ONE ×2 (00:25→08:48)
--- NOTE | 2020-03-22 00:49 | RADIOLOGY REPORT (SQ) ---
EXAM DESCRIPTION: XR CHEST 1 VIEW COMPLETED DATE/TME: 03/22/2020 00:05 CLINICAL HISTORY: 54 years, Female, AMS COMPARISON: 12/13/2019 chest NUMBER OF VIEWS: 1 TECHNIQUE: Portable chest LIMITATIONS: None. FINDINGS: Cardiomegaly. Lungs are clear. No pneumothorax IMPRESSION: Cardiomegaly. Lungs are clear copyright 2011 [employer]- All Rights Reserved
--- NOTE | 2020-03-22 00:51 | RADIOLOGY REPORT (SQ) ---
CT of the head: 03/21/2020 11:49 PM CDT HISTORY: 54-year-old patient with confusion. COMPARISON: CT the head from 01/04/2020 TECHNIQUE: Multiple axial contiguous images were obtained through the head without intravenous contrast administered. This exam was performed according to our departmental dose-optimization program, which includes automated exposure control, adjustment of the mA and/or KV according to the patient's size and/or use of iterative reconstruction technique. FINDINGS: The ventricles and cerebral sulci demonstrate mild prominence, consistent with cerebral atrophy. There are mild periventricular hypodensities, suggestive of periventricular white matter changes. The ward-white matter differentiation is within normal limits. Both orbits appear unremarkable. The mastoid air cells appear clear. There is mild mucoperiosteal thickening of the ethmoid sinuses. The calvarium is intact. No extra-axial fluid collection is seen. No midline shift or mass effect is apparent. There are no findings to suggest acute intracranial hemorrhage. IMPRESSION: 1. No acute intracranial hemorrhage is seen. 2. Mild cerebral atrophy and periventricular white matter changes are seen.
[2020-03-22 00:53] LABS: HEMATOCRIT 45.2 % (36.0-47.0); HEMOGLOBIN 15.2 g/dL (12.0-15.5); MEAN CORPUSCULAR HEMOGLOBIN 31.3 pg (27.0-33.4); MEAN CORPUSCULAR HGB CONC 33.8 g/dL (32.0-36.0); MEAN CORPUSCULAR VOLUME 93 fl (80-97); PLATELET COUNT 171 10^3/uL (150-450); RED BLOOD COUNT 4.86 10^6/uL (3.72-5.28); RED CELL DISTRIBUTION WIDTH 15.4 % (11.5-14.0); WHITE BLOOD COUNT 4.8 10^3/uL (4.0-10.5)
[2020-03-22 01:03] LABS: ALBUMIN 4.3 g/dL (3.5-5.0); ALKALINE PHOSPHATASE 188 U/L (38-126); ANION GAP 11 (5-19); ASPARTATE AMINO TRANSFERASE 77 U/L (14-36); BILIRUBIN,TOTAL 0.2 mg/dL (0.2-1.3); BLOOD UREA NITROGEN 12 mg/dL (7-20); CALCIUM 8.5 mg/dL (8.4-10.2); CARBON DIOXIDE 27 mmol/L (22-30); CHLORIDE 106 mmol/L (98-107); GLUCOSE 206 mg/dL (75-110); POTASSIUM 3.8 mmol/L (3.6-5.0); TOTAL PROTEIN 7.1 g/dL (6.3-8.2)
[2020-03-22 01:15] LABS: ALCOHOL 438 mg/dL (NONE DETECTED)
[2020-03-22 01:19] LABS: ABSOLUTE LYMPHOCYTES# (MANUAL) 2.7 10^3/uL (0.5-4.7); ABSOLUTE MONOCYTES # (MANUAL) 0.5 10^3/uL (0.1-1.4); BASOPHILS % (MANUAL) 0 % (0-2); EOSINOPHILS % (MANUAL) 3 % (0-6); LYMPHOCYTES % (MANUAL) 50 % (13-45); MONOCYTES % (MANUAL) 11 % (3-13); SEGMENTED NEUTROPHILS % (MAN) 29 % (42-78); TOTAL CELLS COUNTED 100
[2020-03-22 01:21] LABS: ANISOCYTOSIS SLIGHT; PLATELET COMMENT ADEQUATE; POIKILOCYTOSIS SLIGHT; TEAR DROP CELLS SLIGHT; TOXIC GRANULATION SLIGHT; TOXIC VACUOLATION PRESENT
[2020-03-22] MEDS ORDERED: ASPIRIN 81 MG TABLET, CHEWABLE PO ONE (08:48)
[2020-03-22] MEDS ORDERED: ISOSORBIDE MONONITRATE 60 MG TAB.ER.24H PO ONE (08:48)
--- NOTE | 2020-03-22 09:23 | EKG REPORT ---
SEVERITY:- ABNORMAL ECG - SINUS RHYTHM ANTERIOR INFARCT, AGE INDETERMINATE : Confirmed by: Corinna Zambrano MD 22-Mar-2020 09:23:01
--- NOTE | 2020-03-22 09:23 | EKG REPORT ---
SEVERITY:- ABNORMAL ECG - SINUS RHYTHM BIATRIAL ABNORMALITIES INFERIOR INFARCT, AGE INDETERMINATE EXTENSIVE ANTERIOR INFARCT, RECENT : Confirmed by: Corinna Zambrano MD 22-Mar-2020 09:23:11
[2020-03-22] MEDS ORDERED: OXYCODONE-ACETAMINOPHEN 5-325 MG TABLET PO ONE (10:25)
[2020-03-22 13:11] VITALS: BP 160/96
== END 2020-03-22 13:08 | disposition home or self-care (01) ==
LOC: ER 23:55
DX: F10.129 Alcohol abuse with intoxication, unspecified (principal); Y90.8 Blood alcohol level of 240 mg/100 ml or more; R07.9 Chest pain, unspecified; R40.0 Somnolence; R47.81 Slurred speech; H55.00 Unspecified nystagmus; R23.2 Flushing; R11.0 Nausea; R14.2 Eructation; I25.10 Atherosclerotic heart disease of native coronary artery without angina pectoris; I10 Essential (primary) hypertension; I25.2 Old myocardial infarction; J45.909 Unspecified asthma, uncomplicated; Z86.73 Personal history of transient ischemic attack (TIA), and cerebral infarction without residual deficits; Z88.8 Allergy status to other drugs, medicaments and biological substances
CPT/HCPCS: 93005; 99285; 96372; 96360; 96361; 36415; 80307; 85025; 80053; 84484; 71045; 70450; 93010; A9270 ×3; J2550; J7030

== ENCOUNTER 2020-04-29 03:28 | Emergency (ER) | payer MEDICARE, MEDICAID ==
[2020-04-29 04:21] LABS: ABSOLUTE BASOPHILS # (AUTO) 0.1 10^3/uL (0.0-0.2); ABSOLUTE EOSINOPHILS # (AUTO) 0.1 10^3/uL (0.0-0.6); ABSOLUTE LYMPHOCYTES (AUTO) 1.7 10^3/uL (0.5-4.7); ABSOLUTE MONOCYTES (AUTO) 0.4 10^3/uL (0.1-1.4); BASOPHILS % (AUTO) 1.1 % (0-2); EOSINOPHILS % (AUTO) 1.9 % (0-6); HEMOGLOBIN 14.6 g/dL (12.0-15.5); LYMPHOCYTES % (AUTO) 33.1 % (13-45); MEAN CORPUSCULAR HEMOGLOBIN 31.9 pg (27.0-33.4); MEAN CORPUSCULAR HGB CONC 34.7 g/dL (32.0-36.0); MEAN CORPUSCULAR VOLUME 92 fl (80-97); MONOCYTES % (AUTO) 6.7 % (3-13); PLATELET COUNT 130 10^3/uL (150-450); RED BLOOD COUNT 4.57 10^6/uL (3.72-5.28); RED CELL DISTRIBUTION WIDTH 15.8 % (11.5-14.0); SEGMENTED NEUTROPHILS % (AUTO) 57.2 % (42-78); TOTAL CELLS COUNTED % (AUTO) 100 %; WHITE BLOOD COUNT 5.2 10^3/uL (4.0-10.5)
[2020-04-29] MEDS ORDERED: NITROGLYCERIN 2% OINTMENT 1 GM PACKET TP ONE (04:27)
[2020-04-29 04:30] LABS: BILIRUBIN,DIRECT 0.2 mg/dL (0.0-0.4); BILIRUBIN,TOTAL 1.2 mg/dL (0.2-1.3); BLOOD UREA NITROGEN 14 mg/dL (7-20)
[2020-04-29] MEDS ORDERED: MORPHINE SULFATE 10 MG/ML INJ IV ONE ×3 (04:32→09:44)
--- NOTE | 2020-04-29 04:33 | ER Document Report ---
ED Cardiac - General Chief Complaint: Chest Pain Stated Complaint: CHEST PAIN Time Seen by Provider: 04/29/20 04:18 Primary Care Provider: HARIS KILPATRICK FNP-C [Primary Care Provider] - Follow up as needed Notes: Patient is a 54-year-old female who presents to the emergency department with a chief complaint of chest pain. Patient states that her chest pain started about 3 hours prior to arrival. States that it feels very similar to her chest pain she had when she had an CT in 2017. She was seen at [facility] at that time and a stent was placed. Patient states that she feels there is a big ball stuck in the middle of her chest. Patient is still a current every day smoker. She is currently on Plavix, spironolactone, TRAVEL OUTSIDE OF THE [place] IN LAST 30 DAYS: No - Related Data Allergies/Adverse Reactions: lisinopril Allergy (Verified 03/22/20 10:54) prednisone Allergy (Verified 03/22/20 10:54) Past Medical History - General Information source: Patient - Social History Smoking Status: Current Some Day Smoker Frequency of alcohol use: Occasional Drug Abuse: None Family History: Reviewed & Not Pertinent, Hypertension Patient has homicidal ideation: No - Past Medical History Cardiac Medical History: Reports: Hx Coronary Artery Disease, Hx Heart Attack - JANUARY 2017, Hx Hypercholesterolemia, Hx Hypertension Pulmonary Medical History: Reports: Hx Asthma - YEARS AGO, Hx Pneumonia - ABOUT 30 YEARS AGO Denies: Hx Bronchitis, Hx COPD Neurological Medical History: Reports: 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 Denies: Hx Seizures Renal/ Medical History: Denies: Hx Peritoneal Dialysis Musculoskeletal Medical History: Denies Hx Arthritis Psychiatric Medical History: Reports: Hx Depression Past Surgical History: Reports: Hx Section, Hx Orthopedic Surgery - jaw - Immunizations Immunizations up to date: Yes Hx Diphtheria, Pertussis, Tetanus Vaccination: Yes Review of Systems - Review of Systems Notes: REVIEW OF SYSTEMS: CONSTITUTIONAL : Denies recent illness. Denies recent unintentional weight loss. Denies fever, chills, or sweats. EENT: Denies eye, ear, throat, or mouth pain, discharge, or symptoms. Denies nasal or sinus congestion. CARDIOVASCULAR: See HPI. RESPIRATORY: Denies shortness of breath, cough, congestion, difficulty breathi ng, or wheezing. GASTROINTESTINAL: Denies nausea, vomiting, and diarrhea. Denies abdominal pain. Denies constipation. GENITOURINARY: Denies difficulty urinating, burning, blood in urine, urgency or frequency. MUSCULOSKELETAL: Denies neck and back pain. Denies joint pain or swelling. SKIN: Denies rash, itchiness, or lesions HEMATOLOGIC : Denies easy bruising or bleeding. LYMPHATIC: Denies swollen, painful, enlarged glands. NEUROLOGICAL: Denies no numbness or tingling denies weakness. Denies headache. Denies altered mental status. Denies alteration in speech. PSYCHIATRIC: Denies stress, anxiety, alteration in sleep patterns, or depression. All other systems reviewed and negative. Physical Exam - Vital signs Vitals: Temp Pulse Resp BP Pulse Ox 98.0 F 91 22 H 102/66 100 04/29/20 03:44 04/29/20 03:44 04/29/20 03:44 04/29/20 03:44 04/29/20 03:44 - Notes Notes: PHYSICAL EXAMINATION: GENERAL: Appears well, healthy, well-nourished, no acute distress. HEAD: Normocephalic, atraumatic. EYES: PERRL, conjunctiva normal, all extraocular movements intact, sclera nonicteric ENT: Dry mucous membranes. NECK: Supple, no noticeable swelling, redness, rash. Normal range of motion. LUNGS: Equal breath sounds bilaterally and clear to auscultation. No wheezes rales or rhonchi. CARDIOVASCULAR: S1-S2, regular rate, regular rhythm. Radial pulses 2+, normal. ABDOMEN: Normoactive bowel sounds. Soft, tender right upper quadrant abdomen, no guarding, no rebound tenderness, and no masses palpated. EXTREMITIES: Normal strength and range of motion, no pitting or edema. No cyanosis. NEUROLOGICAL: Moves all extremities upon command. Strength 5/5 in all extremities. PSYCH: Normal mood, normal affect. SKIN: Warm, dry. No rash, lesions, ulcerations noted. Normal skin turgor. Course - Re-evaluation Re-evalutation: 04/29/20 05:04 Due to patient having EKG changes in leads V1, V2, and V3, I called [facility] for transfer. Patient's initial troponin is 0.024. Patient also has elevated liver enzymes. Bilirubin is unremarkable. Patient states that she does have history of gallstones in the past. Sodium is 132 and CO2 is 21. Lipase is unremarkable. Hematology is also unremarkable. Alcohol is negative. I called [facility] transfer center and spoke with Hoda Aly RN from [facility]. Patient be admitted to Dr. Faith Weiss. There will be a delay in the patient being transferred due to bed status over at [facility]. We will also send the patient for right upper quadrant ultrasound to evaluate her kidney stones. - Vital Signs Vital signs: Temp Pulse Resp BP Pulse Ox 98.0 F 91 21 H 149/99 H 95 04/29/20 03:45 04/29/20 03:44 04/29/20 07:01 04/29/20 07:00 04/29/20 07:01 - Laboratory Result Diagrams: 04/29/20 04:00 04/29/20 04:00 Laboratory results interpreted by me: 04/29/20 04/29/20 04:00 04:00 RDW 15.8 H Plt Count 130 L Sodium 130.2 L Chloride 94 L Carbon Dioxide 21 L Glucose 161 H AST 242 H ALT 82 H Alkaline Phosphatase 242 H - EKG Interpretation by Me Additional EKG results interpreted by me: 04/29/20 Sinus rhythm. Rate 84. OK 160; QRS 82; QT 400; QTc 473. V1, V2, and V3 R wave changes as compared to previous EKG done on 03/22/2020. Discharge - Discharge Clinical Impression: Chest pain Qualifiers: Chest pain type: unspecified Qualified Code(s): R07.9 - Chest pain, unspecified Condition: Fair Disposition: [facility] Admitting Provider: Dr. Faith Weiss Referrals: HARIS KILPATRICK FNP-C [Primary Care Provider] - Follow up as needed
[2020-04-29 04:42] LABS: CREATINE KINASE MB 1.2 ng/mL (<4.55); TROPONIN I 0.024 ng/mL
[2020-04-29 04:54] LABS: ALBUMIN 4.4 g/dL (3.5-5.0); ALCOHOL < 10 mg/dL (NONE DETECTED); ALKALINE PHOSPHATASE 242 U/L (38-126); ANION GAP 15 (5-19); ASPARTATE AMINO TRANSFERASE 242 U/L (14-36); CALCIUM 8.9 mg/dL (8.4-10.2); CARBON DIOXIDE 21 mmol/L (22-30); CHLORIDE 94 mmol/L (98-107); CREATINE KINASE 99 U/L (30-135); GLUCOSE 161 mg/dL (75-110); TOTAL PROTEIN 7.5 g/dL (6.3-8.2)
--- NOTE | 2020-04-29 06:20 | RADIOLOGY REPORT (SQ) ---
Ultrasound of the right upper quadrant of the abdomen: 04/29/2020 5:17 AM CDT Technique: Multiple grayscale color Doppler images of the right upper quadrant of the abdomen were obtained. Comparison: None available History: 54-year old patient with chest pain. Findings: The visualized portions of the hepatic parenchyma appear diffusely echogenic. There is no evidence to suggest intra or extrahepatic ductal dilatation. There is normal directional flow seen within the main portal vein. There is a possible polyp or punctate cholelithiasis within the gallbladder lumen. No significant gallbladder wall thickening is seen. There is punctate. The common duct measures 1-2 mm. The right kidney measures up to 9.9 cm in length. The right kidney demonstrates normal cortical echogenicity with no evidence to suggest hydronephrosis. The visualized portions of the IVC, abdominal aorta, and pancreatic head appear normal. No free intraperitoneal fluid is seen. Impression: There is cholelithiasis or polyp noted within the gallbladder lumen. The common duct is within normal limits of size. Hepatic steatosis
[2020-04-29] MEDS ORDERED: HYDROMORPHONE HCL INJ/PF 2 MG/ML AMPULE IV ONE ×2 (06:22→13:00)
[2020-04-29] MEDS ORDERED: ONDANSETRON HCL INJ/PF 4 MG/2 ML SDV IV ONE (06:22)
[2020-04-29] MEDS ORDERED: ASPIRIN 81 MG TABLET, CHEWABLE PO ONE (06:27)
--- NOTE | 2020-04-29 09:31 | EKG REPORT ---
SEVERITY:- ABNORMAL ECG - SINUS RHYTHM PROBABLE INFERIOR INFARCT, OLD EXTENSIVE ANTERIOR INFARCT, AGE INDETERMINATE : Confirmed by: Corinna Zambrano MD 29-Apr-2020 09:30:41
--- NOTE | 2020-04-29 09:31 | EKG REPORT ---
SEVERITY:- ABNORMAL ECG - SINUS RHYTHM INFERIOR INFARCT, AGE INDETERMINATE EXTENSIVE ANTERIOR INFARCT, AGE INDETERMINATE : Confirmed by: Corinna Zambrano MD 29-Apr-2020 09:30:47
[2020-04-29] MEDS ORDERED: SPIRONOLACTONE 25 MG TABLET PO ONE (16:27)
[2020-04-29] MEDS ORDERED: CARVEDILOL 6.25 MG TABLET PO ONE (16:27)
[2020-04-29 17:11] VITALS: BP 155/85
[2020-04-29] MEDS ORDERED: METOCLOPRAMIDE HCL INJ/PF 10 MG/2 ML SDV IV ONE (18:22)
== END 2020-04-29 18:32 | disposition short-term general hospital (02) ==
LOC: ER 03:28
DX: R07.89 Other chest pain (principal); R10.811 Right upper quadrant abdominal tenderness; R74.8 Abnormal levels of other serum enzymes; K76.0 Fatty (change of) liver, not elsewhere classified; I25.10 Atherosclerotic heart disease of native coronary artery without angina pectoris; I10 Essential (primary) hypertension; I25.2 Old myocardial infarction; F17.200 Nicotine dependence, unspecified, uncomplicated; J45.909 Unspecified asthma, uncomplicated; Z79.02 Long term (current) use of antithrombotics/antiplatelets; Z79.899 Other long term (current) drug therapy; Z87.01 Personal history of pneumonia (recurrent); Z88.8 Allergy status to other drugs, medicaments and biological substances
CPT/HCPCS: 93005; 99285; 36415; 82553; 80307; 82550; 83690; 85025; 80053; 84484; 76705; 93010; A9270 ×4; J2765; J2270; J1170; J2405

== ENCOUNTER 2020-06-29 09:35 | Emergency (ER) | payer MEDICARE, MEDICAID ==
[2020-06-29] MEDS ORDERED: ONDANSETRON HCL INJ/PF 4 MG/2 ML SDV IV ONE (09:53)
[2020-06-29] MEDS ORDERED: NORMAL SALINE 1000 ML 1,000 ML IV ONE (09:53)
--- NOTE | 2020-06-29 09:58 | ER Document Report ---
ED General - General Stated Complaint: ABDOMINAL PAIN Primary Care Provider: HARIS KILPATRICK FNP-C [Primary Care Provider] - Follow up as needed Notes: Patient is a 54-year-old white female with a history of 4 prior CVAs, one PA with a history of pancreatitis and alcoholism who presents to the emergency department the chief complaint of epigastric abdominal discomfort and nausea and vomiting that began 3 days ago. She states she ate long Memo Joss about 3 days ago and shortly after began feeling ill. States she is been vomiting persistently for the past 3 days. She denies any fever. States that this morning her mouth was so dry she could not stand it and she could not stop vomiting so she came for evaluation. She does admit that she took Zofran at home which did help some. Patient denies any weakness, numbness, tingling. No headache. No visual disturbances. No chest pain or shortness of breath. TRAVEL OUTSIDE OF THE [place] IN LAST 30 DAYS: No - Related Data Allergies/Adverse Reactions: lisinopril Allergy (Verified 03/22/20 10:54) prednisone Allergy (Verified 03/22/20 10:54) Past Medical History - Social History Smoking Status: Unknown if Ever Smoked Family History: Reviewed & Not Pertinent, Hypertension - Past Medical History Cardiac Medical History: Reports: Hx Coronary Artery Disease, Hx Heart Attack - JANUARY 2017, Hx Hypercholesterolemia, Hx Hypertension Pulmonary Medical History: Reports: Hx Asthma - YEARS AGO, Hx Pneumonia - ABOUT 30 YEARS AGO Denies: Hx Bronchitis, Hx COPD Neurological Medical History: Reports: 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 Denies: Hx Seizures Renal/ Medical History: Denies: Hx Peritoneal Dialysis Musculoskeletal Medical History: Denies Hx Arthritis Psychiatric Medical History: Reports: Hx Depression Past Surgical History: Reports: Hx Section, Hx Orthopedic Surgery - jaw - Immunizations Immunizations up to date: Yes Hx Diphtheria, Pertussis, Tetanus Vaccination: Yes Review of Systems - Review of Systems Constitutional: denies: Fever EENT: denies: Throat pain Cardiovascular: denies: Chest pain Respiratory: denies: Cough, Short of breath Gastrointestinal: Abdominal pain, Nausea, Vomiting Genitourinary: denies: Pain Female Genitourinary: No symptoms reported Musculoskeletal: No symptoms reported Skin: denies: Change in color Hematologic/Lymphatic: denies: Easy bruising Neurological/Psychological: denies: Headaches Physical Exam - Vital signs Vitals: Resp Pulse Ox 18 97 06/29/20 09:40 06/29/20 09:40 - General General appearance: Appears well, Alert In distress: None - HEENT Head: Normocephalic, Atraumatic Eyes: Normal Conjunctiva: Normal Extraocular movements intact: Yes Eyelashes: Normal Pupils: PERRL Ears: Normal External canal: Normal Tympanic membrane: Normal Nasal: Normal Mouth/Lips: Normal Mucous membranes: Normal Pharynx: Normal Neck: Normal, Supple - Respiratory Respiratory status: No respiratory distress Chest status: Nontender Breath sounds: Normal Chest palpation: Normal - Cardiovascular Rhythm: Regular Heart sounds: Normal auscultation - Abdominal Inspection: Normal Distension: No distension Bowel sounds: Normal Tenderness: Tender - Epigastric Organomegaly: No organomegaly - Neurological Neuro grossly intact: Yes Cognition: Normal Orientation: AAOx4 [place] Coma Scale Eye Opening: Spontaneous [place] Coma Scale Verbal: Oriented [place] Coma Scale Motor: Obeys Commands [place] Coma Scale Total: 15 Speech: Normal Cranial nerves: Normal Cerebellar coordination: Normal Motor strength normal: LUE, RUE, LLE, RLE 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 No: Pronator drift, Weakness Sensory: Normal - Psychological Associated symptoms: Normal affect, Normal mood - Skin Skin Temperature: Warm Skin Moisture: Dry Skin Color: Normal Course - Re-evaluation Re-evalutation: 06/29/20 10:30 EK:12 AM. Sinus rhythm at 82 bpm. Prolonged QTC at 505. No STEMI. Compared to previous EKG dated 04/29/2020 the patient's QTC has prolonged slightly further. Otherwise morphology is largely unchanged. Interpreted by ED attending. 06/29/20 12:32 Patient's lab work showing some elevated glucose and liver function test. Some ketones and glucose in the urine. Her serum alcohol is 130. She is obviously intoxicated. She reports that in fact she did not drink 1 glass of wine she had an entire box of wine. She is otherwise stable. Her nausea and vomiting is well controlled here. She obviously was able to keep down a box of wine last night between her 3-day episode that she described of vomiting. She has not had any vomiting here. She describes no more nausea on reevaluation. She is stable for discharge at this time. She has contacted a friend who will pick her up. We will plan for discharge upon her friends arrival. Nurse will verify he is here for patient discharge into his custody. 06/29/20 12:32 06/29/20 12:33 - Vital Signs Vital signs: Temp Pulse Resp BP Pulse Ox 21 H 125/82 96 06/29/20 12:20 06/29/20 12:20 06/29/20 12:20 - Laboratory Result Diagrams: 06/29/20 09:58 06/29/20 09:58 Laboratory results interpreted by me: 06/29/20 06/29/20 06/29/20 09:58 09:58 10:15 RBC 3.26 L Hgb 10.9 L Hct 31.8 L RDW 15.1 H Plt Count 138 L Sodium 131.5 L Chloride 96 L Carbon Dioxide 21 L Glucose 278 H Calcium 7.6 L AST 164 H ALT 42 H Alkaline Phosphatase 165 H Total Protein 5.4 L Albumin 3.0 L Urine Protein 100 H Urine Glucose (UA) >=500 H Urine Ketones TRACE H Urine Urobilinogen 2.0 H Urine Ascorbic Acid 40 H Discharge - Discharge Clinical Impression: Alcohol intoxication Qualifiers: Complication of substance-induced condition: uncomplicated Qualified Code(s): F10.920 - Alcohol use, unspecified with intoxication, uncomplicated Nausea and vomiting Qualifiers: Vomiting type: unspecified Vomiting Intractability: non-intractable Qualified Code(s): R11.2 - Nausea with vomiting, unspecified Condition: Stable Disposition: HOME, SELF-CARE Instructions: Vomiting ([facility]), Acute Alcohol Intoxication ([facility]) Additional Instructions: Follow-up with your regular doctor in 2 to 3 days for reevaluation. Return here or any ER immediately with any new, persistent or worsening symptoms. Prescriptions: Ondansetron [Zofran Odt 4 mg Tablet] 4 mg PO Q8 PRN #20 tab.rapdis PRN Reason: Referrals: HARIS KILPATRICK FNP-C [Primary Care Provider] - Follow up as needed
[2020-06-29 10:10] LABS: ABSOLUTE BASOPHILS # (AUTO) 0.1 10^3/uL (0.0-0.2); ABSOLUTE LYMPHOCYTES (AUTO) 2.3 10^3/uL (0.5-4.7); ABSOLUTE MONOCYTES (AUTO) 0.7 10^3/uL (0.1-1.4); ABSOLUTE NEUT (AUTO) 4.7 10^3/uL (1.7-8.2); BASOPHILS % (AUTO) 1.1 % (0-2); EOSINOPHILS % (AUTO) 0.4 % (0-6); HEMATOCRIT 31.8 % (36.0-47.0); HEMOGLOBIN 10.9 g/dL (12.0-15.5); LYMPHOCYTES % (AUTO) 29.6 % (13-45); MEAN CORPUSCULAR HEMOGLOBIN 33.3 pg (27.0-33.4); MEAN CORPUSCULAR HGB CONC 34.2 g/dL (32.0-36.0); MEAN CORPUSCULAR VOLUME 97 fl (80-97); MONOCYTES % (AUTO) 8.7 % (3-13); PLATELET COUNT 138 10^3/uL (150-450); RED BLOOD COUNT 3.26 10^6/uL (3.72-5.28); RED CELL DISTRIBUTION WIDTH 15.1 % (11.5-14.0); SEGMENTED NEUTROPHILS % (AUTO) 60.2 % (42-78); TOTAL CELLS COUNTED % (AUTO) 100 %; WHITE BLOOD COUNT 7.8 10^3/uL (4.0-10.5)
[2020-06-29 10:27] LABS: ALCOHOL 130 mg/dL (NONE DETECTED); ALKALINE PHOSPHATASE 165 U/L (38-126); ANION GAP 15 (5-19); ASPARTATE AMINO TRANSFERASE 164 U/L (14-36); BILIRUBIN,TOTAL 0.4 mg/dL (0.2-1.3); BLOOD UREA NITROGEN 12 mg/dL (7-20); CALCIUM 7.6 mg/dL (8.4-10.2); CARBON DIOXIDE 21 mmol/L (22-30); CHLORIDE 96 mmol/L (98-107); CREATINE KINASE 74 U/L (30-135); GLUCOSE 278 mg/dL (75-110); TOTAL PROTEIN 5.4 g/dL (6.3-8.2)
[2020-06-29 10:28] LABS: POTASSIUM 4.2 mmol/L (3.6-5.0)
[2020-06-29 11:10] LABS: APPEARANCE,URINE CLEAR; BILIRUBIN,URINE NEGATIVE (NEGATIVE); COLOR,URINE YELLOW; GLUCOSE, URINE >=500 mg/dL (NEGATIVE); KETONES,URINE TRACE mg/dL (NEGATIVE); PROTEIN,URINE 100 mg/dL (NEGATIVE); URINE SPECIFIC GRAVITY 1.018
[2020-06-29 12:34] VITALS: BP 122/86
--- NOTE | 2020-06-29 14:59 | EKG REPORT ---
SEVERITY:- ABNORMAL ECG - SINUS RHYTHM ANTERIOR INFARCT, AGE INDETERMINATE BORDERLINE PROLONGED QT INTERVAL : Confirmed by: Paul Tejeda MD 29-Jun-2020 14:59:12
== END 2020-06-29 12:44 | disposition home or self-care (01) ==
LOC: ER 09:35
DX: F10.920 Alcohol use, unspecified with intoxication, uncomplicated (principal); R11.2 Nausea with vomiting, unspecified; R10.9 Unspecified abdominal pain; R10.13 Epigastric pain; Z86.73 Personal history of transient ischemic attack (TIA), and cerebral infarction without residual deficits; I25.2 Old myocardial infarction; Z79.899 Other long term (current) drug therapy; Z88.8 Allergy status to other drugs, medicaments and biological substances; I25.10 Atherosclerotic heart disease of native coronary artery without angina pectoris
CPT/HCPCS: 93005; 99284; 96361; 96374; 36415; 80307; 82550; 83690; 85025; 80053; 81001; 84484; 93010; J2405; J7030

== ENCOUNTER → 2020-07-17 | Outpatient (CLI) | payer MEDICARE, OTHER ==
--- NOTE | 2020-07-17 12:25 | RADIOLOGY REPORT (SQ) ---
EXAM DESCRIPTION: SHOULDER RIGHT 2 OR MORE VIEWS IMAGES COMPLETED DATE/TIME: 07/17/2020 10:56 am REASON FOR STUDY: RT SHOULDER INJURY S49.91XA UNSP INJURY OF RIGHT SHOULDER AND UPPER ARM, INIT E COMPARISON: None. NUMBER OF VIEWS: Three views. TECHNIQUE: Internal rotation, external rotation, and Y view images acquired of the right shoulder. LIMITATIONS: None. FINDINGS: MINERALIZATION: Normal. BONES: No acute fracture. No worrisome bone lesions. JOINTS: No dislocation. VISUALIZED LUNGS AND RIBS: No pneumothorax. No rib fracture. SOFT TISSUES: No radiopaque foreign body. OTHER: No other significant finding. IMPRESSION: NEGATIVE STUDY OF THE RIGHT SHOULDER. NO RADIOGRAPHIC EVIDENCE OF ACUTE INJURY. TECHNICAL DOCUMENTATION: JOB ID: [id number] 2010 [employer]- All Rights Reserved Reading location - IP/workstation name: [email or web address]
== END ==
LOC: OD 10:28
PROVIDERS: ATTEND Nurse Practitioner Primary Care
DX: S49.91XA Unspecified injury of right shoulder and upper arm, initial encounter (principal); X58.XXXA Exposure to other specified factors, initial encounter

== ENCOUNTER 2020-09-13 14:31 | Emergency (ER) | payer MEDICARE, MEDICAID ==
[2020-09-13] MEDS ORDERED: NORMAL SALINE 1000 ML 1,000 ML IV ONE (15:05)
[2020-09-13] MEDS ORDERED: MECLIZINE HCL 25 MG TABLET PO ONE (15:05)
[2020-09-13 15:06] LABS: HEMOGLOBIN 10.5 g/dL (12.0-15.5); MEAN CORPUSCULAR HEMOGLOBIN 32.7 pg (27.0-33.4); MEAN CORPUSCULAR VOLUME 94 fl (80-97); RED CELL DISTRIBUTION WIDTH 14.8 % (11.5-14.0)
--- NOTE | 2020-09-13 15:11 | ER Document Report ---
ED General - General Chief Complaint: Dizziness Stated Complaint: DIZZINESS Primary Care Provider: HARIS KILPATRICK FNP-C [Primary Care Provider] - Follow up as needed Notes: Patient is a 54-year-old white female with a history of [place], prior CVA x4, reporting 3 ischemic and one hemorrhagic who presents the emergency department the chief complaint of dizziness. Patient states she awoke this morning after having a glass of dimitrios and juice last night and had some breakfast. She states she had orange juice, milk and eggs and meat for breakfast. She states she went outside to have a cigarette and felt slightly short of breath and st ates she felt she needed something cold. She went side had 2 popsicles and states she was doing okay. She was on her way to the restroom to urinate and states that she suddenly felt as if she was "drunk". Describing this as her sensation of dizziness. She states she felt mentally sober but mechanically drunk. States that she struck the side of her head on the wall near the toilet. Denies loss of consciousness. States that she had a slight transient headache at the top of the head at that time with some slight photophobia. She denies any syncope. Denies any nausea vomiting or diarrhea. Denies any abdominal pain. She reports she was supposed to go to work but was concerned and called EMS to bring her for evaluation. She states this is happened once previously and says she called her primary doctor who evaluated her and stated this was likely a reaction to her Coreg and had her change her dosing and medication regimen in response. She states she has not had any episodes since but is unsure if the change in medicine made a difference. She denies any chest pain. No significant lower extremity swelling or pain. No yellowing of the eyes or skin. No neck pain. She reports since arrival here after getting some fluids from EMS she feels significantly better, reporting her vision is normal she has no headache and her dizzy symptoms have greatly improved. She denies any drugs. Current everyday smoker. Reports only 1 glass of dimitrios last night. States that she also has some insomnia and was up until 4 in the morning last night. Vitals from EMS on run sheet showing a blood pressure of 70/49, heart rate of 80 blood sugar of 360, O2 sat of 97% on room air and respiratory rate of 20. TRAVEL OUTSIDE OF THE [place] IN LAST 30 DAYS: No - Related Data Allergies/Adverse Reactions: lisinopril Allergy (Verified 03/22/20 10:54) prednisone Allergy (Verified 03/22/20 10:54) Past Medical History - Social History Smoking Status: Current Every Day Smoker Family History: Reviewed & Not Pertinent, Hypertension Patient has homicidal ideation: No - Past Medical History Cardiac Medical History: Reports: Hx Coronary Artery Disease, Hx Heart Attack - JANUARY 2017, Hx Hypercholesterolemia, Hx Hypertension Pulmonary Medical History: Reports: Hx Asthma - YEARS AGO, Hx Pneumonia - ABOUT 30 YEARS AGO Denies: Hx Bronchitis, Hx COPD Neurological Medical History: Reports: 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 Denies: Hx Seizures Renal/ Medical History: Denies: Hx Peritoneal Dialysis Musculoskeletal Medical History: Denies Hx Arthritis Psychiatric Medical History: Reports: Hx Depression Past Surgical History: Reports: Hx Section, Hx Orthopedic Surgery - jaw - Immunizations Immunizations up to date: Yes Hx Diphtheria, Pertussis, Tetanus Vaccination: Yes Review of Systems - Review of Systems Constitutional: denies: Fever EENT: denies: Nose discharge Cardiovascular: Dizziness Respiratory: denies: Sputum Gastrointestinal: denies: Vomiting Genitourinary: denies: Flank pain Female Genitourinary: denies: Irregular period Musculoskeletal: denies: Deformity Skin: denies: Lesions Hematologic/Lymphatic: denies: Easy bleeding Neurological/Psychological: denies: Weakness Physical Exam - Vital signs Vitals: Temp 98.1 F 09/13/20 14:45 - General General appearance: Appears well, Alert In distress: None - HEENT Head: Normocephalic, Atraumatic Eyes: Normal Conjunctiva: Normal Extraocular movements intact: Yes Eyelashes: Normal Pupils: PERRL Ears: Normal External canal: Normal Tympanic membrane: Normal Nasal: Normal Mouth/Lips: Normal Mucous membranes: Normal Pharynx: Normal Neck: Normal - Respiratory Respiratory status: No respiratory distress Chest status: Nontender Breath sounds: Normal Chest palpation: Normal - Cardiovascular Rhythm: Regular Heart sounds: Normal auscultation - Abdominal Inspection: Normal Distension: No distension Bowel sounds: Normal Tenderness: Other - Slight tenderness to right upper quadrant Organomegaly: No organomegaly - Extremities General upper extremity: Normal inspection, Nontender, Normal color, Normal ROM, Normal temperature General lower extremity: Normal inspection, Nontender, Normal color, Normal ROM, Normal temperature, Normal weight bearing. 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 No: Pronator drift, Weakness Sensory: Normal - Psychological Associated symptoms: Normal affect, Normal mood - Skin Skin Temperature: Warm Skin Moisture: Dry Skin Color: Normal Course - Re-evaluation Re-evalutation: 09/13/20 15:10 The patient was given a 500 L bolus in response to her BP taken by EMS on their arrival to 1 seen. Initial BP according to the run sheet was 70/49, repeat was 83/48 and the patient was subsequently given the 500 L bolus. And at their repeat vitals show her blood pressure to be 106/68, heart rate of 91, respiratory rate of 15 and room air saturation of 97% with a temp of 98.1 Fahrenheit. Patient appears stable at this time. Has a normal neurological exam. Nonfocal. Will obtain blood work and imaging and continue to monitor the patient. Orthostatics will be obtained and patient will be given more fluids. 09/13/20 15:14 EK. Sinus rhythm at 88 bpm. Normal intervals. No STEMI. Largely unchanged from prior EKG dated 06/29/2020. Interpreted by myself in conjunction with ED attending. 09/13/20 15:14 09/13/20 18:06 Patient's laboratory studies showing a leukopenia this appears to be new compared to patient's historical WBC. Otherwise changes appear to be chronic. CT scan negative for acute process per radiologist. Chest x-ray negative for any acute process per radiologist. Patient looks and feels better here. Given her constellation of dizziness, feeling unwell, shortness of breath and leukopenia we will swab her for COVID-19. She had no other known risk factors or relatable symptoms at this time. She will quarantine until a negative result is found. We discussed follow-up with her doctor by phone in the next 2 to 3 days and advise she return here any ER immediately with any new, persistent or worsening symptoms. She verbalized understood and agreed. 09/13/20 18:07 - Vital Signs Vital signs: Temp Pulse Resp BP Pulse Ox 98.1 F 91 13 119/70 99 09/13/20 14:50 09/13/20 14:50 09/13/20 17:30 09/13/20 17:30 09/13/20 17:30 - Laboratory Result Diagrams: 09/13/20 14:39 09/13/20 14:39 Laboratory results interpreted by me: 09/13/20 09/13/20 09/13/20 14:39 14:39 15:07 WBC 1.9 L RBC 3.20 L Hgb 10.5 L Hct 30.0 L RDW 14.8 H Plt Count 72 L Abs Neuts (Manual) 0.9 L Sodium 136.2 L Glucose 297 H Calcium 8.2 L Direct Bilirubin 0.6 H AST 227 H ALT 144 H Alkaline Phosphatase 308 H Total Protein 5.5 L Albumin 3.1 L Urine Glucose (UA) >=500 H Discharge - Discharge Clinical Impression: Dizziness, Shortness of breath, Person under investigation for COVID-19 Leukopenia Qualifiers: Leukopenia type: unspecified Qualified Code(s): D72.819 - Decreased white blood cell count, unspecified Condition: Stable Disposition: HOME, SELF-CARE Instructions: COVID-19 Guidance for Persons Under Investigation Additional Instructions: Please isolate and quarantine in your home until you are contacted with a negative COVID-19 test results. You are currently considered a patient under investigation. Please follow-up with your doctor by telephone for continued outpatient monitoring. Please return here or any ER immediately with any new, persistent or worsening symptoms. Forms: Return to Work Referrals: HARIS KILPATRICK FNP-C [Primary Care Provider] - Follow up as needed
[2020-09-13 15:13] LABS: ALBUMIN 3.1 g/dL (3.5-5.0); ALKALINE PHOSPHATASE 308 U/L (38-126); ANION GAP 9 (5-19); ASPARTATE AMINO TRANSFERASE 227 U/L (14-36); BILIRUBIN,DIRECT 0.6 mg/dL (0.0-0.4); BILIRUBIN,TOTAL 0.7 mg/dL (0.2-1.3); BLOOD UREA NITROGEN 15 mg/dL (7-20); CALCIUM 8.2 mg/dL (8.4-10.2); CARBON DIOXIDE 22 mmol/L (22-30); CHLORIDE 105 mmol/L (98-107); CREATINE KINASE 42 U/L (30-135); GLUCOSE 297 mg/dL (75-110); POTASSIUM 3.9 mmol/L (3.6-5.0); TOTAL PROTEIN 5.5 g/dL (6.3-8.2)
[2020-09-13 15:21] LABS: INTERNATIONAL RATION (INR) 1.19; PROTHROMBIN TIME 15.3 SEC (11.4-15.4)
[2020-09-13 15:22] LABS: PARTIAL THROMBOPLASTIN TIME 26.1 SEC (23.5-35.8)
[2020-09-13 15:24] LABS: CREATINE KINASE MB 0.79 ng/mL (<4.55)
[2020-09-13 15:25] LABS: TROPONIN I < 0.012 ng/mL
[2020-09-13 15:27] LABS: PLATELET COUNT 72 10^3/uL (150-450)
[2020-09-13 15:30] LABS: ABSOLUTE LYMPHOCYTES# (MANUAL) 0.8 10^3/uL (0.5-4.7); ABSOLUTE MONOCYTES # (MANUAL) 0.1 10^3/uL (0.1-1.4); BASOPHILS % (MANUAL) 0 % (0-2); EOSINOPHILS % (MANUAL) 6 % (0-6); LYMPHOCYTES % (MANUAL) 42 % (13-45); MONOCYTES % (MANUAL) 6 % (3-13); SEGMENTED NEUTROPHILS % (MAN) 46 % (42-78); TOTAL CELLS COUNTED 50
[2020-09-13 15:30] LABS: APPEARANCE,URINE CLEAR; BILIRUBIN,URINE NEGATIVE (NEGATIVE); COLOR,URINE YELLOW; GLUCOSE, URINE >=500 mg/dL (NEGATIVE); KETONES,URINE NEGATIVE (NEGATIVE); PROTEIN,URINE NEGATIVE (NEGATIVE); URINE SPECIFIC GRAVITY 1.009; UROBILINOGEN,URINE NEGATIVE mg/dL (<2.0)
[2020-09-13 15:33] LABS: ANISOCYTOSIS SLIGHT; PLATELET COMMENT DECREASED; POLYCHROMASIA SLIGHT
[2020-09-13 15:34] LABS: WHITE BLOOD COUNT 1.9 10^3/uL (4.0-10.5)
[2020-09-13 15:44] LABS: URINE AMPHETAMINES SCREEN NEGATIVE; URINE BARBITURATES SCREEN NEGATIVE; URINE BENZODIAZEPINES SCREEN NEGATIVE; URINE COCAINE SCREEN NEGATIVE; URINE MARIJUANA (THC) SCREEN NEGATIVE; URINE METHADONE SCREEN NEGATIVE; URINE PHENCYCLIDINE SCREEN NEGATIVE
--- NOTE | 2020-09-13 15:47 | RADIOLOGY REPORT (SQ) ---
EXAM DESCRIPTION: CHEST SINGLE VIEW IMAGES COMPLETED DATE/TIME: 09/13/2020 3:28 pm REASON FOR STUDY: dizzy COMPARISON: Chest radiograph 03/22/2020 NUMBER OF VIEWS: One view. TECHNIQUE: Single frontal radiographic view of the chest acquired. LIMITATIONS: None. FINDINGS: LUNGS AND PLEURA: No opacities, masses or pneumothorax. No pleural effusion. MEDIASTINUM AND HILAR STRUCTURES: No masses. Contour normal. HEART AND VASCULAR STRUCTURES: Heart normal in size. Normal vasculature. BONES: No acute findings. HARDWARE: None in the chest. OTHER: No other significant finding. IMPRESSION: NO SIGNIFICANT RADIOGRAPHIC FINDING IN THE CHEST. TECHNICAL DOCUMENTATION: JOB ID: [id number] 2010 [employer]- All Rights Reserved Reading location - IP/workstation name: [email or web address]
--- NOTE | 2020-09-13 16:46 | RADIOLOGY REPORT (SQ) ---
EXAM DESCRIPTION: CT HEAD WITHOUT IMAGES COMPLETED DATE/TIME: 09/13/2020 4:27 pm REASON FOR STUDY: dizzy prior CVAx4 COMPARISON: CT head 03/22/2020 TECHNIQUE: Axial images acquired through the brain without intravenous contrast. Images reviewed wi th bone, brain and subdural windows. Images stored on PACS. All CT scanners at this facility use dose modulation, iterative reconstruction, and/or weight based d osing when appropriate to reduce radiation dose to as low as reasonably achievable (ALARA). [facility]: Dose Right [facility]: CareDose [facility]: Dose Right [facility]: Teradose 4D [facility]: Cree RADIATION DOSE: CT Rad equipment meets quality standard of care and radiation dose reduction techniq ues were employed. CTDIvol: 53.2 mGy. DLP: 964 mGy-cm. mGy. LIMITATIONS: None. FINDINGS: VENTRICLES: Prominent. CEREBRUM: No masses. No hemorrhage. No midline shift. Areas of low density in the white matter mos t likely due to chronic micro-vascular ischemic change. No evidence for acute infarction. CEREBELLUM: No masses. No hemorrhage. No alteration of density. No evidence for acute infarction. EXTRAAXIAL SPACES: Mild age-related involutional change. No fluid collections. No masses. ORBITS AND GLOBE: No intra- or extraconal masses. Normal contour of globe without masses. CALVARIUM: No fracture. PARANASAL SINUSES: No fluid or mucosal thickening. SOFT TISSUES: No mass or hematoma. OTHER: No other significant finding. IMPRESSION: MILD CHRONIC CHANGES OF ATROPHY AND MICROVASCULAR ISCHEMIA. NO ACUTE PROCESS. EVIDENCE OF ACUTE STROKE: NO. TECHNICAL DOCUMENTATION: JOB ID: [id number] Quality ID # [id number]: Final reports with documentation of one or more dose reduction techniques (e.g., Au tomated exposure control, adjustment of the mA and/or kV according to patient size, use of iterative reconstruction technique) 2010 [employer]- All Rights Reserved Reading location - IP/workstation name: [email or web address]
[2020-09-13 18:27] VITALS: BP 110/66
--- NOTE | 2020-09-14 19:17 | EKG REPORT ---
SEVERITY:- ABNORMAL ECG - SINUS RHYTHM BORDERLINE INFERIOR Q WAVES ANTERIOR INFARCT, AGE INDETERMINATE : Confirmed by: Teddy Castillo MD 14-Sep-2020 19:17:11
[2020-09-15 14:11] LABS: PATH REVIEW PATHOLOGIST REVIEWED
== END 2020-09-13 18:31 | disposition home or self-care (01) ==
LOC: ER 14:31
DX: R42 Dizziness and giddiness (principal); J45.909 Unspecified asthma, uncomplicated; R06.02 Shortness of breath; R10.811 Right upper quadrant abdominal tenderness; D72.819 Decreased white blood cell count, unspecified; R51.9 Headache, unspecified; H53.149 Visual discomfort, unspecified; W22.01XA Walked into wall, initial encounter; Y93.89 Activity, other specified; G47.00 Insomnia, unspecified; F17.210 Nicotine dependence, cigarettes, uncomplicated; I25.10 Atherosclerotic heart disease of native coronary artery without angina pectoris; I10 Essential (primary) hypertension; I25.2 Old myocardial infarction; Z86.73 Personal history of transient ischemic attack (TIA), and cerebral infarction without residual deficits; Z79.899 Other long term (current) drug therapy; Z87.01 Personal history of pneumonia (recurrent); Z88.8 Allergy status to other drugs, medicaments and biological substances; Z20.828 Contact with and (suspected) exposure to other viral communicable diseases
CPT/HCPCS: 93005; 99285; 96360; 96361; 36415; 82553; 80307 ×2; 82550; 85025; 85610; 85730; 80053; 81001; 84484; 71045; 70450; 93010; U0003; A9270; J7030; C9803; 87635

== ENCOUNTER 2020-09-24 22:41 | Inpatient (IN) | payer MEDICARE, MEDICAID ==
[2020-09-24] MEDS ORDERED: NORMAL SALINE 1000 ML 1,000 ML IV ONE (23:10)
[2020-09-24] MEDS ORDERED: OXYCODONE HCL IR 5 MG TABLET PO ONE (23:10)
--- NOTE | 2020-09-24 23:13 | ER Document Report ---
ED General - General Chief Complaint: Altered Mental Status Stated Complaint: AMS,POSSIBLE SEPSIS Notes: 55-year-old female history of CAD with stent on dual antiplatelet, have high, hypertension, hyperlipidemia, stroke, CHF on Lasix, COPD presents with episode of near syncope. Patient says that she was in her usual state of health and felt well other than few episodes of nonbloody nonblack diarrhea over the past day and then took her usual afternoon medications and shortly after began to feel extremely weak all over lightheaded like she was going to faint. Patient did not faint did not sustain any trauma and activated EMS who got a blood pressure of 40s to 50s systolic on scene. Patient had a lactate that was elevated with EMS and they gave her ceftriaxone 1 g IV prior to arrival and 1 L of crystalloid. Patient in ED blames her medications for her symptoms. Patient says that she has been on these medications for a long time and has not had any recent medication changes. Patient was seen in ED for vague lightheadedness symptoms approximately 10 days ago and had a Covid test which was negative. Patient denies any chest pain, shortness of breath, cough, abdominal pain, urinary symptoms, black stool, bloody stool, myalgia, EtOH/drug use, recent antibiotics, recent hospitalizations, immune compromise history, headache, neck pain or stiffness, thyroid history, steroid use TRAVEL OUTSIDE OF THE [place] IN LAST 30 DAYS: No - Related Data Allergies/Adverse Reactions: lisinopril Allergy (Verified 03/22/20 10:54) prednisone Allergy (Verified 03/22/20 10:54) Past Medical History - General Information source: Patient, Emergency Med Personnel, [facility] Records - Social History Smoking Status: Unknown if Ever Smoked Family History: Reviewed & Not Pertinent, Hypertension - Past Medical History Cardiac Medical History: Reports: Hx Coronary Artery Disease, Hx Heart Attack - JANUARY 2017, Hx Hypercholesterolemia, Hx Hypertension Pulmonary Medical History: Reports: Hx Asthma - YEARS AGO, Hx Pneumonia - ABOUT 30 YEARS AGO Denies: Hx Bronchitis, Hx COPD Neurological Medical History: Reports: 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 Denies: Hx Seizures Renal/ Medical History: Denies: Hx Peritoneal Dialysis Musculoskeletal Medical History: Denies Hx Arthritis Psychiatric Medical History: Reports: Hx Depression Past Surgical History: Reports: Hx Section, Hx Orthopedic Surgery - jaw - Immunizations Immunizations up to date: Yes Hx Diphtheria, Pertussis, Tetanus Vaccination: Yes Review of Systems - Review of Systems Notes: REVIEW OF SYSTEMS: CONSTITUTIONAL : Denies fever, chills, or sweats. EENT: Denies recent cold/sinus symptoms, denies throat pain CARDIOVASCULAR: Denies chest pain, ROSY RESPIRATORY: Denies cough, denies shortness of breath. GASTROINTESTINAL: Denies abdominal pain, nausea/vomiting. GENITOURINARY: Denies difficulty urinating, painful urination. FEMALE GENITOURINARY: Denies abnormal vaginal bleeding, vaginal discharge. MUSCULOSKELETAL: Denies neck pain, back pain. SKIN: Denies rash or skin lesions. HEMATOLOGIC : Denies easy bruising or bleeding. LYMPHATIC: Denies swollen, enlarged glands. NEUROLOGICAL: Denies headache, denies change in gait. PSYCHIATRIC: Denies anxiety or stress or depression. Physical Exam - Vital signs Vitals: Temp 97.3 F 09/24/20 22:42 - Notes Notes: PHYSICAL EXAMINATION: GENERAL: Well-appearing, well-nourished and in no acute distress. HEAD: Atraumatic, normocephalic. EYES: Pupils equal round and appropriate constriction, sclera anicteric, conjunctiva are normal. ENT: nares patent, moist mucous membranes. NECK: Normal range of motion, supple without lymphadenopathy LUNGS: Breath sounds clear to auscultation bilaterally and equal. No wheezes rales or rhonchi. HEART: Regular rate and rhythm without murmurs ABDOMEN: Soft, nontender, no guarding, no masses, no CVAT, no gross blood on rec destin, scant light brown guaiac negative stool EXTREMITIES: Normal range of motion, no pitting or edema. No cyanosis. NEUROLOGICAL: Awake, alert, conversing appropriately, moves all extremities spon taneously. PSYCH: Normal mood, normal affect. SKIN: Warm, Dry, normal turgor, no rashes, no mottling, no cyanosis, normal color Course - Re-evaluation Re-evalutation: 09/25/20 01:39 Patient with undifferentiated shock. Patient attribute symptoms to medications but no immediate sign that this is related to a medication overdose. Patient with diarrhea but no C. difficile risk factors. Blood pressure improved with fluids and patient was given broad-spectrum antibiotics prior to arrival, but still requiring Levophed to maintain MAP of 65. rule out adrenal crisis, acute renal failure, ACS, septic shock, cardiogenic shock, COVID-19, flu, myocarditis. Labs likely PE or myxedema coma, given low suspicion able to rule out with D- dimer and TSH respectively. Patient with elevated troponin but no cardiac symptoms and patient is alert and oriented and able to give fully coherent history and report symptoms reliably and has no current ACS symptoms, I repeated patient's EKG which remained without any signs of acute ischemia. No indication for cath at this time. Discussed patient with Sobeida winchester from ICU who has accepted patient to ICU. - Vital Signs Vital signs: Temp Pulse Resp BP Pulse Ox 98.7 F 88 16 144/88 H 99 09/26/20 08:00 09/26/20 08:00 09/26/20 08:00 09/26/20 08:00 09/26/20 08:00 - Laboratory Result Diagrams: 09/25/20 04:09 09/26/20 03:48 Laboratory results interpreted by me: 09/24/20 09/24/20 09/24/20 22:49 22:49 22:49 RBC 3.09 L Hgb 10.1 L Hct 28.7 L RDW 15.3 H Plt Count 145 L PT Sodium 123.7 L Potassium 3.3 L Chloride 89 L Carbon Dioxide 21 L BUN 63 H Creatinine 1.96 H Est GFR ( Amer) 32 L Est GFR (MDRD) Non-Af 26 L Glucose 314 H Lactic Acid 3.0 H Phosphorus 5.7 H Magnesium 1.2 L* AST 112 H ALT 54 H Alkaline Phosphatase 262 H Total Protein 5.4 L Albumin 3.2 L 09/24/20 22:49 RBC Hgb Hct RDW Plt Count PT 16.7 H Sodium Potassium Chloride Carbon Dioxide BUN Creatinine Est GFR ( Amer) Est GFR (MDRD) Non-Af Glucose Lactic Acid Phosphorus Magnesium AST ALT Alkaline Phosphatase Total Protein Albumin - EKG Interpretation by Me Additional EKG results interpreted by me: 09/27/20 06:44 Sinus rhythm, no significant ST elevations or depressions, no significant T wave abnormalities, QTc 439 Procedures - Ultrasound/Bedside Ultrasound/Bedside Time completed: 23:30 Ultrasound: Other - Bilateral lungs with positive lung sliding, predominant a lines, heart with mildly decreased myocardial function without any pericardial effusion, negative FAST exam, unable to visualize IVC or aorta secondary to bowel gas Critical Care Note - Critical Care Note Total time excluding time spent on procedures (mins): 35 - Spent time stabilizi ng and repeatedly reassessing critical patient with undifferentiated shock. Discharge - Discharge Clinical Impression: Shock Condition: Critical Disposition: ADMITTED INPATIENT Admitting Provider: Sobeida Abel Unit Admitted: ICU
[2020-09-24 23:22] LABS: ABSOLUTE BASOPHILS # (AUTO) 0.1 10^3/uL (0.0-0.2); ABSOLUTE LYMPHOCYTES (AUTO) 2.3 10^3/uL (0.5-4.7); ABSOLUTE MONOCYTES (AUTO) 0.6 10^3/uL (0.1-1.4); ABSOLUTE NEUT (AUTO) 6.5 10^3/uL (1.7-8.2); BASOPHILS % (AUTO) 0.7 % (0-2); EOSINOPHILS % (AUTO) 0.4 % (0-6); HEMATOCRIT 28.7 % (36.0-47.0); HEMOGLOBIN 10.1 g/dL (12.0-15.5); LYMPHOCYTES % (AUTO) 24.4 % (13-45); MEAN CORPUSCULAR HEMOGLOBIN 32.5 pg (27.0-33.4); MEAN CORPUSCULAR VOLUME 93 fl (80-97); MONOCYTES % (AUTO) 5.9 % (3-13); PLATELET COUNT 145 10^3/uL (150-450); RED BLOOD COUNT 3.09 10^6/uL (3.72-5.28); RED CELL DISTRIBUTION WIDTH 15.3 % (11.5-14.0); SEGMENTED NEUTROPHILS % (AUTO) 68.6 % (42-78); TOTAL CELLS COUNTED % (AUTO) 100 %; WHITE BLOOD COUNT 9.4 10^3/uL (4.0-10.5)
[2020-09-24 23:30] LABS: ALBUMIN 3.2 g/dL (3.5-5.0); ALKALINE PHOSPHATASE 262 U/L (38-126); ANION GAP 14 (5-19); ASPARTATE AMINO TRANSFERASE 112 U/L (14-36); BILIRUBIN,DIRECT 0.2 mg/dL (0.0-0.4); BILIRUBIN,TOTAL 0.5 mg/dL (0.2-1.3); BLOOD UREA NITROGEN 63 mg/dL (7-20); CALCIUM 8.6 mg/dL (8.4-10.2); CARBON DIOXIDE 21 mmol/L (22-30); CHLORIDE 89 mmol/L (98-107); CREATINE KINASE 85 U/L (30-135); GLUCOSE 314 mg/dL (75-110); PHOSPHORUS 5.7 mg/dL (2.5-4.5); POTASSIUM 3.3 mmol/L (3.6-5.0); TOTAL PROTEIN 5.4 g/dL (6.3-8.2)
[2020-09-24] MEDS ORDERED: RINGERS LACTATED IV ONE (23:51)
[2020-09-24] MEDS ORDERED: MAGNESIUM SULFATE/D5W 1 GM/100 ML RTUPB IV ONE (23:53)
[2020-09-24] MEDS ORDERED: DEXTROSE 5%-LACTATED RINGERS 1,000 ML with POTASSIUM CHLORIDE 40 MEQ IV PRN ×2 (23:53)
[2020-09-25] MEDS ORDERED: ASPIRIN 81 MG TABLET, CHEWABLE PO ONE (00:03)
[2020-09-25 00:06] LABS: A TYPE INFLUENZA AG NEGATIVE (NEGATIVE); B INFLUENZA AG NEGATIVE (NEGATIVE)
--- NOTE | 2020-09-25 00:13 | RADIOLOGY REPORT (SQ) ---
CHEST X-RAY 1 VIEW on 09/24/2020 at 11:19 PM CLINICAL INDICATION: Hypotension, CHF COMPARISON: 09/13/2020 FINDINGS: The lungs are clear. Cardiac, hilar and mediastinal contours are within normal limits. Pulmonary vascularity is within normal limits. No bony abnormality is noted. IMPRESSION: No active disease.
[2020-09-25] MEDS ORDERED: DEXTROSE 5%-WATER 250 ML with NOREPINEPHRINE BITARTRATE 4 MG IV PRN ×2 (00:14)
[2020-09-25] MEDS ORDERED: NOREPINEPHRINE BITARTRATE INJ/PF 4 MG/4 ML SDV IV ONE (00:19)
[2020-09-25 00:35] LABS: INTERNATIONAL RATION (INR) 1.34; PARTIAL THROMBOPLASTIN TIME 27.7 SEC (23.5-35.8); PROTHROMBIN TIME 16.7 SEC (11.4-15.4)
[2020-09-25 02:46] LABS: APPEARANCE,URINE CLEAR; BILIRUBIN,URINE NEGATIVE (NEGATIVE); COLOR,URINE YELLOW; GLUCOSE, URINE 50 mg/dL (NEGATIVE); KETONES,URINE NEGATIVE (NEGATIVE); PROTEIN,URINE NEGATIVE (NEGATIVE); URINE SPECIFIC GRAVITY 1.008; UROBILINOGEN,URINE NEGATIVE mg/dL (<2.0)
[2020-09-25] MEDS: DEXTROSE 5%-WATER 250 ML with NOREPINEPHRINE BITARTRATE 4 MG IV PRN ×4 (03:25→17:21)
[2020-09-25 04:27] LABS: ABSOLUTE LYMPHOCYTES (AUTO) 1.6 10^3/uL (0.5-4.7); ABSOLUTE MONOCYTES (AUTO) 0.4 10^3/uL (0.1-1.4); ABSOLUTE NEUT (AUTO) 5.1 10^3/uL (1.7-8.2); BASOPHILS % (AUTO) 0.4 % (0-2); EOSINOPHILS % (AUTO) 0.2 % (0-6); HEMATOCRIT 28.2 % (36.0-47.0); HEMOGLOBIN 10.3 g/dL (12.0-15.5); LYMPHOCYTES % (AUTO) 22.2 % (13-45); MEAN CORPUSCULAR HEMOGLOBIN 33.6 pg (27.0-33.4); MEAN CORPUSCULAR HGB CONC 36.7 g/dL (32.0-36.0); MEAN CORPUSCULAR VOLUME 91 fl (80-97); MONOCYTES % (AUTO) 5.1 % (3-13); PLATELET COUNT 131 10^3/uL (150-450); RED BLOOD COUNT 3.08 10^6/uL (3.72-5.28); RED CELL DISTRIBUTION WIDTH 15.3 % (11.5-14.0); SEGMENTED NEUTROPHILS % (AUTO) 72.1 % (42-78); TOTAL CELLS COUNTED % (AUTO) 100 %; WHITE BLOOD COUNT 7.1 10^3/uL (4.0-10.5)
--- NOTE | 2020-09-25 04:33 | CRITICAL CARE ADMISSION REPORT ---
HPI Date:: 09/25/20 Time:: 01:00 Reason for ICU Reason:: sepsis Admission Date/Time & PCP: Admission Date/Time: 09/25/20 01:47 Primary Care Provider: SVETA CARUSO HPI: 55-year-old female history of CAD with stent on dual antiplatelet, have high, hypertension, hyperlipidemia, stroke, CHF on Lasix, COPD presents with episode of near syncope. Patient says that she was in her usual state of health and felt well other than few episodes of nonbloody nonblack diarrhea over the past day and then took her usual afternoon medications and shortly after began to feel extremely weak all over lightheaded like she was going to faint. Patient did not faint did not sustain any trauma and activated EMS who got a blood pressure of 40s to 50s systolic on scene. Patient had a lactate that was elevated with EMS and they gave her ceftriaxone 1 g IV prior to arrival and 1 L of crystalloid. Patient in ED blames her medications for her symptoms. Patient says that she has been on these medications for a long time and has not had any recent medication changes. Patient was seen in ED for vague lightheadedness symptoms approximately 10 days ago and had a Covid test which was negative. Patient denies any chest pain, shortness of breath, cough, abdominal pain, urinary symptoms, black stool, bloody stool, myalgia, EtOH/drug use, recent antibiotics, recent hospitalizations, immune compromise history, headache, neck pain or stiffness, thyroid history, steroid use - Diagnosis/Plan (1) Shock Is this a current diagnosis for this admission?: Yes Plan: Fluid resuscitation. LR x 3 L . Norepinephrine IV (2) Acute asthma exacerbation Qualifiers: Asthma severity: moderate Is this a current diagnosis for this admission?: Yes (3) Acute exacerbation of CHF (congestive heart failure) Qualifiers: Heart failure type: combined systolic and diastolic Qualified Code(s): I50.43 - Acute on chronic combined systolic (congestive) and diastolic (congestive) heart failure Is this a current diagnosis for this admission?: Yes Plan: Echo today. (4) Acute renal failure (ARF) Qualifiers: Acute renal failure type: unspecified Is this a current diagnosis for this admission?: Yes Plan: due to hypoperfusion , (5) CAD (coronary artery disease) Qualifiers: Coronary Disease-Associated Artery/Lesion type: due to calcified coronary lesion Qualified Code(s): I25.10 - Atherosclerotic heart disease of [place] coronary artery without angina pectoris; I25.84 - Coronary atherosclerosis due to calcified coronary lesion Is this a current diagnosis for this admission?: Yes Plan: s/p PCI 2017. On anti- platelets, beta- blockers, STACY (6) Current every day smoker Is this a current diagnosis for this admission?: Yes Plan: smoking cessation (7) Dehydration Is this a current diagnosis for this admission?: Yes Plan: IV Bolus x3 given (8) Encounter for smoking cessation counseling Is this a current diagnosis for this admission?: Yes (9) Hypokalemia Is this a current diagnosis for this admission?: Yes Plan: K-rider given. Monitor K+ level (10) Lower GI bleed Is this a current diagnosis for this admission?: Yes Plan: Monitor hgb/hct. (11) Sepsis Qualifiers: Sepsis type: sepsis due to unspecified organism Sepsis acute organ dysfunction status: with acute organ dysfunction Severe sepsis acute organ dysfunction type: acute renal failure Is this a current diagnosis for this admission?: Yes Plan: Lactic acid elevated. IV Bolus. On Norepinephrine started Past Medical History Cardiac Medical History: Reports: Coronary Artery Disease, Myocardial Infarction - JANUARY 2017, Hyperlipidema, Hypertension Pulmonary Medical History: Reports: Asthma - YEARS AGO, Pneumonia - ABOUT 30 Y EARS AGO Denies: Bronchitis, Chronic Obstructive Pulmonary Disease (COPD) Neurological Medical History: Denies: Seizures Musculoskeltal Medical History: Denies: Arthritis Psychiatric Medical History: Reports: Depression Hematology: Reports: Sickle Cell Disease - 2005 Denies: Anemia Past Surgical History Past Surgical History: Reports: Cardiac Catheterization - s/p PCI 2016, Section, Orthopedic Surgery - jaw Social/Family History - Social History Lives with: Alone Smoking Status: Unknown if Ever Smoked Frequency of Alcohol Use: Occasional Hx Recreational Drug Use: No Drugs: None Hx Prescription Drug Abuse: No - Medication/Allergies Home Medications: Aspirin [Ecotrin 81 mg EC Tablet] 81 mg PO DAILY 09/30/19 Atorvastatin Calcium [Lipitor 40 mg Tablet] 40 mg PO QHS 09/30/19 Carvedilol [Coreg 6.25 mg Tablet] 6.25 mg PO Q12 09/30/19 Duloxetine HCl [Cymbalta] 60 mg PO DAILY 09/30/19 Isosorbide Mononitrate [Imdur 30 mg Tablet.er] 30 mg PO QAM 09/30/19 Omeprazole 40 mg PO DAILY 09/30/19 Oxycodone HCl/Acetaminophen [Percocet 7.5-325 mg Tablet] 1 tab PO Q4HP PRN 09/30/19 Spironolactone [Aldactone 25 mg Tablet] 25 mg PO Q12 09/30/19 Zolpidem Tartrate [Ambien] 10 mg PO HSP PRN 09/30/19 Albuterol Sulfate [Proventil Hfa] 6.7 gm IH Q6 30 Days #1 hfa.aer.ad 10/02/19 Doxycycline Hyclate [Vibramycin] 100 mg PO BID 3 Days #6 capsule 10/02/19 Fluticasone/Salmeterol [Advair 250-50 Diskus 14 Dose/Diskus] 1 inh IH Q12H 30 Days #1 inhaler 10/02/19 Tiotropium Meherrin [Spiriva Respimat] 4 gm IH DAILY 30 Days #1 mist.inhal 10/02/19 Ondansetron [Zofran Odt 4 mg Tablet] 4 mg PO Q8 PRN #20 tab.rapdis 06/29/20 Allergies/Adverse Reactions: lisinopril Allergy (Verified 03/22/20 10:54) prednisone Allergy (Verified 03/22/20 10:54) Review of Systems All systems: reviewed and no additional remarkable complaints except as stated Cardiovascular: PRESENT: edema Respiratory: PRESENT: cough Genitourinary: PRESENT: as per HPI Musculoskeletal: PRESENT: as per HPI Psychiatric: PRESENT: depression Physical Exam Vital Signs: Temp Pulse Resp BP Pulse Ox 98.0 F 100 21 H 99/60 L 99 09/25/20 03:29 09/25/20 03:29 09/25/20 03:29 09/25/20 03:29 09/25/20 03:29 Intake & Output 09/23/20 09/24/20 09/25/20 06:59 06:59 06:59 Intake Total 2401 Balance 2401 Weight 76.2 kg Weight/Height Weight 76.2 kg Height 5 ft 4 in General appearance: PRESENT: no acute distress, cooperative Head exam: PRESENT: normocephalic Eye exam: PRESENT: conjunctiva pink, PERRLA Ear exam: PRESENT: normal external ear exam Mouth exam: PRESENT: neck supple, tongue midline Teeth exam: PRESENT: dental caries, other Neck exam: PRESENT: full ROM Respiratory exam: PRESENT: clear to auscultation nick, unlabored Cardiovascular exam: PRESENT: +S1, +S2 Pulses: PRESENT: normal radial pulses, +1 pedal pulses bilateral Vascular exam: PRESENT: normal capillary refill GI/Abdominal exam: PRESENT: normal bowel sounds, soft Extremities exam: PRESENT: full ROM, +1 edema Musculoskeletal exam: PRESENT: full ROM, normal inspection Neurological exam: PRESENT: alert, altered, awake, oriented to person, oriented to place, oriented to time, oriented to situation, normal gait Psychiatric exam: PRESENT: appropriate affect Focused psych exam: PRESENT: other Laboratory/Radiographs Laboratory Results: 09/24/20 22:49 09/24/20 22:49 09/24/20 09/24/20 09/24/20 22:49 22:49 22:49 WBC 9.4 RBC 3.09 L Hgb 10.1 L Hct 28.7 L MCV 93 MCH 32.5 MCHC 35.0 RDW 15.3 H Plt Count 145 L Seg Neutrophils % 68.6 Sodium 123.7 L Potassium 3.3 L Chloride 89 L Carbon Dioxide 21 L Anion Gap 14 BUN 63 H Creatinine 1.96 H Est GFR ( Amer) 32 L Glucose 314 H Lactic Acid 3.0 H Calcium 8.6 Phosphorus 5.7 H Magnesium 1.2 L* Total Bilirubin 0.5 AST 112 H Alkaline Phosphatase 262 H Total Protein 5.4 L Albumin 3.2 L TSH Urine Color Urine Appearance Urine pH Ur Specific [place] Urine Protein Urine Glucose (UA) Urine Ketones Urine Blood Urine RBC (Auto) 09/24/20 09/25/20 22:49 02:07 WBC RBC Hgb Hct MCV MCH MCHC RDW Plt Count Seg Neutrophils % Sodium Potassium Chloride Carbon Dioxide Anion Gap BUN Creatinine Est GFR ( Amer) Glucose Lactic Acid Calcium Phosphorus Magnesium Total Bilirubin AST Alkaline Phosphatase Total Protein Albumin TSH 4.27 Urine Color YELLOW Urine Appearance CLEAR Urine pH 6.0 Ur Specific [place] 1.008 Urine Protein NEGATIVE Urine Glucose (UA) 50 H Urine Ketones NEGATIVE Urine Blood NEGATIVE Urine RBC (Auto) 0 09/24/20 09/24/20 22:49 22:49 Creatine Kinase 85 Troponin I 0.226 Impressions: Chest X-Ray 09/24/20 23:09 IMPRESSION: No active disease. All labs, radiographs, diagnostic studies and EKGs were personally reviewed: Yes In addition, reports of radiographic and diagnostic studies were read: Yes Critical Time Critical Time (minutes): 60 -: The care of a critically ill patient is dynamic. This note represents a static moment in the admission process. Orders and treatments may be given simultaneously and urgently, and time is not procurement representative of the treatment process. This patient requires Critical Care secondary to life threatening organ or limb dysfunction. Without Critical Care services, the patient is at risk for increased mortality and morbidity.
[2020-09-25 04:46] LABS: ALBUMIN 3.4 g/dL (3.5-5.0); ALKALINE PHOSPHATASE 355 U/L (38-126); ANION GAP 15 (5-19); ASPARTATE AMINO TRANSFERASE 112 U/L (14-36); BILIRUBIN,DIRECT 0.4 mg/dL (0.0-0.4); BILIRUBIN,TOTAL 0.5 mg/dL (0.2-1.3); BLOOD UREA NITROGEN 56 mg/dL (7-20); CALCIUM 8.8 mg/dL (8.4-10.2); CARBON DIOXIDE 19 mmol/L (22-30); CHLORIDE 95 mmol/L (98-107); GLUCOSE 287 mg/dL (75-110); TOTAL PROTEIN 5.6 g/dL (6.3-8.2)
[2020-09-25 04:51] LABS: POTASSIUM 2.9 mmol/L (3.6-5.0)
[2020-09-25] MEDS ORDERED: POTASSIUM CHLORIDE 10 MEQ TABLET.ER PO ONE ×2 (04:56→04:59)
[2020-09-25] MEDS ORDERED: MAGNESIUM OXIDE 400 MG TABLET PO ONE (05:00)
[2020-09-25] MEDS: MAGNESIUM SULFATE/D5W 1 GM/100 ML RTUPB IV SCH ×2 (05:28→06:20)
[2020-09-25] MEDS: RINGERS SOLUTION,LACTATED 1,000 ML IV PRN ×2 (06:24→20:00)
[2020-09-25] MEDS ORDERED: CEFTRIAXONE 1 GM/D5W RTU 1 GM/50 ML RTUPB IV SCH (10:00)
[2020-09-25 12:28] LABS: POTASSIUM 3.4 mmol/L (3.6-5.0)
[2020-09-25] MEDS ORDERED: POTASSIUM CHLORIDE 20 MEQ PACKET PO ONE (16:00)
--- NOTE | 2020-09-25 18:06 | EKG REPORT ---
SEVERITY:- ABNORMAL ECG - SINUS RHYTHM BORDERLINE INFERIOR Q WAVES ANTERIOR INFARCT, AGE INDETERMINATE BORDERLINE PROLONGED QT INTERVAL : Confirmed by: Teddy Castillo MD 25-Sep-2020 18:05:59
--- NOTE | 2020-09-25 18:06 | EKG REPORT ---
SEVERITY:- ABNORMAL ECG - SINUS RHYTHM BORDERLINE INFERIOR Q WAVES ANTERIOR INFARCT, AGE INDETERMINATE : Confirmed by: Teddy Castillo MD 25-Sep-2020 18:05:50
--- NOTE | 2020-09-25 20:04 | XCELERA REPORT ---
[address] [address] Transthoracic Echocardiogram Report Name: RICCARDO GARCIA Age: 55 yrs Gender: Female : 1965 Patient Status: Inpatient Patient Location: ICU^604^A Study Date: 09/25/2020 06:28 PM Height: 64 in Weight: 167 lb BSA: 1.8 m2 Procedure: A complete two-dimensional transthoracic echocardiogram was performed (2D, M-mode, spectral and color flow Doppler). The study was technically difficult with many images being suboptimal in quality. Images from the parasternal window were difficult to obtain and are suboptimal in quality. Reason For Study: syncope Ordering Physician: MARYLOU SANCHEZ Performed By: Luz Maria Casiano Interpretation Summary There is mild concentric left ventricular hypertrophy. Left ventricular systolic function is normal. The Ejection Fraction estimate is 60-65%. Doppler measurements suggest impaired left ventricular relaxation, which is associated with grade I/IV or mild diastolic dysfunction. Regional wall motion abnormalities cannot be excluded due to limited visualization. Trace to mild MR, mild TR, trace PI. MMode/2D Measurements & Calculations RVDd: 3.3 cm LVIDd: 4.9 cm FS: 33.5 % Ao root diam: 3.2 cm IVSd: 1.2 cm LVIDs: 3.2 cm EDV(Teich): Ao root area: 112.1 ml LVPWd: 1.3 cm 8.1 cm2 ESV(Teich): 42.5 mlLA dimension: 3.5 cm EF(Teich): 62.1 % LVLd ap4: 6.5 cm SV(MOD-sp4): EDV(MOD-sp4): 39.0 ml 68.0 ml LVLs ap4: 6.1 cm ESV(MOD-sp4): 29.0 ml EF(MOD-sp4): 57.4 % Doppler Measurements & Calculations MV E max ailyn: MV P1/2t max ailyn: Ao V2 max: LV V1 max P.0 cm/sec 102.0 cm/sec 168.9 cm/sec 6.7 mmHg MV A max ailyn: MV P1/2t: 55.3 msec Ao max PG: LV V1 max: 100.9 cm/sec 11.4 mmHg 129.3 cm/sec MVA(P1/2t): 4.0 cm2 MV E/A: 0.70 MV dec slope: 540.4 cm/sec2 MV dec time: 0.23 sec PA V2 max: TR max ailyn: MV P1/2t-pr_phl: 113.0 cm/sec 213.3 cm/sec 55.3 msec PA max P.1 mmHgTR max P.2 mmHg Left Ventricle There is mild concentric left ventricular hypertrophy. Left ventricular systolic function is normal. The Ejection Fraction estimate is 60-65%. Doppler measurements suggest impaired left ventricular relaxation, which is associated with grade I/IV or mild diastolic dysfunction. Regional wall motion abnormalities cannot be excluded due to limited visualization. Right Ventricle The right ventricle is grossly normal size. The right ventricular systolic function is normal. Atria The right atrium is normal in size. The left atrial size is normal. Interarterial septum not well visualized and not well dopplered. Cannot comment on ASD/PFO presence. Mitral Valve The mitral valve is grossly normal. There is no evidence of mitral valve prolapse. There is no mitral valve stenosis. There is a trace to mild amount of mitral regurgitation. Aortic Valve The aortic valve is grossly normal. There is no aortic valvular vegetation. There is no aortic valve stenosis. Tricuspid Valve The tricuspid valve is not well visualized, but is grossly normal. There is no tricuspid valve prolapse. There is no tricuspid stenosis. There is a mild amount of tricuspid regurgitation. Pulmonic Valve The pulmonic valve is not well seen, but is grossly normal. There is no vegetation on the pulmonic valve. There is no pulmonic valvular stenosis. There is a trace or physiologic amount of pulmonic regurgitation. Effusions There is no pericardial effusion. There is no pleural effusion. : MARYLOU SANCHEZ Antonio
[2020-09-25 20:14] LABS: ANION GAP 13 (5-19); BLOOD UREA NITROGEN 37 mg/dL (7-20); CALCIUM 9.1 mg/dL (8.4-10.2); CARBON DIOXIDE 23 mmol/L (22-30); CHLORIDE 99 mmol/L (98-107); GLUCOSE 197 mg/dL (75-110); POTASSIUM 4.3 mmol/L (3.6-5.0)
[2020-09-25] MEDS ORDERED: OXYCODONE HCL IR 5 MG TABLET PO ONE (20:30)
[2020-09-25] MEDS: HEPARIN SOD (PORCINE) 5,000 UNIT/ML 1 ML VIAL SUBCUT SCH (21:59)
[2020-09-25] MEDS ORDERED: FAMOTIDINE INJ/PF 20 MG/2 ML SDV IV SCH (22:00)
[2020-09-25] MEDS ORDERED: DOXEPIN HCL 25 MG CAPSULE PO ONE (22:00)
[2020-09-25] MEDS ORDERED: GABAPENTIN 100 MG CAPSULE PO ONE (23:00)
[2020-09-26 04:30] LABS: ANION GAP 9 (5-19); BLOOD UREA NITROGEN 31 mg/dL (7-20); CALCIUM 8.7 mg/dL (8.4-10.2); CARBON DIOXIDE 22 mmol/L (22-30); CHLORIDE 104 mmol/L (98-107); GLUCOSE 151 mg/dL (75-110); PHOSPHORUS 2.5 mg/dL (2.5-4.5)
[2020-09-26] MEDS: HEPARIN SOD (PORCINE) 5,000 UNIT/ML 1 ML VIAL SUBCUT SCH (05:11)
[2020-09-26] MEDS: RINGERS SOLUTION,LACTATED 1,000 ML IV PRN (05:22)
[2020-09-26 06:58] VITALS: BP 144/88
--- NOTE | 2020-09-26 08:41 | PDOC CONSULTATION ---
Consultation Consult Date: 09/26/20 Attending physician:: MARYLOU SANCHEZ Provider Consulted: LINNEA JENKINS Consult reason:: Recurrent syncope History of Present Illness Admission Date/PCP: 09/25/20 01:47 SVETA CARUSO History of Present Illness: 55-year-old female history of CAD status post anterior wall STEMI in January 2017 initially treated with thrombolytics and eventually underwent complex PCI with FADI placement to the distal LAD at [facility] with a discharge ejection fraction between 35 to 40%, hypertension, hyperlipidemia, stroke, heart failure with reduced ejection fraction and COPD who is consulted to our service for evaluation of recurrent syncope. The patient presented to our emergency room on 09/24/2020 via EMS after suffering her fourth syncopal event. Per chart review, her initial blood pressure was very low and she remained hypotensive in the emergency room with multiple electrolyte abnormalities and mild renal dys function. She was fluid resuscitated with at least 3 L of IV fluids and also had a short course of vasopressors with normalization of her blood pressure and electrolyte abnormalities. The patient states that she had been doing well since her heart attack in 2016 however was recently placed on low-dose Lasix, 20 mg daily, and since then she began to feel lightheaded, dizzy and nauseous. She had experienced approximately 4 episodes of syncope all of them occurring after standing for a period of time or when she gets up quickly from the sitting or the supine position. Her syncope is preceded by feeling very dizzy and lightheaded which is followed by total loss of consciousness for just a few seconds. Upon awakening she feels tired and dizzy but is able to go back to her normal activities within a few minutes. She specifically denied palpitations, chest pain, racing heart prior to her syncopal events. Since admission she had done well and without recurrence of any syncope or presyncope. Her telemetry shows normal sinus rhythm without any sustained complex atrial or ventricular dy srhythmias. Her echocardiogram from yesterday demonstrated an ejection fraction between 35 and 40% with regional wall motion abnormalities as described however this is unchanged from a prior echo in April 2020 at [facility]. This morning she is asymptomatic from the cardiovascular standpoint and requesting to go home. She states that she has an appointment with her glost kiln operator at [facility] on 10/03/2020. Physical exam on 09/26/2020: GENERAL: Pleasant and conversational. Oriented x3 with normal mood. Not in acute distress. Well groomed and well developed. HEENT: Normocephalic. Pupils equal. Sclerae anicteric. Oropharynx moist. Small, superficial laceration to the tip of the nose, very faint periorbital ecchymosis. NECK: No JVD. No carotid bruits. LUNGS: Clear to auscultation bilaterally. Normal respiratory effort without the use of accessory muscles or intercostal retractions. CARDIOVASCULAR: Regular rate and rhythm, normal S1 and S2 without murmurs, rubs, or gallops. PMI not displaced. ABDOMEN: No masses or tenderness to palpation. No bruit. No splenomegaly or hepatomegaly. No abdominal aorta bruit noted. EXTREMITIES: No edema, no cyanosis, no clubbing. +2 pulses femoral and pedal pulses bilaterally. MUSCULOSKELETAL: No chest tenderness to palpation. NEUROLOGIC: Nonfocal. No gross sensory or motor deficits bilateral upper or lo wer extremities. Cardiac studies: LHC on 02/03/2017 at [facility]: -Left main: Patent. -LAD: 100% occluded after diagonal vessel--> complex PCI with FADI. -Diagonal: Small to medium size, diffusely diseased. -Ramus: Ostial 20% lesion. -Left circumflex: Diffuse mild plaque but otherwise patent. -RCA: 20% stenosis proximally and 30 to 40% stenosis in the mid vessel. Past Medical History Cardiac Medical History: Reports: Coronary Artery Disease, Myocardial Infarction - JANUARY 2017, Hyperlipidema, Hypertension Pulmonary Medical History: Reports: Asthma - YEARS AGO, Pneumonia - ABOUT 30 YEARS AGO Denies: Bronchitis, Chronic Obstructive Pulmonary Disease (COPD) Neurological Medical History: Denies: Seizures Musculoskeltal Medical History: Denies: Arthritis Psychiatric Medical History: Reports: Depression Hematology: Reports: Sickle Cell Disease - 2005 Denies: Anemia Past Surgical History Past Surgical History: Reports: Cardiac Catheterization - s/p PCI 2017, Section, Orthopedic Surgery - jaw Social History Lives with: Alone Smoking Status: Unknown if Ever Smoked Frequency of Alcohol Use: Occasional Hx Recreational Drug Use: No Drugs: None Hx Prescription Drug Abuse: No Family History Family History: Reviewed & Not Pertinent, Hypertension Parental Family History Reviewed: Yes Children Family History Reviewed: Yes Sibling(s) Family History Reviewed.: Yes Medication/Allergy Home Medications: Atorvastatin Calcium [Lipitor 40 mg Tablet] 40 mg PO QHS 09/30/19 Isosorbide Mononitrate [Imdur 30 mg Tablet.er] 30 mg PO QAM 09/30/19 Carvedilol [Coreg 12.5 mg Tablet] 12.5 mg PO Q12 09/25/20 Clopidogrel Bisulfate [Plavix 75 mg Tablet] 75 mg PO DAILY 09/25/20 Doxepin HCl [Sinequan 25 mg Capsule] 25 mg PO HSP PRN 09/25/20 Furosemide [Lasix 20 mg Tablet] 20 mg PO DAILY 09/25/20 Gabapentin [Neurontin 400 mg Capsule] 400 mg PO QHS 09/25/20 Potassium Chloride [Klor-Con 10 Meq Tablet ER] 10 meq PO DAILY 09/25/20 Sacubitril/Valsartan [Entresto 24 mg/26 mg Tablet] 1 tab PO BID 09/25/20 Tizanidine HCl [Zanaflex 4 mg Tablet] 8 mg PO QHS 09/25/20 Allergies/Adverse Reactions: lisinopril Allergy (Verified 03/22/20 10:54) prednisone Allergy (Verified 03/22/20 10:54) Physical Exam Vital Signs: Temp Pulse Resp BP Pulse Ox 98.0 F 95 19 144/88 H 100 09/26/20 03:52 09/26/20 05:47 09/26/20 06:38 09/26/20 06:38 09/26/20 06:38 Intake & Output 09/25/20 09/26/20 09/27/20 06:59 06:59 06:59 Intake Total 2547 2477 Output Total 900 Balance 2547 1577 Weight 76.2 kg 77 kg Results Laboratory Results: 09/25/20 04:09 09/26/20 03:48 09/25/20 09/25/20 09/26/20 11:50 19:29 03:48 Sodium 135.2 L 134.5 L Potassium 3.4 L 4.3 4.0 Chloride 99 104 Carbon Dioxide 23 22 Anion Gap 13 9 BUN 37 H 31 H Creatinine 0.95 0.73 Est GFR ( Amer) > 60 > 60 Glucose 197 H 151 H Calcium 9.1 8.7 Phosphorus 2.5 Magnesium 2.2 1.7 1.6 09/24/20 09/24/20 22:49 22:49 Creatine Kinase 85 Troponin I 0.226 Impressions: Chest X-Ray 09/24/20 23:09 IMPRESSION: No active disease. 09/25/20 04:09 09/26/20 03:48 MCV 91 fl (80-97) 09/25/20 04:09 MCH 33.6 pg (27.0-33.4) H 09/25/20 04:09 MCHC 36.7 g/dL (32.0-36.0) H 09/25/20 04:09 RDW 15.3 % (11.5-14.0) H 09/25/20 04:09 Seg Neutrophils % 72.1 % (42-78) 09/25/20 04:09 Chloride 104 mmol/L (98-107) 09/26/20 03:48 Carbon Dioxide 22 mmol/L (22-30) 09/26/20 03:48 Anion Gap 9 (5-19) 09/26/20 03:48 Est GFR ( Amer) > 60 (>60) 09/26/20 03:48 Glucose 151 mg/dL (75-110) H 09/26/20 03:48 Lactic Acid 2.3 mmol/L (0.7-2.1) H 09/25/20 04:09 Calcium 8.7 mg/dL (8.4-10.2) 09/26/20 03:48 Phosphorus 2.5 mg/dL (2.5-4.5) 09/26/20 03:48 Magnesium 1.6 mg/dL (1.6-2.3) 09/26/20 03:48 Total Bilirubin 0.5 mg/dL (0.2-1.3) 09/25/20 04:09 AST 112 U/L (14-36) H 09/25/20 04:09 Alkaline Phosphatase 355 U/L (38-126) H 09/25/20 04:09 Total Protein 5.6 g/dL (6.3-8.2) L 09/25/20 04:09 Albumin 3.4 g/dL (3.5-5.0) L 09/25/20 04:09 TSH 4.27 uIU/mL (0.47-4.68) 09/24/20 22:49 Urine Color YELLOW 09/25/20 02:07 Urine Appearance CLEAR 09/25/20 02:07 Urine pH 6.0 (5.0-9.0) 09/25/20 02:07 Ur Specific [place] 1.008 09/25/20 02:07 Urine Protein NEGATIVE mg/dL (NEGATIVE) 09/25/20 02:07 Urine Glucose (UA) 50 mg/dL (NEGATIVE) H 09/25/20 02:07 Urine Ketones NEGATIVE mg/dL (NEGATIVE) 09/25/20 02:07 Urine Blood NEGATIVE (NEGATIVE) 09/25/20 02:07 Urine RBC (Auto) 0 /HPF 09/25/20 02:07 09/24/20 09/24/20 22:49 22:49 Creatine Kinase 85 Troponin I 0.226 Current Medication List Generic Name Dose Route Start Last Admin Trade Name Freq PRN Reason Stop Dose Admin Famotidine 20 mg 09/25/20 22:00 09/25/20 21:58 Pepcid Inj/Pf 20 Mg/2 Ml Sdv IV 10/25/20 21:59 20 mg Q12 KALEN Administration Heparin Sodium (Porcine) 5,000 unit 09/25/20 22:00 09/26/20 05:11 Heparin Inj 5,000 Units/Ml 1 Ml Vial SUBCUT 10/25/20 21:59 Not Given Q8 KALEN Norepinephrine Bitartrate 4 mg 250 mls @ 0 mls/hr 09/25/20 04:37 09/25/20 22:11 / Dextrose IV 10/25/20 04:36 0 mcg/min CONTINUOUS PRN 0 mls/hr THIS MED IS NOT "PRN" Titration Protocol Titrate Lactated Ringer's 1,000 mls @ 100 mls/hr 09/25/20 06:05 09/26/20 05:22 Lactated Ringers 1000 Ml Iv Soln IV 10/25/20 06:04 100 mls/hr CONTINUOUS PRN Administration THIS MED IS NOT "PRN" Ceftriaxone Sodium/Dextrose 1 gm in 50 mls @ 100 mls/hr 09/25/20 10:00 09/25/20 12:26 Rocephin Rtu 1 Gm/D5w 50 Ml Premix IV 10/02/20 09:59 Infused DAILY KALEN Infusion Sodium Chloride 2.5 ml 09/25/20 06:00 09/26/20 05:11 Saline Flush 2.5 Ml Monoject Prefil Syrin IV 10/25/20 05:59 Not Given Q8 KALEN Discontinued Medications Generic Name Dose Route Start Last Admin Trade Name Freq PRN Reason Stop Dose Admin Aspirin 324 mg 09/25/20 00:03 09/25/20 00:08 Aspirin 81 Mg Chewable Tablet PO 09/25/20 00:04 324 mg NOW ONE Administration Doxepin HCl 25 mg 09/25/20 22:00 09/25/20 21:58 Sinequan 25 Mg Capsule PO 09/25/20 22:01 25 mg NOW ONE Administration Gabapentin 100 mg 09/25/20 23:00 Neurontin 100 Mg Capsule PO 09/25/20 23:01 NOW ONE Sodium Chloride 1,000 mls @ 0 mls/hr 09/24/20 23:10 09/24/20 23:59 Nacl 0.9% 1000 Ml Iv Soln IV 09/24/20 23:11 Infused BOLUS ONE Infusion Wide Open Lactated Ringer's 1,301 mls @ 0 mls/hr 09/24/20 23:51 09/25/20 01:07 Lactated Ringers 1000 Ml Iv Soln IV 09/24/20 23:52 Infused BOLUS ONE Infusion Wide Open Magnesium Sulfate/Dextrose 1 gm in 100 mls @ 100 mls/hr 09/24/20 23:53 09/25/20 01:07 Magnesium Sulfate Rtu-D5w 1 Gm/100 Ml Premix IV 09/25/20 00:52 Infused NOW ONE Infusion Potassium Chloride 40 meq/ 1,000 mls @ 0 mls/hr 09/24/20 23:53 Dextrose/Lactated Ringer's IV 10/24/20 23:52 CONTINUOUS PRN THIS MED IS NOT "PRN" As Directed Norepinephrine Bitartrate 4 mg 250 mls @ 0 mls/hr 09/25/20 00:14 09/25/20 03:25 / Dextrose IV 10/25/20 00:13 0 mls/hr CONTINUOUS PRN 0 mls/hr THIS MED IS NOT "PRN" Titration Protocol Titrate Magnesium Sulfate/Dextrose 1 gm in 100 mls @ 100 mls/hr 09/25/20 05:00 09/25/20 06:20 Magnesium Sulfate Rtu-D5w 1 Gm/100 Ml Premix IV 09/25/20 06:59 100 mls/hr Q1H KALEN 100 mls/hr Administration Magnesium Oxide 800 mg 09/25/20 05:00 09/25/20 05:27 Mag-Ox 400 Mg Tablet PO 09/25/20 05:01 800 mg NOW ONE Administration Norepinephrine Bitartrate Confirm 09/25/20 00:19 09/25/20 00:25 Levophed Inj/Pf 4 Mg/4 Ml Sdv Administered 09/25/20 00:20 Not Given Dose 4 mg IV .STK-MED ONE Oxycodone HCl 5 mg 09/24/20 23:10 09/24/20 23:15 Oxy-Ir 5 Mg Tablet PO 09/24/20 23:11 5 mg NOW ONE Administration Oxycodone HCl 5 mg 09/25/20 20:30 09/25/20 20:25 Oxy-Ir 5 Mg Tablet PO 09/25/20 20:31 5 mg NOW ONE Administration Potassium Chloride 40 meq 09/25/20 04:59 09/25/20 05:27 Klor-Con 10 Meq Tablet Er PO 09/25/20 05:00 40 meq NOW ONE Administration Potassium Chloride 40 meq 09/25/20 16:00 09/25/20 17:20 Potassium Chloride 20 Meq Packet PO 09/25/20 16:01 40 meq NOW ONE Administration Assessment & Plan - Diagnosis (1) CAD (coronary artery disease) Qualifiers: Coronary Disease-Associated Artery/Lesion type: curyung artery Is this a current diagnosis for this admission?: Yes Plan: 55-year-old female status post anterior STEMI in January 2017 which was treated with a FADI to the mid to distal LAD. She did have residual nonobstructive disease in the ostium of the ramus as well as the RCA. She had been kept on dual antiplatelet therapy since then with an admission to [facility] in April 2020 for chest pain at which time she ruled out for PA. She has remained free of ischemic symptoms during this hospitalization however she did have a positive troponin on admission likely secondary to a type II PA from her hypotension as described below. Please see #3 below for recommendations. Recommendations: -Continue with dual antiplatelet therapy as well as her outpatient regimen as prescribed by her cardiology at [facility]. -Follow-up with outpatient glost kiln operator as scheduled on 10/03/2020. (2) Syncope Qualifiers: Syncope type: unspecified Qualified Code(s): R55 - Syncope and collapse Is this a current diagnosis for this admission?: Yes Plan: Likely secondary to dehydration from diuretic use as demonstrated by her severe hypokalemia, hypotension and DANIEL on presentation which resolved with fluid resuscitation. Luckily enough, her telemetry had been benign since admission and without malignant ventricular or atrial dysrhythmias. The history of her syncopal events are consistent with hypovolemia. She is currently euvolemic. Recommendations: -Discontinue Lasix until she is reevaluated by her outpatient glost kiln operator as scheduled otherwise continue with her outpatient regimen. (3) Type 2 myocardial infarction Is this a current diagnosis for this admission?: Yes Plan: The patient has a mild elevation of her troponin on admission at 0.2, unfortunately it has not been trended yet. She has remained free of ischemic symptoms and denied having any ischemic symptoms prior to her syncopal events. I do believe her elevated troponin is secondary to supply demand mismatch given her severe dehydration as well as hypotension in the setting of nonobstructive coronary artery disease. Her echocardiogram during this admission demonstrated an unchanged ejection fraction from a prior one in April in 2019 and between 35 and 40%. Recommendations: -Continue with dual antiplatelet therapy as well as her outpatient cardiology regimen. -Avoid dehydration/hypotension. -Ischemic assessment in the outpatient setting, I will defer this to her outpatient glost kiln operator, Dr. Machado, at [facility]. (4) Heart failure with reduced ejection fraction Is this a current diagnosis for this admission?: Yes Plan: The patient is euvolemic. Her ejection fraction on her current echocardiogram is essentially unchanged from a prior report in 2016 and again in April 2020 at [facility]. Recommendations: -Continue with current medical management except Lasix. -Follow-up with outpatient cardiology at [facility] as scheduled.
== END 2020-09-26 09:20 | disposition left against medical advice (07) | DRG 871 ==
LOC: ER 22:41 → EH 09-25 01:47 → ICU 09-25 03:21
PROVIDERS: ADMIT Internal Medicine Critical Care Medicine; ATTEND Internal Medicine Critical Care Medicine
DX: A41.9 Sepsis, unspecified organism (principal); R65.21 Severe sepsis with septic shock; I50.43 Acute on chronic combined systolic (congestive) and diastolic (congestive) heart failure; I21.A1 Myocardial infarction type 2; J44.1 Chronic obstructive pulmonary disease with (acute) exacerbation; K92.2 Gastrointestinal hemorrhage, unspecified; D57.1 Sickle-cell disease without crisis; I11.0 Hypertensive heart disease with heart failure; I25.10 Atherosclerotic heart disease of native coronary artery without angina pectoris; E78.5 Hyperlipidemia, unspecified; S01.21XA Laceration without foreign body of nose, initial encounter; S05.10XA Contusion of eyeball and orbital tissues, unspecified eye, initial encounter; E87.6 Hypokalemia; K02.9 Dental caries, unspecified; F32.9 Major depressive disorder, single episode, unspecified; F17.200 Nicotine dependence, unspecified, uncomplicated; I25.2 Old myocardial infarction; Z95.5 Presence of coronary angioplasty implant and graft; Z86.73 Personal history of transient ischemic attack (TIA), and cerebral infarction without residual deficits; Z82.49 Family history of ischemic heart disease and other diseases of the circulatory system; Z79.02 Long term (current) use of antithrombotics/antiplatelets; Z79.899 Other long term (current) drug therapy; Z88.8 Allergy status to other drugs, medicaments and biological substances
CPT/HCPCS: 36415; 71045; 80048; 80053; 81001; 82270; 82533; 82550; 83605; 83735; 83880; 84100; 84132; 84443; 84484; 85025; 85379; 85610; 85730; 87040; 87635; 87804; 93005; 93010; 93306; 96361; 96365; 96368; 99285; C9803; J0696; J3475; J3490; J7030; J7060; J7120; S0028